=== PATIENT | male | born 1940 | race Caucasian/White ===

== ENCOUNTER 2020-03-17 20:52 | Emergency (ER) | payer OTHER, MEDICARE ==
--- OUTSIDE RECORDS SUMMARY | 2020-03-17 20:54 | XMS REPORT ---
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 [address]-85 Active not defined Allopurinol [facility] [id number] Active not defined protandim NDC 0 Active not defined Glucos-Chondroit [facility] 00134-50730 Active not -MSM Complex defined Tramadol HCl [facility] [id number] 50 MG Orally April 15, Active 1 tablet every 6 hrs 2018 as needed Acetaminophen-Co [facility] [address]-25 Active n ot deine #[address] [facility] [address]-74 Active not defined Super B Complex NDC 0 Active not defined Vitamin C [facility] [address]-37 Active not defined Folic Acid [facility] [address]-54 Active not defined Magnesium NDC 0 Active not defined Amlodipine NDC 0 Active not Besylate defined Bisoprolol [facility] [address]-78 Active not Fumarate defined Atorvastatin [facility] [address]-70 Active not Calcium defined [place] [address] [facility] [address]71 Active not defined Furosemide [facility] [address]-87 Active not defined Levothyroxine [facility] [address]-45 Active not Sodium defined Aspirin [address] [facility] [address]70 Active not defined Results No Known Results Summary Purpose eClinicalWorks Submission
--- OUTSIDE RECORDS SUMMARY | 2020-03-17 20:54 | XMS REPORT ---
:1940 Author Organization [facility] Address [address] [place] [address] Care Team Providers Name Role Phone Unavailable Unavailable Unavailable Problems Condition Condition Condition Status Onset Resolution Last Treatin g Comments Name Details Category Date Date Treatment Clinician Date Pain, Pain, Problem Active joint, joint, shoulder, shoulder, right right Impingement Impingement Problem Active syndrome of syndrome of right right shoulder shoulder Left sided Left sided Problem Active sciatica sciatica Pain of Pain of Problem Active left hip left hip joint joint Primary Primary Problem Active osteoarthri osteoarthri tis, right tis, right shoulder shoulder Traumatic Traumatic Problem Active tear of tear of supraspinat supraspinat us tendon us tendon of right of right shoulder, shoulder, subsequent subsequent encounter encounter Traumatic Traumatic Diagnosis Active complete complete tear of tear of right right rotator rotator cuff, cuff, initial initial encounter encounter Allergies, Adverse Reactions, Alerts Allergy Name Allergy Status Severity Reaction(s) Onset Inactive Treat ing Comments Type Date Date Clinician penicillin Adverse Active Info Not Reaction Available Medications Ordered Filled Start Stop Current Ordering Indication Dosage Frequency Signature Comments Components Medication Medication Date Date Medication? Clinician (SIG) Name Name Tramadol Tramadol Yes Costa 1 tablet HCl HCl 6-03 Matrínez as needed 00:00: 00 Bisoprolol Bisoprolol Yes Costa not Fumarate Fumarate Martínez defined Allopurinol Allopurinol Yes Costa not Martínez defined Super B Super B Yes Costa not Complex Complex Martínez defined Folic Acid Folic Acid Yes Costa not Martínez defined Furosemide Furosemide Yes Costa not Martínez defined Atorvastati Atorvastati Yes Costa not n Calcium n Calcium Martínez defined protandim protandim Yes Costa not Martínez defined Aspirin 81 Aspirin 81 Yes Costa not Martínez defined Glucos-Daron Glucos-Daron Yes Costa not droit-MSM droit-MSM Martínez defined Complex Complex Gabapentin Gabapentin Yes Costa not Martínez defined Amlodipine Amlodipine Yes Costa not Besylate Besylate Martínez defined Magnesium Magnesium Yes Costa not Martínez defined Valsartan Valsartan Yes Costa not Martínez defined [place] 3 [place] 3 Yes Costa not Martínez defined Levothyroxi Levothyroxi Yes Costa not ne Sodium ne Sodium Martínez defined Vitamin C Vitamin C Yes Costa not Martínez defined Acetaminoph Acetaminoph Yes Costa not en-Codeine en-Codeine Martínez defined #3 #3 Xarelto Xarelto Yes Costa not Martínez defined Encounters Start End Encounter Admission Attending Care Care Encounter Date/Time Date/Time Type Type Clinicians Facility Department ID 2020-02-21 2020-02-21 [id number] 09:00:00 09:00:00 [facility] 2019-12-12 2019-12-12 [id number] 13[facility]30:00 13:30:00 [facility] 2019-10-21 2019-10-21 [id number] 08:00:00 08:00:00 [facility] 2019-09-20 2019-09-20 [id number] 10:30:00 10:30:00 [facility] 2019-08-13 2019-08-13 [id number] 15:00:00 15:00:00 [facility] 2019-08-01 2019-08-01 [id number] 15:00:00 15:00:00 [facility] 2019-07-22 2019-07-22 [id number] 09:18:00 09:18:00 [facility] 2019-07-19 2019-07-19 [id number] 11:58:00 11:58:00 [facility] 2019-07-18 2019-07-18 [id number] 13:30:00 13:30:00 [facility] 2019-02-05 2019-02-05 [facility] [id number] 08:30:00 08:30:00 [facility]
--- OUTSIDE RECORDS SUMMARY | 2020-03-17 20:54 | XMS REPORT ---
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 Assessment Pain, joint, shoulder, right M25.511 Active Assessment Traumatic complete tear of right S46.011A [...] Start End Status Dosage System Date Date Amlodipine NDC 0 Active not Besylate defined Gabapentin [facility] [address]-31 Active not defined Allopurinol [facility] [id number] Active not defined [place] 3 [facility] [address]378 Active not defined Folic Acid [facility] [address]-68 Active not defined Furosemide [facility] [address]-83 Active not defined Super B Complex NDC 0 Active not defined Levothyroxine [facility] [address]-78 Active not Sodium defined protandim ND 0 Active not defined Vitamin C [facility] [address]-69 Active not defined Glucos-Chondroit [facility] [address]314 Active not -MSM Complex defined Magnesium NDC 0 Active not defined Tramadol HCl [facility] 97708686103 50 MG Orally April 15, Active 1 tablet every 6 hrs 2018 as needed Bisoprolol [facility] [address]-61 Active not Fumarate defined Atorvastatin [facility] [address]-33 Active not Calcium defined Acetaminophen-Co [facility] [address]-41 Active n ot deine #3 defined Tylenol Extra [facility] [address]-08 Active not Strength defined Valsartan [facility] [address]-98 Active not defined Aspirin 81 [facility] [address]51-55639 Active not defined Results No Known Results Summary Purpose eClinicalWorks Submission
--- OUTSIDE RECORDS SUMMARY | 2020-03-17 20:54 | XMS REPORT ---
:1940 [facility] Team Providers Name Role Phone [...] Start End Status Dosage System Date Date Furosemide [facility] [address]-24 Active not defined Levothyroxine [facility] [address]-76 Active not Sodium defined protandim NDC 0 Active not defined Folic Acid [facility] [address]-64 Active not defined Amlodipine NDC 0 Active not Besylate defined Vitamin C [facility] [address]-03 Active not defined Valsartan [facility] [address]-17 Active not defined Super B Complex NDC 0 Active not defined [place] [address] [facility] [address] Active not defined Glucos-Chondroit [facility] [address] Active not -MSM Complex defined Magnesium NDC 0 Active not defined Bisoprolol [facility] [address]-92 Active not Fumarate defined Tramadol HCl [facility] 15771393679 50 MG Orally April 15, Active 1 tablet every 6 hrs 2019 as needed Atorvastatin [facility] [address]-44 Active not Calcium defined Acetaminophen-Co [facility] [address]-65 Active n ot deine #3 defined Gabap[address] [facility] [address]-29 Active not defined Allopurinol [facility] 24911666536 Active not defined Aspirin [address] [facility] [address] Active not defined Results No Known Results Summary Purpose eClinicalWorks Submission
--- OUTSIDE RECORDS SUMMARY | 2020-03-17 20:55 | XMS REPORT ---
:1940 [facility] Team Providers Name Role Phone [...] Start End Status Dosage System Date Date Aspirin 81 [facility] [address] Active not defined Magnesium NDC 0 Active not defined Vitamin C [facility] [address]-04 Active not defined Allopurinol [facility] 60634724473 Active not defined Tramadol HCl [facility] 25001456200 50 MG Orally April 15, Active 1 tablet every 6 hrs 2018 as needed Glucos-Chondroit [facility] [address]149 Active not -MSM Complex defined Valsartan [facility] [address]-65 Active not defined protandim NDC 0 Active not defined Furosemide [facility] [address]-49 Active not defined Levothyroxine [facility] [address]-39 Active not Sodium defined Bisoprolol [facility] [address]-42 Active not Fumarate defined Xarelto [facility] [address]-66 Active not defined Atorvastatin [facility] [address]-90 Active not Calcium defined Folic Acid [facility] [address]-08 Active not defined Amlodipine NDC 0 Active not Besylate defined Gabapentin [facility] [address]-25 Active not defined [place] 3 [facility] [address] Active not defined Super B Complex NDC 0 Active not defined Acetaminophen-Co [facility] [address]-04 Active n ot deine #3 defined Results No Known Results Summary Purpose eClinicalWorks Submission
--- OUTSIDE RECORDS SUMMARY | 2020-03-17 20:55 | XMS REPORT ---
:1940 [facility] Team Providers Name Role Phone Costa [...] Start End Status Dosage System Date Date Valsartan [facility] [address]-71 Active not defined Allopurinol [facility] 76408508726 Active not defined Vitamin C [facility] [address]-13 Active not defined Aspirin 81 [facility] [address]26 Active not defined Amlodipine ND 0 Active not Besylate defined protandim ND 0 Active not defined Gabapentin [facility] [address]-95 Active not defined [place] 3 [facility] [address]-48728 Active not defined Acetaminophen-Co [facility] [address]-52 Active n ot deine #3 defined Glucos-Chondroit [facility] 34626-81405 Active not -MSM Complex defined Folic Acid [facility] [address]-03 Active not defined Bisoprolol [facility] [address]-86 Active not Fumarate defined Tramadol HCl [facility] 47991860181 50 MG Orally April 15, Active 1 tablet every 6 hrs 2018 as needed Atorvastatin [facility] [address]-75 Active not Calcium defined Super B Complex NDC 0 Active not defined Levothyroxine [facility] [address]-49 Active not Sodium defined Furosemide [facility] [address]-34 Active not defined Magnesium [facility] 0 Active not defined Results No Known Results Summary Purpose eClinicalWorks Submission
[2020-03-17 21:53] LABS: Absolute Lymphocytes (CBC) 1.2 K/uL (0.7-4.9); Basophils % 1.4 % (0-1.3); Hematocrit 28.5 % (39.6-49.0); Lymphocytes % 15.1 % (15.3-44.8); MPV 7.9 fL (7.6-11.3); RBC Red Blood Cell Count 2.81 M/uL (4.33-5.43)
[2020-03-17 21:56] LABS: Protime INR 2.27
[2020-03-17] MEDS ORDERED: NA CHLORIDE 0.9% 1,000 ML ONE (21:57)
[2020-03-17 22:20] LABS: Albumin 3.4 g/dL (3.4-5.0); Bilirubin Direct 0.2 mg/dL (0-0.2); Bilirubin Total 0.5 mg/dL (0.2-1.0); Magnesium 2.5 mg/dL (1.8-2.4); Potassium 4.1 mmol/L (3.5-5.1); Protein, Total 6.7 g/dL (6.4-8.2); Troponin (Emerg Dept Use Only) 0.04 ng/mL (0.0-0.045)
--- NOTE | 2020-03-17 23:20 | EDPHYS ---
Physician Documentation [facility] Name: Steph Dela Cruz Jr Age: 79 yrs Sex: Male : 1940 Arrival Date: 03/17/2020 Time: 20:56 Bed 14 Private MD: ED Physician Dannie Ingram HPI: 03/17 23:35 This 79 yrs old Male presents to ER via EMS with complaints of Fall Injury. tw4 23:35 Details of fall: The patient fell from an upright position, while standing. Onset: The tw4 symptoms/episode began/occurred today. Associated injuries: The patient sustained injury to the head, contusion, hematoma. The patient has not experienced similar symptoms in the past. 23:36 Severity of symptoms: At their worst the symptoms were moderate, in the emergency tw4 department the symptoms are unchanged. The patient has not recently seen a physician. 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 - Social history:: Smoking status: Patient denies any tobacco usage or history of. Patient uses alcohol, on a daily basis. - Immunization history: Last tetanus immunization: unknown. ROS: 23:35 Constitutional: Negative for fever, chills, and weight loss, Eyes: Negative for injury, tw4 pain, redness, and discharge, Cardiovascular: Negative for chest pain, palpitations, and edema, Respiratory: Negative for shortness of breath, cough, wheezing, and pleuritic chest pain, Abdomen/GI: Negative for abdominal pain, nausea, vomiting, diarrhea, and constipation, Back: Negative for injury and pain, MS/Extremity: Negative for injury and deformity, Skin: Negative for injury, rash, and discoloration. 23:35 Neuro: Positive for loss of consciousness, syncope. Exam: 23:37 Eyes: Pupils equal round and reactive to light, extra-ocular motions intact. Lids and tw4 lashes normal. Conjunctiva and sclera are non-icteric and not injected. Cornea within normal limits. Periorbital areas with no swelling, redness, or edema. Chest/axilla: Normal chest wall appearance and motion. Nontender with no deformity. No lesions are appreciated. Cardiovascular: Regular rate and rhythm with a normal S1 and S2. No gallops, murmurs, or rubs. Normal PMI, no JVD. No pulse deficits. Respiratory: Lungs have equal breath sounds bilaterally, clear to auscultation and percussion. No rales, rhonchi or wheezes noted. No increased work of breathing, no retractions or nasal flaring. Abdomen/GI: Soft, non-tender, with normal bowel sounds. No distension or tympany. No guarding or rebound. No evidence of tenderness throughout. Back: No spinal tenderness. No costovertebral tenderness. Full range of motion. MS/ Extremity: Pulses equal, no cyanosis. Neurovascular intact. Full, normal range of motion. Neuro: Awake and alert, GCS 15, oriented to person, place, time, and situation. Cranial nerves II-XII grossly intact. Motor strength 5/5 in all extremities. Sensory grossly intact. Cerebellar exam normal. Normal gait. 23:37 Head/face: Noted is contusion, that is deep, of the forehead, nose and left eye. Vital Signs: 20:50 BP 137 / 83; Pulse 62; Resp 16; Temp 98.3; Pulse Ox 97% on R/A; Weight 81.65 kg; Height 5 ft. 6 in. (167.64 cm); Pain 5/10; 21:50 BP 132 / 80; Pulse 66; Resp 18; Temp 98.3; Pulse Ox 97% on R/A; sg 22:50 BP 136 / 82; Pulse 62; Resp 16; Pulse Ox 97% on R/A; sg 23:38 BP 152 / 75; Pulse 80; Resp 18; Pulse Ox 98% ; mg2 20:50 Body Mass Index 29.05 (81.65 kg, 167.64 cm) Wheeler Coma Score: 23:38 Eye Response: spontaneous(4). Verbal Response: oriented(5). Motor Response: obeys mg2 commands(6). Total: 15. Trauma Score (Adult): 23:38 Eye Response: spontaneous(1); Verbal Response: oriented(1); Motor Response: obeys mg2 commands(2); Systolic BP: > 89 mm Hg(4); Respiratory Rate: 10 to 29 per min(4); Handy Score: 15; Trauma Score: 12 MDM: 21:15 Patient medically screened. tw4 23:37 Differential diagnosis: abrasion, closed head injury, contusion, fracture, laceration, tw4 multiple trauma. Data reviewed: vital signs, nurses notes. Data reviewed: lab test result(s), cardiac enzymes, CBC, hepatic panel, EKG, radiologic studies, CT scan, plain films. Data interpreted: Pulse oximetry: Interpretation: normal. Counseling: I had a detailed discussion with the patient and/or guardian regarding: the historical points, exam findings, and any diagnostic results supporting the discharge/admit diagnosis, lab results, radiology results. ED course: Pt's CT scan revealed subarachnoid hemorrhage in the right occipital lobe. Pt will need higher level of care.. ED course: D/W Dr Moody at [id number] who will accept the transfer. 03/17 21:38 Order name: Basic Metabolic Panel; Complete Time: 23:24 4 03/17 23:24 Interpretation: Normal except: NA 135; CL 97; BUN 29; GFR 77. tw4 03/17 21:38 Order name: CBC with Diff; Complete Time: 23:24 03/17 23:24 Interpretation: Normal except: RBC 2.81; HGB 9.4; HCT 28.5; MCV 101.6; RDW 16.2; LYM% tw4 15.1; BASO% 1.4. 03/17 21:38 Order name: LFT's; Complete Time: 23:24 03/17 23:25 Interpretation: Within normal limits. 03/17 21:38 Order name: Magnesium; Complete Time: 23:24 03/17 23:25 Interpretation: Within normal limits: MG 2.5. 03/17 21:38 Order name: NT PRO-BNP; Complete Time: 23:24 03/17 23:25 Interpretation: Abnormal: NT PRO-BNP 1355. 03/17 21:38 Order name: PT-INR; Complete Time: 23:24 03/17 23:25 Interpretation: Abnormal: PT 26.4. 03/17 21:27 Order name: CT Head C Spine ah 03/17 21:38 Order name: Troponin (emerg Dept Use Only); Complete Time: 23:24 [facility] 03/17 23:25 Interpretation: Within normal limits: TROPED 0.04. [facility] 03/17 21:38 Order name: XRAY Chest (1 view) [facility] 03/17 21:38 Order name: Alcohol Level; Complete Time: 23:24 [facility] 03/17 23:25 Interpretation: Abnormal: ETOH 148. 03/17 21:38 Order name: Urine Drug Screen; Complete Time: 23:57 [facility] 03/17 23:57 Interpretation: Normal except: OPI POSITIVE. [facility] 03/17 21:58 Order name: CT Facial Bones W/O Con [facility] 03/17 23:04 Order name: Urine Dipstick--Ancillary (enter results); Complete Time: 23:57 [facility] 03/17 23:57 Interpretation: Normal except: UPROT 2+. [facility] 03/17 21:38 Order name: EKG; Complete Time: 21:39 [facility] 03/17 21:38 Order name: Cardiac monitoring; Complete Time: 21:47 [facility] 03/17 21:38 Order name: EKG - Nurse/Tech; Complete Time: 22:18 [facility] 03/17 21:38 Order name: IV Saline Lock; Complete Time: 21:47 03/17 21:38 Order name: Labs collected and sent; Complete Time: 21:47 [facility] 03/17 21:38 Order name: O2 Per Protocol; Complete Time: 21:47 [facility] 03/17 21:38 Order name: O2 Sat Monitoring; Complete Time: 21:47 03/17 23:21 Order name: NPO; Complete Time: 23:22 sg EC/06 02:27 Rate is 73 beats/min. Rhythm is regular with Right bundle branch block. QRS [place] is tw4 Normal. OK interval is normal. QRS interval is normal. QT interval is normal. No Q waves. T waves are Inverted in leads V1, V2. No ST changes noted. Clinical impression: RBBB. Interpreted by me. Reviewed by me. Administered Medications: 03/17 11:42 Drug: Zofran (Ondansetron) 4 mg Route: IVP; Site: right antecubital; sg 21:54 Drug: NS 0.9% 1000 ml Route: IV; Rate: 1 bolus; Site: right antecubital; mg2 23:30 Drug: Tetanus-Diphtheria Toxoid Adult 0.5 ml {Returner: [employer]. Exp: 12/27/2021. Lot #: [id number]. } Route: IM; Site: left deltoid; 23:40 Drug: Keppra 1000 mg Route: IV; Rate: calculated rate; Site: right antecubital; mg2 23:47 Drug: morphine 2 mg Route: IVP; Site: right antecubital; sg Disposition: 03/17/20 23:19 Transfer ordered to [facility]. Diagnosis are Subarachnoid hemmorhage, Concussion with loss of consciousness of 30 minutes or less, Fracture of nasal bones, Alcohol abuse with intoxication, uncomplicated. - Reason for transfer: Higher level of care. - Accepting physician is Dr Moody. - Condition is Stable. - Problem is new. - Symptoms are unchanged. Signatures: Dispatcher [employer] EDMS Roland Abreu RN RN Dannie Ingram MD MD [facility] Yuri Mccord RN RN [facility] Tati Shafer RN RN Corrections: (The following items were deleted from the chart) 23:20 23:19 03/17/2020 23:19 Transfer ordered to [facility]. Diagnosis is tw4 Subarachnoid hemmorhage; Concussion with loss of consciousness of 30 minutes or less. Reason for transfer: Higher level of care. Accepting physician is Dr Moody. Condition is Stable. Problem is new. Symptoms are unchanged. [facility] 23:35 23:20 03/17/2020 23:19 Transfer ordered to [facility]. Diagnosis is tw4 Subarachnoid hemmorhage; Concussion with loss of consciousness of 30 minutes or less; Fracture of nasal bones. Reason for transfer: Higher level of care. Accepting physician is Dr Moody. Condition is Stable. Problem is new. Symptoms are unchanged. [facility] 03/18 00:13 03/17 23:35 03/17/2020 23:19 Transfer ordered to [facility]. Diagnosis is Subarachnoid hemmorhage; Concussion with loss of consciousness of 30 minutes or less; Fracture of nasal bones; Alcohol abuse with intoxication, uncomplicated. Reason for transfer: Higher level of care. Accepting physician is Dr Moody. Condition is Stable. Problem is new. Symptoms are unchanged. tw4
--- NOTE | 2020-03-17 23:20 | ER ---
Nurse's Notes [facility] Name: Steph Dela Cruz Jr Age: 79 yrs Sex: Male : 1940 Arrival Date: 03/17/2020 Time: 20:56 Bed 14 Private MD: Diagnosis: Subarachnoid hemmorhage;Concussion with loss of consciousness of 30 minutes or less;Fracture of nasal bones;Alcohol abuse with intoxication, uncomplicated Presentation: 03/17 20:50 Chief complaint: EMS states: pt had possible syncopal event and fell and hit his nose ah and forehead about 1 hour ago. Pt does not remember what he was doing when this happened. He states that he has had aprox 3 shots of gin. Vitals per EMS 140/78, 80, BS 98, 80. Coronavirus screen: Proceed with normal triage. Patient denies a cough. Patient denies shortness of breath or difficulty breathing. Patient denies measured and/or subjective temperature greater than 100.4F prior to today's visit. Patient denies travel on a cruise ship or to a country the [facility] currently lists as an affected area. Patient denies contact with known and/or suspected case of COVID-19. Ebola Screen: No symptoms or risks identified at this time. Initial Sepsis Screen: Does the patient meet any 2 criteria? No. Patient's initial sepsis screen is negative. Does the patient have a suspected source of infection? No. Patient's initial sepsis screen is negative. Risk Assessment: Do you want to hurt yourself or someone else? Patient reports no desire to harm self or others. Onset of symptoms was March 17, 2020. 20:50 Method Of Arrival: EMS 20:50 Acuity: MARILYN 3 20:50 Care prior to arrival: IV initiated. 20 GA, in the right antecubital area. Mechanism of sg Injury: Fall from standing position. Trauma event details: Injury occurred in the [facility], Injury occurred: at home. Injury occurred: March 18, 2020. Triage Assessment: 22:00 General: Appears in no apparent distress. uncomfortable, well groomed, well developed, sg well nourished. General: Behavior is calm, cooperative, appropriate for age. Neuro: Level of Consciousness is awake, alert, obeys commands, Oriented to person, place, time, Speech is normal, Facial symmetry appears normal. Cardiovascular: Heart tones S1 S2 present Patient's skin is warm and dry. Chest pain is denied. Respiratory: Airway is patent Respiratory effort is even, unlabored, Respiratory pattern is regular, symmetrical. GI: Abdomen is round non-distended, Patient currently denies nausea, vomiting. : No signs and/or symptoms were reported regarding the genitourinary system. Derm: Skin is pink, warm \T\ dry. Musculoskeletal: Circulation, motion, and sensation intact. Range of motion: intact in all extremities, Reports pain in right wrist, right leg and left leg. Trauma Activation: Alert Physician: ED Physician; Name: ; Notified At: ; Arrived At: Physician: General Surgeon; Name: ; Notified At: ; Arrived At: Physician: Radiology; Name: ; Notified At: ; Arrived At: Physician: Respiratory; Name: ; Notified At: ; Arrived At: Physician: Lab; Name: ; Notified At: ; Arrived At: 20:50 see paper charting sg Historical: - Allergies: 21:17 PENICILLINS; - Home Meds: 21:17 aspirin 81 mg oral TbEC [Active]; Xarelto oral oral [Active]; amlodipine oral [Active]; atorvastatin oral oral [Active]; bisoprolol fumarate oral oral [Active]; Furosemide Oral [Active]; gabapentin oral oral [Active]; - PMHx: 23:10 CHF; Hypertension; sg - PSHx: 21:17 quadruple bypass; Cholecystectomy; right shoulder; 23:06 CABG; - Immunization history:: Adult Immunizations unknown. - Social history:: Smoking status: Patient denies any tobacco usage or history of. Patient uses alcohol, on a daily basis. - Immunization history: Last tetanus immunization: unknown. Screenin:18 Abuse screen: Denies threats or abuse. Nutritional screening: No deficits noted. Tuberculosis screening: No symptoms or risk factors identified. Fall Risk None identified. Primary Survey: 21:55 NO uncontrolled hemorrhage observed. A: The patient is alert. Airway: patent, No sg supplemental oxygen in use on arrival. Oral cavity: clear. Breathing/Chest: Respiratory pattern: regular, Respiratory effort: spontaneous, unlabored, Breath sounds: clear, bilaterally. Chest inspection: symmetrical rise and fall of the chest. Circulation: Heart tones present. Pulses: palpable right radial artery and left radial artery. Skin color: pink, Skin temperature: warm, dry. Disability Alert. Exposure/Environment: All clothing and personal items were removed. Forensic evidence collection is not deemed to be indicated at this time. Items placed in patient belonging bag. There is no evidence of uncontrolled external bleeding. Obvious injury(ies) are noted at this time: deformity observed to nose A warming method has been applied: A warm blanket has been provided to the patient. 22:00 Reassessment Airway Airway Patent Oxygen No O2 Oral cavity Clear Breathing/Chest sg Respiratory pattern Regular Respiratory effort Spontaneous Unlabored Breath sounds Clear Chest inspection Symmetrical Circulation Heart tones Present Color Hoople Temperature Warm Disability Alert. Secondary Survey: 21:50 HEENT: Head Other deformity, swelling and bruising to the nose, swelling noted to the sg forehead, pt reports pain to the base of skull as well as swelling noted Eyes: No injury or deformity noted. Ears: clear bilaterally. Nose: bleeding noted to bilateral nares. dried blood noted. Gastrointestinal: Abdomen is soft, non-distended, Bowel sounds present in all quadrants. : No signs and/or symptoms were reported regarding the genitourinary system. Musculoskeletal: Circulation, motion, and sensation intact. Range of motion: intact in all extremities. Assessment: 21:45 General: Appears in no apparent distress. comfortable, Behavior is calm, cooperative. mg2 Pain: Complains of pain in face. Neuro: Level of Consciousness is awake, alert, obeys commands, Oriented to person, place, time, situation. Cardiovascular: Capillary refill < 3 seconds Patient's skin is warm and dry. Respiratory: Airway is patent Respiratory effort is even, unlabored, Respiratory pattern is regular, symmetrical. GI: No signs and/or symptoms were reported involving the gastrointestinal system. : No signs and/or symptoms were reported regarding the genitourinary system. EENT: Nares dry blood noted in both nares. Derm: Skin is pink, warm \T\ dry. Musculoskeletal: Circulation, motion, and sensation intact. Capillary refill < 3 seconds. 22:01 Reassessment: pt gone to CT at this time via stretcher. ah 22:07 Reassessment: Pt returned from CT. ah 23:39 Reassessment: report given to AWILDA Maldonado or Jessica Haddad. [facility] 23:55 Reassessment: pt daughter, Bea Bolanos at bedside at this time, awaiting pt transport sg to receiving facility. 03/18 00:00 Reassessment: Patient appears in no apparent distress at this time. a pt belongings sg paper has been filled out and placed on the chart, 455.00 angulo money has been counted infront of the patient with his daughter Bea and witnessed by Emmanuel, a deposit slip has also been given to the daughter from the patient. the patient requesting to keep his brown leather like satchel in his possession for transfer, in which the contents of this satchel are unknown to me. 00:13 Reassessment: Patient appears in no apparent distress at this time. report given to suly Perez with EMS. Vital Signs: 03/17 20:50 BP 137 / 83; Pulse 62; Resp 16; Temp 98.3; Pulse Ox 97% on R/A; Weight 81.65 kg; Height ah 5 ft. 6 in. (167.64 cm); Pain 5/10; 21:50 BP 132 / 80; Pulse 66; Resp 18; Temp 98.3; Pulse Ox 97% on R/A; sg 22:50 BP 136 / 82; Pulse 62; Resp 16; Pulse Ox 97% on R/A; sg 23:38 BP 152 / 75; Pulse 80; Resp 18; Pulse Ox 98% ; mg2 20:50 Body Mass Index 29.05 (81.65 kg, 167.64 cm) ah Comins Coma Score: 23:38 Eye Response: spontaneous(4). Verbal Response: oriented(5). Motor Response: obeys mg2 commands(6). Total: 15. Trauma Score (Adult): 23:38 Eye Response: spontaneous(1); Verbal Response: oriented(1); Motor Response: obeys mg2 commands(2); Systolic BP: > 89 mm Hg(4); Respiratory Rate: 10 to 29 per min(4); Handy Score: 15; Trauma Score: 12 ED Course: 20:56 Patient arrived in ED. ds1 21:05 Dannie Ingram MD is Attending Physician. tw4 21:11 Triage completed. 21:30 Patient has correct armband on for positive identification. Bed in low position. Call light in reach. Side rails up X2. 21:47 Roland Abreu, AWILDA is Primary Nurse. sg 21:53 XRAY Chest (1 view) In Process Unspecified. EDMS 22:00 Response to oxygen therapy: symptoms improved. Thermoregulation: warm blanket given to sg patient. 22:17 CT Head C Spine In Process Unspecified. EDMS 22:17 CT Facial Bones W/O Con In Process Unspecified. EDMS 22:44 Initial lab(s) drawn, by me, sent to lab. Maintain EMS IV. Dressing intact. Site clean sg \T\ dry. Gauge \T\ site: 20 G in RAC. IV is patent, is intact. 23:13 Arm band placed on. mg2 23:13 No provider procedures requiring assistance completed. Inserted saline lock: 20 gauge mg2 in right antecubital area, using aseptic technique. Blood collected. by JENIFFER Watkins. 05 00:16 Patient transferred, IV remains in place. intact, bleeding controlled, No sg redness/swelling at site. Pressure dressing applied. 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 Exp: 12/27/2021. Lot #: [id number]. } Route: IM; Site: left deltoid; 23:40 Drug: Keppra 1000 mg Route: IV; Rate: calculated rate; Site: right antecubital; mg2 23:47 Drug: morphine 2 mg Route: IVP; Site: right antecubital; sg Intake: 23:38 PO: 0ml; Total: 0ml. mg2 Outcome: 23:19 ER care complete, transfer ordered by . tw4 05 00:13 Patient left the ED. sg 00:15 Instructed on the need for transfer, safety practices, Demonstrated understanding of instructions. 00:16 Transferred by ground EMS to [facility], Transfer form completed. X-rays sent sg w/ patient. 00:16 Condition: stable 00:16 Patient's length of stay in the Emergency Department was greater than 2 hours. Signatures: Dispatcher [employer] EDMS Roland Abreu RN RN Ora Grijalva ds1 Dannie Ingram MD MD tw4 Yuri Mccord, RN RN mg2 Tati Shafer, AWILDA RN
[2020-03-17 23:38] LABS: Barbiturates NEGATIVE (NEGATIVE); Benzodiazepines NEGATIVE (NEGATIVE); Cocaine NEGATIVE (NEGATIVE); METHAMPHETAM NEGATIVE (NEGATIVE); Methadone NEGATIVE (NEGATIVE); Opiates POSITIVE (NEGATIVE); Phencyclidine NEGATIVE (NEGATIVE); THC Cannibis NEGATIVE (NEGATIVE)
[2020-03-17] MEDS ORDERED: LEVETIRACETAM 500 MG/5 ML VIAL IV ONE (23:38)
[2020-03-17] MEDS ORDERED: NA CHLORIDE 0.9% 100 ML IV ONE (23:39)
[2020-03-17] MEDS ORDERED: TETANUS & DIPHTHERIA TOX,ADULT 0.5 ML VIAL ONE (23:41)
[2020-03-17] MEDS ORDERED: MORPHINE 2 MG/ML SYR ONE (23:49)
[2020-03-17] MEDS ORDERED: ONDANSETRON 4 MG/2 ML VIAL ONE (23:49)
[2020-03-17 23:53] LABS: Urine Blood NEGATIVE (NEG); Urine Glucose NEGATIVE (NEG); Urine Protein 2+ (NEG); Urine Specific Gravity 1.015 (1.005-1.030); Urine pH 5.5 (5.0-7.0)
[2020-03-18 00:50] VITALS: TEMP 98.3
[2020-03-18 00:56] VITALS: BP 152/75; O2SAT 98
--- NOTE | 2020-03-18 07:10 | RAD REPORT ---
EXAM DESCRIPTION: RAD - Chest Single View - 03/17/2020 9:53 pm CLINICAL HISTORY: ..Fall, head, neck and chest injury, prior CABG COMPARISON: Two view chest September 2013, two view chest July 2010 TECHNIQUE: AP portable chest image was obtained 03/17/2020 9:53 pm . FINDINGS: Lung volumes are normal. Right lung field is clear of any acute process. Cardiomegaly is p resent. There is hazy opacification in the mid and lower left lung field partially obscuring the hear t border. This was seen on prior imaging and is probably related to post CABG scarring and pericardia l fat. This does limit left lung field assessment but no focal consolidations seen. Stable cardiomegaly is present without acute vascular engorgement. Baseline could mask the earliest stages of failure or volume overload. No measurable pleural effusion and no pneumothorax. No acute john ne finding. Rib detail is limited on portable imaging. 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 No acute aortic findings suspected. IMPRESSION: Cardiomegaly without significant failure or volume overload findings. Very early or mild forms could be masked by the baseline findings. No acute lung parenchymal process seen. Post CABG changes partially obscure the left lung field. No gross acute bone process seen. Rib cage detail is limited. 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 Follow-up can be obtained as warranted.
--- NOTE | 2020-03-18 10:26 | RAD REPORT ---
EXAM DESCRIPTION: CT - Facial Bones W/ Mpr - 03/17/2020 11:19 pm EXAM DESCRIPTION: Facial Bones W/ Mpr CLINICAL HISTORY: 79 years Male, FACIAL PAIN COMPARISON: None. TECHNIQUE: Multiple, helical axial tomographic images were obtained of the facial bones without intr avenous contrast. Coronal and sagittal reformatted images were obtained. This exam was performed acco rding to our departmental dose-optimization program, which includes automated exposure control, adjus tment of the mA and/or kV according to patient size and/or use of iterative reconstruction technique. FINDINGS: There is an age-indeterminate minimally displaced fracture through the bilateral nasal bon es. Hyperdensity within most of the left globe is demonstrated. No evidence of extraconal hemorrhage. There is minimal paranasal sinus mucosal thickening. Carotid atherosclerosis is present. There is soft tissue swelling near the nasal bones. Small amount of frontal scalp swelling is present. Degenerative changes of the cervical spine are noted. IMPRESSION: 1. Age-indeterminate fracture of the bilateral nasal bones. 2. Hyperdensity throughout the left globe which can be seen with prior surgery (such as injection of silicone oil) or acute intraocular or vitreous hemorrhage, clinical correlation recommended. Electronically signed by: Anjel Claros MD 03/17/2020 11:09 PM CDT Due to temporary technical issues with the PACS/Fluency reporting system, reports are being signed by the in house radiologist as a courtesy to ensure prompt reporting. The interpreting radiologist is f ully responsible for the content of the report.
--- NOTE | 2020-03-18 10:29 | RAD REPORT ---
EXAM DESCRIPTION: CT - CTHCSPWOC - 03/17/2020 11:19 pm ADDENDUM #1 THIS REPORT CONTAINS FINDINGS THAT MAY BE CRITICAL TO PATIENT CARE: The findings were verbally discu ssed via telephone conference with Dr. Dannie Ingram by Dr. Courtney Black on 03/17/2020 11:03 PM C DT .The results were acknowledged and understood. Electronically signed by: Afia Black MD 03/17/2020 11:04 PM CDT End of Addendum EXAM DESCRIPTION: CT Head and Cervical Spine Without Intravenous Contrast CLINICAL HISTORY: The patient is 79 years old and is Male; fall TECHNIQUE: Axial computed tomography images of the head/brain and cervical spine without intravenous contrast. Sagittal and coronal reformatted images were created and reviewed. This CT exam was pe rformed using one or more of the following dose reduction techniques: automated exposure control, a djustment of the mA and/or kV according to patient size, and/or use of iterative reconstruction techn ique. COMPARISON: No relevant prior studies available. FINDINGS: BRAIN: There is diffuse cerebral atrophy present, consistent with this patient's age. There is patchy hypoattenuation of the deep white matter which is non-specific, but most likely owing to chronic small vessel ischemic change in a patient of this age group. Focal area of subarachnoid hemorrhage along the right occipital lobe is present. No other areas of hemorrhage are seen. The gra y-white differentiation is maintained. VENTRICLES: There is diffuse prominence of the ventricles, which is likely related to central at rophy. SKULL: No acute fracture. SINUSES: Unremarkable as visualized. No acute sinusitis. MASTOID AIR CELLS: Unremarkable as visualized. No mastoid effusion. ORBITS: The left globe is hyperdense. VERTEBRAE: The vertebral body heights and alignment are maintained. No acute fracture. DISCS/SPINAL CANAL/NEURAL FORAMINA: There is multi-level intervertebral disc height loss. There are disc-osteophyte complexes at several levels, with associated mild spinal canal narrowing. There i s also facet hypertrophy and uncovertebral joint osteophytosis, with associated multilevel neural for aminal narrowing. SOFT TISSUES: The soft tissues are normal. LUNG APICES: The lung apices are clear. IMPRESSION: 1. Small amount of subarachnoid hemorrhage within the right occipital lobe. 2. Moderate spondylosis of the cervical spine without acute findings. Electronically signed by: Afia Black MD 03/17/2020 10:57 PM CDT Due to temporary technical issues with the PACS/Fluency reporting system, reports are being signed by the in house radiologist as a courtesy to ensure prompt reporting. The interpreting radiologist is f ully responsible for the content of the report.
--- NOTE | 2020-03-18 16:19 | EKG ---
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
== END 2020-03-18 00:13 | disposition short-term general hospital (02) ==
LOC: ER 20:52
DX: S06.6X1A Traumatic subarachnoid hemorrhage with loss of consciousness of 30 minutes or less, initial encounter (principal); S02.2XXA Fracture of nasal bones, initial encounter for closed fracture; F10.129 Alcohol abuse with intoxication, unspecified; W19.XXXA Unspecified fall, initial encounter; Y93.89 Activity, other specified; Y92.9 Unspecified place or not applicable; I10 Essential (primary) hypertension; I50.9 Heart failure, unspecified; Z23 Encounter for immunization; Z79.01 Long term (current) use of anticoagulants; Z79.82 Long term (current) use of aspirin; Z95.1 Presence of aortocoronary bypass graft; Z88.0 Allergy status to penicillin
CPT/HCPCS: 93005; 85025; 80048; 36415; 80320; 83735; 85610; 80076; 80307 ×8; 81003; 84484; 83880; 70450; 72125; 70486; 76377; 71045; 90471; 90714; 96375; 96374; 99285; J2270; J1953; J7030; J2405

== ENCOUNTER 2020-07-21 17:58 | Observation (INO) | payer OTHER, MEDICARE ==
--- OUTSIDE RECORDS SUMMARY | 2020-07-21 17:59 | XMS REPORT | Clinical Summary ---
:1940 Author Organization [facility] Address [address] [place] [id number] Care Team Providers Name Role Phone Asked, No Pcp Primary Care Provider Unavailable Allergies Not on File Medications Not on file Active Problems Not on file Social History Tobacco Use Types Packs/Day Years Used Date Never Assessed Sex Assigned at Date Recorded Not on file Job Start Date Occupation Industry Not on file Not on file Not on file Travel History Travel Start Travel End No recent travel history available. 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
--- OUTSIDE RECORDS SUMMARY | 2020-07-21 18:00 | XMS REPORT ---
:1940 [facility] Team Providers Name Role Phone [...] Start End Status Dosage System Date Date Allopurinol [facility] [id number] Active not defined Aspirin 81 [facility] [address] Active not defined Vitamin C [facility] [address]-28 Active not defined Super B Complex NDC 0 Active not defined Furosemide [facility] [address]-28 Active not defined protandim NDC 0 Active not defined Valsartan [facility] [address]-87 Active not defined Acetaminophen-Cod [facility] [address]-89 Active not eine #3 defined Xarelto [facility] [address]-55 Active not defined [place] 3 [facility] [address] Active not defined Magnesium NDC 0 Active not defined Gabapentin [facility] [address]-53 Active not defined Bisoprolol [facility] [address]-24 Active not Fumarate defined Glucos-Chondroit- [facility] [address] Active no t MSM Complex defined Amlodipine NDC 0 Active not Besylate defined Levothyroxine [facility] [address]-97 Active not Sodium defined Atorvastatin [facility] [address]-73 Active not Calcium defined Folic Acid [facility] [address]-01 Active not defined Results No Known Results Summary Purpose eClinicalWorks Submission
--- OUTSIDE RECORDS SUMMARY | 2020-07-21 18:00 | XMS REPORT | Clinical Summary ---
:1940 Author Organization [facility] Address [address] [place] [address] Care Team Providers Name Role Phone Sharpless Primary Care Provider Allergies Active Allergy Reactions Severity Noted Date Comments Penicillins Rash Low 08/04/2017 Medications Medication Sig Dispensed Refills Start Date End Date Status allopurinol (ZYLOPRIM) Take 300 mg by 0 Active 300 MG tablet mouth daily. amLODIPine (NORVASC) 5 Take 5 mg by 0 Active MG tablet mouth daily. bisoprolol 2.5 mg Take 5 mg by 0 Active halftab half tablet mouth daily. gabapentin (NEURONTIN) Take 600 mg by 0 Active 600 MG tablet mouth 3 (three) times daily. atorvastatin (LIPITOR) Take 80 mg by 0 Active 80 MG tablet mouth daily. furosemide (LASIX) 20 Take 20 mg by 0 Active MG tablet mouth 2 (two) times daily. losartan (COZAAR) 50 MG Take 50 mg by 0 Active tablet mouth daily. omega-3 fatty Take 2 g by mouth 0 Active acids-fish oil 2 (two) times 340-1,000 mg Cap per daily. capsule magnesium 30 mg tablet Take 30 mg by 0 Active mouth 2 (two) times daily. ascorbic acid, vitamin Take 1,000 mg by 0 Active C, (VITAMIN C) 1000 MG mouth daily. tablet B-complex with vitamin Take 1 tablet by 0 Active C tablet mouth daily. aspirin 81 MG EC tablet Take 81 mg by 0 Active mouth daily. glucosamine-chondroitin Take 1 tablet by 0 Active 500-400 mg tablet mouth 3 (three) times daily. Active Problems Not on file Social History Tobacco Use Types Packs/Day Years Used Date Never Smoker Alcohol Use Drinks/Week oz/Week Comments Yes 2 Glasses of wine 1.2 Sex Assigned at Date Recorded Not on file Job Start Date Occupation Industry Not on file Not on file Not on file Travel History Travel Start Travel End No recent travel history available. Last Filed Vital Signs Not on file Plan of Treatment Not on file Results Not on fileafter 07/21/2019 Insurance Payer Benefit Plan / Group Subscriber ID Type Phone A ddress MEDICARE MEDICARE A B xxxxxxxxxx Medicare MCR SUPPLEMENT/INDIVIDUAL AARP/[facility] xxxxxxxxxxx [facility]
--- OUTSIDE RECORDS SUMMARY | 2020-07-21 18:00 | XMS REPORT | Continuity of Care Document ---
:1940 Author Organization [facility] t Address [address] [place] [address] Care Team Providers Name Role Phone Asked, Pcp Primary Care Physician Unavailable Lexa PIERRE, Gene Attending Clinician Problems Condition Condition Condition Status Onset Resolution Last Treating Co mments Source Name Details Category Date Date Treatment Clinician Date Pain, Pain, Problem Active [facility] shoulder, Adeel emy right right l Outpat[facility] ent Clinics Impingemen Impingemen Problem Active [facility] t syndrome t syndrome Brenda kes - of right of right Memori a shoulder shoulder l Outpati ent Clinics Left sided Left sided Problem Active [facility] sciatica sciatica [facility] Pain of Pain of Problem Active [facility] left hip left hip [facility] Primary 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 - itis, itis, Memoria right right l shoulder shoulder Outpat i ent Clinics Traumatic Traumatic Problem Active [facility] tear of tear of [facility] - supraspina supraspina Me moria tus tendon tus tendon l of right of right Outpat i shoulder, shoulder, ent subsequent subsequent Cl inics encounter encounter Traumatic Traumatic Diagnosis Active [facility] complete complete [facility] - tear of tear of Memoria right right l rotator rotator Outpati cuff, cuff, ent initial initial Clinics encounter encounter Allergies, Adverse Reactions, Alerts Allergy Allergy Status Severity Reaction(s) Onset Inactive Treating Comm ents Source Name Type Date Date Clinician Penicill Propensi Active Rash [facility] ins [facility] to 08-04 [facility] - adverse 00:00: Medical reaction 00 Center s penicill Adverse Active Info Not [facility] in Reaction Available [facility] - [facility] Clinics Social History Social Habit Start Date Stop Date Quantity Comments Source Sex Assigned At [facility] Smoking Status Start Date Stop Date Source Never smoker [place] Medications Ordered Filled Start Stop Current Ordering Indication Dosage Frequency Signature Comments Components Source Medication Medication Date Date Medication? Clinician (SIG) Name Name glucosamine Yes 1{tbl} [id number] Take [address] [facility] -chondroiti 08-04 [id number] tablet by [facility] - n 500-400 13:02: 3D mouth 3 Medic al mg tablet 15 (three) Center times daily. aspirin 81 Yes 81mg QD Take [address] MG EC 08-04 by mouth [facility] - tablet 12:45: daily. Medical 59 Center gabapentin Yes 600mg [id number] Take [address] [facility] (NEURONTIN) 08-04 [id number] mg by L ukes - 600 MG 12:34: 3D mouth 3 Medical tablet 06 (three) Center times daily. atorvastati Yes 80mg QD Take [address] [facility] n (LIPITOR) 08-04 by mouth Luke s - 80 MG 12:34: daily. Medical tablet 06 Center furosemide Yes 20mg Q.5D Take [address] (LASIX) 20 08-04 by mouth 2 [place] - MG tablet 12:34: (two) Medical 06 times Center daily. losartan Yes 50mg QD Take [address] [facility] (COZAAR) 50 08-04 by mouth Luke s - MG tablet 12:34: daily. Medica l 06 Center omega-3 Yes 2g Q.5D Take [address] [facility] fatty 9-22 by mouth 2 [facility] - acids-fish 12:34: (two) Medica l oil 06 times Center 340-1,000 daily. mg Cap per capsule magnesium Yes 30mg Q.5D Take [address] 30 mg 9-22 by mouth 2 [facility] - tablet 12:34: (two) Medical 06 times Center daily. ascorbic 2017 Yes 1000mg QD Take 1,[address] acid, 9-22 mg by [facility] - vitamin C, 12:34: mouth Medica l (VITAMIN C) 06 daily. Center 1000 MG tablet B-complex Yes 1{tbl} QD Take [address] with 9-22 tablet by [facility] - vitamin C 12:34: mouth Medical tablet 06 daily. [place] allopurinol Yes 300mg QD Take [address] (ZYLOPRIM) 9-22 mg by [facility] - 300 MG 12:34: mouth Medical tablet 05 daily. [place] amLODIPine Yes 5mg QD Take [address] (NORVASC) 5 9-22 by mouth Luke s - MG tablet 12:34: daily. Medica l 05 Center bisoprolol Yes 5mg QD Take [address] 2.5 mg 9-22 by mouth [facility] - halftab 12:34: daily. Medical half tablet 05 Center Bisoprolol Bisoprolol Yes [place] not [facility] Fumarate Fumarate [place] defined [facility] Allopurinol Allopurinol Yes [place] [facility] [place] defined [facility] Super B Super B Yes [place] not [facility] Complex Complex [place] defined [facility] Furosemide Furosemide Yes [place] [facility] [place] defined [facility] Atorvastati Atorvastati Yes [place] not [facility] n Calcium n Calcium [place] defined Brenda kes - [facility] protandim protandim Yes [place] [facility] [place] defined [facility]ics Aspirin 81 Aspirin 81 Yes [place] not [facility] [place] defined [facility]ics Glucos-Daron Glucos-Daron Yes [place] not [facility] droit-MSM droit-MSM [place] defined Brenda kes - Complex Complex [facility] Gabapentin Gabapentin Yes [place] [facility] [place] defined [facility] Amlodipine Amlodipine Yes [place] [facility] Besylate Besylate [place] defined [facility] Magnesium Magnesium Yes [place] not [facility] [place] defined [facility] Valsartan Valsartan Yes [place] not [facility] [place] defined [facility] [place] 3 [place] 3 Yes [place] [facility] [place] defined [facility] Levothyroxi Levothyroxi Yes [place] [facility] ne Sodium ne Sodium [place] defined Brenda kes - [facility] Vitamin C Vitamin C Yes [place] not [facility] [place] defined [facility] Acetaminoph Acetaminoph Yes [place] not [facility] en-Codeine en-Codeine [place] defined [facility] - #3 #3 [facility] Xarelto Xarelto Yes [place] [facility] [place] defined [facility] Folic Acid Folic Acid Yes [place] not [facility] [place] defined [facility] Procedures This patient has no known procedures. Plan of Care Planned Activity Planned Date Details Comments Source Future Scheduled 2020-08-13 INFLUENZA VACCINE [place] [facility] 00:00:00 [code = INFLUENZA VACCINE] Future Scheduled 2006 65+ PNEUMOCOCCAL [place] [facility] 00:00:00 VACCINE (1 of 2 - PCV13) [code = 65+ PNEUMOCOCCAL VACCINE (1 of 2 - PCV13)] Future Scheduled 1991 SHINGLES VACCINES (#1) [facility] 00:00:00 [code = SHINGLES VACCINES (#1)] Encounters Start End Encounter Admission Attending Care Care Encounter Source Date/Time Date/Time Type Type Clinicians Facility Department ID 2020-07-14 2020-07-14 GUSTABO Mar [id number] 14:54:06 16:17:01 Visit Jake Conley [id number] Chuck [id number] Cassie [id number] critical access hospital2 [facility] 2020-06-30 2020-06-30 [facility] [id number] 14:30:00 14:30:00 [facility] 2020-02-21 2020-02-21 [facility] [id number] 09:00:00 09:00:00 t [facility] 2019-12-12 2019-12-12 [facility] [id number] [address] 13:30:00 13:30:00 t [facility] 2019-10-21 2019-10-21 [facility] [id number] 08:00:00 08:00:00 t [facility] 2019-09-20 2019-09-20 [facility] [id number] 10:30:00 10:30:00 t [facility] 2019-08-13 2019-08-13 [facility] [id number] 15:00:00 15:00:00 t [facility] 2019-08-01 2019-08-01 [facility] [id number] 15:00:00 15:00:00 t [facility] 2019-07-22 2019-07-22 [facility] [id number] 09:18:00 09:18:00 t [facility] 2019-07-19 2019-07-19 [facility] [id number] 11:58:00 11:58:00 t [facility] 2019-07-18 2019-07-18 Outpatient Rohini Alejandra [id number] 13:30:00 13:30:00 t [facility] 2019-02-05 2019-02-05 Outpatient Rohini Alejandra [id number] 08:30:00 08:30:00 t [facility] Results This patient has no known results.
[2020-07-21 18:43] LABS: Absolute Lymphocytes (CBC) 0.9 K/uL (0.7-4.9); Basophils % 1.1 % (0-1.3); Hematocrit 20.9 % (39.6-49.0); Lymphocytes % 16.1 % (15.3-44.8); MPV 8.5 fL (7.6-11.3); RBC Red Blood Cell Count 2.51 M/uL (4.33-5.43)
[2020-07-21 18:44] LABS: Protime INR 1.73
[2020-07-21 18:58] LABS: Potassium 4.1 mmol/L (3.5-5.1)
--- NOTE | 2020-07-21 19:00 | EDPHYS ---
Physician Documentation [facility] Name: Steph Dela Cruz Jr Age: 80 yrs Sex: Male : 1940 Arrival Date: 07/21/2020 Time: 18:01 Bed 8 Private MD: ED Physician Steve Hill HPI: 07/21 18:56 This 80 yrs old Male presents to ER via Ambulatory with complaints of Low kb Hemoglobin. 18:[address] Bonilla did routine blood work today and his count was low so he was sent kb here. Pt reports shortness of breath on exertion. Denies any other symptoms. The patient has not experienced similar symptoms in the past. The patient has been recently seen by a physician:. Dr Bonilla called ahead of pt. Wants 2 units transfused and pt admitted. Dr Douglas has been consulted by Dr Bonilla as well and will see pt in hospital for possible colonoscopy. Pt recently had EGD by Dr Douglas and he was unable to find a source of bleeding at that time so colonoscopy was going to be scheduled for this continuing issue. Historical: - Allergies: 18:09 PENICILLINS; ll1 - Home Meds: 20:08 atorvastatin 80 mg oral tab 1 tab once daily [Active]; bisoprolol fumarate 5 mg oral vc tab 1 tab once daily [Active]; furosemide 20 mg Oral tab 3 tabs once daily for Edema [Active]; gabapentin 600 mg oral tab 0.5 tab at bedtime [Active]; valsartan 320 mg oral tab 1 tab once daily [Active]; allopurinol 300 mg Oral tab 2 tab once daily [Active]; omeprazole 40 mg Oral cpDR 1 cap once daily [Active]; sodium chloride 1 gram oral tab twice a day [Active]; Euthyrox 88 mcg 1 tab daily [Active]; acetaminophen-codeine 300-30 mg Oral tab 1 tab twice a day [Active]; Breo Ellipta 200 mcg/25 mcg 1 tab daily [Active]; folic acid 800 mcg Oral tab 1 tab once daily [Active]; cranberry oral 420 mg oral daily [Active]; magnesium oxide 500 mg Oral cap 500 mg twice a day [Active]; Fish Oil [place] 3-6-9 300-1,000 mg oral cpDR daily [Active]; Super B Complex-Vitamin C 500 mg oral tab daily [Active]; glucosamine-chondroitin oral oral daily [Active]; - PMHx: 18:09 CHF; Hypertension; ll1 - PSHx: 18:09 quadruple bypass; Cholecystectomy; right shoulder; CABG; ll1 - Immunization history:: Flu vaccine status is unknown. - Social history:: Smoking status: Patient/guardian denies using tobacco, the patient reports quitting approximately 50 years ago, Patient/guardian denies using alcohol, street drugs. ROS: 18:50 Constitutional: Negative for fever, chills, and weight loss, Cardiovascular: Negative kb for chest pain, palpitations, and edema, Abdomen/GI: Negative for abdominal pain, nausea, vomiting, diarrhea, and constipation, Back: Negative for injury and pain, MS/Extremity: Negative for injury and deformity, Skin: Negative for injury, rash, and discoloration, Neuro: Negative for headache, weakness, numbness, tingling, and seizure. 18:50 Respiratory: Positive for dyspnea on exertion, Negative for cough, hemoptysis, orthopnea, pleurisy, shortness of breath, sputum production, wheezing. Exam: 18:50 Constitutional: This is a well developed, well nourished patient who is awake, alert, kb and in no acute distress. Head/Face: Normocephalic, atraumatic. Chest/axilla: Normal chest wall appearance and motion. Nontender with no deformity. No lesions are appreciated. Cardiovascular: Regular rate and rhythm with a normal S1 and S2. No gallops, murmurs, or rubs. Normal PMI, no JVD. No pulse deficits. Respiratory: Lungs have equal breath sounds bilaterally, clear to auscultation and percussion. No rales, rhonchi or wheezes noted. No increased work of breathing, no retractions or nasal flaring. Abdomen/GI: Soft, non-tender, with normal bowel sounds. No distension or tympany. No guarding or rebound. No evidence of tenderness throughout. Skin: Warm, dry with normal turgor. Normal color with no rashes, no lesions, and no evidence of cellulitis. MS/ Extremity: Pulses equal, no cyanosis. Neurovascular intact. Full, normal range of motion. Neuro: Awake and alert, GCS 15, oriented to person, place, time, and situation. Cranial nerves II-XII grossly intact. Motor strength 5/5 in all extremities. Sensory grossly intact. Cerebellar exam normal. Normal gait. Vital Signs: 18:05 BP 126 / 62; Pulse 78; Resp 18; Temp 98.2; Pulse Ox 96% ; Pain 0/10; ll1 19:22 BP 125 / 47; Pulse 75; Resp 18; Pulse Ox 100% on R/A; vc 20:34 BP 123 / 55; Pulse 87; Resp 20; Pulse Ox 100% ; rr5 MDM: 18:11 Patient medically screened. kb 18:50 Data reviewed: vital signs, nurses notes. Data interpreted: Pulse oximetry: on room air kb is 96 %. Interpretation: normal. Counseling: I had a detailed discussion with the patient and/or guardian regarding: the historical points, exam findings, and any diagnostic results supporting the discharge/admit diagnosis, lab results, the need for further work-up and treatment in the hospital. 18:59 Physician consultation: Antony AMAYA was called at 18:59, regarding admission, kb to the medical/surgical unit. patient's condition. 07/21 18:13 Order name: CBC with Diff; Complete Time: 20:14 kb 07/21 18:13 Order name: Basic Metabolic Panel; Complete Time: 18:59 kb 07/21 18:13 Order name: Protime (+inr); Complete Time: 18:59 kb 07/21 18:13 Order name: Ptt, Activated; Complete Time: 18:59 kb 07/21 18:13 Order name: Type And Screen kb 07/21 19:41 Order name: ABO/RH no charge; Complete Time: 19:48 EDMS 07/21 18:13 Order name: IV Start; Complete Time: 18:33 kb 07/21 19:19 Order name: CONS Physician Consult EDMS 07/21 19:27 Order name: EKG - Nurse/Tech; Complete Time: 19:44 vc 07/21 20:01 Order name: CBC Smear Scan; Complete Time: 20:14 EDMS Administered Medications: No medications were administered Disposition: 07/22 07:53 Co-signature as Attending Physician, Steve Hill MD. rn Disposition: 07/21/20 19:00 Hospitalization ordered by Debora Zamora for Observation. Preliminary diagnosis are Anemia, unspecified, Dyspnea. - Bed requested for Telemetry/MedSurg (observation). - Status is Observation. vc - Condition is Stable. - Problem is new. - Symptoms are unchanged. Signatures: Dispatcher [employer] EDMS Ambika Cabrera, SUPERVISOR COLOR MAKING-C SUPERVISOR COLOR MAKING-Ckb Steve Hill MD MD rn Garcia, Cindy, RN RN cg Calcote, Vanessa RN RN Jessica Shine, AWILDA RN ll1 Corrections: (The following items were deleted from the chart) 07/21 19: 19:00 Hospitalization Ordered by Debora Zamora MD for Observation. Preliminary kb diagnosis is Anemia, unspecified. Bed requested for Telemetry/MedSurg (observation). Status is Observation. Condition is Stable. Problem is new. Symptoms are unchanged. kb 19: 18:56 Dr Bonilla called ahead of pt. Wants 2 units transfused and pt admitted. Dr Stella deluna has been consulted by Dr Bonilla as well and will see pt in hospital for possible colonoscopy. kb 20:05 19:00 07/21/2020 19:00 Hospitalization Ordered by Debora Zamora MD for Observation. cg Preliminary diagnosis is Anemia, unspecified; Dyspnea. Bed requested for Telemetry/MedSurg (observation). Status is Observation. Condition is Stable. Problem is new. Symptoms are unchanged. kb 20:47 20:05 07/21/2020 19:00 Hospitalization Ordered by Debora Zamora MD for Observation. vc Preliminary diagnosis is Anemia, unspecified; Dyspnea. Bed requested for Telemetry/MedSurg (observation). Status is Observation. Condition is Stable. Problem is new. Symptoms are unchanged. cg
--- NOTE | 2020-07-21 19:00 | ER ---
Nurse's Notes [facility] Name: Steph Dela Cruz Jr Age: 80 yrs Sex: Male : 1940 Arrival Date: 07/21/2020 Time: 18:01 Bed 8 Private MD: Diagnosis: Anemia, unspecified;Dyspnea Presentation: 07/21 18:05 Chief complaint: Patient states: Hemoglobin is 7, his doctor sent him in Dr. Bonilla/Dr. valentino Sweat. + pale and weak. Coronavirus screen: Client denies travel out of the [place] in the last 14 days. At this time, the client does not indicate any symptoms associated with coronavirus-19. Ebola Screen: Patient denies travel to an Ebola-affected area in the 21 days before illness onset. Initial Sepsis Screen: Does the patient meet any 2 criteria? No. Patient's initial sepsis screen is negative. Risk Assessment: Do you want to hurt yourself or someone else? Patient reports no desire to harm self or others. Onset of symptoms was June 20, 2020. 18:05 Method Of Arrival: Ambulatory 1 18:05 Acuity: MARILYN 2 ll1 18:20 Initial Sepsis Screen: Does the patient have a suspected source of infection? No. sv Patient's initial sepsis screen is negative. Historical: - Allergies: 18:09 PENICILLINS; ll1 - Home Meds: 20:08 atorvastatin 80 mg oral tab 1 tab once daily [Active]; bisoprolol fumarate 5 mg oral vc tab 1 tab once daily [Active]; furosemide 20 mg Oral tab 3 tabs once daily for Edema [Active]; gabapentin 600 mg oral tab 0.5 tab at bedtime [Active]; valsartan 320 mg oral tab 1 tab once daily [Active]; allopurinol 300 mg Oral tab 2 tab once daily [Active]; omeprazole 40 mg Oral cpDR 1 cap once daily [Active]; sodium chloride 1 gram oral tab twice a day [Active]; Euthyrox 88 mcg 1 tab daily [Active]; acetaminophen-codeine 300-30 mg Oral tab 1 tab twice a day [Active]; Breo Ellipta 200 mcg/25 mcg 1 tab daily [Active]; folic acid 800 mcg Oral tab 1 tab once daily [Active]; cranberry oral 420 mg oral daily [Active]; magnesium oxide 500 mg Oral cap 500 mg twice a day [Active]; Fish Oil [place] 3-6-9 300-1,000 mg oral cpDR daily [Active]; Super B Complex-Vitamin C 500 mg oral tab daily [Active]; glucosamine-chondroitin oral oral daily [Active]; - PMHx: 18:09 CHF; Hypertension; ll1 - PSHx: 18:09 quadruple bypass; Cholecystectomy; right shoulder; CABG; ll1 - Immunization history:: Flu vaccine status is unknown. - Social history:: Smoking status: Patient/guardian denies using tobacco, the patient reports quitting approximately 50 years ago, Patient/guardian denies using alcohol, street drugs. Screenin:20 Abuse screen: Denies threats or abuse. Denies injuries from another. Nutritional sv screening: No deficits noted. Tuberculosis screening: No symptoms or risk factors identified. Fall Risk None identified. Assessment: 18:20 General: Appears in no apparent distress. comfortable, well developed, Behavior is sv calm, cooperative, appropriate for age. Pain: Denies pain. Neuro: Level of Consciousness is awake, alert, obeys commands, Oriented to person, place, time, situation, Moves all extremities. Full function Speech is normal. Respiratory: Respiratory effort is even, unlabored, Respiratory pattern is regular, symmetrical. GI: Reports black stools. States that his MD wouldn't do a colonoscopy yet because he was having trouble breathing and he got sent to a construction supervisor/carpenter to get cleared. The construction supervisor/carpenter sent him to a extractions technologist to get cleared. He had blood work drawn here this morning and they told him to come in to the ER. Derm: Skin is pale, Bruising that is on right arm and left arm. Musculoskeletal: Range of motion: intact in all extremities. 19:00 Reassessment: Assumed care of patient from AWILDA Squires. vc 19:15 Reassessment: Patient appears in no apparent distress at this time. Patient and/or vc family updated on plan of care and expected duration. Pain level reassessed. Patient is alert, oriented x 3, equal unlabored respirations, skin warm/dry/pink. Patient denies pain at this time. 20:15 Reassessment: Patient appears in no apparent distress at this time. Patient and/or vc family updated on plan of care and expected duration. Pain level reassessed. Patient is alert, oriented x 3, equal unlabored respirations, skin warm/dry/pink. Vital Signs: 18:05 BP 126 / 62; Pulse 78; Resp 18; Temp 98.2; Pulse Ox 96% ; Pain 0/10; ll1 19:22 BP 125 / 47; Pulse 75; Resp 18; Pulse Ox 100% on R/A; vc 20:34 BP 123 / 55; Pulse 87; Resp 20; Pulse Ox 100% ; rr5 ED Course: 18:01 Patient arrived in ED. ag5 18:06 Amb[facility] Cabrera [facility]NP-C [facility] kb 18:06 Steve Hill MD is Attending Physician. kb 18:09 Triage completed. ll1 18:10 Arm band placed on Patient placed in an exam room, on a stretcher. ll1 18:13 Tavia Qureshi, AWILDA is Primary Nurse. sv 18:20 Patient has correct armband on for positive identification. Bed in low position. Call sv light in reach. Door closed. Warm blanket given. Head of bed elevated. 18:22 Missed attempt(s): 22 gauge in right forearm. Bleeding controlled, band aid applied, sv catheter tip intact. 18:26 Inserted saline lock: 20 gauge in right antecubital area, using aseptic technique. sv Blood collected. Flushed right antecubital with 5 ml normal saline. 18:33 Nurse Practitioner and/or Physician Radio Television Announcer to see patient. sv 18:47 Notified Nurse Practitioner and/or Physician Radio Television Announcer of a critical lab result(s), sv hemoglobin-6.8, hematocrit-20.9. 18:48 Awaiting lab results. sv 18:56 Report given to Claudia [facility] and Jose David [facility]. sv 18:57 Primary Nurse role handed off by Tavia Qureshi, AWILDA sv 18:59 Debora Zamora MD is Hospitalizing Provider. kb 19:00 Claudia Morales RN is Primary Nurse. vc 19:15 Warm blanket given. vc 20:34 No provider procedures requiring assistance completed. Patient admitted, IV remains in rr5 place. intact, No redness/swelling at site. Administered Medications: No medications were administered Outcome: 19:00 Decision to Hospitalize by Provider. kb 20:33 Admitted to Med/surg accompanied by tech, via stretcher, room 222, with chart, Report rr5 called to juan m 20:33 Condition: stable 20:33 Instructed on the need for admit. 20:47 Patient left the ED. vc Signatures: Ambika Cabrera, SCRAP DROP OPERATOR-C SCRAP DROP OPERATOR-Tavia Dietz, RN RN Jose David Oglesby RN RN rr5 Christine Frazier5 Claudia Morales RN RN vc Lewis, Lynsay RN RN ll1
[2020-07-21 20:00] LABS: Anisocytosis 2+; Blood Morphology Comment NOTED (NOT SEEN); Hypochromasia 2+; Platelet Estimate ADEQ; White Blood Cell Scan OK (OK)
[2020-07-21] MEDS ORDERED: FUROSEMIDE 20 MG/ 2ML VIAL IV ONE (20:22)
[2020-07-21] MEDS ORDERED: NA CHLORIDE 0.9% 250 ML ONE (22:27)
[2020-07-21 23:25] VITALS: BMI 33.6
--- NOTE | 2020-07-21 23:45 | P.HP ---
Certification for Inpatient Patient admitted to: Observation With expected LOS: <2 Midnights Patient will require the following post-hospital care: None Practitioner: I am a practitioner with admitting privileges, knowledge of patient current condition, hospital course, and medical plan of care. Services: Services provided to patient in accordance with Admission requirements found in Title 42 Section 412.3 of the Code of Federal Regulations <Antony Hewitt - Last Filed: 07/22/20 00:24> Patient History Date of Service: 07/22/20 Reason for admission: GI bleed History of Present Illness: 80-year-old male with a past medical history of CHF, chronic atrial fibrillation, hypertension, CABG with quadruple bypass who presents to the emergency room sent by Dr. Bonilla with complaints of low hemoglobin/hematocrit. Patient states that he has had issues with low hemoglobin hematocrit levels over the past few months to years. He has had an EGD recently that did not reveal any acute findings. Patient states they had complications and it was not a complete EGD. Dr. Bonilla sent patient to the ER to receive blood and to be admitted for possible EGD and colonoscopy with Dr. Douglas. In the emergency room patient is alert and oriented and in no distress. He is found to have a low hemoglobin/hematocrit of 6.8 and 20.9. Patient will be transfused 2 units of PRBCs in the ED. Patient will be placed in observation and further evaluated. Dr. Douglas will be consulted. Home medications list reviewed: No - Past Medical/Surgical History Has patient received pneumonia vaccine in the past: Yes Diabetic: No -: CHF -: HTN -: Quadruple bypass(1997) -: CABG -: Cholecystectomy Psychosocial/ Personal History: Lives at home - Family History Family History: Reviewed- Non-Contributory - Social History Smoking Status: Former smoker Alcohol use: No CD- Drugs: No Caffeine use: Yes Place of Residence: Home <KashAntony - Last Filed: 07/22/20 00:24> Date of Service: 07/22/20 <emily coats - Last Filed: 07/22/20 17:45> Allergies Penicillins Allergy (Verified 07/21/20 20:16) Anaphylaxis Home Medications: Allopurinol 2 tab PO DAILY 07/21/20 Atorvastatin Calcium [Lipitor] 80 mg PO BEDTIME 07/21/20 B-Complex with Vitamin C [Super B Complex-Vitamin C] 1 each PO DAILY 07/21/20 Codeine/APAP [Tylenol #3*] 1 tab PO BID 07/21/20 Cranberry 420 mg PO DAILY 07/21/20 Fluticasone/Vilanterol [Breo Ellipta 200-25 Mcg INH] 1 each IH DAILY 07/21/20 Folic Acid 0.8 mg PO DAILY 07/21/20 Furosemide [Lasix] 20 mg PO DAILY 07/21/20 Gabapentin 0.5 tab PO BEDTIME 07/21/20 Glucos Sul 2Kcl/MSM/Chond/C/Mn [Glucosamine Chondroitin Cap] 1 each PO DAILY 07/21/20 Levothyroxine Sodium [Euthyrox] 88 mcg PO DAILY 07/21/20 Magnesium Oxide [Mag 0X Tab] 400 mg PO BID 07/21/20 [place]-3S/Dha/Epa/Fish Oil [Fish Oil [place]-3 Softgel] 300 - 1,000 mg PO DAILY 07/21/20 Omeprazole [Prilosec] 40 mg PO DAILY 07/21/20 Sodium Chloride 1 gm PO BID 07/21/20 Valsartan 320 mg PO DAILY 07/21/20 bisoproloL fumarate [Zebeta] 5 mg PO DAILY 07/21/20 Review of Systems 10-point ROS is otherwise unremarkable General: As per HPI <Antony Hewitt - Last Filed: 07/22/20 00:24> Physical Examination - Vital Signs Temperature: 98.2 F Blood Pressure: 123/55 Pulse: 87 Respirations: 20 - Physical Exam General: Alert, In no apparent distress, Oriented x3 HEENT: Atraumatic, Normocephalic, PERRLA, Mucous membr. moist/pink Neck: Supple, No Thyromegaly, Other (Trachea midline) Respiratory: Clear to auscultation bilaterally, Normal air movement Cardiovascular: No edema, Normal pulses, Regular rate/rhythm, Normal S1 S2 Capillary refill: <2 Seconds Gastrointestinal: Normal bowel sounds, Soft and benign, Non-distended Musculoskeletal: No clubbing, No swelling, No contractures Integumentary: No rashes, No breakdown, No significant lesion Neurological: Normal gait, Normal strength at 5/5 x4 extr, Normal tone - Studies Laboratory Data (last 24 hrs) 07/21/20 18:26: PT 20.2 H, INR 1.73, APTT 42.4 H 07/21/20 18:26: Sodium 140, Potassium 4.1, BUN 36 H, Creatinine 1.22, Glucose 134 H 07/21/20 18:26: WBC 5.9, Hgb 6.8 L*, Hct 20.9 L*, Plt Count 243 <Antony Hewitt - Last Filed: 07/22/20 00:24> - Studies Laboratory Data (last 24 hrs) 07/21/20 18:26: PT 20.2 H, INR 1.73, APTT 42.4 H 07/21/20 18:26: Sodium 140, Potassium 4.1, BUN 36 H, Creatinine 1.22, Glucose 134 H 07/21/20 18:26: WBC 5.9, Hgb 6.8 L*, Hct 20.9 L*, Plt Count 243 <emily coats - Last Filed: 07/22/20 17:45> Assessment and Plan - Plan Impression: Anemia secondary to Chronic GI bleed: Atrial fibrillation: History of congestive heart failure: Essential hypertension: Plan: Anemia secondary to Chronic GI bleed: Patient noted to have a low hemoglobin hematocrit at Dr. Bonilla office. Sent to ER for transfusion of 2 units PRBCs in admission. In the ER he was found have a hemoglobin hematocrit of 6.8/20.9. Patient transfused [address] Douglas consulted. Patient likely will undergo EGD and colonoscopy to evaluate for blood loss. Monitor vital signs. Atrial fibrillation: Patient saw his trap setter recently and was noted to be in atrial fibrillation. Will order echocardiogram for further evaluation. Continuous telemetry. Will hold anticoagulation due to GI bleed. History of congestive heart failure: Stable. Will order echocardiogram for further evaluation. Continuous telemetry. Essential hypertension: Will resume all medications once verified. Monitor blood pressure. Discharge Plan: Home Plan to discharge in: 48 Hours - Advance Directives Does patient have a Living Will: No Does patient have a Durable POA for Healthcare: Yes - Code Status/Comfort Care Code Status Assessed: Yes Time Spent Managing Pts Care (In Minutes): 55 <Antony Hewitt - Last Filed: 07/22/20 00:24> - Problems (Diagnosis) (1) Acute blood loss anemia Current Visit: Yes Status: Acute (2) GI bleed Current Visit: Yes Status: Acute (3) Coronary artery disease Current Visit: Yes Status: Acute Physician Review: Patient Assessed, Agree with Above Assessment and Plan Physician Review Additional Text: GI bleed. Acute blood loss anemia History of coronary artery disease. Status post PRBC transfusion. GI consult requested. Patient to be seen by Dr. Douglas. Monitor H&H. Protonix. <emily coats - Last Filed: 07/22/20 17:45>
[2020-07-22 02:01] LABS: Urine Appearance CLEAR; Urine Bilirubin NEGATIVE (NEG); Urine Blood NEGATIVE (NEG); Urine Color YELLOW; Urine Glucose NEGATIVE (NEG); Urine Protein 1+ (NEG)
[2020-07-22 02:02] LABS: Urine Microscopic Reflex ORDER UMIC
[2020-07-22 04:08] LABS: Urine Bacteria <20 /HPF (NONE SEEN); Urine Culture Reflex Order NOT NEEDED; Urine RBC NONE SEEN /HPF (NONE SEEN)
[2020-07-22 07:14] LABS: Absolute Lymphocytes (CBC) 0.8 K/uL (0.7-4.9); Basophils % 0.6 % (0-1.3); Hematocrit 24.4 % (39.6-49.0); Lymphocytes % 13.8 % (15.3-44.8); MPV 8.1 fL (7.6-11.3); RBC Red Blood Cell Count 2.92 M/uL (4.33-5.43)
[2020-07-22 07:17] LABS: Protime INR 1.62
[2020-07-22 07:28] LABS: Magnesium 2.4 mg/dL (1.8-2.4); Potassium 3.9 mmol/L (3.5-5.1)
[2020-07-22] MEDS ORDERED: SODIUM CHLORIDE 0.9% 10ML INJ IV PRN (15:44)
--- NOTE | 2020-07-22 15:44 | P.PN ---
Subjective Date of Service: 07/22/20 Chief Complaint: GI bleed Patient currently has no complain. He reports dark colored stools before admission. Patient given 2 units PRBC transfusion. Posttransfusion hemoglobin is up to 8.1. He states he feels much better. Physical Examination - Vital Signs Temperature: 97.3 F Blood Pressure: 133/65 Pulse: 78 Respirations: 16 Pulse Ox (%): 98 - Physical Exam General: Alert, In no apparent distress, Oriented x3 HEENT: Mucous membr. moist/pink Neck: Supple, JVD not distended Respiratory: Clear to auscultation bilaterally, Normal air movement Cardiovascular: No edema, Regular rate/rhythm, Normal S1 S2 Gastrointestinal: Normal bowel sounds, Soft and benign, No tenderness Musculoskeletal: No erythema Integumentary: No rashes Neurological: Normal strength at 5/5 x4 extr - Studies Laboratory Data (last 24 hrs) 07/21/20 18:26: PT 20.2 H, INR 1.73, APTT 42.4 H 07/21/20 18:26: Sodium 140, Potassium 4.1, BUN 36 H, Creatinine 1.22, Glucose 134 H 07/21/20 18:26: WBC 5.9, Hgb 6.8 L*, Hct 20.9 L*, Plt Count 243 Assessment And Plan - Current Problems (Diagnosis) (1) Acute blood loss anemia Current Visit: Yes Status: Acute (2) GI bleed Current Visit: Yes Status: Acute (3) Coronary artery disease Current Visit: Yes Status: Acute - Plan Patient seen and evaluated by GI-Dr. Douglas. He is scheduled for endoscopy today. Continue to monitor hemoglobin daily. PRBC transfusion p.r.n. to keep hemoglobin greater than 8. IV Protonix. Continue other home medications.
[2020-07-22] MEDS ORDERED: LIDOCAINE 1% MPF 5 ML VIAL ONE (15:48)
[2020-07-22] MEDS ORDERED: propofoL 200 MG/20 ML VIAL IV ONE (15:48)
[2020-07-22] MEDS ORDERED: Phenylephrine HCl 10 MG/ML 1 ML VIAL ONE (15:49)
[2020-07-22] MEDS ORDERED: Ringers Lactate 1,000 ML IV ONE (16:18)
[2020-07-22] MEDS ORDERED: GOLYTELY 4000 ML PO SCH (17:00)
[2020-07-22] MEDS ORDERED: MAGNESIUM CITRATE 300 ML BOT PO SCH (17:00)
[2020-07-22] MEDS: METOCLOPRAMIDE 10 MG/2mL INJ IV SCH ×2 (17:32→18:00)
[2020-07-22] MEDS ORDERED: GABAPENTIN PO SCH (21:00)
[2020-07-22] MEDS: MAGNESIUM OXIDE 400 MG TAB PO SCH (21:00)
[2020-07-22] MEDS: PANTOPRAZOLE 40 MG INJ IVP SCH (21:23)
[2020-07-22] MEDS: ATORVASTATIN 80 MG TAB PO SCH (21:23)
[2020-07-22] MEDS: GABAPENTIN 300 MG CAP PO SCH (21:23)
--- NOTE | 2020-07-22 22:30 | CON ---
Date of Consultation: 07/22/2020 Reason Consultation: GI bleed with anemia, hemoglobin down to 6.8 with melena. History Of Present Illness: The patient is a 80-year-old white male with history of congestive heart failure, atrial fibrillation, hypertension, CABG. The patient presented to the hospital after going to the primary care's office and found to have a low hemoglobin of approximately 7.4, came to the [facility], hemoglobin was noted to be lower at 6.8. The [facility] and his hemoglobin has come up to 8.1. The patient denies any melena, hematochezia, hematemesis, coffee-ground emesis, hematuria, dysuria, polydipsia, hemoptysis, or other signs of any bleeding. T he patient notes EGD sometime earlier this year without significant findings, maybe mild gastritis __ . Last colonoscopy was approximately 2017. Past Medical History: Significant for hypertension; coronary artery disease, status post 4-vessel CA BG in 1997; congestive heart failure; obstructive sleep apnea with CPAP machine; and cholecystectomy. Medications: At home include allopurinol, Lipitor, Super B-Complex, Tylenol No. 3, cranberry juice, Breo Ellipta, folic acid, Lasix, gabapentin, glucosamine chondroitin, levothyroxine, magnesium oxide, omega-3 supplements, Prilosec, valsartan, bisoprolol which is also called Zebeta. Allergies: PENICILLIN, GIVES HIM ANAPHYLAXIS. Social History: He is . One son, one daughter. No tobacco, quit in 1992. Alcohol occasiona l. Prior heavy use of gin and grapefruit juice drank every night. The patient said he has decreased that with melena he has noticed for the first time today. The patient states he had chase na earlier this year x1, which is why he had EGD done at that time which was . Family History: Possibly some family members had coronary artery disease. Physical Examination: Vital Signs: The patient is 5 feet, 2 inches, 180 pounds, BMI of 32.9 kg/sq m. Temperature 97.2 deg noemy Fahrenheit, pulse 75, respirations 16, blood pressure 134/61, O2 saturation 100%. General: He is an obese male, lying in bed, no acute distress. HEENT: Normocephalic, atraumatic. Anicteric. Pupils are equal, round, reactive to light. Extraocu lar movements are intact. Oropharynx is clear. Neck: Supple. No masses. Respirations: Decreased breath sounds slightly in the bases. Cardiac: Regular rate and rhythm. No gallops or rubs. Abdomen: Positive bowel sounds. Soft, nontender, nondistended. No hepatosplenomegaly. Extremities: No clubbing, cyanosis, or edema. 2+ pulses. Neuro: Alert and oriented x3. Grossly nonfocal. 5/5 motor strength. Sensation intact to light dale ch. Laboratory Data: The patient had a hemoglobin of 7.4 as an outpatient, came in as hemoglobin of 6.8, transfused 2 units and then hemoglobin came up to 8.1, white count of 6.0, MCV of 84, platelet count of 197, polys of 73%, lymphocytes 14%, monocytes 10%, eosinophils 4%, and basophils 1%. PT of 18.9, INR of 1.62, PTT of 36.9. The patient has a sodium 143, potassium of 3.9, chloride 106, bicarb 32, BUN 29, creatinine of 0.95, glucose 102, calcium 8.7, magnesium 2.4. UA was negative except for 1+ p rotein. His COVID-19 came back negative today. Impression: 1.Gastrointestinal bleed with melena noted today and earlier this year, for which he had esophagogas troduodenoscopy that was largely unremarkable. Reports anemia, noted in the primary care's office ye 7.4, hemoglobin 6.8 and after 2 units is up to 8.1. Last colonoscopy was in 2017 which was n oted to be negative he reports. 2.History of hypertension, coronary artery disease, status post 4-vessel coronary artery bypass [facility] t in 1997, congestive heart failure, obstructive sleep apnea, a sleep study positive with CPAP starte d, and cholecystectomy. Recommendations: 1.Serial H and H, and transfuse p.r.n. 2.PPI therapy. 3.EGD and colonoscopy. WS/MODL Voice ID: [id number] Report ID: [id number]
[2020-07-23] MEDS: METOCLOPRAMIDE 10 MG/2mL INJ IV SCH (00:28)
[2020-07-23 04:18] LABS: Absolute Lymphocytes (CBC) 1.2 K/uL (0.7-4.9); Basophils % 0.7 % (0-1.3); Hematocrit 23.4 % (39.6-49.0); Lymphocytes % 23.8 % (15.3-44.8); MPV 7.7 fL (7.6-11.3)
[2020-07-23 04:45] LABS: BUN Blood Urea Nitrogen 16 mg/dL (7-18); Bicarbonate 32 mmol/L (21-32); Glucose Level 94 mg/dL (74-106); Potassium 3.7 mmol/L (3.5-5.1); Sodium Level 142 mmol/L (136-145)
--- NOTE | 2020-07-23 05:58 | EKG ---
Test Date: 2020-07-21 Test Time: 19:32:55 Shipboard Intelligence Analyst: TYSON MEASUREMENT RESULTS: Intervals: Rate: 76 NV: QRSD: 148 QT: 458 QTc: 515 [place]: P: NV: QRS: -58 T: 17 INTERPRETIVE STATEMENTS: Atrial fibrillation with premature ventricular or aberrantly conducted complexes Left axis deviation Right bundle branch block Abnormal ECG Compared to ECG 03/17/2020 22:23:46 Ventricular premature complex(es) now present Sinus rhythm no longer present Sinus arrhythmia no longer present Myocardial infarct finding no longer present Electronically Signed On 07-23-20 05:55:36 CDT by Red Wilson
[2020-07-23] MEDS: LEVOTHYROXINE SOD 0.088 MG TAB PO SCH (06:29)
[2020-07-23] MEDS ORDERED: KCL 20 MEQ/100 mL IVPB 20 MEQ/100 ML BAG IV SCH (08:00)
--- NOTE | 2020-07-23 08:42 | ECHO ---
HEIGHT: 5 ft 2 in WEIGHT: 180 lb 0 oz DATE OF STUDY: 07/22/[address]: Antony Hewitt 2-DIMENSIONAL: YES M.MODE: YES DOPPLER: YES COLOR FLOW: YES TDS: NO PORTABLE: NO DEFINITY: NO BUBBLE STUDY: NO DIAGNOSIS: ATRIAL FIBRILLATION CARDIAC HISTORY: CATHERIZATION: YES SURGERY: YES PROSTHETIC VALVE: NO PACEMAKER: NO MEASUREMENTS (cm) DIASTOLIC (NORMALS) SYSTOLIC (NORMALS) IVSd 1.5 (0.6-1.2) LA Diam 4.4 (1.9-4.0) LVEF 59% LVIDd 4.6 (3.5-5.7) LVIDs 3.2 (2.0-3.5) %FS 31% LVPWd 1.3 (0.6-1.2) Ao Diam 3.1 (2.0-3.7) 2 DIMENSIONAL ASSESSMENT: RIGHT ATRIUM: NORMAL LEFT ATRIUM: DILATED RIGHT VENTRICLE: NORMAL LEFT VENTRICLE: LEFT VENTRICULAR HYPERTROPHY TRICUSPID VALVE: NORMAL MITRAL VALVE: MITRAL ANNULAR CALCIFICATION PULMONIC VALVE: NORMAL AORTIC VALVE: STENOSIS PERICARDIAL EFFUSION: NONE AORTIC ROOT: NORMAL LEFT VENTRICULAR WALL MOTION: NORMAL DOPPLER/COLOR FLOW: MILD AORTIC STENOSIS. AORTIC VALVE AREA 1.8 CENTIMETERS SQUARED. MILD PULMONARY HYPERTENSION 41 mmHg. MILD TRICUSPID REGURGIATION. COMMENTS: LEFT VENTRICULAR HYPERTROPHY WITH NORMAL LEFT VENTRICULAR EJECTION FRACTION. LEFT ATRIAL ENLARGEMENT. NO THROMBUS. ATRIAL FIBRILLATION NOTED. MITRAL ANNULAR CALCIFICATION. MILD AORTIC STENOSIS. AORTIC VALVE AREA 1.8 CENTIMETERS SQUARED. MILD PULMONARY HYPERTENSION 41 mmHg. MILD TRICUSPID REGURGIATION. TECHNOLOGIST: Dominic MOBLEY
[2020-07-23] MEDS: allopurinoL 300 MG TAB PO SCH (09:00)
[2020-07-23] MEDS: MAGNESIUM OXIDE 400 MG TAB PO SCH ×2 (09:00→22:09)
[2020-07-23] MEDS: VITAMIN B COMPLEX 1 CAP PO SCH (09:00)
[2020-07-23] MEDS: CRANBERRY FRUIT EXTRACT 200 MG CAP PO SCH (09:00)
[2020-07-23] MEDS: FUROSEMIDE 20 MG TABLET PO SCH (09:00)
[2020-07-23] MEDS: FOLIC ACID 1 MG TABLET PO SCH (09:00)
[2020-07-23] MEDS: HOME MED 1 EA UNK (Fluticasone/Vilanterol [Breo Ellipta 200-25 Mcg Inh] 1 EACH) IH SCH (09:00)
[2020-07-23] MEDS ORDERED: HOME MED 1 EA UNK (Valsartan [Valsartan] 320 MG) PO SCH (09:00)
[2020-07-23] MEDS ORDERED: CRANBERRY PO SCH (09:00)
[2020-07-23] MEDS ORDERED: HOME MED 1 EA UNK (Folic Acid [Folic Acid] 0.8 MG) PO SCH (09:00)
[2020-07-23] MEDS: BISOPROLOL 5 MG TABLET PO SCH (09:09)
[2020-07-23] MEDS: VALSARTAN 160 MG TAB PO SCH (09:10)
[2020-07-23] MEDS: PANTOPRAZOLE 40 MG INJ IVP SCH ×2 (09:11→22:09)
[2020-07-23] MEDS ORDERED: NA CHLORIDE 0.9% 250 ML ONE (09:18)
[2020-07-23] MEDS ORDERED: Ringers Lactate 1,000 ML IV ONE (12:06)
[2020-07-23] MEDS ORDERED: propofoL 200 MG/20 ML VIAL IV ONE (12:26)
[2020-07-23] MEDS ORDERED: LIDOCAINE 1% MPF 5 ML VIAL ONE (12:27)
[2020-07-23] MEDS ORDERED: EPINEPHRINE/PF 1 MG/ML AMP ONE (12:52)
--- NOTE | 2020-07-23 13:20 | ENDO RPT ---
[address], [address] COLONOSCOPY PROCEDURE REPORT EXAM DATE: 07/23/2020 PATIENT NAME: Steph Walsh Jr. MR #: [id number] BIRTHDATE: 1940 ATTENDING: Gordon Douglas Dr STATUS: inpatient [employer] MANAGER: Jaiden López CST and Shruthi Lerma RN INDICATIONS: The patient is a 80 yr old Male here for a colonoscopy due to melenic bleeding and anemia PROCEDURE PERFORMED: Colonoscopy MEDICATIONS: Per Anesthesia. ESTIMATED BLOOD LOSS: None CONSENT: The patient understands the risks and benefits of the procedure and understands that these risks include, but are not limited to: sedation, allergic reaction, infection, perforation and/or bleeding. Alternative means of evaluation and treatment include, among others: physical exam, x-rays, and/or surgical intervention. The patient elects to proceed with this endoscopic procedure. DESCRIPTION OF PROCEDURE: During intra-op preparation period all mechanical medical equipment was checked for proper function. Hand hygiene and appropriate measures for infection prevention was taken. Procedure, possible complications, alternatives including, but not limited to possibility of bleeding, perforation, tear, infection, sepsis, need for surgery, need for blood transfusion, were explained to the patient. After the risks, benefits and alternatives of the procedure were thoroughly explained, Informed consent was verified, confirmed and timeout was successfully executed by the treatment team. The patient was placed in the left lateral position. A digital rectal exam was performed and revealed no abnormalities of the rectum. After appropriate level of anesthesia, the scope was passed. The EC-[id number] ([id number]) endoscope was introduced through the anus and advanced to the cecum, which was identified by both the appendix and ileocecal valve. The quality of the prep was poor. The instrument was then slowly withdrawn as the colon was fully examined. Scope withdrawal time was 8 minutes. COLON FINDINGS: Mild diverticulosis was noted throughout the entire examined colon, predominantly in the sigmoid colon. No bleeding was noted from the diverticulosis. Small internal hemorrhoids were found. Retroflexed views revealed small hemorrhoids. The scope was then completely withdrawn from the patient and the procedure terminated. ADVERSE EVENTS: There were no complications. IMPRESSIONS: 1. Mild diverticulosis throughout the entire examined colon, predominantly in the sigmoid colon 2. Small internal hemorrhoids 3. Intubation to cecum RECOMMENDATIONS: 1. Small Bowel Follow Through 2. pillcam / capsule endoscopy RECALL: Gordon Douglas Dr eSigned: Gordon Douglas Dr 07/23/2020 1:19 PM cc: CPT CODES: ICD9 CODES: PATIENT NAME: Steph Walsh Jr. MR#: [id number]
--- NOTE | 2020-07-23 15:40 | P.PN ---
Subjective Date of Service: 07/23/20 Chief Complaint: GI bleed Patient currently has no complain. Endoscopic performed yesterday. Status post 2 units PRBC transfusion. Hemoglobin today is 7.9. Colonoscopy performed today. Physical Examination - Vital Signs Temperature: 97 F Blood Pressure: 144/63 Pulse: 63 Respirations: 16 Pulse Ox (%): 95 - Physical Exam General: Alert, In no apparent distress HEENT: Mucous membr. moist/pink Neck: Supple Respiratory: Clear to auscultation bilaterally, Normal air movement Cardiovascular: No edema, Regular rate/rhythm, Normal S1 S2 Gastrointestinal: Normal bowel sounds, Soft and benign, No tenderness Musculoskeletal: No swelling Neurological: Other (Nonfocal) - Studies Laboratory Data (last 24 hrs) 07/23/20 03:44: Sodium 142, Potassium 3.7, BUN 16, Creatinine 0.75, Glucose 94 07/23/20 03:44: WBC 5.0 D, Hgb 7.9 L*, Hct 23.4 L, Plt Count 196 Assessment And Plan - Current Problems (Diagnosis) (1) Acute blood loss anemia Current Visit: Yes Status: Acute (2) GI bleed Current Visit: Yes Status: Acute (3) Coronary artery disease Current Visit: Yes Status: Acute - Plan Posttransfusion hemoglobin is stable around 8. No active bleed since admission. Colonoscopy identified mild diverticulosis and internal hemorrhoid. Patient is planned for small-bowel follow-through and capsular endoscopy. He was previously anticoagulated for atrial fibrillation. Anticoagulation was discontinued a few weeks ago. Continue to monitor H&H and transfuse p.r.n. for hemoglobin less than 7. Continue protonix. GI is following. Physician Review: Patient Assessed, Agree with Above Assessment and Plan
[2020-07-23] MEDS: ATORVASTATIN 80 MG TAB PO SCH (22:08)
[2020-07-23] MEDS: GABAPENTIN 300 MG CAP PO SCH (22:08)
[2020-07-24 05:01] LABS: Absolute Lymphocytes (CBC) 2.1 K/uL (0.7-4.9); Basophils % 0.6 % (0-1.3); Hematocrit 26.1 % (39.6-49.0); Lymphocytes % 32.3 % (15.3-44.8); MPV 8.2 fL (7.6-11.3); RBC Red Blood Cell Count 3.07 M/uL (4.33-5.43)
[2020-07-24 05:04] LABS: BUN Blood Urea Nitrogen 11 mg/dL (7-18); Bicarbonate 31 mmol/L (21-32); Glucose Level 86 mg/dL (74-106); Sodium Level 141 mmol/L (136-145)
[2020-07-24] MEDS: LEVOTHYROXINE SOD 0.088 MG TAB PO SCH (05:53)
[2020-07-24] MEDS: HOME MED 1 EA UNK (Fluticasone/Vilanterol [Breo Ellipta 200-25 Mcg Inh] 1 EACH) IH SCH (09:00)
[2020-07-24] MEDS: PANTOPRAZOLE 40 MG INJ IVP SCH (09:09)
[2020-07-24] MEDS: FUROSEMIDE 20 MG TABLET PO SCH (09:10)
[2020-07-24] MEDS: allopurinoL 300 MG TAB PO SCH (09:10)
[2020-07-24] MEDS: MAGNESIUM OXIDE 400 MG TAB PO SCH (09:10)
[2020-07-24] MEDS: FOLIC ACID 1 MG TABLET PO SCH (09:10)
[2020-07-24] MEDS: VALSARTAN 160 MG TAB PO SCH (09:10)
[2020-07-24] MEDS: VITAMIN B COMPLEX 1 CAP PO SCH (09:10)
[2020-07-24] MEDS: CRANBERRY FRUIT EXTRACT 200 MG CAP PO SCH (09:11)
[2020-07-24] MEDS: BISOPROLOL 5 MG TABLET PO SCH (09:11)
[2020-07-24 10:28] VITALS: O2SAT 97
--- NOTE | 2020-07-24 11:11 | P.DS ---
Admission Date: 07/23/20 Discharge Date: 07/24/20 Disposition: ROUTINE DISCHARGE Discharge Condition: FAIR Reason for Admission: GI bleed - Problems (1) Acute blood loss anemia Current Visit: Yes Status: Acute (2) GI bleed Current Visit: Yes Status: Acute (3) Coronary artery disease Current Visit: Yes Status: Acute Brief History of Present Illness: 80-year-old gentleman with a history of coronary artery disease was referred to the ED by his PCP for anemia with hemoglobin of 6. Patient reported dark colored stool, fatigue and dyspnea with exertion. His hemoglobin in the ED was 6.8. Patient was admitted for further management of GI bleed and acute blood loss anemia. Hospital Course: Patient admitted to the medical floor and given 2 units PRBC transfusion. He was also treated with IV protonix. He was seen by GI-. EGD and colonoscopy were performed. Significant positive findings included internal hemorrhoids and mild diverticulosis throughout the colon. GI recommend small bowel follow-through and capsular endoscopy which will be done as an outpatient. Patient's hemoglobin stabilized around 8. He had no active bleeding during the hospital stay and deemed clinically stable for discharge. Vital Signs/Physical Exam: Temp Pulse Resp BP Pulse Ox 97.3 F 67 18 142/66 H 97 07/24/20 08:00 07/24/20 08:00 07/24/20 08:00 07/24/20 08:00 07/24/20 08:00 General: Alert, In no apparent distress Neck: Supple Respiratory: Clear to auscultation bilaterally, Normal air movement Cardiovascular: No edema, Regular rate/rhythm, Normal S1 S2 Gastrointestinal: Normal bowel sounds, Soft and benign, Non-distended, No tenderness Musculoskeletal: No swelling Neurological: Other (Nonfocal.) Laboratory Data at Discharge: WBC 6.6 K/uL (4.3-10.9) D 07/24/20 04:15 Hgb 8.4 g/dL (13.6-17.9) L 07/24/20 04:15 Hct 26.1 % (39.6-49.0) L 07/24/20 04:15 Plt Count 202 K/uL (152-406) 07/24/20 04:15 PT 18.9 SECONDS (9.5-12.5) H 07/22/20 06:54 INR 1.62 07/22/20 06:54 APTT 36.9 SECONDS (24.3-36.9) 07/22/20 06:54 Sodium 141 mmol/L (136-145) 07/24/20 04:15 Potassium 4.0 mmol/L (3.5-5.1) 07/24/20 04:15 BUN 11 mg/dL (7-18) 07/24/20 04:15 Creatinine 0.81 mg/dL (0.55-1.3) 07/24/20 04:15 Glucose 86 mg/dL (74-106) 07/24/20 04:15 Magnesium 2.4 mg/dL (1.8-2.4) 07/22/20 06:54 Home Medications: Allopurinol 2 tab PO DAILY 07/21/20 Atorvastatin Calcium [Lipitor] 80 mg PO BEDTIME 07/21/20 B-Complex with Vitamin C [Super B Complex-Vitamin C] 1 each PO DAILY 07/21/20 Codeine/APAP [Tylenol #3*] 1 tab PO BID 07/21/20 Cranberry 420 mg PO DAILY 07/21/20 Fluticasone/Vilanterol [Breo Ellipta 200-25 Mcg INH] 1 each IH DAILY 07/21/20 Folic Acid 0.8 mg PO DAILY 07/21/20 Furosemide [Lasix*] 20 mg PO DAILY 07/21/20 Gabapentin 0.5 tab PO BEDTIME 07/21/20 Glucos Sul 2Kcl/MSM/Chond/C/Mn [Glucosamine Chondroitin Cap] 1 each PO DAILY 07/21/20 Levothyroxine Sodium [Euthyrox] 88 mcg PO DAILY 07/21/20 Magnesium Oxide [Mag 0X*] 400 mg PO BID 07/21/20 Valsartan 320 mg PO DAILY 07/21/20 bisoproloL fumarate [Zebeta*] 5 mg PO DAILY 07/21/20 Iron Ag,Ps/C/Fa6/B12/Zn/SA/Sto [Niferex Tablet] 1 each PO DAILY #30 tablet 07/24/20 Omeprazole [Prilosec] 40 mg PO BID #60 07/24/20 New Medications: Iron Ag,Ps/C/Fa6/B12/Zn/SA/Sto [Niferex Tablet] 1 each PO DAILY #30 tablet Omeprazole [Prilosec] 40 mg PO BID #60 Diet: AHA Activity: Ad saud Followup: Gordon Douglas MD [ASSOCIATE-ACTIVE - CAN ADMIT] - 1-2 Weeks
[2020-07-24 12:49] VITALS: BP 149/67; TEMP 96.9
== END 2020-07-24 13:12 | disposition home or self-care (01) ==
LOC: ER 17:58 → ERHOLD 19:17 → INTOOBSV 19:17 → 2ND 20:39 → INTOOBSV 07-23 12:47 → OBSVTOIN 07-23 12:47
PROVIDERS: ADMIT Internal Medicine; ATTEND Internal Medicine
PROC: 0DB68ZX Excision of Stomach, Via Natural or Artificial Opening Endoscopic, Diagnostic (ICD-10-PCS; 2020-07-22)
PROC: 0DJD8ZZ Inspection of Lower Intestinal Tract, Via Natural or Artificial Opening Endoscopic (ICD-10-PCS; principal; 2020-07-23 12:30)
DX: K92.2 Gastrointestinal hemorrhage, unspecified (principal); D62 Acute posthemorrhagic anemia; K57.90 Diverticulosis of intestine, part unspecified, without perforation or abscess without bleeding; K29.50 Unspecified chronic gastritis without bleeding; K26.9 Duodenal ulcer, unspecified as acute or chronic, without hemorrhage or perforation; K29.80 Duodenitis without bleeding; K64.8 Other hemorrhoids; I11.0 Hypertensive heart disease with heart failure; I50.9 Heart failure, unspecified; I48.20 Chronic atrial fibrillation, unspecified; I25.10 Atherosclerotic heart disease of native coronary artery without angina pectoris; G47.33 Obstructive sleep apnea (adult) (pediatric); Z99.81 Dependence on supplemental oxygen; K21.9 Gastro-esophageal reflux disease without esophagitis; Z88.0 Allergy status to penicillin; Z95.1 Presence of aortocoronary bypass graft; Z90.49 Acquired absence of other specified parts of digestive tract; Z87.891 Personal history of nicotine dependence; Z23 Encounter for immunization; Z20.828 Contact with and (suspected) exposure to other viral communicable diseases
CPT/HCPCS: 45378; 43239; 36430; 93005; 93306; 85025 ×4; 80048 ×4; 36415 ×3; 86900; 83735; 86850; 88312; 85610 ×2; 86901; 88305; 85730 ×2; 94760 ×6; 99285; U0003; J2704 ×2; J1940; J2765 ×2; J2370; C9113 ×4; J3480; G0378 ×7; P9016 ×2; J7120 ×2; J7050 ×2; 81003; 81015; J0171

== ENCOUNTER 2023-10-01 05:22 | Observation (INO) | payer OTHER, MEDICARE ==
--- OUTSIDE RECORDS SUMMARY | 2023-10-01 05:28 | XMS REPORT | Continuity of Care Document ---
:1940 Author Organization [facility] t Address [address] [place] [address] [place] [id number] Care Team Providers Name Role Phone Asked, No Pcp Primary Care Physician Unavailable Ponce Fletcher Attending Clinician PONCE FLETCHER Attending Clinician Unavailable Ponce Fletcher Attending Clinician Unavailable Jake Lindquist MD Attending Clinician JAKE LINDQUIST Attending Clinician Unavailable JAKE LINDQUIST Attending Clinician Unavailable Doctor Unassigned, [place] Attending Clinician Unavailable Rob Loyola Attending Clinician RICKIE SPENCER Attending Clinician Unavailable Rickie Spencer Attending Clinician JIMMY OROPEZA Admitting Clinician Unavailable Jimmy Oropeza Admitting Clinician Payers Payer Name Policy Type Policy Number Effective Date Expiration Date S ource Problems Condition Condition Condition Status Onset Resolution Last Treating Co mments Source Name Details Category Date Date Treatment Clinician Date S06.5X0A - S06.5X0A Diagnosis Active 2020-03-27 Memoria TRAUM - TRAUM 03-24 10:48:00 l SUBDR HEM SUBDR HEM 00:01: Herm genoveva W/O LOSS W/O LOSS 00 OF C OF C Active 03/24/2020 OP[facility] [place] FALL FALL Diagnosis Active 2020-03-18 Mem oria Active 03-18 02:17:00 l 03/18/2020 00:00: Jagdeep kerns [address] TSAH TSAH Diagnosis Active 2020-08-10 Mem oria Active 03-18 10:06:00 l 03/18/2020 00:00: Jagdeep kerns [address] TRAUM TRAUM Diagnosis Active 2020-08-10 Mem oria SUBRAC HEM SUBRAC HEM 10:06:00 l W LOC OF W LOC OF Jagdeep kerns UNSP UNSP DURATION, DURATION, Active [facility] [id number] Pain of Problem Active Comm on left hip [facility] - [facility] [id number] Primary Problem Active Comm on osteoarthr Spirit itis, - [facility] right [facility] [id number] Primary Problem Active Comm on osteoarthr Spirit itis of - [facility] left knee [facility] [id number] Pain, Problem Active Commo n [id number] joint, [facility] shoulder, - [facility] [id number] Left sided Problem Active Com mon sciatica [facility] [id number] Traumatic Problem Active Com mon tear of Spirit supr[place] - [facility] tus tendon St of right [facility] encounter Shoulder Pain of Problem Active Common joint pain right [facility] shoulder - [facility] joint on [facility] [id number] 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 Spirit of right - [facility] shoulder [facility] Allergies, Adverse Reactions, Alerts Allergy Allergy Status Severity Reaction(s) Onset Inactive Treating Comm ents Source Name Type Date Date Clinician Penicill DA Active [place] 2019-11 [facility] 0 00:[facility]: [address] Penicill DA Active MO RASH-HIVES 2019-11 [facility] ins 00:00: [address] PENICILL Drug Active Med Rash Univers INS Class 07-14 ity of 00:00: [address] Penicill Propensi Active Rash Univer s ins ty to 07-14 ity of adverse 00:00: [place] reaction [address] [place] [address] Penicill Propensi Active Rash [facility] ins ty to 08-04 [facility] adverse 00:00: Medical reaction [address] [place] [address] s penicill penicill Active Memori a ins ins l Boo NO KNOWN Drug Active Univers ALLERGIE Class [facility] [place] [facility] Penicill Penicill Active Unknown Commo n in in [facility] Social History Social Habit Start Date Stop Date Quantity Comments Source Sexual orientation [facility] History of Tobacco Common [facility] - Use [facility] Social History 2020-03-18 2020-03-18 [facility] Ghassan jb 10:26:11 10:26:11 Alcohol Comment 2019-05-13 2019-05-13 gin and wine Univers ity of 00:00:00 00:00:00 daily [facility] Alcohol intake 2017-08-07 2017-08-07 Current drinker [facility] 00:00:00 00:00:00 of [facility] (finding) Sex Ass[birth year] At [birth year] [facility] 00:00:00 00:00:00 [facility] Center Smoking Status Start Date Stop Date Source Tobacco smoking [facility] consumption unknown Never Smoker [facility]ter Former smoker 2020-07-14 00:00:00 2020-07-14 [facility] 00:00:00 [facility] Medications Ordered Filled Start Stop Current Ordering Indication Dosage Frequency Signature Comments Components Source Medication Medication Date Date Medication? Clinician (SIG) Name Name Sodium Yes 2 gm = 2 Memoria Chloride 5-07 tab, PO, l 1000 MG 14:35: BID, Boo Oral Tablet 00 PLease follow up with PCP in 1 week for sodium check, X 30 day, # 120 tab, 0 Refill(s) heparin No Notes: Memoria 5-07 porcine l 13:00: heparin Boo Docusate Yes 50 mg = 1 Adeel emy Sodium 50 5-07 cap, PO, l MG Oral 11:38: BID, PRN Jagdeep n Capsule 00 Constipati on, # 180 cap, 0 Refill(s) Acetaminoph No 1 - 2 tab, Memoria en 300 MG / 5-07 PO, Q4H, l Codeine 11:38: PRN Pain, Karen nn Phosphate 00 X 2 day, # 30 MG Oral 20 tab, 0 Tablet Refill(s) [Tylenol with Codeine #3] Lyrica No Notes: Memoria 5-07 (Same as: l 09:56: Lyrica) Hydralazine No Notes: Adeel emy 5-06 (Same as: l 23:05: Apresoline ) Push over 5 minutes Levetiracet Yes 500 mg = 1 Memoria am 500 MG 5-06 tab, PO, l Oral Tablet 21:42: Q12H, # 12 Boo 00 tab, 0 Refill(s) Amlodipine No Notes: Memor ia 5-06 (Same as: l 18:00: Norvasc) Docusate No Notes: Memoria 5-06 (Same as: l 17:35: Colace) (Do Not Crush) Bisoprolol No Notes: Memor ia 5-06 (Same As: l 17:06: Zebeta) Levetiracet No Notes: Adeel emy am 5-06 (Same l 14:00: as:Keppra) Famotidine No Notes: Memor ia 5-06 (Same as: l 14:00: Pepcid) Docusate No Notes: Memoria Sodium 100 5-06 (Same as: l MG Oral 14:00: Colace) [place]one Capsule 00 (Do Not Crush) sennosides, 2020-0 No Notes: Adeel emy ALF 06 (Same as: l 14:00: Senokot) Saline 2019-0 No Notes: Memoria Flush 0.9% 03-18 (Same as: l 14:00: BD Boo 00 Posiflush) Furosemide 2019-0 No 20 mg = 1 Me moria 20 MG Oral 5-06 tab, PO, l Tablet 10:37: Daily, # Malone 00 30 tab, 0 Refill(s) Amlodipine 2019-0 Yes 1 tab, PO, M emoria 2.5 MG / 5-06 Bedtime, # l atorvastati 10:37: 30 tab, 0 H ermann n 10 MG 00 Refill(s) Oral Tablet bisoprolol 2019-0 Yes 2.5 mg = Mem oria 5 mg oral 5-06 0.5 tab, l tablet 10:37: PO, Daily, Karen nn 00 # 30 tab, 0 Refill(s) gabapentin 2019-0 Yes 600 mg = 1 M emoria 600 MG Oral 5-06 tab, PO, l Tablet 10:37: Bedtime, # Karen nn 00 90 tab, 1 Refill(s) rivaroxaban 2019-0 No 15 mg = 1 M emoria 15 MG Oral 5-06 tab, PO, l Tablet 10:37: Daily, # Boo [Xarelto] 00 90 tab, 3 Refill(s) atorvastati 2019-0 Yes 80 mg = 1 M emoria n 80 mg 5-06 tab, PO, l oral tablet 10:37: Bedtime, # Boo 00 90 tab, 0 Refill(s) Aspirin 2019-0 No 81 mg, PO, Adeel emy 5-06 Daily, 0 l 10:37: Refill(s) Folic Acid 2019-0 Yes 800 mcg, Mem oria 5-06 Daily, 0 l 10:37: Refill(s) acetaminoph 2019-0 Yes 1 tab =, Me moria en-codeine 5-06 PO, Q4H, l #3 10:37: PRN Pain, Boo 00 # 30 tab, 0 Refill(s) Iohexol 2019-0 No 100 mL, Memoria -06 Route: l 08:41: IVP, Drug Form: SOLN, Dosing Weight 97, kg, ONCALL, STAT, Start date: 03/18/20 3:41:00 CDT, Duration: 1 doses or times, Dose = 2.2ml/kg, Max dose = 100ml -- "To be infused by Radiology Staff ONLY" Labetalol No 10 mg, 2 Adeel emy 5-06 mL, Route: l 07:50: IVP, Drug form: INJ, Q15Min, Dosing Weight 97, kg, PRN Hypertensi on, Start date: 03/18/20 2:50:00 CDT, Duration: 3 doses or times, Stop date: 04/17/20 0:00:00 CDT, 0 Bisacodyl No Notes: Memori a - (Same As: l 07:50: Dulcolax, Bisco-Lax) Ondansetron No Notes: Adeel emy - (Same as: l 07:50: Zofran) MEDICATION WASTE Product Size: 4 mg Product Wasted: ___ mg Saline No Notes: Memoria Flush 0.9% 03-18 (Same as: l 07:50: BD Posiflush) Insulin No Notes: Memoria regular - (Same as: l 07:50: Humulin R) Roll in palms of hands gently; Do not shake vigorously . WASTE: F/P - Black; E - Municipal Trash Bin Stable for 31 days at room temperatur e Expires in days from ____Date Dextrose 2019-0 No 12.5 gm, Memor ia 50% Syringe - 25 mL, l (D50W) 07:50: Route: IVP, Drug Form: INJ, Dosing Weight 97, kg, PRN, PRN Blood Glucose Results, Start date: 03/18/20 2:50:00 CDT, Duration: 30 day, Stop date: 04/17/20 2:49:00 CDT, 0 Glucagon No 1 mg, Memoria 5-06 Route: IM, l 07:50: Drug form: Boo 00 PDR/INJ, PRN, Dosing Weight 97, kg, PRN Blood Glucose Results, Start date: 03/18/20 2:50:00 CDT, Duration: 30 day, Stop date: 04/17/20 2:49:00 CDT, 0 Acetaminoph 2019-0 No Notes: Adeel emy en 325 MG / 03-18 (Same as: l Hydrocodone 07:48: Clifford Karen nn Bitartrate 00 325/5) Do 5 MG Oral not exceed Tablet 4gm/day of [Clifford acetaminop 5/325] hen. Tylenol 2019-0 No Notes: Do Memor ia 03-18 not exceed l 07:47: 4 gm/day. Boo (Same as: Tylenol) docosahexan Yes 1{capsu Take 1 U nivers oic 7-01 le} capsule by ity of acid/epa 17:07: mouth [place] (FISH OIL 14 daily. Medical ORAL) Branch docosahexan Yes 1{capsu Take 1 U nivers oic 7-01 le} capsule by ity of acid/epa 17:07: mouth [place] (FISH OIL 14 daily. Medical ORAL) Branch docosahexan Yes 1{capsu Take 1 U nivers oic 7-01 le} capsule by ity of acid/epa 17:07: mouth [place] (FISH OIL 14 daily. Medical ORAL) Branch docosahexan Yes 1{capsu Take 1 U nivers oic 7-01 le} capsule by ity of acid/epa 17:07: mouth [place] (FISH OIL 14 daily. Medical ORAL) Branch docosahexan Yes 1{capsu Take 1 U nivers oic 7-01 le} capsule by ity of acid/epa 17:07: mouth [place] (FISH OIL 14 daily. Medical ORAL) Branch docosahexan Yes 1{capsu Take 1 U nivers oic 7-01 le} capsule by ity of acid/epa 17:07: mouth [place] (FISH OIL 14 daily. Medical ORAL) Branch docosahexan Yes 1{capsu Take 1 U nivers oic 7-01 le} capsule by ity of acid/epa 17:07: mouth [place] (FISH OIL 14 daily. Medical ORAL) Branch docosahexan 2019-0 Yes 1{capsu Take 1 U nivers oic 7-01 le} capsule by ity of acid/epa 17:07: mouth [place] (FISH OIL 14 daily. Medical ORAL) Branch MAGNESIUM 2019-0 Yes 800mg Take 800 Uni vers ORAL 7-01 mg by ity of 15:47: mouth [place] 41 daily. Medical Branch ferrous 2019-0 Yes 1{capsu Take 1 Unive rs fumarate/vi 7-01 le} capsule by [facility] 15:47: mouth [place] (SUPER B 41 daily. Medical COMPLEX Branch ORAL) MAGNESIUM 2019-0 Yes 800mg Take 800 Uni vers ORAL 7-01 mg by ity of 15:47: mouth [place] 41 daily. Medical Branch ferrous 2018-0 Yes 1{capsu Take 1 Unive rs fumarate/vi 7-01 le} capsule by it y of [facility] 15:47: mouth [place] (SUPER B 41 daily. Medical COMPLEX Branch ORAL) MAGNESIUM 2018-0 Yes 800mg Take 800 Uni vers ORAL 7-01 mg by ity of 15:47: mouth [place] 41 daily. Medical Branch ferrous Yes 1{capsu Take 1 Unive rs fumarate/vi 7-01 le} capsule by it y of [facility] 15:47: mouth [place] (SUPER B 41 daily. Medical COMPLEX Branch ORAL) MAGNESIUM 2019-0 Yes 800mg Take 800 Uni vers ORAL 7-01 mg by ity of 15:47: mouth [place] 41 daily. Medical Branch ferrous 2018-0 Yes 1{capsu Take 1 Unive rs fumarate/vi 7-01 le} capsule by it y [facility] 15:47: mouth [place] (SUPER B 41 daily. Medical COMPLEX Branch ORAL) MAGNESIUM 2019-0 Yes 800mg Take 800 Uni vers ORAL 7-01 mg by ity of 15:47: mouth [place] 41 daily. Medical Branch ferrous 2019-0 Yes 1{capsu Take 1 Unive rs fumarate/vi 7-01 le} capsule by it y of [facility] 15:47: mouth [place] (SUPER B 41 daily. Medical COMPLEX Branch ORAL) MAGNESIUM 2019-0 Yes 800mg Take 800 Uni vers ORAL 7-01 mg by ity of 15:47: mouth [place] 41 daily. Medical Branch ferrous 2019-0 Yes 1{capsu Take 1 Unive rs fumarate/vi 7-01 le} capsule by it y of ramírez KateC 15:47: mouth [place] (SUPER B 41 daily. Medical COMPLEX Branch ORAL) MAGNESIUM Yes 800mg Take 800 Uni vers ORAL 7-01 mg by ity of 15:47: mouth [place] 41 daily. Medical Branch ferrous Yes 1{capsu Take 1 Unive rs fumarate/vi 7-01 le} capsule by it y of ramírez KateC 15:47: mouth [place] (SUPER B 41 daily. Medical COMPLEX Branch ORAL) MAGNESIUM Yes 800mg Take 800 Uni vers ORAL 7-01 mg by ity of 15:47: mouth [place] 41 daily. Medical Branch ferrous Yes 1{capsu Take 1 Unive rs fumarate/vi 7-01 le} capsule by it y of ramírez KateC 15:47: mouth [place] (SUPER B 41 daily. Medical COMPLEX Branch ORAL) furosemide Yes Take 1 Unive rs 20 mg 7-01 TAB-CAP/M2 ity of tablet 14:53: by mouth [place] 45 daily. Medical Branch furosemide Yes Take 1 Unive rs 20 mg 7-01 TAB-CAP/M2 ity of tablet 14:53: by mouth [place] 45 daily. Medical Branch furosemide Yes Take 1 Unive rs 20 mg 7-01 TAB-CAP/M2 ity of tablet 14:53: by mouth [place] 45 daily. Medical Branch furosemide Yes Take 1 Unive rs 20 mg 7-01 TAB-CAP/M2 ity of tablet 14:53: by mouth [place] 45 daily. Medical Branch furosemide Yes Take 1 Unive rs 20 mg 7-01 TAB-CAP/M2 ity of tablet 14:53: by mouth [place] 45 daily. Medical Branch furosemide Yes Take 1 Unive rs 20 mg 7-01 TAB-CAP/M2 ity of tablet 14:53: by mouth [place] 45 daily. Medical Branch furosemide Yes Take 1 Unive rs 20 mg 7-01 TAB-CAP/M2 ity of tablet 14:53: by mouth [place] 45 daily. Medical Branch furosemide Yes Take 1 Unive rs 20 mg 7-01 TAB-CAP/M2 ity of tablet 14:53: by mouth [place] 45 daily. Medical Branch atorvastati Yes 40mg Take 40 mg Univers n 80 mg 7-01 by mouth ity of tablet 14:42: daily. [place] [address] Medical Branch atorvastati Yes 40mg Take 40 mg Univers n 80 mg 7-01 by mouth ity of tablet 14:42: daily. [address] Branch atorvastati Yes 40mg Take 40 mg Univers n 80 mg 7-01 by mouth ity of tablet 14:42: daily. [address] Branch atorvastati Yes 40mg Take 40 mg Univers n 80 mg 7-01 by mouth ity of tablet 14:42: daily. [address] Branch atorvastati Yes 40mg Take 40 mg Univers n 80 mg 7-01 by mouth ity of tablet 14:42: daily. [address] atorvastati Yes 40mg Take 40 mg Univers n 80 mg 7-01 by mouth ity of tablet 14:42: daily. [address] atorvastati Yes 40mg Take 40 mg Univers n 80 mg 7-01 by mouth ity of tablet 14:42: daily. [address] atorvastati Yes 40mg Take 40 mg Univers n 80 mg 7-01 by mouth ity of tablet 14:42: daily. [address] Branch aspirin Yes 81mg Take 81 mg Univ ers (ASPIRIN 7-01 by mouth ity of LOW DOSE) 14:42: daily. [place] 81 mg EC 38 Medical tablet Branch folic acid Yes 400ug Take 400 Un jaclyn 400 mcg 7-01 mcg by ity of tablet 14:42: mouth [place] 38 daily. Medical Branch glucosa mayen Yes Take 1 Unive rs 2KCl/chondr 7-01 TAB-CAP/M2 it y of oitin mayen 14:42: by mouth [place] (GLUCOSAMIN 38 daily. Medica l E-CHONDROIT Branch IN 3X STR ORAL) vitamin C Yes 1000mg Take 1,000 Univers with mary 7-01 mg by ity of hips 14:42: mouth [place] (VITAMIN C) 38 daily. Medica l 1,000 mg Branch tablet aspirin Yes 81mg Take 81 mg Univ ers (ASPIRIN 7-01 by mouth ity of LOW DOSE) 14:42: daily. [place] 81 mg EC 38 Medical tablet Branch gabapentin 2019-0 Yes Take by Univ ers 600 mg 7-01 mouth at ity of tablet 14:42: bedtime. [place] [address] Medical Branch aspirin 2019-0 Yes 81mg Take 81 mg Univ ers (ASPIRIN 7-01 by mouth ity of LOW DOSE) 14:42: daily. [place] 81 mg EC 38 Medical tablet Branch folic acid 2019-0 Yes 400ug Take 400 Un jaclyn 400 mcg 7-01 mcg by ity of tablet 14:42: mouth [place] 38 daily. Medical Branch glucosa mayen Yes Take 1 Unive rs 2KCl/chondr 7-01 TAB-CAP/M2 it y of oitin mayen 14:42: by mouth [place] (GLUCOSAMIN 38 daily. Medica l E-CHONDROIT Branch IN 3X STR ORAL) vitamin C Yes 1000mg Take 1,000 Univers with mary 7-01 mg by ity of hips 14:42: mouth [place] (VITAMIN C) 38 daily. Medica l 1,000 mg Branch tablet gabapentin Yes Take by Univ ers 600 mg 7-01 mouth at ity of tablet 14:42: bedtime. [place] [address] Medical Branch folic acid 2018- Yes 400ug Take 400 Un jaclyn 400 mcg 7-01 mcg by ity of tablet 14:42: mouth [place] 38 daily. Medical Branch aspirin 2018- Yes 81mg Take 81 mg Univ ers (ASPIRIN 7-01 by mouth ity of LOW DOSE) 14:42: daily. [place] 81 mg EC 38 Medical tablet Branch folic acid 0 Yes 400ug Take 400 Un jaclyn 400 mcg 7-01 mcg by ity of tablet 14:42: mouth [place] 38 daily. Medical Branch glucosa mayen Yes Take 1 Unive rs 2KCl/chondr 7-01 TAB-CAP/M2 it y of oitin mayen 14:42: by mouth [place] (GLUCOSAMIN 38 daily. Medica l E-CHONDROIT Branch IN 3X STR ORAL) vitamin C Yes 1000mg Take 1,000 Univers with mary 7-01 mg by ity of hips 14:42: mouth [place] (VITAMIN C) 38 daily. Medica l 1,000 mg Branch tablet glucosa mayen Yes Take 1 Unive rs 2KCl/chondr 7-01 TAB-CAP/M2 it y of oitin mayen 14:42: by mouth [place] (GLUCOSAMIN 38 daily. Medica l E-CHONDROIT Branch IN 3X STR ORAL) vitamin C 2019-0 Yes 1000mg Take 1,000 Univers with mary 7-01 mg by ity of hips 14:42: mouth [place] (VITAMIN C) 38 daily. Medica l 1,000 mg Branch tablet gabapentin 2018-0 Yes Take by Univ ers 600 mg 7-01 mouth at ity of tablet 14:42: bedtime. [place] [address] Medical Branch aspirin 2019-0 Yes 81mg Take 81 mg Univ ers (ASPIRIN 7-01 by mouth ity of LOW DOSE) 14:42: daily. [place] 81 mg EC 38 Medical tablet Branch folic acid 2019-0 Yes 400ug Take 400 Un jaclyn 400 mcg 7-01 mcg by ity of tablet 14:42: mouth [place] 38 daily. Medical Branch glucosa mayen Yes Take 1 Unive rs 2KCl/chondr 7-01 TAB-CAP/M2 it y of oitin mayen 14:42: by mouth [place] (GLUCOSAMIN 38 daily. Medica l E-CHONDROIT Branch IN 3X STR ORAL) vitamin C 2018-0 Yes 1000mg Take 1,000 Univers with mary 7-01 mg by ity of hips 14:42: mouth [place] (VITAMIN C) 38 daily. Medica l 1,000 mg Branch tablet gabapentin Yes Take by Univ ers 600 mg 7-01 mouth at ity of tablet 14:42: bedtime. [place] [address] Medical Branch aspirin 2018-0 Yes 81mg Take 81 mg Univ ers (ASPIRIN 7-01 by mouth ity of LOW DOSE) 14:42: daily. [place] 81 mg EC 38 Medical tablet Branch folic acid 2018-0 Yes 400ug Take 400 Un jaclyn 400 mcg 7-01 mcg by ity of tablet 14:42: mouth [place] 38 daily. Medical Branch glucosa mayen 2019-0 Yes Take 1 Unive rs 2KCl/chondr 7-01 TAB-CAP/M2 it y of oitin mayen 14:42: by mouth [place] (GLUCOSAMIN 38 daily. Medica l E-CHONDROIT Branch IN 3X STR ORAL) vitamin C 2019-0 Yes 1000mg Take 1,000 Univers with mary 7-01 mg by ity of hips 14:42: mouth [place] (VITAMIN C) 38 daily. Medica l 1,000 mg Branch tablet gabapentin 2019-0 Yes Take by Univ ers 600 mg 7-01 mouth at ity of tablet 14:42: bedtime. [place] [address] Medical Branch aspirin 2019-0 Yes 81mg Take 81 mg Univ ers (ASPIRIN 7-01 by mouth ity of LOW DOSE) 14:42: daily. [place] 81 mg EC 38 Medical tablet Branch folic acid Yes 400ug Take 400 Un jaclyn 400 mcg 7-01 mcg by ity of tablet 14:42: mouth [place] 38 daily. Medical Branch glucosa mayen Yes Take 1 Unive rs 2KCl/chondr 7-01 TAB-CAP/M2 it y of oitin mayen 14:42: by mouth [place] (GLUCOSAMIN 38 daily. Medica l E-CHONDROIT Branch IN 3X STR ORAL) vitamin C Yes 1000mg Take 1,000 Univers with mary 7-01 mg by ity of hips 14:42: mouth [place] (VITAMIN C) 38 daily. Medica l 1,000 mg Branch tablet gabapentin Yes Take by Univ ers 600 mg 7-01 mouth at ity of tablet 14:42: bedtime. [place] [address] Medical Branch gabapentin Yes Take by Univ ers 600 mg 7-01 mouth at ity of tablet 14:42: bedtime. [place] [address] Medical Branch aspirin Yes 81mg Take 81 mg Univ ers (ASPIRIN 7-01 by mouth ity of LOW DOSE) 14:42: daily. [place] 81 mg EC 38 Medical tablet Branch folic acid Yes 400ug Take 400 Un jaclyn 400 mcg 7-01 mcg by ity of tablet 14:42: mouth [place] 38 daily. Medical Branch glucosa mayen Yes Take 1 Unive rs 2KCl/chondr 7-01 TAB-CAP/M2 it y of oitin mayen 14:42: by mouth [place] (GLUCOSAMIN 38 daily. Medica l E-CHONDROIT Branch IN 3X STR ORAL) vitamin C Yes 1000mg Take 1,000 Univers with mary 7-01 mg by ity of hips 14:42: mouth [place] (VITAMIN C) 38 daily. Medica l 1,000 mg Branch tablet gabapentin Yes Take by Univ ers 600 mg 7-01 mouth at ity of tablet 14:42: bedtime. [place] [address] Medical Branch allopurinol Yes TAKE 2 Univ ers 300 mg 6-25 TABLETS BY ity of tablet 00:00: MOUTH ONCE [place] 00 DAILY Medical Branch allopurinol Yes TAKE 2 Univ ers 300 mg 6-25 TABLETS BY ity of tablet 00:00: MOUTH ONCE DAILY Medical Branch allopurinol Yes TAKE 2 Univ ers 300 mg 6-25 TABLETS BY ity of tablet 00:00: MOUTH ONCE DAILY Medical Branch allopurinol Yes TAKE 2 Univ ers 300 mg 6-25 TABLETS BY ity of tablet 00:00: MOUTH ONCE DAILY Medical Branch allopurinol Yes TAKE 2 Univ ers 300 mg 6-25 TABLETS BY ity of tablet 00:00: MOUTH ONCE DAILY Medical Branch allopurinol Yes TAKE 2 Univ ers 300 mg 6-25 TABLETS BY ity of tablet 00:00: MOUTH ONCE DAILY Medical Branch allopurinol Yes TAKE 2 Univ ers 300 mg 6-25 TABLETS BY ity of tablet 00:00: MOUTH ONCE DAILY Medical Branch allopurinol Yes TAKE 2 Univ ers 300 mg 6-25 TABLETS BY ity of tablet 00:00: MOUTH ONCE DAILY Medical Branch valsartan Yes TAKE 1 Univer s 320 mg 6-24 TABLET BY ity of tablet 00:00: MOUTH ONCE DAILY Medical (STOP Branch LOSARTAN DUE TO RECALL) valsartan Yes TAKE 1 Univer s 320 mg 6-24 TABLET BY ity of tablet 00:00: MOUTH ONCE DAILY Medical (STOP Branch LOSARTAN DUE TO RECALL) valsartan Yes TAKE 1 Univer s 320 mg 6-24 TABLET BY ity of tablet 00:00: MOUTH ONCE DAILY Medical (STOP Branch LOSARTAN DUE TO RECALL) valsartan Yes TAKE 1 Univer s 320 mg 6-24 TABLET BY ity of tablet 00:00: MOUTH ONCE DAILY Medical (STOP Branch LOSARTAN DUE TO RECALL) valsartan Yes TAKE 1 Univer s 320 mg 6-24 TABLET BY ity of tablet 00:00: MOUTH ONCE DAILY Medical (STOP Branch LOSARTAN DUE TO RECALL) valsartan Yes TAKE 1 Univer s 320 mg 6-24 TABLET BY ity of tablet 00:00: MOUTH ONCE DAILY Medical (STOP Branch LOSARTAN DUE TO RECALL) valsartan Yes TAKE 1 Univer s 320 mg 6-24 TABLET BY ity of tablet 00:00: MOUTH ONCE DAILY Medical (STOP Branch LOSARTAN DUE TO RECALL) valsartan 2018- Yes TAKE 1 Univer s 320 mg 6-24 TABLET BY ity of tablet 00:00: MOUTH ONCE DAILY Medical (STOP Branch LOSARTAN DUE TO RECALL) levothyroxi Yes TAKE 1 Univ ers ne 88 mcg 6-10 TABLET BY ity o f tablet 00:00: MOUTH ONCE DAILY Medical Branch levothyroxi Yes TAKE 1 Univ ers ne 88 mcg 6-10 TABLET BY ity o f tablet 00:00: MOUTH ONCE DAILY Medical Branch levothyroxi Yes TAKE 1 Univ ers ne 88 mcg 6-10 TABLET BY ity o f tablet 00:00: MOUTH ONCE DAILY Medical Branch levothyroxi Yes TAKE 1 Univ ers ne 88 mcg 6-10 TABLET BY ity o f tablet 00:00: MOUTH ONCE DAILY Medical Branch levothyroxi Yes TAKE 1 Univ ers ne 88 mcg 6-10 TABLET BY ity o f tablet 00:00: MOUTH ONCE DAILY Medical Branch levothyroxi 0 Yes TAKE 1 Univ ers ne 88 mcg 6-10 TABLET BY ity o f tablet 00:00: MOUTH ONCE DAILY Medical Branch levothyroxi Yes TAKE 1 Univ ers ne 88 mcg 6-10 TABLET BY ity o f tablet 00:00: MOUTH ONCE DAILY Medical Branch levothyroxi 0 Yes TAKE 1 Univ ers ne 88 mcg 6-10 TABLET BY ity o f tablet 00:00: MOUTH ONCE DAILY Medical Branch amLODIPine 2019-0 Yes Univers 5 mg tablet 4-12 ity of 00:00: Medical Branch amLODIPine 2019-0 Yes Univers 5 mg tablet 4-12 ity of 00:00: Medical Branch amLODIPine 2018-0 Yes Univers 5 mg tablet 4-12 ity of 00:00: Medical Branch amLODIPine 2019-0 Yes Univers 5 mg tablet 4-12 ity of 00:00: Medical Branch amLODIPine 2019-0 Yes Univers 5 mg tablet 4-12 ity of 00:00: Medical Branch amLODIPine 2018-0 Yes Univers 5 mg tablet 4-12 ity of 00:00: Medical Branch amLODIPine 2018-0 Yes Univers 5 mg tablet 4-12 ity of 00:00: [place] 00 Medical Branch amLODIPine Yes Univers 5 mg tablet 4-12 ity of 00:00: [place] [facility] bisoprolol 2016-11 Yes Univers 5 mg tablet 2-29 ity of 00:: [place] [facility] bisoprolol 2016-11 Yes Univers 5 mg tablet 2-29 ity of 00:00: [place] [facility] bisoprolol 2016-11 Yes Univers 5 mg tablet 2-29 ity of 00:: [place] [facility] bisoprolol 2016-11 Yes Univers 5 mg tablet 2-29 ity of 00:: [place] [facility] bisoprolol 2016-11 Yes Univers 5 mg tablet 2-29 ity of 00:: [place] [facility] bisoprolol 2016-11 Yes Univers 5 mg tablet 2-29 ity of 00:: [place] [facility] bisoprolol 2016-11 Yes Univers 5 mg tablet 2-29 ity of 00:: [address] bisoprolol 2016-11 Yes Univers 5 mg tablet 2-29 ity of 00:00: [address] bisoprolol Yes 5mg QD Take [address] 2.5 mg -22 by mouth [facility] 16:28: daily. Medical half tablet [address] gabapentin Yes 600mg [id number] Take [address] (NEURONTIN) 9-22 [id number] mg by L ukes 600 MG 16:28: 3D mouth 3 Medical tablet 46 (three) Center times daily. atorvastati Yes 80mg QD Take [address] [facility] (LIPITOR) - by mouth Luke s 80 MG 16:28: daily. Medical tablet 46 Moore furosemide Yes 20mg Q.5D Take [address] (LASIX) 20 9-22 by mouth 2 Froy es MG tablet 16:28: (two) Medical 46 times Center daily. losartan Yes 50mg QD Take [address] [facility] (COZAAR) 50 9-22 by mouth Luke s MG tablet 16:28: daily. Medica l 46 Center omega-3 Yes 2g Q.5D Take [address] [facility] fatty -22 by mouth 2 [facility] acids-fish 16:28: (two) Medica l oil 46 times Center 340-1,000 daily. mg Cap per capsule magnesium Yes 30mg Q.5D Take [address] 30 mg -22 by mouth 2 [facility] tablet 16:28: (two) Medical 46 times Center daily. ascorbic Yes 1000mg QD Take 1,[address] acid, 9-22 mg by [facility] vitamin C, 16:28: mouth Medica l (VITAMIN C) 46 daily. Center 1000 MG tablet B-complex Yes 1{tbl} QD Take [address] [address] with -22 tablet by [facility]ukes vitamin C 16:28: mouth Medical tablet 46 daily. Moore aspirin 81 Yes 81mg QD Take [address] MG EC - by mouth [facility] tablet 16:28: daily. Medical 46 Center glucosamine Yes 1{tbl} [id number] Take [address] [address] -chondroiti - [id number] tablet by [facility]ukes n 500-400 16:28: 3D mouth 3 Medic al mg tablet 46 (three) Center times daily. allopurinol Yes 300mg QD Take [address] (ZYLOPRIM) 9-22 mg by [facility]ukes 300 MG 16:28: mouth Medical tablet 46 daily. Moore amLODIPine Yes 5mg QD Take [address] (NORVASC) 5 - by mouth Luke s MG tablet 16:28: daily. Medica l 46 Center Bisoprolol Bisoprolol Yes [place] not Common Fumarate Fumarate Martínez defined Spir it [facility] Allopurinol Allopurinol Yes Costa not Common Martínez defined [facility] Super B Super B Yes [place] not Common Complex Complex Martínez defined [facility] Furosemide Furosemide Yes [place] not Common Martínez defined [facility] Atorvastati Atorvastati Yes [place] not Common n Calcium n Calcium Martínez defined Sp zachary - [facility] protandim protandim Yes [place] not Co mmon Martínez defined [facility] Aspirin 81 Aspirin 81 Yes [place] not Common Martínez defined [facility] Glucos-Daron Glucos-Daron Yes [place] not Common droit-MSM droit-MSM Martínez defined Sp zachary Complex Complex - [facility] Gabapentin Gabapentin Yes [place] not Common Martínez defined [facility] Amlodipine Amlodipine Yes [place] not Common Besylate Besylate Martínez defined Spir it [facility] Magnesium Magnesium Yes [place] not Co mmon Martínez defined [facility] Valsartan Valsartan Yes [place] not Co mmon Martínez defined [facility] [place] 3 [place] 3 Yes [place] not Common Martínez defined [facility] Levothyroxi Levothyroxi Yes [place] not Common ne Sodium ne Sodium Martínez defined Sp zachary [facility] Vitamin C Vitamin C Yes [place] not Co mmon Martínez defined [facility] Acetaminoph Acetaminoph Yes [place] not Common en-Codeine en-Codeine Martínez defined [facility] #3 #3 [facility] Xarelto Xarelto Yes [place] not Common Martínez defined [facility] Folic Acid Folic Acid Yes [place] not Common Martínez defined [facility] Levothyroxi Levothyroxi No Levothyrox ne Sodium ne Sodium ine Sodium Budesonide Budesonide No Budesonide Valsartan Valsartan No Valsartan Omeprazole Omeprazole No Omeprazole Atorvastati Atorvastati No Atorvastat n Calcium n Calcium in Calcium Euthyrox Euthyrox No Euthyrox Aspirin 81 Aspirin 81 No Aspirin 81 amLODIPine amLODIPine No amLODIPine Besylate Besylate Besylate Glucos-Daron Glucos-Daron No Glucos-Cho droit-MSM droit-MSM ndroit-MSM Complex Complex Complex FeroSul FeroSul No FeroSul Bisoprolol Bisoprolol No Bisoprolol Fumarate Fumarate Fumarate [place] 3 [place] 3 No [place] 3 Furosemide Furosemide No Furosemide Spironolact Spironolact No Spironolac one one tone Super B Super B No Super B Complex Complex Complex Gabapentin Gabapentin No Gabapentin Folic Acid Folic Acid No Folic Acid metOLazone metOLazone No metOLazone Vitamin C Vitamin C No Vitamin C Allopurinol Allopurinol No Allopurino l protandim protandim No protandim Magnesium Magnesium No Magnesium Xarelto Xarelto No Xarelto levoFLOXaci levoFLOXaci No levoFLOXac n n in Iron Iron No Iron Acetaminoph Acetaminoph No Acetaminop en-Codeine en-Codeine hen-Codein #3 #3 e #3 Vital Signs Vital Name Observation Time Observation Value Comments Source height 2021-12-08 11:00:00 64 [in_i] [facility] weight 2021-12-08 11:00:00 174 [lb_av] [facility] temperature 2021-12-08 11:00:00 97.6 [degF] [facility] bmi 2021-12-08 11:00:00 29.86 kg/m2 [facility] blood pressure 2021-12-08 11:00:00 142 mm[Hg] [facility] blood pressure 2021-12-08 11:00:00 86 mm[Hg] [facility] - diastolic [facility] Systolic blood 2020-07-14 20:07:00 139 mm[Hg] [facility] Diastolic blood 2020-07-14 20:07:00 76 mm[Hg] [facility] Heart rate 2020-07-14 20:07:00 61 /min [facility] 2020-07-14 20:07:00 37 [facility] weight 2020-07-14 20:07:00 85.548 kg [facility] BMI 2020-07-14 20:07:00 31.38 kg/m2 [facility] Systolic blood 2020-07-14 20:07:00 139 mm[Hg] [facility] Diastolic blood 2020-07-14 20:07:00 76 mm[Hg] [facility] Heart rate 2020-07-14 20:07:00 61 /min [facility] Body temperature 2020-07-14 20:07:00 37 [facility] Body weight 2020-07-14 20:07:00 85.548 kg [facility] BMI 2020-07-14 20:07:00 31.38 kg/m2 [facility] Respitory Rate 2020-03-19 16:00:00 Memori al Malone Systolic (mm Hg) 2020-03-19 16:00:00 Adeel rial Malone Diastolic (mm Hg) 2020-03-19 16:00:00 Mem orial Malone Respitory Rate 2020-03-19 15:00:00 Memori al Boo Systolic (mm Hg) 2020-03-19 15:00:00 Adeel rial Boo Diastolic (mm Hg) 2020-03-19 15:00:00 Mem orial Boo Respitory Rate 2020-03-19 14:00:00 Memori al Boo Systolic (mm Hg) 2020-03-19 14:00:00 Adeel rial Boo Diastolic (mm Hg) 2020-03-19 14:00:00 Mem orial [facility]oo Temperature Oral (F) 2020-03-19 13:27:00 97.0 F [facility] Temperature Oral (F) 2020-03-18 17:00:00 96.7 F [facility] Heart Rate 2020-03-18 06:19:00 [facility] Temperature Oral (F) 2020-03-18 06:19:00 98.0 F [facility] Procedures Procedure Date / Time Performed Performing Clinician Sourc e XR CHEST 2 VW 2020-09-11 17:37:59 Ponce Fletcher [facility] [id number] 2020-08-19 00:00:00 EDWMA.[email or web address] [facility] [id number] 2020-08-18 00:00:00 PEPGR [facility] [id number] 2020-08-18 00:00:00 EDWMA.01 [facility] [id number] 2020-08-18 00:00:00 PEPGR [facility] [id number] 2020-08-18 00:00:00 PEPGR [facility] [id number] 2020-08-18 00:00:00 PEPGR [facility] [id number] 2020-08-18 00:00:00 PEPGR [facility] [id number] 2020-08-18 00:00:00 EDWMA.01 [facility] [id number] 2020-08-18 00:00:00 PEPGR [facility] [id number] 2020-08-18 00:00:00 PEPGR [facility] ASSIGNMENT OF BENEFITS 2020-07-14 19:53:46 Doctor Unassigned, No [facility] [place] Name [facility] REFERRAL- 2020-05-26 05:01:00 Doctor Unassigned, No [facility] [place] REQUEST/RESPONSE Name Medical Branch REFERRAL- 2019-06-04 05:01:00 Doctor Unassigned, No [facility] [place] REQUEST/RESPONSE Name [facility] Plan of Care Planned Activity Planned Date Details Comments Source Future Scheduled 2023-09-07 COVID-19 VACCINE (#1) [facility] Test 07:12:27 [code = COVID-19 VACCINE (#1)] Future Scheduled 2023-09-07 SHINGLES VACCINES (1 Met [facility] Test 07:12:27 of 2) [code = SHINGLES VACCINES (1 of 2)] Future Scheduled 2023-09-07 65+ PNEUMOCOCCAL Methodi [facility] Test 07:12:27 VACCINE (1 - PCV) [code = 65+ PNEUMOCOCCAL VACCINE (1 - PCV)] Future Scheduled 2023-09-07 INFLUENZA VACCINE (#1) [facility] [place] [place] Test 07:12:27 [code = INFLUENZA VACCINE (#1)] Encounters Start End Encounter Admission Attending Care Care Encounter Source Date/Time Date/Time Type Type Clinicians Facility Department ID 2022-06-01 Outpatient [facility] [id number] Common 11:07:00 [id number] [facility] 2021-12-08 2021-12-08 OFFICE [facility] [id number] Co mmon 00:00:00 00:00:00 VISIT Spirit [facility] PT - CHI LEVEL 4 [facility] 2020-10-06 2020-10-06 Outpatient [facility] ST[facility] [id number] Common 00:00:00 00:00:00 [facility] 2020-09-11 2020-09-11 [facility] [id number] Univers 12:14:58 23:59:00 Encounter Ponce Conley [id number] [facility] [place] [id number] [facility] [phone] [facility] [address] [place] 2020-09-11 2020-09-11 Outpatient R JUSTINE, [facility] [id number] Univers 00:00:00 00:00:00 PONCE charanjitdilan [facility] 2020-08-18 2020-08-18 Outpatient Justine, [facility] [id number] [facility] 12:00:00 12:00:00 Ponce Kumar [facility] 2020-07-14 2020-07-[address] [facility] [id number] Univers 14:54:06 16:17:01 Visit Jake Conley [id number] [id number] [phone] Il dical [address] 2020-07-14 2020-07-14 Office Vishnu [facility] [id number] 14:54:06 16:17:01 Visit Jake Conley [id number] [place] [id number] Professio [phone] [address] 2020-07-14 2020-07-14 Outpatient Jyothi VISHNUJAKE Giles [facility] [id number] Univers 14:20:00 14:20:00 JAKE LINDQUITS [facility] 2020-07-14 2020-07-14 Orders Doctor LISSET [id number] Univers 00:00:00 00:00:00 Only Unassigned, JUAN ANTONIO [id number] [address]y [place] [facility] [id number] Tino as [phone] [facility] 009 Branch 2020-06-30 2020-06-30 [facility] [id number] Common 14:30:00 14:30:00 [facility] 2020-05-26 2020-05-26 Orders Doctor LISSET [id number] Univers 00:00:00 00:00:00 Only Unassigned, JUAN ANTONIO [id number] [address] [place] [facility] [id number] Tino as [phone] [address] 2020-03-27 2020-03-28 Outpt Diag nullFlavo [facility] [id number] Memoria 15:39:00 04:59:00 Services r [address] 2020-03-27 2020-03-27 Outpatient Nir [facility] [id number] 10:39:00 23:59:00 Rob Lang 2020-03-24 2020-03-24 Telephone [facility] [id number] Univers 00:00:00 00:00:00 Jake Marqueston [id number] [id number] [phone] Il dical nal 092 [facility] 2020-03-24 2020-03-24 Telephone [facility] [id number] Univers 00:00:00 00:00:00 Jake Marqueston [id number] [id number] [phone] Il dical nal 092 [facility] 2020-03-18 2020-03-19 Inpatient nullFlavo [facility] [id number] Memoria 06:18:45 16:30:00 [place] [address] l [facility] 2020-03-18 2020-03-19 Inpatient E CHAITANYA [facility] 7500 [facility] 03:37:00 11:30:00 [facility] 2020-03-18 2020-03-19 Outpatient Chaitanya [facility] [id number] 01:18:45 11:30:00 [place] 2020-02-21 2020-02-21 [facility] [id number] Common 09:00:00 09:00:00 t [facility] 2019-12-12 2019-12-12 [facility] [id number] Common 13:30:00 13:30:00 t [facility] 2019-10-21 2019-10-21 [facility] [id number] Common 08:00:00 08:00:00 t [facility] 2019-09-20 2019-09-20 Out[facility] [id number] Common 10:30:00 10:30:00 t [facility] 2019-08-13 2019-08-13 Out[facility] [id number] Common 15:00:00 15:00:00 t [facility] 2019-08-01 2019-08-01 Outpatient [facility] [id number] Common 15:00:00 15:00:00 t [facility] 2019-07-22 2019-07-22 Outpatient [facility] [id number] Common 09:18:00 09:18:00 t [facility] Sp[facility] 2019-07-19 2019-07-19 Out[facility] [id number] Common 11:58:00 11:58:00 t [facility] 2019-07-18 2019-07-18 Outpatient [facility] [id number] Common 13:30:00 13:30:00 t [facility] 2019-06-04 2019-06-04 Orders Doctor DARLING [id number] [id number] Univers 00:00:00 00:00:00 Only Unassigned, JUAN ANTONIO [id number] [place] [facility] [id number] Tino as [phone] [place] [address] Branch 2019-02-05 2019-02-05 Outpatient Rohini Novat [id number] Common 08:30:00 08:30:00 t [facility] Sp[facility] Results Test Description Test Time Test Comments Results Result Sourc e Comments XR CHEST 2 VW 2020-08-15 Small to moderate Univ ersity of 0 left pleural [place] [facility] 17:46:16 effusion with Branch associated atelectasis.2 VIEWS OF THE CHEST HISTORY: Hypervolemia, unspecified hypervolemia type COMPARISON: none TECHNIQUE: PA and lateral views of the chest. FINDINGS: Small to moderate left pleural effusion with associated atelectasis. Lungsotherwise clear. No pneumothorax. Heart size is normal. Sternotomy changes.No acute osseous abnormality. [facility], Radiant Results Inft User - 09/11/2020 12:47 PM CDT2 VIEWS OF THE CHESTHISTORY: Hypervolemia, unspecified hypervolemia type COMPARISON: noneTECHNIQUE: PA and lateral views of the chest.FINDINGS:Smal l to moderate left pleural effusion with associated atelectasis. Lungsotherwise clear. No pneumothorax. Heart size is normal. Sternotomy changes.No acute osseous abnormality.IMPRESS IONSmall to moderate left pleural effusion with associated atelectasis. Novel Coronavirus 20182020-08-21 12:00:00 Test Item Value Reference Range Interpretation Comme nts Novel Coronavirus 2018 Not Detected Not Detected Testi ng was performed using the nCoV (test code = Aptima DILLON S-CoV-2 assay.This COVID19) nucleic acid am plification test was developed a nd itsperformance characteristics determined by [facility]. Nucleic acid amplification t ests include PCRand TMA. Thi s test has not been FDA cleare d or approved.This test has been a uthorized by FDA under an Emerge ncy UseAuthorizatio n (EUA). This test is only authori zed forthe duration of rob e the declaration that circumstan cesexist justifying the authorization of the emergency u se ofin vitro diagnostic test s for detection of SARS-CoV-2 viru sand/or diagnosis of COVID-19 inf ection under rrqpout266(b)(1 ) of the Act, 21 U.S.C. 360bbb-3 (b) (1), unless theauthorizatio n is terminated or revoked sooner. When diagnostic testing is nega tive, the possibility of afalse negative result should b e considered in the contextof a patient's recent exposures and t he presence ofclinical sign s and symptoms consistent with COVID-19. Anindividual wi thout symptoms of COVID-19 and wh o is notshedding SARS-CoV-2 viru s would expect to have a negative (not detected) result in this assay.Performed At: [facility] [id number] [place], [place] [id number] Garrick Osorio MD Ph:[phone] CBC W/AUTO [id number] 09:59:00 Test Item Value Reference Range Interpretation Comments WHITE BLOOD CELL (test code = 10.8 K/MM3 3.8-9.8 H WBC) RED BLOOD CELL (test code = 3.07 M/MM3 3.95-5.67 L RBC) HEMOGLOBIN (test code = HGB) 8.4 G/DL 12.4-16.7 L HEMATOCRIT (test code = HCT) 28.5 % 35.9-49.5 L MEAN CELL VOLUME (test code = 93 fL 81.7-96.1 N MCV) MEAN CELL HGB (test code = MCH) 27.4 pg 27.6-33.2 L MEAN CELL HGB CONCETRATION 29.5 % 32.9-35.5 L (test code = MCHC) RED CELL DISTRIBUTION WIDTH 25.2 % 12.1-15.2 H (test code = RDW) PLATELET COUNT (test code = 232 K/MM3 129-368 N PLT) MEAN PLATELET VOLUME (test code 10.1 fl 7.4-10.4 N = MPV) NEUTROPHIL % (test code = NT%) 79.1 % 43-75 H IMMATURE GRANULOCYTE % (test 0.5 % 0.0-2.0 N code = IG%) LYMPHOCYTE % (test code = LY%) 5.8 % 14-44 L MONOCYTE % (test code = MO%) 12.2 % 4-13 N EOSINOPHIL % (test code = EO%) 1.9 % 0-6 N BASOPHIL % (test code = BA%) 0.5 % 0-2 N NUCLEATED RBC % (test code = 0.0 % 0-1.0 N NRBC%) NEUTROPHIL # (test code = NT#) 8.55 K/mm3 2.0-7.6 H IMMATURE GRANULOCYTE # (test 0.05 x10 3/uL 0-0.03 H code = IG#) LYMPHOCYTE # (test code = LY#) 0.63 K/mm3 1.0-3.8 L MONOCYTE # (test code = MO#) 1.32 K/mm3 0.1-0.8 H EOSINOPHIL # (test code = EO#) 0.21 K/mm3 0.0-0.2 H BASOPHIL # (test code = BA#) 0.05 K/mm3 0.0-0.2 N NUCLEATED RBC # (test code = 0.00 K/mm3 0.0-0.1 N NRBC#) DIFFERENTIAL [id number] 09:59:00 Test Item Value Reference Range Interpretation Comments RBC MORPHOLOGY REQUIRED (test code = ABNORMAL RBCM) POIKILOCYTOSIS (test code = POIK) FEW NONE ANISOCYTOSIS (test code = ANISO) MODERATE NONE TARGET CELLS (test code = TGT) FEW NONE ACANTHOCYTES (test code = ACAN) FEW NONE OVALOCYTES (test code = OVAL) FEW NONE PLATELET ESTIMATE (test code = ADEQUATE ADEQUATE PLTEST) PLATELET MORPHOLOGY (test code = NORMAL NORMAL PLTMORPH) BASIC METABOLIC [id number] 09:42:00 Test Item Value Reference Range Interpretation Comments SODIUM (test code = 142 MMOL/L 137-145 N NA) POTASSIUM (test code = 3.9 MMOL/L 3.5-5.1 N K) CHLORIDE (test code = 102 MMOL/L 98-107 N CL) CARBON DIOXIDE (test 34 MMOL/L 22-30 H code = CO2) ANION GAP (test code = 10 MMOL/L 14-24 L GAP) GLUCOSE (test code = 100 MG/DL 74-106 GLU) BLOOD UREA NITROGEN 15 MG/DL 9-20 N (test code = BUN) GLOMERULAR FILTRATION > 60 Report ing units: RATE (test code = GFR) ml/mi n/1.73 m2 (Modified MDRD Formula)Referen ce Range: > or = 6 0 ml/min/1.73 m2 CREATININE (test code 0.70 MG/DL 0.66-1.25 = CREAT) CALCIUM (test code = 9.0 MG/DL 8.4-10.2 N CA) BASIC METABOLIC [id number] 09:27:00 Test Item Value Reference Range Interpretation Comments SODIUM (test code = NA) 142 MMOL/L 137-145 N POTASSIUM (test code = K) 3.9 MMOL/L 3.5-5.1 N CHLORIDE (test code = CL) 102 MMOL/L 98-107 N CARBON DIOXIDE (test code = CO2) MMOL/L 22-30 GLUCOSE (test code = GLU) MG/DL 74-106 BLOOD UREA NITROGEN (test code = MG/DL 9-20 BUN) GLOMERULAR FILTRATION RATE (test code = GFR) CREATININE (test code = CREAT) MG/DL 0.66-1.25 CALCIUM (test code = CA) MG/DL 8.7-9.7 CBC W/AUTO [id number] 09:11:00 Test Item Value Reference Range Interpretation Comments WHITE BLOOD CELL (test code = 10.8 K/MM3 3.8-9.8 H WBC) RED BLOOD CELL (test code = 3.07 M/MM3 3.95-5.67 L RBC) HEMOGLOBIN (test code = HGB) 8.4 G/DL 12.4-16.7 L HEMATOCRIT (test code = HCT) 28.5 % 35.9-49.5 L MEAN CELL VOLUME (test code = 93 fL 81.7-96.1 N MCV) MEAN CELL HGB (test code = MCH) 27.4 pg 27.6-33.2 L MEAN CELL HGB CONCETRATION 29.5 % 32.9-35.5 L (test code = MCHC) RED CELL DISTRIBUTION WIDTH 25.2 % 12.1-15.2 H (test code = RDW) PLATELET COUNT (test code = 232 K/MM3 129-368 N PLT) MEAN PLATELET VOLUME (test code 10.1 fl 7.4-10.4 N = MPV) NEUTROPHIL % (test code = NT%) 79.1 % 43-75 H IMMATURE GRANULOCYTE % (test 0.5 % 0.0-2.0 N code = IG%) LYMPHOCYTE % (test code = LY%) 5.8 % 14-44 L MONOCYTE % (test code = MO%) 12.2 % 4-13 N EOSINOPHIL % (test code = EO%) 1.9 % 0-6 N BASOPHIL % (test code = BA%) 0.5 % 0-2 N NUCLEATED RBC % (test code = 0.0 % 0-1.0 N NRBC%) NEUTROPHIL # (test code = NT#) 8.55 K/mm3 2.0-7.6 H IMMATURE GRANULOCYTE # (test 0.05 x10 3/uL 0-0.03 H code = IG#) LYMPHOCYTE # (test code = LY#) 0.63 K/mm3 1.0-3.8 L MONOCYTE # (test code = MO#) 1.32 K/mm3 0.1-0.8 H EOSINOPHIL # (test code = EO#) 0.21 K/mm3 0.0-0.2 H BASOPHIL # (test code = BA#) 0.05 K/mm3 0.0-0.2 N NUCLEATED RBC # (test code = 0.00 K/mm3 0.0-0.1 N NRBC#) DIFFERENTIAL [id number] 09:11:00 Test Item Value Reference Range Interpretation Comments RBC MORPHOLOGY REQUIRED (test code = RBCM) PLATELET ESTIMATE (test code = PLTEST) ADEQUATE PLATELET MORPHOLOGY (test code = NORMAL PLTMORPH) CBC W/AUTO [id number] 09:11:00 Test Item Value Reference Range Interpretation Comments WHITE BLOOD CELL (test code = 10.8 K/MM3 3.8-9.8 H WBC) RED BLOOD CELL (test code = 3.07 M/MM3 3.95-5.67 L RBC) HEMOGLOBIN (test code = HGB) 8.4 G/DL 12.4-16.7 L HEMATOCRIT (test code = HCT) 28.5 % 35.9-49.5 L MEAN CELL VOLUME (test code = 93 fL 81.7-96.1 N MCV) MEAN CELL HGB (test code = MCH) 27.4 pg 27.6-33.2 L MEAN CELL HGB CONCETRATION 29.5 % 32.9-35.5 L (test code = MCHC) RED CELL DISTRIBUTION WIDTH 25.2 % 12.1-15.2 H (test code = RDW) PLATELET COUNT (test code = 232 K/MM3 129-368 N PLT) MEAN PLATELET VOLUME (test code 10.1 fl 7.4-10.4 N = MPV) NEUTROPHIL % (test code = NT%) 79.1 % 43-75 H IMMATURE GRANULOCYTE % (test 0.5 % 0.0-2.0 N code = IG%) LYMPHOCYTE % (test code = LY%) 5.8 % 14-44 L MONOCYTE % (test code = MO%) 12.2 % 4-13 N EOSINOPHIL % (test code = EO%) 1.9 % 0-6 N BASOPHIL % (test code = BA%) 0.5 % 0-2 N NUCLEATED RBC % (test code = 0.0 % 0-1.0 N NRBC%) NEUTROPHIL # (test code = NT#) 8.55 K/mm3 2.0-7.6 H IMMATURE GRANULOCYTE # (test 0.05 x10 3/uL 0-0.03 H code = IG#) LYMPHOCYTE # (test code = LY#) 0.63 K/mm3 1.0-3.8 L MONOCYTE # (test code = MO#) 1.32 K/mm3 0.1-0.8 H EOSINOPHIL # (test code = EO#) 0.21 K/mm3 0.0-0.2 H BASOPHIL # (test code = BA#) 0.05 K/mm3 0.0-0.2 N NUCLEATED RBC # (test code = 0.00 K/mm3 0.0-0.1 N NRBC#) DIFFERENTIAL [id number] 09:11:00 Test Item Value Reference Range Interpretation Comments RBC MORPHOLOGY REQUIRED (test code = RBCM) PLATELET ESTIMATE (test code = PLTEST) ADEQUATE PLATELET MORPHOLOGY (test code = NORMAL PLTMORPH) - XR CHEST [id number] 08:12:00 Patient Name: STEPH WALSH JR Unit No: [id number] EXAMS: CPT CODE: [id number] XR CHEST 1V [id number] REASON FOR EXAM: Cough. COMPARISON: August,. Chest, single view, frontal projection. The lungs are well-inflated with continued density at the left lung base. The right lung base is better inflated. Median sternotomy changes. Heart size is mildly prominent. Borderline vascular fullness may be present. No pneumothorax can be seen. Osseous structures appear to be intact. Degenerative changes at the right shoulder. IMPRESSION: Continued left basilar density primarily possibly effusion. Better aeration of the right lung base. Borderline vascular congestion. Location: 9 Electronically Signedby ANAM JAMES M.D. on 08/21/2020 at 0812 Reported and signed by: ANAM JAMES M.D.CC: Ponce Fletcher; Forrest Bonilla MD Technologist: Cecelia Hood RT(R) Transcrpt Date/Tm/Trnsp: 08/21/2020 (811) [id number] Orig Print D/T: S: 08/21/2020 (08) [facility] NAME: STEPH WALSH JR [address] PHYS: [place] [address] : 1940 AGE: 80 SEX: M LOC: Z.417 A PHONE #: [phone] EXAM DATE: 08/21/2020 STATUS: ADM IN FAX #: [phone] RADIOLOGY NO: PAGE 1 Signed ReportCBC W/AUTO [id number] 13:19:00 Test Item Value Reference Range Interpretation Comments WHITE BLOOD CELL (test code = 17.5 K/MM3 3.8-9.8 H WBC) RED BLOOD CELL (test code = 3.41 M/MM3 3.95-5.67 L RBC) HEMOGLOBIN (test code = HGB) 9.2 G/DL 12.4-16.7 L HEMATOCRIT (test code = HCT) 31.7 % 35.9-49.5 L MEAN CELL VOLUME (test code = 93 fL 81.7-96.1 N MCV) MEAN CELL HGB (test code = MCH) 27.0 pg 27.6-33.2 L MEAN CELL HGB CONCETRATION 29.0 % 32.9-35.5 L (test code = MCHC) RED CELL DISTRIBUTION WIDTH 25.2 % 12.1-15.2 H (test code = RDW) PLATELET COUNT (test code = 262 K/MM3 129-368 PLT) MEAN PLATELET VOLUME (test code 10.5 fl 7.4-10.4 H = MPV) NEUTROPHIL % (test code = NT%) 86.6 % 43-75 H IMMATURE GRANULOCYTE % (test 0.5 % 0.0-2.0 N code = IG%) LYMPHOCYTE % (test code = LY%) 3.7 % 14-44 L MONOCYTE % (test code = MO%) 8.8 % 4-13 N EOSINOPHIL % (test code = EO%) 0.2 % 0-6 N BASOPHIL % (test code = BA%) 0.2 % 0-2 N NUCLEATED RBC % (test code = 0.0 % 0-1.0 N NRBC%) NEUTROPHIL # (test code = NT#) 15.15 K/mm3 2.0-7.6 H IMMATURE GRANULOCYTE # (test 0.08 x10 3/uL 0-0.03 H code = IG#) LYMPHOCYTE # (test code = LY#) 0.64 K/mm3 1.0-3.8 L MONOCYTE # (test code = MO#) 1.53 K/mm3 0.1-0.8 H EOSINOPHIL # (test code = EO#) 0.03 K/mm3 0.0-0.2 N BASOPHIL # (test code = BA#) 0.03 K/mm3 0.0-0.2 N NUCLEATED RBC # (test code = 0.00 K/mm3 0.0-0.1 N NRBC#) DIFFERENTIAL [id number] 13:19:00 Test Item Value Reference Range Interpretation Comments RBC MORPHOLOGY REQUIRED (test code = ABNORMAL RBCM) ANISOCYTOSIS (test code = ANISO) MODERATE NONE MACROCYTOSIS (test code = MACR) MODERATE NONE CRENATED CELLS (test code = CREN) FEW NONE PLATELET ESTIMATE (test code = ADEQUATE ADEQUATE PLTEST) PLATELET MORPHOLOGY (test code = NORMAL NORMAL PLTMORPH) BASIC METABOLIC [id number] 11:10:00 Test Item Value Reference Range Interpretation Comments SODIUM (test code = 143 MMOL/L 137-145 N NA) POTASSIUM (test code = 4.0 MMOL/L 3.5-5.1 N K) CHLORIDE (test code = 100 MMOL/L 98-107 N CL) CARBON DIOXIDE (test 32 MMOL/L 22-30 H code = CO2) GLUCOSE (test code = 163 MG/DL 74-106 H GLU) BLOOD UREA NITROGEN 17 MG/DL 9-20 N (test code = BUN) GLOMERULAR FILTRATION > 60 Report ing units: RATE (test code = GFR) ml/mi n/1.73 m2 (Modified MDRD Formula)Referen ce Range: > or = 6 0 ml/min/1.73 m2 CREATININE (test code 1.00 MG/DL 0.66-1.25 N = CREAT) CALCIUM (test code = 9.3 MG/DL 8.4-10.2 N CA) BASIC METABOLIC [id number] 11:09:00 Test Item Value Reference Range Interpretation Comments SODIUM (test code = 143 MMOL/L 137-145 N NA) POTASSIUM (test code = 4.0 MMOL/L 3.5-5.1 N K) CHLORIDE (test code = 100 MMOL/L 98-107 N CL) CARBON DIOXIDE (test 32 MMOL/L 22-30 H code = CO2) GLUCOSE (test code = MG/DL 74-106 GLU) BLOOD UREA NITROGEN 17 MG/DL 9-20 N (test code = BUN) GLOMERULAR FILTRATION > 60 Report ing units: RATE (test code = GFR) ml/mi n/1.73 m2 (Modified MDRD Formula)Referen ce Range: > or = 6 0 ml/min/1.73 m2 CREATININE (test code 1.00 MG/DL 0.66-1.25 N = CREAT) CALCIUM (test code = MG/DL 8.7-9.7 CA) BASIC METABOLIC [id number] 11:06:00 Test Item Value Reference Range Interpretation Comments SODIUM (test code = NA) 143 MMOL/L 137-145 N POTASSIUM (test code = K) 4.0 MMOL/L 3.5-5.1 N CHLORIDE (test code = CL) 100 MMOL/L 98-107 N CARBON DIOXIDE (test code = CO2) MMOL/L 22-30 GLUCOSE (test code = GLU) MG/DL 74-106 BLOOD UREA NITROGEN (test code = MG/DL 9-20 BUN) GLOMERULAR FILTRATION RATE (test code = GFR) CREATININE (test code = CREAT) MG/DL 0.66-1.25 CALCIUM (test code = CA) MG/DL 8.7-9.7 CBC W/AUTO [id number] 11:01:00 Test Item Value Reference Range Interpretation Comments WHITE BLOOD CELL (test code = 17.5 K/MM3 3.8-9.8 H WBC) RED BLOOD CELL (test code = 3.41 M/MM3 3.95-5.67 L RBC) HEMOGLOBIN (test code = HGB) 9.2 G/DL 12.4-16.7 L HEMATOCRIT (test code = HCT) 31.7 % 35.9-49.5 L MEAN CELL VOLUME (test code = 93 fL 81.7-96.1 N MCV) MEAN CELL HGB (test code = MCH) 27.0 pg 27.6-33.2 L MEAN CELL HGB CONCETRATION 29.0 % 32.9-35.5 L (test code = MCHC) RED CELL DISTRIBUTION WIDTH 25.2 % 12.1-15.2 H (test code = RDW) PLATELET COUNT (test code = 262 K/MM3 129-368 PLT) MEAN PLATELET VOLUME (test code 10.5 fl 7.4-10.4 H = MPV) NEUTROPHIL % (test code = NT%) 86.6 % 43-75 H IMMATURE GRANULOCYTE % (test 0.5 % 0.0-2.0 N code = IG%) LYMPHOCYTE % (test code = LY%) 3.7 % 14-44 L MONOCYTE % (test code = MO%) 8.8 % 4-13 N EOSINOPHIL % (test code = EO%) 0.2 % 0-6 N BASOPHIL % (test code = BA%) 0.2 % 0-2 N NUCLEATED RBC % (test code = 0.0 % 0-1.0 N NRBC%) NEUTROPHIL # (test code = NT#) 15.15 K/mm3 2.0-7.6 H IMMATURE GRANULOCYTE # (test 0.08 x10 3/uL 0-0.03 H code = IG#) LYMPHOCYTE # (test code = LY#) 0.64 K/mm3 1.0-3.8 L MONOCYTE # (test code = MO#) 1.53 K/mm3 0.1-0.8 H EOSINOPHIL # (test code = EO#) 0.03 K/mm3 0.0-0.2 N BASOPHIL # (test code = BA#) 0.03 K/mm3 0.0-0.2 N NUCLEATED RBC # (test code = 0.00 K/mm3 0.0-0.1 N NRBC#) DIFFERENTIAL [id number] 11:01:00 Test Item Value Reference Range Interpretation Comments RBC MORPHOLOGY REQUIRED (test code = RBCM) PLATELET ESTIMATE (test code = PLTEST) ADEQUATE PLATELET MORPHOLOGY (test code = NORMAL PLTMORPH) CBC W/AUTO [id number] 11:01:00 Test Item Value Reference Range Interpretation Comments WHITE BLOOD CELL (test code = 17.5 K/MM3 3.8-9.8 H WBC) RED BLOOD CELL (test code = 3.41 M/MM3 3.95-5.67 L RBC) HEMOGLOBIN (test code = HGB) 9.2 G/DL 12.4-16.7 L HEMATOCRIT (test code = HCT) 31.7 % 35.9-49.5 L MEAN CELL VOLUME (test code = 93 fL 81.7-96.1 N MCV) MEAN CELL HGB (test code = MCH) 27.0 pg 27.6-33.2 L MEAN CELL HGB CONCETRATION 29.0 % 32.9-35.5 L (test code = MCHC) RED CELL DISTRIBUTION WIDTH 25.2 % 12.1-15.2 H (test code = RDW) PLATELET COUNT (test code = 262 K/MM3 129-368 PLT) MEAN PLATELET VOLUME (test code 10.5 fl 7.4-10.4 H = MPV) NEUTROPHIL % (test code = NT%) 86.6 % 43-75 H IMMATURE GRANULOCYTE % (test 0.5 % 0.0-2.0 N code = IG%) LYMPHOCYTE % (test code = LY%) 3.7 % 14-44 L MONOCYTE % (test code = MO%) 8.8 % 4-13 N EOSINOPHIL % (test code = EO%) 0.2 % 0-6 N BASOPHIL % (test code = BA%) 0.2 % 0-2 N NUCLEATED RBC % (test code = 0.0 % 0-1.0 N NRBC%) NEUTROPHIL # (test code = NT#) 15.15 K/mm3 2.0-7.6 H IMMATURE GRANULOCYTE # (test 0.08 x10 3/uL 0-0.03 H code = IG#) LYMPHOCYTE # (test code = LY#) 0.64 K/mm3 1.0-3.8 L MONOCYTE # (test code = MO#) 1.53 K/mm3 0.1-0.8 H EOSINOPHIL # (test code = EO#) 0.03 K/mm3 0.0-0.2 N BASOPHIL # (test code = BA#) 0.03 K/mm3 0.0-0.2 N NUCLEATED RBC # (test code = 0.00 K/mm3 0.0-0.1 N NRBC#) DIFFERENTIAL [id number] 11:01:00 Test Item Value Reference Range Interpretation Comments RBC MORPHOLOGY REQUIRED (test code = RBCM) PLATELET ESTIMATE (test code = PLTEST) ADEQUATE PLATELET MORPHOLOGY (test code = NORMAL PLTMORPH) - XR CHEST [id number] 08:17:00 Patient Name: STEPH WALSH JR Unit No: [id number] EXAMS: CPT CODE: [id number] XR CHEST 1V 48640 EXAM: XR Chest 1 View INDICATION: On Ventilator LOCATION CODE: B2 COMPARISON: Chest radiograph dated 08/19/2020 TECHNIQUE: Frontal view of the chest was obtained. FINDINGS: Endotracheal tube has been removed in the interim. There is slight decrease in posterior layering bilateral pleural effusions. Nopneumothorax is seen. The cardiomediastinal silhouette is unchanged. No acute osseous abnormality is identified. IMPRESSION: 1. Slight decrease in posteriorly layering bilateral pleural effusions. 2. Interval removal of endotracheal tube. at 0817 Reported and signed by: Halle Mtz MD CC: TERESITA [facility] KAT; Ponce Fletcher; Forrest Bonilla MD Technologist: RT Briana(R) Transcrpt Date/Tm/Trnsp: 08/20/2020 (816) [email or web address] Orig Print D/T: S: 08/20/2020 (819) [facility] NAME: STEPH WALSH JR [id number] PHYS: [place] [address] : 1940 AGE: 80 SEX: M LOC: Z.I14 A PHONE #: [phone] EXAM DATE: 08/20/2020 STATUS: ADM IN FAX #: [phone] RADIOLOGY NO: PAGE 1 Signed ReportHGB [id number] 05:35:00 Test Item Value Reference Range Interpretation Comments HEMOGLOBIN (test code = HGB) 8.9 G/DL 12.4-16.7 L HEMATOCRIT (test code = HCT) 29.7 % 35.9-49.5 L HGB [id number] 00:55:00 Test Item Value Reference Range Interpretation Comments HEMOGLOBIN (test code = HGB) 8.5 G/DL 12.4-16.7 L HEMATOCRIT (test code = HCT) 28.2 % 35.9-49.5 L HGB [id number] 18:52:00 Test Item Value Reference Range Interpretation Comments HEMOGLOBIN (test code = HGB) 8.6 G/DL 12.4-16.7 L HEMATOCRIT (test code = HCT) 30.5 % 35.9-49.5 L CBC W/O [id number] 12:44:00 Test Item Value Reference Range Interpretation Comments WHITE BLOOD CELL (test code = 9.1 K/MM3 3.8-9.8 N WBC) RED BLOOD CELL (test code = 3.10 M/MM3 3.95-5.67 L RBC) HEMOGLOBIN (test code = HGB) 8.3 G/DL 12.4-16.7 L HEMATOCRIT (test code = HCT) 27.7 % 35.9-49.5 L MEAN CELL VOLUME (test code = 89 fL 81.7-96.1 N MCV) MEAN CELL HGB (test code = MCH) 26.8 pg 27.6-33.2 L MEAN CELL HGB CONCETRATION 30.0 % 32.9-35.5 L (test code = MCHC) RED CELL DISTRIBUTION WIDTH 24.5 % 12.1-15.2 H (test code = RDW) PLATELET COUNT (test code = 216 K/MM3 129-368 N PLT) NEUTROPHIL # (test code = NT#) 8.66 K/mm3 2.0-7.6 H IMMATURE GRANULOCYTE # (test 0.03 x10 3/uL 0-0.03 N code = IG#) LYMPHOCYTE # (test code = LY#) 0.22 K/mm3 1.0-3.8 L MONOCYTE # (test code = MO#) 0.14 K/mm3 0.1-0.8 N EOSINOPHIL # (test code = EO#) 0.00 K/mm3 0.0-0.2 N BASOPHIL # (test code = BA#) 0.01 K/mm3 0.0-0.2 N NUCLEATED RBC # (test code = 0.00 K/mm3 0.0-0.1 N NRBC#) DIFFERENTIAL [id number] 12:44:00 Test Item Value Reference Range Interpretation Comments RBC MORPHOLOGY REQUIRED (test code = ABNORMAL RBCM) POIKILOCYTOSIS (test code = POIK) FEW NONE ANISOCYTOSIS (test code = ANISO) MODERATE NONE PLATELET ESTIMATE (test code = ADEQUATE ADEQUATE PLTEST) PLATELET MORPHOLOGY (test code = NORMAL NORMAL PLTMORPH) WBC [id number] 12:44:00 Test Item Value Reference Range Interpretation Comments TOTAL CELLS COUNTED (test code = 130 #CELLS TCC) SEGMENTED NEUTROPHILS (test code = 94.9 % 36.2-73.8 H SEG) BAND NEUTROPHIL (test code = BAND) 1.7 % 0-10 N LYMPHOCYTE (test code = LYMPH) 3.4 % 12.9-45.1 L ATYPICAL LYMPH (test code = 0.0 % 0-0 N ALYMPH) MONOCYTE (test code = MON) 0.0 % 0-11 N HGB [id number] 12:23:00 Test Item Value Reference Range Interpretation Comments HEMOGLOBIN (test code = HGB) 8.6 G/DL 12.4-16.7 L HEMATOCRIT (test code = HCT) 28.9 % 35.9-49.5 L - XR CHEST [id number] 11:46:00 Patient Name: CHANDANSTEPH Unit No: [id number] EXAMS: CPT CODE: [id number] XR CHEST 1V 15285 - XR CHEST 1V INDICATION:Intubated, post bronchoscopy LOCATION: T18 Comparison 0624 hours today Endotracheal tube stable in position. The heart is enlarged, status post midline sternotomy. No change in small pleural effusions with associated infiltrate or atelectasis, left greater than right. No pneumothorax. Age-related changes bony thorax. IMPRESSION: No significant change. at 1146 Reported and signed by: Lisset Gloria MD CC:Jimmy Peng; Ponce Fletcher; Forrest Bonilla MD Technologist: Kory Luna, RT(R) TranscrptDate/Tm/Trnsp: 08/19/2020 (1146) [facility] Orig Print D/T: S: 08/19/2020 (1149) [facility] NAME: CHANDANSTEPH [address] PHYS: [email or web address] - [place] [address] : 1940 AGE: 80 SEX: M LOC: Z.I14 A PHONE #: [phone] EXAM DATE: 08/19/2020 STATUS:ADM IN FAX #: [phone] RADIOLOGY NO: PAGE 1 Signed Report- XR CHEST [id number] 08:17:00 Patient Name: STEPH WALSH JR Unit No: [id number] EXAMS: CPT CODE: [id number] XR CHEST 1V 60710 EXAM: XR Chest 1 View INDICATION: On Ventilator LOCATION CODE: B2 COMPARISON: Chest radiograph dated 08/18/2020 TECHNIQUE: Frontal view of the chest was obtained. FINDINGS: Endotracheal tube is in unchanged position. Central pulmonary vascular congestion is unchanged from prior. There is no visible pleural effusion or pneumothorax. The cardiomediastinal silhouette is unchanged. No acute osseous abnormality is identified. IMPRESSION: No significant change from prior. at 0817 Reported and signed by: Halle Mtz MD CC: TERESITA [facility] KAT; Ponce Fletcher; Forrest Bonilla MD Technologist: Shruti Wen RT(R) Transcrpt Date/Tm/Trnsp: 08/19/2020 (816) [email or web address] Orig Print D/T: S: 08/19/2020 (819) [facility] NAME: STEPH WALSH JR [id number] PHYS: [place] [address] : 1940 AGE: 80 SEX: M LOC: Z.I14 A PHONE #: [phone] EXAM DATE: 08/19/2020 STATUS: ADM IN FAX #: [phone] RADIOLOGY NO: PAGE 1 Signed ReportBASIC METABOLIC [id number] 07:23:00 Test Item Value Reference Range Interpretation Comments SODIUM (test code = 137 MMOL/L 137-145 N NA) POTASSIUM (test code = 4.2 MMOL/L 3.5-5.1 N K) CHLORIDE (test code = 103 MMOL/L 98-107 N CL) CARBON DIOXIDE (test 24 MMOL/L 22-30 N code = CO2) ANION GAP (test code = 14 MMOL/L 14-24 N GAP) GLUCOSE (test code = 175 MG/DL 74-106 H GLU) BLOOD UREA NITROGEN 15 MG/DL 9-20 N (test code = BUN) GLOMERULAR FILTRATION > 60 Report ing units: RATE (test code = GFR) ml/mi n/1.73 m2 (Modified MDRD Formula)Referen ce Range: > or = 6 0 ml/min/1.73 m2 CREATININE (test code 0.80 MG/DL 0.66-1.25 N = CREAT) CALCIUM (test code = 8.6 MG/DL 8.4-10.2 N CA) [id number] 07:23:00 Test Item Value Reference Range Interpretation Comments PHOSPHOROUS (test code = PHOS) 3.7 MG/DL 2.5-4.5 N [id number] 07:23:00 Test Item Value Reference Range Interpretation Comments MAGNESIUM (test code = MAG) 1.9 MG/DL 1.6-2.3 N BASIC METABOLIC [id number] 06:36:00 Test Item Value Reference Range Interpretation Comments SODIUM (test code = NA) 137 MMOL/L 137-145 N POTASSIUM (test code = K) 4.2 MMOL/L 3.5-5.1 N CHLORIDE (test code = CL) 103 MMOL/L 98-107 N CARBON DIOXIDE (test code = CO2) MMOL/L 22-30 GLUCOSE (test code = GLU) MG/DL 74-106 BLOOD UREA NITROGEN (test code = MG/DL 9-20 BUN) GLOMERULAR FILTRATION RATE (test code = GFR) CREATININE (test code = CREAT) MG/DL 0.66-1.25 CALCIUM (test code = CA) MG/DL 8.7-9.7 [id number] 06:36:00 Test Item Value Reference Range Interpretation Comments PHOSPHOROUS (test code = PHOS) MG/DL 2.5-4.5 [id number] 06:36:00 Test Item Value Reference Range Interpretation Comments MAGNESIUM (test code = MAG) MG/DL 1.6-2.3 PROTHROMBIN [id number] 06:28:00 Test Item Value Reference Range Interpretation Comments PROTHROMBIN TIME 14.8 SECONDS 9.4-12.5 H PATIENT (test code = PTP) INTERNATIONAL NORMAL 1.3 The INR is to be RATIO (test code = used only for INR) monitoring oral anticoagulantth erap y. INDICATION I NR VALUE ---- ---- ---- -------1. Prophylaxis, de ep venous thrombos is, including high risk surgery. 2.0 - 3.0 2. Prophylaxis, deep venous thrombosis, hip surgery, treatm ent for deep venous thrombosis or pulmonary prevention of systemic emboli sm in patients wit h valvular heart disease, atrial fibrillation, tissue heart va lve, or acute myocar dial infarction. 2.0 - 3.0 3. Cubing Machine Tender al prosthesis hear t valves, recurre nt systemic emboli sm. 3.0 - 4.5 PTT [id number] 06:28:00 Test Item Value Reference Range Interpretation Comments PTT ACTIVATED (test code = APTT) 30.5 SECONDS 25.1-36.5 N CBC W/O [id number] 06:16:00 Test Item Value Reference Range Interpretation Comments WHITE BLOOD CELL (test code = 9.1 K/MM3 3.8-9.8 N WBC) RED BLOOD CELL (test code = 3.10 M/MM3 3.95-5.67 L RBC) HEMOGLOBIN (test code = HGB) 8.3 G/DL 12.4-16.7 L HEMATOCRIT (test code = HCT) 27.7 % 35.9-49.5 L MEAN CELL VOLUME (test code = 89 fL 81.7-96.1 N MCV) MEAN CELL HGB (test code = MCH) 26.8 pg 27.6-33.2 L MEAN CELL HGB CONCETRATION 30.0 % 32.9-35.5 L (test code = MCHC) RED CELL DISTRIBUTION WIDTH 24.5 % 12.1-15.2 H (test code = RDW) PLATELET COUNT (test code = 216 K/MM3 129-368 N PLT) NEUTROPHIL # (test code = NT#) 8.66 K/mm3 2.0-7.6 H IMMATURE GRANULOCYTE # (test 0.03 x10 3/uL 0-0.03 N code = IG#) LYMPHOCYTE # (test code = LY#) 0.22 K/mm3 1.0-3.8 L MONOCYTE # (test code = MO#) 0.14 K/mm3 0.1-0.8 N EOSINOPHIL # (test code = EO#) 0.00 K/mm3 0.0-0.2 N BASOPHIL # (test code = BA#) 0.01 K/mm3 0.0-0.2 N NUCLEATED RBC # (test code = 0.00 K/mm3 0.0-0.1 N NRBC#) DIFFERENTIAL [id number] 06:16:00 Test Item Value Reference Range Interpretation Comments RBC MORPHOLOGY REQUIRED (test code = RBCM) PLATELET ESTIMATE (test code = PLTEST) ADEQUATE PLATELET MORPHOLOGY (test code = NORMAL PLTMORPH) WBC [id number] 06:16:00 Test Item Value Reference Range Interpretation Comments TOTAL CELLS COUNTED (test code = TCC) #CELLS SEGMENTED NEUTROPHILS (test code = % 36.2-73.8 SEG) LYMPHOCYTE (test code = LYMPH) % 12.9-45.1 MONOCYTE (test code = MON) % 0-11 CBC W/AUTO [id number] 06:16:00 Test Item Value Reference Range Interpretation Comments WHITE BLOOD CELL (test code = 9.1 K/MM3 3.8-9.8 N WBC) RED BLOOD CELL (test code = 3.10 M/MM3 3.95-5.67 L RBC) HEMOGLOBIN (test code = HGB) 8.3 G/DL 12.4-16.7 L HEMATOCRIT (test code = HCT) 27.7 % 35.9-49.5 L MEAN CELL VOLUME (test code = 89 fL 81.7-96.1 N MCV) MEAN CELL HGB (test code = MCH) 26.8 pg 27.6-33.2 L MEAN CELL HGB CONCETRATION 30.0 % 32.9-35.5 L (test code = MCHC) RED CELL DISTRIBUTION WIDTH 24.5 % 12.1-15.2 H (test code = RDW) PLATELET COUNT (test code = 216 K/MM3 129-368 N PLT) MEAN PLATELET VOLUME (test code 10.3 fl 7.4-10.4 N = MPV) NEUTROPHIL % (test code = NT%) 95.7 % 43-75 H IMMATURE GRANULOCYTE % (test 0.3 % 0.0-2.0 N code = IG%) LYMPHOCYTE % (test code = LY%) 2.4 % 14-44 L MONOCYTE % (test code = MO%) 1.5 % 4-13 L EOSINOPHIL % (test code = EO%) 0.0 % 0-6 N BASOPHIL % (test code = BA%) 0.1 % 0-2 N NUCLEATED RBC % (test code = 0.0 % 0-1.0 N NRBC%) NEUTROPHIL # (test code = NT#) 8.66 K/mm3 2.0-7.6 H IMMATURE GRANULOCYTE # (test 0.03 x10 3/uL 0-0.03 N code = IG#) LYMPHOCYTE # (test code = LY#) 0.22 K/mm3 1.0-3.8 L MONOCYTE # (test code = MO#) 0.14 K/mm3 0.1-0.8 N EOSINOPHIL # (test code = EO#) 0.00 K/mm3 0.0-0.2 N BASOPHIL # (test code = BA#) 0.01 K/mm3 0.0-0.2 N NUCLEATED RBC # (test code = 0.00 K/mm3 0.0-0.1 N NRBC#) WBC [id number] 06:16:00 Test Item Value Reference Range Interpretation Comments RBC MORPHOLOGY REQUIRED (test code = RBCM) TOTAL CELLS COUNTED (test code = TCC) #CELLS SEGMENTED NEUTROPHILS (test code = % 36.2-73.8 SEG) LYMPHOCYTE (test code = LYMPH) % 12.9-45.1 MONOCYTE (test code = MON) % 0-11 PLATELET ESTIMATE (test code = ADEQUATE PLTEST) PLATELET MORPHOLOGY (test code = NORMAL PLTMORPH) ARTERIAL BLOOD [id number] 04:19:00 Test Item Value Reference Range Interpretation Comments ARTERIAL BLOOD GAS PH (test code 7.48 mmHg 7.35-7.45 H = PHA) ARTERIAL BLOOD GAS PCO2 (test 35.3 mmHg 35.0-45.0 N code = PCO2A) ARTERIAL BLOOD GAS PO2 (test code 88.5 mmol/L 80.0-100.0 N = PO2A) BICARBONATE TOTAL HCO3 (test code 25.4 mmol/L 20.0-26.0 N = HCO3) BASE EXCESS (test code = JOSE CRUZ) 2.2 mmol/L -3.0-3.0 N ABG O2 SATURATION (test code = 97.3 % 95.0-100.0 N SATA) ABG DELIVERY (test code = CORY) VENT ABG VENT MODE (test code = MODEA) A/C ABG VENT RESP RATE (test code = 20.0 /MIN RRA) ABG TIDAL VOLUME (test code = 400 ml TVA) ABG PEEP (test code = PEEPA) 8.0 cmH2O ABG TEMPERATURE (test code = 37.0 C >37 TEMPA) ABG SITE (test code = SITEA) RR ALLENS TEST (test code = ALLENS) Y CHECK FIO2 (test code = COHBGFFIO2) 45 % PaO2/[id number] 04:19:00 Test Item Value Reference Range Interpretation Comments PaO2/FiO2 (test code = [id number]) mm/Hg ARTERIAL BLOOD [id number] 04:19:00 Test Item Value Reference Range Interpretation Comments ARTERIAL BLOOD GAS PH (test code 7.48 mmHg 7.35-7.45 H = PHA) ARTERIAL BLOOD GAS PCO2 (test 35.3 mmHg 35.0-45.0 N code = PCO2A) ARTERIAL BLOOD GAS PO2 (test code 88.5 mmol/L 80.0-100.0 N = PO2A) BICARBONATE TOTAL HCO3 (test code 25.4 mmol/L 20.0-26.0 N = HCO3) BASE EXCESS (test code = JOSE CRUZ) 2.2 mmol/L -3.0-3.0 N ABG O2 SATURATION (test code = 97.3 % 95.0-100.0 N SATA) ABG DELIVERY (test code = CORY) VENT ABG VENT MODE (test code = MODEA) A/C ABG VENT RESP RATE (test code = 20.0 /MIN RRA) ABG TIDAL VOLUME (test code = 400 ml TVA) ABG PEEP (test code = PEEPA) 8.0 cmH2O ABG TEMPERATURE (test code = 37.0 C >37 TEMPA) ABG SITE (test code = SITEA) RR ALLENS TEST (test code = ALLENS) Y CHECK FIO2 (test code = COHBGFFIO2) 45 % PaO2/[id number] 04:19:00 Test Item Value Reference Range Interpretation Comments PaO2/FiO2 (test code = [id number]) 196.66 mm/Hg PTT [id number] 21:18:00 Test Item Value Reference Range Interpretation Comments PTT ACTIVATED (test 68.1 SECONDS 25.1-36.5 HH CALLED T O SHEFALI P& code = APTT) READBACK ON 05/02 AT 2118 BY Sienna Cohen CBC W/AUTO [id number] 20:25:00 Test Item Value Reference Range Interpretation Comments WHITE BLOOD CELL (test code = 10.5 K/MM3 3.8-9.8 H WBC) RED BLOOD CELL (test code = 3.47 M/MM3 3.95-5.67 L RBC) HEMOGLOBIN (test code = HGB) 9.4 G/DL 12.4-16.7 L HEMATOCRIT (test code = HCT) 32.1 % 35.9-49.5 L MEAN CELL VOLUME (test code = 93 fL 81.7-96.1 N MCV) MEAN CELL HGB (test code = MCH) 27.1 pg 27.6-33.2 L MEAN CELL HGB CONCETRATION 29.3 % 32.9-35.5 L (test code = MCHC) RED CELL DISTRIBUTION WIDTH 24.6 % 12.1-15.2 H (test code = RDW) PLATELET COUNT (test code = 234 K/MM3 129-368 N PLT) MEAN PLATELET VOLUME (test code 9.8 fl 7.4-10.4 N = MPV) NEUTROPHIL % (test code = NT%) 77.0 % 43-75 H IMMATURE GRANULOCYTE % (test 0.4 % 0.0-2.0 N code = IG%) LYMPHOCYTE % (test code = LY%) 10.8 % 14-44 L MONOCYTE % (test code = MO%) 9.7 % 4-13 N EOSINOPHIL % (test code = EO%) 1.7 % 0-6 N BASOPHIL % (test code = BA%) 0.4 % 0-2 N NUCLEATED RBC % (test code = 0.0 % 0-1.0 N NRBC%) NEUTROPHIL # (test code = NT#) 8.08 K/mm3 2.0-7.6 H IMMATURE GRANULOCYTE # (test 0.04 x10 3/uL 0-0.03 H code = IG#) LYMPHOCYTE # (test code = LY#) 1.13 K/mm3 1.0-3.8 N MONOCYTE # (test code = MO#) 1.02 K/mm3 0.1-0.8 H EOSINOPHIL # (test code = EO#) 0.18 K/mm3 0.0-0.2 N BASOPHIL # (test code = BA#) 0.04 K/mm3 0.0-0.2 N NUCLEATED RBC # (test code = 0.00 K/mm3 0.0-0.1 N NRBC#) Comments to Lighting Adviser: STATDIFFERENTIAL [id number] 20:25:00 Test Item Value Reference Range Interpretation Comments RBC MORPHOLOGY REQUIRED (test code = ABNORMAL RBCM) POLYCHROMASIA (test code = POLC) FEW NONE HYPOCHROMIA (test code = HYPO) SLIGHT NONE POIKILOCYTOSIS (test code = POIK) MODERATE NONE ANISOCYTOSIS (test code = ANISO) MODERATE NONE MACROCYTOSIS (test code = MACR) MODERATE NONE ELLIPTOCYTES (test code = ELL) FEW NONE SCHISTOCYTES (test code = NEELAM) FEW NONE PLATELET ESTIMATE (test code = ADEQUATE ADEQUATE PLTEST) PLATELET MORPHOLOGY (test code = NORMAL NORMAL PLTMORPH) Comments to Lighting Adviser: STATBASIC METABOLIC [id number] 20:06:00 Test Item Value Reference Range Interpretation Comments SODIUM (test code = 140 MMOL/L 137-145 N NA) POTASSIUM (test code = 4.1 MMOL/L 3.5-5.1 N K) CHLORIDE (test code = 103 MMOL/L 98-107 N CL) CARBON DIOXIDE (test 29 MMOL/L 22-30 N code = CO2) GLUCOSE (test code = 106 MG/DL 74-106 N GLU) BLOOD UREA NITROGEN 12 MG/DL 9-20 N (test code = BUN) GLOMERULAR FILTRATION > 60 Report ing units: RATE (test code = GFR) ml/mi n/1.73 m2 (Modified MDRD Formula)Referen ce Range: > or = 6 0 ml/min/1.73 m2 CREATININE (test code 0.70 MG/DL 0.66-1.25 N = CREAT) CALCIUM (test code = 9.0 MG/DL 8.4-10.2 N CA) BASIC METABOLIC [id number] 20:05:00 Test Item Value Reference Range Interpretation Comments SODIUM (test code = 140 MMOL/L 137-145 N NA) POTASSIUM (test code = 4.1 MMOL/L 3.5-5.1 N K) CHLORIDE (test code = 103 MMOL/L 98-107 N CL) CARBON DIOXIDE (test MMOL/L 22-30 code = CO2) GLUCOSE (test code = MG/DL 74-106 GLU) BLOOD UREA NITROGEN MG/DL 9-20 (test code = BUN) GLOMERULAR FILTRATION > 60 Report ing units: RATE (test code = GFR) ml/mi n/1.73 m2 (Modified MDRD Formula)Referen ce Range: > or = 6 0 ml/min/1.73 m2 CREATININE (test code 0.70 MG/DL 0.66-1.25 N = CREAT) CALCIUM (test code = MG/DL 8.7-9.7 CA) BASIC METABOLIC [id number] 20:03:00 Test Item Value Reference Range Interpretation Comments SODIUM (test code = NA) 140 MMOL/L 137-145 N POTASSIUM (test code = K) 4.1 MMOL/L 3.5-5.1 N CHLORIDE (test code = CL) 103 MMOL/L 98-107 N CARBON DIOXIDE (test code = CO2) MMOL/L 22-30 GLUCOSE (test code = GLU) MG/DL 74-106 BLOOD UREA NITROGEN (test code = MG/DL 9-20 BUN) GLOMERULAR FILTRATION RATE (test code = GFR) CREATININE (test code = CREAT) MG/DL 0.66-1.25 CALCIUM (test code = CA) MG/DL 8.7-9.7 BASIC METABOLIC [id number] 20:02:00 Test Item Value Reference Range Interpretation Comments SODIUM (test code = NA) MMOL/L 137-145 POTASSIUM (test code = K) MMOL/L 3.5-5.1 CHLORIDE (test code = CL) 103 MMOL/L 98-107 N CARBON DIOXIDE (test code = CO2) MMOL/L 22-30 GLUCOSE (test code = GLU) MG/DL 74-106 BLOOD UREA NITROGEN (test code = MG/DL 9-20 BUN) GLOMERULAR FILTRATION RATE (test code = GFR) CREATININE (test code = CREAT) MG/DL 0.66-1.25 CALCIUM (test code = CA) MG/DL 8.7-9.7 PROTHROMBIN [id number] 20:01:00 Test Item Value Reference Range Interpretation Comments PROTHROMBIN TIME 14.9 SECONDS 9.4-12.5 H PATIENT (test code = PTP) INTERNATIONAL NORMAL 1.4 The INR is to be RATIO (test code = used only for INR) monitoring oral anticoagulantth erap y. INDICATION I NR VALUE ---- ---- ---- -------1. Prophylaxis, de ep venous thrombos is, including high risk surgery. 2.0 - 3.0 2. Prophylaxis, deep venous thrombosis, hip surgery, treatm ent for deep venous thrombosis or pulmonary prevention of systemic emboli sm in patients wit h valvular heart disease, atrial fibrillation, tissue heart va lve, or acute myocar dial infarction. 2. 0 - 3.0 3. Cubing Machine Tender al prosthesis hear t valves, recurre nt systemic emboli sm. 3.0 - 4.5 CBC W/AUTO [id number] 19:51:00 Test Item Value Reference Range Interpretation Comments WHITE BLOOD CELL (test code = 10.5 K/MM3 3.8-9.8 H WBC) RED BLOOD CELL (test code = 3.47 M/MM3 3.95-5.67 L RBC) HEMOGLOBIN (test code = HGB) 9.4 G/DL 12.4-16.7 L HEMATOCRIT (test code = HCT) 32.1 % 35.9-49.5 L MEAN CELL VOLUME (test code = 93 fL 81.7-96.1 N MCV) MEAN CELL HGB (test code = MCH) 27.1 pg 27.6-33.2 L MEAN CELL HGB CONCETRATION 29.3 % 32.9-35.5 L (test code = MCHC) RED CELL DISTRIBUTION WIDTH 24.6 % 12.1-15.2 H (test code = RDW) PLATELET COUNT (test code = 234 K/MM3 129-368 N PLT) MEAN PLATELET VOLUME (test code 9.8 fl 7.4-10.4 N = MPV) NEUTROPHIL % (test code = NT%) 77.0 % 43-75 H IMMATURE GRANULOCYTE % (test 0.4 % 0.0-2.0 N code = IG%) LYMPHOCYTE % (test code = LY%) 10.8 % 14-44 L MONOCYTE % (test code = MO%) 9.7 % 4-13 N EOSINOPHIL % (test code = EO%) 1.7 % 0-6 N BASOPHIL % (test code = BA%) 0.4 % 0-2 N NUCLEATED RBC % (test code = 0.0 % 0-1.0 N NRBC%) NEUTROPHIL # (test code = NT#) 8.08 K/mm3 2.0-7.6 H IMMATURE GRANULOCYTE # (test 0.04 x10 3/uL 0-0.03 H code = IG#) LYMPHOCYTE # (test code = LY#) 1.13 K/mm3 1.0-3.8 N MONOCYTE # (test code = MO#) 1.02 K/mm3 0.1-0.8 H EOSINOPHIL # (test code = EO#) 0.18 K/mm3 0.0-0.2 N BASOPHIL # (test code = BA#) 0.04 K/mm3 0.0-0.2 N NUCLEATED RBC # (test code = 0.00 K/mm3 0.0-0.1 N NRBC#) Comments to Lighting Adviser: STATDIFFERENTIAL [id number] 19:51:00 Test Item Value Reference Range Interpretation Comments RBC MORPHOLOGY REQUIRED (test code = RBCM) PLATELET ESTIMATE (test code = PLTEST) ADEQUATE PLATELET MORPHOLOGY (test code = NORMAL PLTMORPH) Comments to Lighting Adviser: STATCBC W/AUTO [id number] 19:51:00 Test Item Value Reference Range Interpretation Comments WHITE BLOOD CELL (test code = 10.5 K/MM3 3.8-9.8 H WBC) RED BLOOD CELL (test code = 3.47 M/MM3 3.95-5.67 L RBC) HEMOGLOBIN (test code = HGB) 9.4 G/DL 12.4-16.7 L HEMATOCRIT (test code = HCT) 32.1 % 35.9-49.5 L MEAN CELL VOLUME (test code = 93 fL 81.7-96.1 N MCV) MEAN CELL HGB (test code = MCH) 27.1 pg 27.6-33.2 L MEAN CELL HGB CONCETRATION 29.3 % 32.9-35.5 L (test code = MCHC) RED CELL DISTRIBUTION WIDTH 24.6 % 12.1-15.2 H (test code = RDW) PLATELET COUNT (test code = 234 K/MM3 129-368 N PLT) MEAN PLATELET VOLUME (test code 9.8 fl 7.4-10.4 N = MPV) NEUTROPHIL % (test code = NT%) 77.0 % 43-75 H IMMATURE GRANULOCYTE % (test 0.4 % 0.0-2.0 N code = IG%) LYMPHOCYTE % (test code = LY%) 10.8 % 14-44 L MONOCYTE % (test code = MO%) 9.7 % 4-13 N EOSINOPHIL % (test code = EO%) 1.7 % 0-6 N BASOPHIL % (test code = BA%) 0.4 % 0-2 N NUCLEATED RBC % (test code = 0.0 % 0-1.0 N NRBC%) NEUTROPHIL # (test code = NT#) 8.08 K/mm3 2.0-7.6 H IMMATURE GRANULOCYTE # (test 0.04 x10 3/uL 0-0.03 H code = IG#) LYMPHOCYTE # (test code = LY#) 1.13 K/mm3 1.0-3.8 N MONOCYTE # (test code = MO#) 1.02 K/mm3 0.1-0.8 H EOSINOPHIL # (test code = EO#) 0.18 K/mm3 0.0-0.2 N BASOPHIL # (test code = BA#) 0.04 K/mm3 0.0-0.2 N NUCLEATED RBC # (test code = 0.00 K/mm3 0.0-0.1 N NRBC#) Comments to Lighting Adviser: STATDIFFERENTIAL [id number] 19:51:00 Test Item Value Reference Range Interpretation Comments RBC MORPHOLOGY REQUIRED (test code = RBCM) PLATELET ESTIMATE (test code = PLTEST) ADEQUATE PLATELET MORPHOLOGY (test code = NORMAL PLTMORPH) Comments to Lighting Adviser: STATARTERIAL BLOOD [id number] 19:10:00 Test Item Value Reference Range Interpretation Comments ARTERIAL BLOOD GAS PH 7.32 mmHg 7.35-7.45 L (test code = PHA) ARTERIAL BLOOD GAS 55.6 mmHg 35.0-45.0 HH PCO2 (test code = PCO2A) ARTERIAL BLOOD GAS PO2 96.7 mmol/L 80.0-100.0 N (test code = PO2A) BICARBONATE TOTAL HCO3 27.9 mmol/L 20.0-26.0 H (test code = HCO3) BASE EXCESS (test code 0.6 mmol/L -3.0-3.0 N = JOSE CRUZ) ABG O2 SATURATION 96.7 % 95.0-100.0 N All critic al values (test code = SATA) report to and readback by DR. MALLORY by [email or web address] at 08/18/2020 7:09: 21 PM ABG DELIVERY (test VENT code = CORY) ABG VENT MODE (test A/C code = MODEA) ABG VENT RESP RATE 16.0 /MIN (test code = RRA) ABG TIDAL VOLUME (test 400 ml code = TVA) ABG PEEP (test code = 8.0 cmH2O PEEPA) ABG TEMPERATURE (test 37.0 C >37 code = TEMPA) ABG SITE (test code = RR SITEA) ALLENS TEST (test code Y CHECK = ALLENS) FIO2 (test code = 50 % COHBGFFIO2) PaO2/[id number] 19:10:00 Test Item Value Reference Range Interpretation Comments PaO2/FiO2 (test code = [id number]) 193.40 mm/Hg ARTERIAL BLOOD [id number] 19:09:00 Test Item Value Reference Range Interpretation Comments ARTERIAL BLOOD GAS PH 7.32 mmHg 7.35-7.45 L (test code = PHA) ARTERIAL BLOOD GAS 55.6 mmHg 35.0-45.0 HH PCO2 (test code = PCO2A) ARTERIAL BLOOD GAS PO2 96.7 mmol/L 80.0-100.0 N (test code = PO2A) BICARBONATE TOTAL HCO3 27.9 mmol/L 20.0-26.0 H (test code = HCO3) BASE EXCESS (test code 0.6 mmol/L -3.0-3.0 N = JOSE CRUZ) ABG O2 SATURATION 96.7 % 95.0-100.0 N All critic al values (test code = SATA) report to and readback by DR. MALLORY by [email or web address] at 08/18/2020 7:09: 21 PM ABG DELIVERY (test VENT code = CORY) ABG VENT MODE (test A/C code = MODEA) ABG VENT RESP RATE 16.0 /MIN (test code = RRA) ABG TIDAL VOLUME (test 400 ml code = TVA) ABG PEEP (test code = 8.0 cmH2O PEEPA) ABG TEMPERATURE (test 37.0 C >37 code = TEMPA) ABG SITE (test code = RR SITEA) ALLENS TEST (test code Y CHECK = ALLENS) FIO2 (test code = 50 % COHBGFFIO2) PaO2/[id number] 19:09:00 Test Item Value Reference Range Interpretation Comments PaO2/FiO2 (test code = [id number]) mm/Hg - CT CHEST [id number] 18:23:00 Patient Name: STEPH WALSH JR Unit No: [id number] EXAMS: CPT CODE: [id number] CT CHEST W/CONTRAST 418[address] Location code H 31 CT CHEST WITH CONTRAST HISTORY: Hemoptysis COMPARISON: Chest or the graft from same day TECHNIQUE: Axial CT through the chest were obtained following administration of IV contrast. Coronal [ and sagittal ] reconstructions were performed and evaluated. Images provided in soft tissue and lung windows. One or more of the following dose reduction techniques were used: Automated exposure control, adjustment of the mA or KV according to patient size, use of Iterative reconstruction technique. DLP 667.44 mGy-cm FINDINGS: Lungs: There is a small to moderate left as well as smallright pleural effusion with compressive atelectasis at lung bases. The effusions are primarily subpul rolando. Mnimal hazy patchy opacities are seen in the left upper lobe. Otherwise, no acute pulmonary infiltrates. Cardiac: Mild linear calcification along the LAD. Heart size is within normal limits. No pericardial effusion. Mediastinum: There is a small amount of frothy fluid layering within the trachea, as well as the right mainstem bronchus. The ET tube terminates in the midesophagus, 6.5 cm above richelle. No evidence of hilar or mediastinal lymphadenopathy. Vascular: Aorta enhances normally. No evidence of aneurysm or dissection. Main pulmonary artery, right and left branches enhance normally withno filling defects. Osseous: Sternal wires are noted. No acute or aggressive osseous lesions. 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 Degenerative spurring at the lower C-spine levels. Upper Abdomen: Scattered, densely calcified colonic diverticula noted. IMPRESSION: 1. Small to moderate left, small right pleural effusions, primarily subpulmonic. Compressive atelectasis at lung bases. 2. Minimal patchy hazy infiltrates in the right upper lobe. This is compatible with the recent hemoptysis. No focal airspace infiltrates otherwise. 3. ET tube terminates 6.5 cm above richelle. Small amountof frothy fluid within the trachea and right mainstem bronchus could relate to [facility] NAME: CHANDANSTEPH JR [id number] [address] PHYS: [place] [address] : 1940 AGE: 80 SEX: M LOC: Z.I14 A PHONE #: [phone] EXAM DATE: 08/18/2020 STATUS: ADM IN FAX #: [phone] RAD #: D/C DT PAGE 1 Signed Report (CONTINUED) Patient Name: STEPH WALSH Annette MAYNARD Unit No: [id number] EXAMS: CPT CODE: [id number] CT CHEST W/CONTRAST [address] (Continued) the known hemoptysis and/or recent aspiration. Electronically Signed by Tania Brar MD on08/18/2020 at 1823 Reported and signed by: Tania Brar MD CC: Ponce Fletcher; Forrest Bonilla MD; Val Pierre MD Technologist: Vasile Nickerson, RT(R); Val CTDI: DLP: Trnscrpt: 04/2020 (1822) [email or web address] [facility] NAME: STEPH WALSH JR [id number] [address] PHYS: [place] [address] : 1940 AGE: 80 SEX: M LOC: Z.I14 A PHONE #: [phone] EXAM DATE: 08/18/2020 STATUS: ADM IN FAX #: [phone] RAD #: D/C DT PAGE 2 Signed Report Patient Name: STEPH WALSH JR Unit No: [id number] EXAMS: CPT CODE: [id number] CT CHEST W/CONTRAST 50716 (Continued) Orig Print D/T: S: 08/18/2020 (1827) CLAUDIO Sauer NAME: STEPH WALSH JR [id number] [address] PHYS: [email or web address] - [place] [address] : 1940 AGE: 80 SEX: M LOC: Z.I14 A PHONE #: [phone] EXAM DATE: 08/18/2020 STATUS: ADM IN FAX #: [phone] RAD #: D/C DT PAGE 3 Signed ReportPROTHROMBIN [id number] 17:43:00 Test Item Value Reference Range Interpretation Comments PROTHROMBIN TIME 36.9 SECONDS 9.4-12.5 H PATIENT (test code = PTP) INTERNATIONAL NORMAL 3.3 The INR is to be RATIO (test code = used only for INR) monitoring oral anticoagulantth erap y. INDICATION I NR VALUE ---- ---- ---- -------1. Prophylaxis, de ep venous thrombos is, including high risk surgery. 2.0 - 3.0 2. Prophylaxis, deep venous thrombosis, hip surgery, treatm ent for deep venous thrombosis or pulmonary prevention of systemic emboli sm in patients wit h valvular heart disease, atrial fibrillation, tissue heart va lve, or acute myocar dial infarction. 2.0 - 3.0 3. Cubing Machine Tender al prosthesis hear t valves, recurre nt systemic emboli sm. 3.0 - 4.5 PTT [id number] 17:43:00 Test Item Value Reference Range Interpretation Comments PTT ACTIVATED (test > 400.0 SECONDS 25.1-36.5 HH SONI D RESULTS TO code = APTT) [facility] AT 1743 BY JORGE. B-TYPE NATRIURETIC [id number] 17:12:00 Test Item Value Reference Range Interpretation Comments B-TYPE NATRIURETIC PEPTIDE (test 993.0 PG/ML 0-100 H code = BNP) [id number] 17:07:00 Test Item Value Reference Range Interpretation Comments ACT-ISTAT (test code = ACTI) 268 SEC 74-137 H [id number] 17:07:00 Test Item Value Reference Range Interpretation Comments ACT-ISTAT (test code = ACTI) 401 SEC 74-137 H [id number] 17:07:00 Test Item Value Reference Range Interpretation Comments ACT-ISTAT (test code = ACTI) 268 SEC 74-137 H - XR CHEST [id number] 16:26:00 Patient Name: STEPH WALSH JR Unit No: [id number] EXAMS: CPT CODE: [id number] XR CHEST 1V [id number] CODE: H 31 CHEST AP HISTORY: Post ablation COMPARISON: None available FINDINGS: ET tube term inates in mid trachea. A lead (pacer) superimposes the left subclavicular region. There is mild central vascular congestion. No evidence of pleural effusion or pneumothorax. Cardiomediastinal silhouette is within normal limits. Sternal wires are noted. IMPRESSION: 1. ET tube terminates in mid trachea.2. Lead (pacer) superimposes the left subclavicular region. 3. Mild central vascular congestion. at 1626 Reported and signedby: Tania Brar MD CC: Ponce Fletcher; Forrest Bonilla MD Technologist: BALDEMAR Isaac, RT(R) Transcrpt Date/Tm/Trnsp: 08/18/2020 (1626) [email or web address] Orig Print D/T: S: 08/18/2020 (1629) [facility] NAME: STEPH WALSH JR [id number] [address] PHYS: [place] [address] : 1940 AGE: 80 SEX: M LOC: [facility] PHONE #: [phone] EXAM DATE: 08/18/2020 STATUS: REG PRC FAX #: [phone] RADIOLOGY NO: PAGE 1 Signed ReportCBC W/AUTO DIFF 2020-08-18 12:52:00 Test Item Value Reference Range Interpretation Comments WHITE BLOOD CELL (test code = 8.1 K/MM3 3.8-9.8 N WBC) RED BLOOD CELL (test code = 3.64 M/MM3 3.95-5.67 L RBC) HEMOGLOBIN (test code = HGB) 9.8 G/DL 12.4-16.7 L HEMATOCRIT (test code = HCT) 32.9 % 35.9-49.5 L MEAN CELL VOLUME (test code = 90 fL 81.7-96.1 N MCV) MEAN CELL HGB (test code = MCH) 26.9 pg 27.6-33.2 L MEAN CELL HGB CONCETRATION 29.8 % 32.9-35.5 L (test code = MCHC) RED CELL DISTRIBUTION WIDTH 24.6 % 12.1-15.2 H (test code = RDW) PLATELET COUNT (test code = 263 K/MM3 129-368 N PLT) MEAN PLATELET VOLUME (test code 9.7 fl 7.4-10.4 N = MPV) NEUTROPHIL % (test code = NT%) 74.9 % 43-75 N IMMATURE GRANULOCYTE % (test 0.2 % 0.0-2.0 N code = IG%) LYMPHOCYTE % (test code = LY%) 11.6 % 14-44 L MONOCYTE % (test code = MO%) 10.6 % 4-13 N EOSINOPHIL % (test code = EO%) 2.1 % 0-6 N BASOPHIL % (test code = BA%) 0.6 % 0-2 N NUCLEATED RBC % (test code = 0.0 % 0-1.0 N NRBC%) NEUTROPHIL # (test code = NT#) 6.07 K/mm3 2.0-7.6 N IMMATURE GRANULOCYTE # (test 0.02 x10 3/uL 0-0.03 N code = IG#) LYMPHOCYTE # (test code = LY#) 0.94 K/mm3 1.0-3.8 L MONOCYTE # (test code = MO#) 0.86 K/mm3 0.1-0.8 H EOSINOPHIL # (test code = EO#) 0.17 K/mm3 0.0-0.2 N BASOPHIL # (test code = BA#) 0.05 K/mm3 0.0-0.2 N NUCLEATED RBC # (test code = 0.00 K/mm3 0.0-0.1 N NRBC#) DIFFERENTIAL [id number] 12:52:00 Test Item Value Reference Range Interpretation Comments RBC MORPHOLOGY REQUIRED (test code = ABNORMAL RBCM) POIKILOCYTOSIS (test code = POIK) FEW NONE ANISOCYTOSIS (test code = ANISO) MODERATE NONE PLATELET ESTIMATE (test code = ADEQUATE ADEQUATE PLTEST) PLATELET MORPHOLOGY (test code = NORMAL NORMAL PLTMORPH) COMPREHENSIVE METABOLIC [id number] 12:05:00 Test Item Value Reference Range Interpretation Comments SODIUM (test code = 140 MMOL/L 137-145 N NA) POTASSIUM (test code 4.3 MMOL/L 3.5-5.1 N = K) CHLORIDE (test code 98 MMOL/L 98-107 N = CL) CARBON DIOXIDE (test 32 MMOL/L 22-30 H code = CO2) GLUCOSE (test code = 99 MG/DL 74-106 N GLU) BLOOD UREA NITROGEN 12 MG/DL 9-20 N (test code = BUN) GLOMERULAR > 60 Reporting units : FILTRATION RATE ml/min/1.73 m2 (test code = GFR) (Modified MDRD Formula)Referen ce Range: > or = 6 0 ml/min/1.73 m2 CREATININE (test 0.80 MG/DL 0.66-1.25 N code = CREAT) TOTAL PROTEIN (test 7.7 G/DL 6.2-7.6 H code = PROT) ALBUMIN (test code = 4.4 G/DL 3.5-5.0 N ALB) CALCIUM (test code = 9.8 MG/DL 8.4-10.2 N CA) BILIRUBIN TOTAL 1.4 MG/DL 0.2-1.3 H Eltrombopag (test code = BILT) Interfere nce for Vitros Product TBil, BuBc: ======= ======= ======A ssay Eltrombopa g Analyte/ Max Ob served Avg. Bias Concentration Concentration Concentration== ======= ======= ======= =======TBil 7mg /dl TBil/ 1.2mg/dl +0.23mg.dl +0.20mg/dlBuBc 3.5mg/dl Bu/0.8 mg/dl +0.25mg/dl +0.24mg/dlBuBc 7 mg/dl Bu/14.2mg/dl +0.38mg/dl +0.25mg/dlBuBc 5mg/dl Bc/0mg/dl +0.25 mg/dl +0.15mg/dlBuBc 3.5mg/dl Bc/2.8 mg/dl +0.25mg/dl +0.2 3mg/dl SGOT/AST (test code 38 UNITS/L 17-59 N = AST) SGPT/ALT (test code 26 UNITS/L <50 = ALT) ALKALINE PHOSPHATASE 135 UNITS/L 38-126 H (test code = ALKP) [id number] 12:05:00 Test Item Value Reference Range Interpretation Comments MAGNESIUM (test code = MAG) MG/DL 1.6-2.3 COMPREHENSIVE METABOLIC [id number] 12:05:00 Test Item Value Reference Range Interpretation Comments SODIUM (test code = 140 MMOL/L 137-145 N NA) POTASSIUM (test code 4.3 MMOL/L 3.5-5.1 N = K) CHLORIDE (test code 98 MMOL/L 98-107 N = CL) CARBON DIOXIDE (test 32 MMOL/L 22-30 H code = CO2) GLUCOSE (test code = 99 MG/DL 74-106 N GLU) BLOOD UREA NITROGEN 12 MG/DL 9-20 N (test code = BUN) GLOMERULAR > 60 Reporting units : FILTRATION RATE ml/min/1.73 m2 (test code = GFR) (Modified MDRD Formula)Referen ce Range: > or = 6 0 ml/min/1.73 m2 CREATININE (test 0.80 MG/DL 0.66-1.25 N code = CREAT) TOTAL PROTEIN (test 7.7 G/DL 6.2-7.6 H code = PROT) ALBUMIN (test code = 4.4 G/DL 3.5-5.0 N ALB) CALCIUM (test code = 9.8 MG/DL 8.4-10.2 N CA) BILIRUBIN TOTAL 1.4 MG/DL 0.2-1.3 H Eltrombopag (test code = BILT) Interfere nce for Vitros Product TBil, BuBc: ======= ======= ======A ssay Eltrombopa g Analyte/ Max Ob served Avg. Bias Concentration Concentration Concentration== ======= ======= ======= =======TBil 7mg /dl TBil/ 1.2mg/dl +0.23mg.dl +0.20mg/dlBuBc 3.5mg/dl Bu/0.8 mg/dl +0.25mg/dl +0.24mg/dlBuBc 7 mg/dl Bu/14.2mg/dl +0.38mg/dl +0.25mg/dlBuBc 5mg/dl Bc/0mg/dl +0.25 mg/dl +0.15mg/dlBuBc 3.5mg/dl Bc/2.8 mg/dl +0.25mg/dl +0.2 3mg/dl SGOT/AST (test code 38 UNITS/L 17-59 N = AST) SGPT/ALT (test code 26 UNITS/L <50 = ALT) ALKALINE PHOSPHATASE 135 UNITS/L 38-126 H (test code = ALKP) [id number] 12:05:00 Test Item Value Reference Range Interpretation Comments MAGNESIUM (test code = MAG) 2.1 MG/DL 1.6-2.3 N COMPREHENSIVE METABOLIC [id number] 12:04:00 Test Item Value Reference Range Interpretation Comments SODIUM (test code = 140 MMOL/L 137-145 N NA) POTASSIUM (test code 4.3 MMOL/L 3.5-5.1 N = K) CHLORIDE (test code = 98 MMOL/L 98-107 N CL) CARBON DIOXIDE (test 32 MMOL/L 22-30 H code = CO2) GLUCOSE (test code = MG/DL 74-106 GLU) BLOOD UREA NITROGEN MG/DL 9-20 (test code = BUN) GLOMERULAR FILTRATION > 60 Report ing units: RATE (test code = ml/min/1.7 3 m2 GFR) (Modified MDRD Formula)Referen ce Range: > or = 6 0 ml/min/1.73 m2 CREATININE (test code 0.80 MG/DL 0.66-1.25 N = CREAT) TOTAL PROTEIN (test G/DL 6.2-7.6 code = PROT) ALBUMIN (test code = 4.4 G/DL 3.5-5.0 N ALB) CALCIUM (test code = MG/DL 8.7-9.7 CA) BILIRUBIN TOTAL (test 1.4 MG/DL 0.2-1.3 H Eltrom bopag code = BILT) Interference fo r Vitros Product TBil, BuBc: ======= ======= ======A ssay Eltrombopa g Analyte/ Max Ob served Avg. Bias Concentration Concentration Concentration== ======= ======= ======= =======TBil 7mg /dl TBil/ 1.2mg/dl +0.23mg.dl +0.20mg/dlBuBc 3.5mg/dl Bu/0.8 mg/dl +0.25mg/dl +0.24mg/dlBuBc 7 mg/dl Bu/14.2mg/dl +0.38mg/dl +0.25mg/dlBuBc 5mg/dl Bc/0mg/dl +0.25 mg/dl +0.15mg/dlBuBc 3.5mg/dl Bc/2.8 mg/dl +0.25mg/dl +0.2 3mg/dl SGOT/AST (test code = UNITS/L 15-37 AST) SGPT/ALT (test code = UNITS/L <50 ALT) ALKALINE PHOSPHATASE UNITS/L 38-126 (test code = ALKP) [id number] 12:04:00 Test Item Value Reference Range Interpretation Comments MAGNESIUM (test code = MAG) MG/DL 1.6-2.3 COMPREHENSIVE METABOLIC [id number] 12:02:00 Test Item Value Reference Range Interpretation Comments SODIUM (test code = NA) 140 MMOL/L 137-145 N POTASSIUM (test code = K) 4.3 MMOL/L 3.5-5.1 N CHLORIDE (test code = CL) 98 MMOL/L 98-107 N CARBON DIOXIDE (test code = CO2) MMOL/L 22-30 GLUCOSE (test code = GLU) MG/DL 74-106 BLOOD UREA NITROGEN (test code = MG/DL 9-20 BUN) GLOMERULAR FILTRATION RATE (test code = GFR) CREATININE (test code = CREAT) MG/DL 0.66-1.25 TOTAL PROTEIN (test code = PROT) G/DL 6.2-7.6 ALBUMIN (test code = ALB) 4.4 G/DL 3.5-5.0 N CALCIUM (test code = CA) MG/DL 8.7-9.7 BILIRUBIN TOTAL (test code = BILT) MG/DL 0.2-1.3 SGOT/AST (test code = AST) UNITS/L 15-37 SGPT/ALT (test code = ALT) UNITS/L <50 ALKALINE PHOSPHATASE (test code = UNITS/L 38-126 ALKP) [id number] 12:02:00 Test Item Value Reference Range Interpretation Comments MAGNESIUM (test code = MAG) MG/DL 1.6-2.3 COMPREHENSIVE METABOLIC [id number] 12:01:00 Test Item Value Reference Range Interpretation Comments SODIUM (test code = NA) MMOL/L 137-145 POTASSIUM (test code = K) MMOL/L 3.5-5.1 CHLORIDE (test code = CL) 98 MMOL/L 98-107 N CARBON DIOXIDE (test code = CO2) MMOL/L 22-30 GLUCOSE (test code = GLU) MG/DL 74-106 BLOOD UREA NITROGEN (test code = MG/DL 9-20 BUN) GLOMERULAR FILTRATION RATE (test code = GFR) CREATININE (test code = CREAT) MG/DL 0.66-1.25 TOTAL PROTEIN (test code = PROT) G/DL 6.2-7.6 ALBUMIN (test code = ALB) 4.4 G/DL 3.5-5.0 N CALCIUM (test code = CA) MG/DL 8.7-9.7 BILIRUBIN TOTAL (test code = BILT) MG/DL 0.2-1.3 SGOT/AST (test code = AST) UNITS/L 15-37 SGPT/ALT (test code = ALT) UNITS/L <50 ALKALINE PHOSPHATASE (test code = UNITS/L 38-126 ALKP) [id number] 12:01:00 Test Item Value Reference Range Interpretation Comments MAGNESIUM (test code = MAG) MG/DL 1.6-2.3 PROTHROMBIN [id number] 11:35:00 Test Item Value Reference Range Interpretation Comments PROTHROMBIN TIME 12.9 SECONDS 9.4-12.5 H PATIENT (test code = PTP) INTERNATIONAL NORMAL 1.2 The INR is to be RATIO (test code = used only for INR) monitoring oral anticoagulantth erap y. INDICATION INR VALUE ---- ---- ---- -------1. Prophylaxis, de ep venous thrombos is, including high risk surgery. 2.0 - 3.0 2. Prophylaxis, deep venous thrombosis, hip surgery, treatm ent for deep venous thrombosis or pulmonary prevention of systemic emboli sm in patients wit h valvular heart disease, atrial fibrillation, tissue heart va lve, or acute myocar dial infarction. 2.0 - 3.0 3. Cubing Machine Tender al prosthesis hear t valves, recurre nt systemic emboli sm. 3.0 - 4.5 PTT [id number] 11:35:00 Test Item Value Reference Range Interpretation Comments PTT ACTIVATED (test code = APTT) 34.9 SECONDS 25.1-36.5 N CBC W/AUTO [id number] 11:25:00 Test Item Value Reference Range Interpretation Comments WHITE BLOOD CELL (test code = 8.1 K/MM3 3.8-9.8 N WBC) RED BLOOD CELL (test code = 3.64 M/MM3 3.95-5.67 L RBC) HEMOGLOBIN (test code = HGB) 9.8 G/DL 12.4-16.7 L HEMATOCRIT (test code = HCT) 32.9 % 35.9-49.5 L MEAN CELL VOLUME (test code = 90 fL 81.7-96.1 N MCV) MEAN CELL HGB (test code = MCH) 26.9 pg 27.6-33.2 L MEAN CELL HGB CONCETRATION 29.8 % 32.9-35.5 L (test code = MCHC) RED CELL DISTRIBUTION WIDTH 24.6 % 12.1-15.2 H (test code = RDW) PLATELET COUNT (test code = 263 K/MM3 129-368 N PLT) MEAN PLATELET VOLUME (test code 9.7 fl 7.4-10.4 N = MPV) NEUTROPHIL % (test code = NT%) 74.9 % 43-75 N IMMATURE GRANULOCYTE % (test 0.2 % 0.0-2.0 N code = IG%) LYMPHOCYTE % (test code = LY%) 11.6 % 14-44 L MONOCYTE % (test code = MO%) 10.6 % 4-13 N EOSINOPHIL % (test code = EO%) 2.1 % 0-6 N BASOPHIL % (test code = BA%) 0.6 % 0-2 N NUCLEATED RBC % (test code = 0.0 % 0-1.0 N NRBC%) NEUTROPHIL # (test code = NT#) 6.07 K/mm3 2.0-7.6 N IMMATURE GRANULOCYTE # (test 0.02 x10 3/uL 0-0.03 N code = IG#) LYMPHOCYTE # (test code = LY#) 0.94 K/mm3 1.0-3.8 L MONOCYTE # (test code = MO#) 0.86 K/mm3 0.1-0.8 H EOSINOPHIL # (test code = EO#) 0.17 K/mm3 0.0-0.2 N BASOPHIL # (test code = BA#) 0.05 K/mm3 0.0-0.2 N NUCLEATED RBC # (test code = 0.00 K/mm3 0.0-0.1 N NRBC#) DIFFERENTIAL [id number] 11:25:00 Test Item Value Reference Range Interpretation Comments RBC MORPHOLOGY REQUIRED (test code = RBCM) PLATELET ESTIMATE (test code = PLTEST) ADEQUATE PLATELET MORPHOLOGY (test code = NORMAL PLTMORPH) CBC W/AUTO [id number] 11:25:00 Test Item Value Reference Range Interpretation Comments WHITE BLOOD CELL (test code = 8.1 K/MM3 3.8-9.8 N WBC) RED BLOOD CELL (test code = 3.64 M/MM3 3.95-5.67 L RBC) HEMOGLOBIN (test code = HGB) 9.8 G/DL 12.4-16.7 L HEMATOCRIT (test code = HCT) 32.9 % 35.9-49.5 L MEAN CELL VOLUME (test code = 90 fL 81.7-96.1 N MCV) MEAN CELL HGB (test code = MCH) 26.9 pg 27.6-33.2 L MEAN CELL HGB CONCETRATION 29.8 % 32.9-35.5 L (test code = MCHC) RED CELL DISTRIBUTION WIDTH 24.6 % 12.1-15.2 H (test code = RDW) PLATELET COUNT (test code = 263 K/MM3 129-368 N PLT) MEAN PLATELET VOLUME (test code 9.7 fl 7.4-10.4 N = MPV) NEUTROPHIL % (test code = NT%) 74.9 % 43-75 N IMMATURE GRANULOCYTE % (test 0.2 % 0.0-2.0 N code = IG%) LYMPHOCYTE % (test code = LY%) 11.6 % 14-44 L MONOCYTE % (test code = MO%) 10.6 % 4-13 N EOSINOPHIL % (test code = EO%) 2.1 % 0-6 N BASOPHIL % (test code = BA%) 0.6 % 0-2 N NUCLEATED RBC % (test code = 0.0 % 0-1.0 N NRBC%) NEUTROPHIL # (test code = NT#) 6.07 K/mm3 2.0-7.6 N IMMATURE GRANULOCYTE # (test 0.02 x10 3/uL 0-0.03 N code = IG#) LYMPHOCYTE # (test code = LY#) 0.94 K/mm3 1.0-3.8 L MONOCYTE # (test code = MO#) 0.86 K/mm3 0.1-0.8 H EOSINOPHIL # (test code = EO#) 0.17 K/mm3 0.0-0.2 N BASOPHIL # (test code = BA#) 0.05 K/mm3 0.0-0.2 N NUCLEATED RBC # (test code = 0.00 K/mm3 0.0-0.1 N NRBC#) DIFFERENTIAL [id number] 11:25:00 Test Item Value Reference Range Interpretation Comments RBC MORPHOLOGY REQUIRED (test code = RBCM) PLATELET ESTIMATE (test code = PLTEST) ADEQUATE PLATELET MORPHOLOGY (test code = NORMAL PLTMORPH) COVID 19 Asymptomatic IH [id number] 10:32:00 Test Item Value Reference Range Interpretation Comments COVID 19 NEGATIVE Negative "Negative resul ts from Asymptomatic IH AG patients with symptom (test code = onset beyondfiv e days, COVNONPUIAG) should be treat ed as presumptive, andconfirmation with a molecular assay , if necessary forpa tient management may be performed. Nega tive results do notr ule out COVID-19 and sh ould not be used as the sole basisfor treatm ent or patient managem ent decisions, includinginfect ion control decisio ns. Negative result s should beconsidered in the context of a pa tients recent exposure s,history, and the presenc e of clinical signs and symptomsconsist ent with COVID-19.This t est detects both vi able andnon-viable S ARS-CoV and SARS CoV-2. Test performance dep endson the amount of virus (antigen) in the sample." CHEM [id number] 13:10:00 Test Item Value Reference Range Interpretation Comments Glucose Lvl (test code = Glucose Lvl) 107 70-99 [facility] [id number] 13:10:00 Test Item Value Reference Range Interpretation Comments BUN (test code = BUN) 24 7-22 [facility] [id number] 13:10:00 Test Item Value Reference Range Interpretation Comments Creatinine Lvl (test code = Creatinine 0.84 0.50-1.40 Lvl) [facility] [id number] 13:10:00 Test Item Value Reference Range Interpretation Comments Sodium Lvl (test code = Sodium Lvl) 134 135-145 [place] 535280-05-07 13:10:00 Test Item Value Reference Range Interpretation Comments Potassium Lvl (test code = Potassium 4.5 3.5-5.1 Lvl) [facility]2020-05-07 13:10:00 Test Item Value Reference Range Interpretation Comments Chloride Lvl (test code = Chloride Lvl) 97 95-109 [facility]2020-05-07 13:10:00 Test Item Value Reference Range Interpretation Comments CO2 (test code = CO2) 32 24-32 [facility]2020-05-07 13:10:00 Test Item Value Reference Range Interpretation Comments Calcium Lvl (test code = Calcium Lvl) 9.3 8.5-10.5 [facility]2020-05-07 13:10:00 Test Item Value Reference Range Interpretation Comments AGAP (test code = AGAP) 9.5 10.0-20.0 [place] 535280-05-07 13:10:00 Test Item Value Reference Range Interpretation Comments eGFR (test code = eGFR) 84 [facility]2020-05-07 09:43:00 Test Item Value Reference Range Interpretation Comments Glucose Lvl (test code = Glucose Lvl) 117 70-99 [facility]2020-05-07 09:43:00 Test Item Value Reference Range Interpretation Comments BUN (test code = BUN) 24 7-22 [facility]2020-05-07 09:43:00 Test Item Value Reference Range Interpretation Comments Creatinine Lvl (test code = Creatinine 1.00 0.50-1.40 Lvl) [facility]2020-05-07 09:43:00 Test Item Value Reference Range Interpretation Comments Sodium Lvl (test code = Sodium Lvl) 134 135-145 [facility]2020-05-07 09:43:00 Test Item Value Reference Range Interpretation Comments Potassium Lvl (test code = Potassium 4.6 3.5-5.1 Lvl) [facility]2020-05-07 09:43:00 Test Item Value Reference Range Interpretation Comments Chloride Lvl (test code = Chloride Lvl) 96 95-109 [place] 535280-05-07 09:43:00 Test Item Value Reference Range Interpretation Comments CO2 (test code = CO2) 34 24-32 [facility]2020-05-07 09:43:00 Test Item Value Reference Range Interpretation Comments Calcium Lvl (test code = Calcium Lvl) 9.3 8.5-10.5 [place] 535280-05-07 09:43:00 Test Item Value Reference Range Interpretation Comments AGAP (test code = AGAP) 8.6 10.0-20.0 [place] 535280-05-07 09:43:00 Test Item Value Reference Range Interpretation Comments eGFR (test code = eGFR) 72 [id number] 09:43:00 Test Item Value Reference Range Interpretation Comments Segs (test code = Segs) 73.6 45.0-75.0 [place] 702600-05-07 09:43:00 Test Item Value Reference Range Interpretation Comments Lymphocytes (test code = Lymphocytes) 9.2 20.0-40.0 [place] 702600-05-07 09:43:00 Test Item Value Reference Range Interpretation Comments Monocytes (test code = Monocytes) 13.8 2.0-12.0 [facility] CenterTqfwtgqESCVMQCZOE5430-52-83 09:43:00 Test Item Value Reference Range Interpretation Comments Eosinophils (test code = Eosinophils) 2.9 <=4.0 [facility] CenterUfyrntvVOYKKESOGS6843-66-57 09:43:00 Test Item Value Reference Range Interpretation Comments Basophils (test code = Basophils) 0.5 <=1.0 [place] [address]-05-07 09:43:00 Test Item Value Reference Range Interpretation Comments Neutrophils # (test code = Neutrophils 6.0 1.5-8.1 #) [facility] CenterHeajwfcIOPTQMJOOU3730-94-33 09:43:00 Test Item Value Reference Range Interpretation Comments Lymphocytes # (test code = Lymphocytes 0.8 1.0-5.5 #) [facility] CenterWsncolzPHGCLXOKOT3336-93-61 09:43:00 Test Item Value Reference Range Interpretation Comments Monocytes # (test code = Monocytes #) 1.1 <=0.8 [place] [address]-05-07 09:43:00 Test Item Value Reference Range Interpretation Comments Eosinophils # (test code = Eosinophils 0.2 <=0.5 #) [facility]UK[facility]WN1767[facility]-09 09:43:00 Test Item Value Reference Range Interpretation Comments Macrocyte (test code = 1+ *ABN*(03/19/20 4:43 Macrocyte) AM) [facility]JtrtwkhITCZSLVDRR8044-21-34 09:43:00 Test Item Value Reference Range Interpretation Comments WBC (test code = WBC) 8.2 3.7-10.4 [facility] [id number] 09:43:00 Test Item Value Reference Range Interpretation Comments RBC (test code = RBC) 2.79 4.70-6.10 [facility] [id number] 09:43:00 Test Item Value Reference Range Interpretation Comments Hgb (test code = Hgb) 9.5 14.0-18.0 [facility] UqtnepyEPQQAWGTIS5034-01-21 09:43:00 Test Item Value Reference Range Interpretation Comments Hct (test code = Hct) 28.3 42.0-54.0 [facility] DnubnrpBOBRXKDEZA4966-78-69 09:43:00 Test Item Value Reference Range Interpretation Comments MCV (test code = MCV) 101.5 80.0-94.0 [facility] NxbtyotWVXVLYNLDU9539-08-20 09:43:00 Test Item Value Reference Range Interpretation Comments MCH (test code = MCH) 34.1 pg 27.0-31.0 [facility] EbznfceQAHBQZLPSD9916-30-04 09:43:00 Test Item Value Reference Range Interpretation Comments MCHC (test code = MCHC) 33.6 32.0-36.0 [facility] [id number] 09:43:00 Test Item Value Reference Range Interpretation Comments RDW (test code = RDW) 16.4 11.5-14.5 [facility] GpuwftaFLRTDQTBVZ4376-45-78 09:43:00 Test Item Value Reference Range Interpretation Comments Platelet (test code = Platelet) 193 133-450 [facility] NsnegopYDQDFQIPAM4055-78-62 09:43:00 Test Item Value Reference Range Interpretation Comments MPV (test code = MPV) 8.2 7.4-10.4 [facility]annCARDIAC [id number] 12:24:00 Test Item Value Reference Range Interpretation Comments Troponin-I (test code = Troponin-I) 0.04 <=0.40 [facility] [id number] 08:35:00 Test Item Value Reference Range Interpretation Comments UA Bacteria (test code = UA Occasional /HPF Bacteria) [facility] AND [id number] 08:35:00 Test Item Value Reference Range Interpretation Comments UA Sq Epi (test code = UA Sq Epi) None Seen [facility] AND [id number] 08:35:00 Test Item Value Reference Range Interpretation Comments UA Color (test code = Yellow *NA*(03/18/20 3:35 UA Color) AM) [facility] AND [id number] 08:35:00 Test Item Value Reference Range Interpretation Comments UA Turbidity (test code Slight *ABN*(03/18/20 = UA Turbidity) 3:35 AM) [facility] AND [id number] 08:35:00 Test Item Value Reference Range Interpretation Comments UA Spec Grav (test code = UA Spec 1.010 1 Grav) [facility] AND [id number] 08:35:00 Test Item Value Reference Range Interpretation Comments UA pH (test code = UA pH) 5.0 1 5.0-8.0 [facility] AND [id number] 08:35:00 Test Item Value Reference Range Interpretation Comments UA Protein (test code = UA Protein) 30 mg/dL [facility] AND [id number] 08:35:00 Test Item Value Reference Range Interpretation Comments UA Glucose (test code = UA Negative mg/dL Glucose) [facility] AND [id number] 08:35:00 Test Item Value Reference Range Interpretation Comments UA Ketones (test code = UA Negative mg/dL Ketones) [facility] AND [id number] 08:35:00 Test Item Value Reference Range Interpretation Comments UA Bili (test code = Negative *NA*(03/18/20 UA Bili) 3:35 AM) [facility] AND [id number] 08:35:00 Test Item Value Reference Range Interpretation Comments UA Blood (test code = Negative (03/18/20 3:35 UA Blood) AM) [facility] AND [id number] 08:35:00 Test Item Value Reference Range Interpretation Comments UA Urobilinogen (test code = UA no gt 0.1-1.0 Urobilinogen) [employer] AND [id number] 08:35:00 Test Item Value Reference Range Interpretation Comments UA Nitrite (test code Negative (03/18/20 3:35 = UA Nitrite) AM) [employer] AND [id number] 08:35:00 Test Item Value Reference Range Interpretation Comments UA Leuk Est (test Negative (03/18/20 3:35 code = UA Leuk Est) AM) [employer] AND [id number] 08:35:00 Test Item Value Reference Range Interpretation Comments UA WBC (test code = UA WBC) 1 <=5 [employer] AND [id number] 08:35:00 Test Item Value Reference Range Interpretation Comments UA RBC (test code = UA RBC) no gt <=2 [employer] [id number] 08:16:00 Test Item Value Reference Range Interpretation Comments Troponin-I (test code = Troponin-I) 0.05 <=0.40 [employer] [id number] 06:41:00 Test Item Value Reference Range Interpretation Comments ABO/Rh (test code = ABO/Rh) A POS [facility] RCWLJSJ7210-29-31 06:41:00 Test Item Value Reference Range Interpretation Comments Antibody Scrn (test Negative (03/18/20 1:41 code = Antibody Scrn) AM) [employer] [id number] 06:41:00 Test Item Value Reference Range Interpretation Comments Troponin-I (test code = Troponin-I) 0.04 <=0.40 [email or web address] [id number] 06:41:00 Test Item Value Reference Range Interpretation Comments Glucose Lvl (test code = Glucose Lvl) 80 70-99 [email or web address] [id number] 06:41:00 Test Item Value Reference Range Interpretation Comments BUN (test code = BUN) 26 7-22 [email or web address] [id number] 06:41:00 Test Item Value Reference Range Interpretation Comments Creatinine Lvl (test code = Creatinine 0.85 0.50-1.40 Lvl) [email or web address] [id number] 06:41:00 Test Item Value Reference Range Interpretation Comments Sodium Lvl (test code = Sodium Lvl) 137 135-145 [place] 535280-05-06 06:41:00 Test Item Value Reference Range Interpretation Comments Potassium Lvl (test code = Potassium 4.0 3.5-5.1 Lvl) [place] 535280-05-06 06:41:00 Test Item Value Reference Range Interpretation Comments Chloride Lvl (test code = Chloride Lvl) 100 95-109 [place] [address]-05-06 06:41:00 Test Item Value Reference Range Interpretation Comments CO2 (test code = CO2) 30 24-32 [place] 535280-05-06 06:41:00 Test Item Value Reference Range Interpretation Comments Calcium Lvl (test code = Calcium Lvl) 9.0 8.5-10.5 [place] [address]-05-06 06:41:00 Test Item Value Reference Range Interpretation Comments AGAP (test code = AGAP) 11.0 10.0-20.0 [place] 535280-05-06 06:41:00 Test Item Value Reference Range Interpretation Comments eGFR (test code = eGFR) 84 [place] 535280-05-06 06:41:00 Test Item Value Reference Range Interpretation Comments Lactic Acid Lvl (test code = Lactic 2.0 0.5-2.2 Acid Lvl) [place] [address]-05-06 06:41:00 Test Item Value Reference Range Interpretation Comments Phosphorus (test code = Phosphorus) 2.9 2.5-4.5 [place] 535280-05-06 06:41:00 Test Item Value Reference Range Interpretation Comments Magnesium Lvl (test code = Magnesium 2.2 1.8-2.4 Lvl) [place] [address]-05-06 06:41:00 Test Item Value Reference Range Interpretation Comments WBC X 10x3 (test code = WBC X 10x3) 8.5 3.7-10.4 [place] [address]-05-06 06:41:00 Test Item Value Reference Range Interpretation Comments RBC X 10x6 (test code = RBC X 10x6) 2.80 4.70-6.10 [place] [address]-05-06 06:41:00 Test Item Value Reference Range Interpretation Comments Hgb (test code = Hgb) 9.3 14.0-18.0 [place] [address]-05-06 06:41:00 Test Item Value Reference Range Interpretation Comments Hct (test code = Hct) 28.3 42.0-54.0 [facility] CenterH[id number] 06:41:00 Test Item Value Reference Range Interpretation Comments MCV (test code = MCV) 101.2 80.0-94.0 [facility] CenterIylmoyfTZFUBEEJYH2427-77-91 06:41:00 Test Item Value Reference Range Interpretation Comments MCH (test code = MCH) 33.3 pg 27.0-31.0 [facility] CenterVnjcqufPTJLPBUBAQ2373-97-54 06:41:00 Test Item Value Reference Range Interpretation Comments MCHC (test code = MCHC) 32.9 32.0-36.0 [facility] CenterAhishibIINLHOTSIB2925-14-31 06:41:00 Test Item Value Reference Range Interpretation Comments RDW (test code = RDW) 16.5 11.5-14.5 [place] 702600-05-06 06:41:00 Test Item Value Reference Range Interpretation Comments Platelet (test code = Platelet) 203 133-450 [facility] CenterUrubxktNXJEZWXMCQ5717-86-48 06:41:00 Test Item Value Reference Range Interpretation Comments MPV (test code = MPV) 7.6 7.4-10.4 [facility] CenterHshfzftBKGPUPRMJQ3515-06-76 06:41:00 Test Item Value Reference Range Interpretation Comments ACT (TEG) Rapid (test code = ACT (TEG) 113 s 86-118 Rapid) [facility] CenterCodxcjhYNBDARQNHG0326-47-92 06:41:00 Test Item Value Reference Range Interpretation Comments Split Point Rapid (test code = Split 0.6 min Point Rapid) [facility] CenterBacevcdXMXVPSUZQJ1768-84-97 06:41:00 Test Item Value Reference Range Interpretation Comments R-time Rapid (test code = R-time 0.7 min 0.4-0.7 Rapid) [facility] CenterCcpzhcgCTZFPMTKOK8999-93-85 06:41:00 Test Item Value Reference Range Interpretation Comments K-time Rapid (test code = K-time 0.8 min 0.6-2.3 Rapid) [facility] CenterEvnvysqHWKINANNDN2897-05-90 06:41:00 Test Item Value Reference Range Interpretation Comments Angle Rapid (test code = Angle 80 degrees 64-80 Rapid) [place] 702600-05-06 06:41:00 Test Item Value Reference Range Interpretation Comments Max Amplitude Rapid (test code = Max 72 mm 52-71 Amplitude Rapid) [facility] CenterYzycqczTJYUAKEQQE6642-70-79 06:41:00 Test Item Value Reference Range Interpretation Comments G-value Rapid (test code = G-value 12.5 5.0-11.6 Rapid) [facility] CenterXwmtzbwAAUNQMLMAA9161-17-85 06:41:00 Test Item Value Reference Range Interpretation Comments Estimated % Lysis Rapid (test code = 0.9 <=7.5 Estimated % Lysis Rapid) [facility] CenterHfznbdjCLEUFRHUTU1063-19-66 06:41:00 Test Item Value Reference Range Interpretation Comments Segs (test code = Segs) 73.9 45.0-75.0 [place] [address]-05-06 06:41:00 Test Item Value Reference Range Interpretation Comments Lymphocytes (test code = Lymphocytes) 13.2 20.0-40.0 [place] 702600-05-06 06:41:00 Test Item Value Reference Range Interpretation Comments Monocytes (test code = Monocytes) 9.2 2.0-12.0 [place] [address]-05-06 06:41:00 Test Item Value Reference Range Interpretation Comments Eosinophils (test code = Eosinophils) 2.7 <=4.0 [facility] CenterRnsgwriDDKDTMXQKT9521-35-54 06:41:00 Test Item Value Reference Range Interpretation Comments Basophils (test code = Basophils) 1.0 <=1.0 [place] 702600-05-06 06:41:00 Test Item Value Reference Range Interpretation Comments Neutrophils # (test code = Neutrophils 6.3 1.5-8.1 #) [facility] CenterEstrddoNSGWVQNVIA6406-96-95 06:41:00 Test Item Value Reference Range Interpretation Comments Lymphocytes # (test code = Lymphocytes 1.1 1.0-5.5 #) [place] 702600-05-06 06:41:00 Test Item Value Reference Range Interpretation Comments Monocytes # (test code = Monocytes #) 0.8 <=0.8 [place] [address]-05-06 06:41:00 Test Item Value Reference Range Interpretation Comments Eosinophils # (test code = Eosinophils 0.2 <=0.5 #) [place] [address]-05-06 06:41:00 Test Item Value Reference Range Interpretation Comments Basophils # (test code = Basophils #) 0.1 <=0.2 [facility] CenterXjaixuxMWFDJWKSAM9296-00-60 06:41:00 Test Item Value Reference Range Interpretation Comments Macrocyte (test code = 1+ *ABN*(03/18/20 1:41 Macrocyte) AM) [facility]
[2023-10-01 05:41] LABS: Absolute Lymphocytes (CBC) 0.7 K/uL (0.7-4.9); Hematocrit 36.4 % (39.6-49.0); Lymphocytes % 8.5 % (15.3-44.8); MCV 93.8 fL (80-100); MPV 8.2 fL (7.6-11.3); Platelets 198 thou/uL (152-406); RBC Red Blood Cell Count 3.88 M/uL (4.33-5.43)
[2023-10-01] MEDS ORDERED: FENTANYL CITR 100 MCG/2 ML ONE (05:59)
[2023-10-01 06:00] LABS: Potassium 3.8 mEq/L (3.5-5.1); Troponin High Sensitivity 40.4 pg/mL (<58.9)
--- NOTE | 2023-10-01 07:10 | ER ---
Nurse's Notes [facility] Name: Steph Dela rCuz Jr Age: 83 yrs Sex: Male : 1940 Arrival Date: 10/01/2023 Time: 05:22 Bed 4 Private MD: Diagnosis: Volume Overload;Dyspnea Presentation: 10/01 05:33 Chief complaint: Patient states: fall EMS states: fall x3. pt takes eliquis for Afib. la4 Care prior to arrival: None. Care prior to arrival: IV initiated. 20 GA, in the left forearm. Mechanism of Injury: Fall from standing Trauma event details: Injury occurred: at home. Injury occurred: October 01, 2023. Activity prior to arrival: None. 05:33 Acuity: MARILYN 2 la4 05:33 Method Of Arrival: EMS: [facility] la4 06:12 Coronavirus screen: Vaccine status: Patient reports receiving the 2nd dose of the covid la4 vaccine. Ebola Screen: Patient denies travel to an Ebola-affected area in the 21 days before illness onset. No symptoms or risks identified at this time. Initial Sepsis Screen: Does the patient meet any 2 criteria? RR > 20 per min. No. Patient's initial sepsis screen is negative. Does the patient have a suspected source of infection? No. Patient's initial sepsis screen is negative. Risk Assessment: Do you want to hurt yourself or someone else? Patient reports no desire to harm self or others. Onset of symptoms was September 30, 2023. Triage Assessment: 06:14 General: Appears uncomfortable, Behavior is calm, cooperative, Denies feeling ill. la4 Pain: Complains of pain in scalp Pain does not radiate. Pain currently is 7 out of 10 on a pain scale. Quality of pain is described as aching. Neuro: Hardy Agitation-Sedation Scale (RASS): 0 - Alert and Calm Level of Consciousness is awake, alert, obeys commands, Oriented to person, place, time, situation, Appropriate for age. Cardiovascular: Heart tones Rhythm is atrial fibrillation. Respiratory: No deficits noted. Airway Trachea midline Respiratory effort is even, unlabored, Breath sounds are diminished. Historical: - Allergies: 06:14 PENICILLINS; la4 - PMHx: 06:14 CHF; Hypertension; Atrial fibrillation; la4 - Code Status:: Full code. - Family history: is not pertinent. - Immunization history: Last tetanus immunization: unknown. - Social history:: Smoking status: Patient denies any tobacco usage or history of. Screenin:57 Abuse screen: Denies threats or abuse. Denies injuries from another. Tuberculosis la4 screening: No symptoms or risk factors identified. 05:57 Fall risk At risk due to age, immobility, prior history of falls, Intervention for la4 positive screen: ED Physician notified, instructed to call for assist when getting up, side rails up. 06:46 [facility] ED Fall Risk Assessment (Adult) History of falling in the last 3 months, la4 including since admission Yes- physiologic fall (2 pts) Confusion or Disorientation No (0 pts) Intoxicated or Sedated No (0 pts) Impaired Gait Yes (1 pt) Mobility Assist Device Used Yes (1 pt) Altered Elimination Yes (1 pt) Score/Fall Risk Level 3 or more points = High Risk. Nutritional screening: No deficits noted. Primary Survey: 05:57 NO uncontrolled hemorrhage observed. A: The client is awake and alert. The airway is la4 patent. The client is alert. Breathing/Chest: Spontaneous respiratory effort, equal unlabored respirations, breath sounds clear bilaterally, regular pattern, symmetrical chest rise and fall. Respiratory effort: spontaneous, unlabored, Breath sounds: diminished, Respiratory pattern: regular, no respiratory pattern noted, tachypnea, Chest inspection: symmetrical rise and fall of the chest, non-productive junky cough noted. Circulation: No external hemorrhage present. Regular and strong central pulse, skin warm/dry/normal color. Cardiac rhythm: atrial fibrillation. Disability Pupils are equal, round, reactive to light and accommodation. Exposure/Environment: All clothing and personal items were removed. changed into patient gown A warming method has been applied: warm blanket given. Reassessment Alertness and Airway: Awake and alert. The airway is patent. Breathing: Spontaneous respiratory effort, equal unlabored respirations, breath sounds clear bilaterally, regular pattern with symmetrical chest rise and fall. Respiratory effort Spontaneous Unlabored Circulation: No external hemorrhage noted. Regular and strong central pulse, skin warm/dry/normal color. Heart rhythm Atrial fibrillation Heart tones Present Pulses Palpable Other bilateral weak pedal pulses noted Color Pale Temperature Warm Dry Arterial Line Disability: Pupils Pupils are equal, round, reactive to light and accomodation. Alert. Secondary Survey: 06:53 HEENT: No deficits noted. Head No injury/deformity Face No injury/deformity Eyes: No la4 injury or deformity noted. Ears: clear Nose: clear Throat: No injury or deformity noted. with gag reflex present. Gastrointestinal: No deficits noted. Abdomen is soft, non-distended, Bowel sounds present in all quadrants. Palpation No deficit noted Patient is continent of stool. Rectal tone is present. Nasogastric tube in place prior to arrival. Assessment: 05:33 General: Appears uncomfortable, Behavior is cooperative, appropriate for age. Pain: la4 Complains of pain in scalp Pain does not radiate. Pain currently is 8 out of 10 on a pain scale. Quality of pain is described as aching, throbbing. Neuro: Hardy Agitation-Sedation Scale (RASS): 0 - Alert and Calm Level of Consciousness is awake, alert, obeys commands, Oriented to person, place, time, situation, Appropriate for age Athletic Events Scorer are equal bilaterally. Cardiovascular: Heart tones S1 S2 Capillary refill < 3 seconds is brisk Rhythm is atrial fibrillation Chest pain is denied. Respiratory: Reports cough that is non-productive, since reports he is having a hard time bringing up phlegm Airway is patent Trachea midline Respiratory effort is even, unlabored, Respiratory pattern is tachypnea. GI: No deficits noted. Abdomen is flat, non-distended, Bowel sounds present X 4 quads. 07:05 General: Appears in no apparent distress. comfortable, Behavior is calm, cooperative. rs5 Pain: Complains of pain in back of head Pain does not radiate. Pain currently is 4 out of 10 on a pain scale. Quality of pain is described as aching, Is continuous. Neuro: Level of Consciousness is awake, alert, obeys commands, Oriented to person, place, time, situation. Cardiovascular: Heart tones S1 S2 present Rhythm is regular. Respiratory: Airway is patent Respiratory effort is even, unlabored, Respiratory pattern is regular, symmetrical, Breath sounds with crackles bilaterally. GI: Abdomen is flat, non-distended, Bowel sounds present X 4 quads. Abd is soft and non tender X 4 quads. : No signs and/or symptoms were reported regarding the genitourinary system. EENT: No signs and/or symptoms were reported regarding the EENT system. Derm: Skin is intact, Skin is pink, warm \T\ dry. Musculoskeletal: Range of motion: intact in all extremities. 08:30 Reassessment: Urinal provided per pt request. rs5 08:42 Reassessment: Pt voided 250 ml clear [place] urine in urinal. rs5 Vital Signs: 05:57 BP 186 / 85; Pulse 77; Resp 22; Temp 98.8(O); Pulse Ox 96% on R/A; la4 07:11 BP 169 / 97; Pulse 70; Resp 17; Pulse Ox 99% on R/A; la4 Handy Coma Score: 05:57 Eye Response: spontaneous(4). Motor Response: obeys commands(6). Verbal Response: la4 oriented(5). Total: 15. Trauma Score (Adult): 05:57 Eye Response: spontaneous(1); Verbal Response: oriented(1); Motor Response: obeys la4 commands(2); Systolic BP: > 89 mm Hg(4); Respiratory Rate: 10 to 29 per min(4); Marceline Score: 15; Trauma Score: 12 ED Course: 05:27 Patient arrived in ED. jj6 05:28 Venkatesh Suggs MD is Attending Physician. ec2 05:31 Kim Gavin, RN is Primary Nurse. la4 05:32 NT PRO-BNP Sent. la4 05:32 CBC with Diff Sent. la4 05:32 Basic Metabolic Panel Sent. la4 05:32 Troponin HS Sent. la4 05:38 Triage completed. la4 05:57 No provider procedures requiring assistance completed. Maintain EMS IV. Gauge \T\ site: la4 20g piv. Inserted saline lock: 18 gauge in left wrist, using aseptic technique. Oxygen administration via nasal cannula \T\ 2L/min. Thermoregulation: warm blanket given to patient. 05:57 Patient has correct armband on for positive identification. Allergy band placed. Placed la4 in gown. Bed in low position. Call light in reach. Side rails up X2. Oxygen administration via nasal cannula \T\ 2L/min Response to oxygen therapy: symptoms remain unchanged. Initial lab(s) drawn, by me, sent to lab. daughter to bedside. Client placed on continuous cardiac and pulse oximetry monitoring. NIBP monitoring applied. 06:19 CT Head C Spine In Process Unspecified. EDMS 06:46 No apparent distress. Awaiting lab results, Awaiting radiology results. Awaiting CT la4 Scan. 06:46 Provided Education on: plan of care. la4 06:53 XRAY Chest (1 view) In Process Unspecified. EDMS 06:53 Pelvis XRAY In Process Unspecified. EDMS 07:09 Debora Zamora MD is Hospitalizing Provider. ec2 Administered Medications: 07:25 Drug: Furosemide IVP 80 mg IVP once; give over 2 minutes Route: IVP; Site: left forearm;rs5 Medication: 06:46 VIS not applicable for this client. la4 Output: 12:00 Urine: 650ml (Voided); Total: 650ml. rs5 Outcome: 05:57 Patient's length of stay was not longer than 2 hours. la4 07:09 Decision to Hospitalize by Provider. ec2 12:36 Patient left the ED. rs5 Signatures: Dispatcher [employer] Kallie Marc jj6 Jose Wright RN RN rs5 Venkatesh Suggs MD MD ec2 Kim Gavin RN RN la4
--- NOTE | 2023-10-01 07:10 | EDPHYS ---
Physician Documentation [facility] Name: Steph Dela Cruz Jr Age: 83 yrs Sex: Male : 1940 Arrival Date: 10/01/2023 Time: 05:22 Bed 4 Private MD: ED Physician Venkatesh Suggs HPI: 10/01 05:29 This 83 yrs old Male presents to ER via Unassigned with complaints of Fall ec2 Injury, Neck Injury. 05:29 Patient arrives today for evaluation after recurrent falls. Patient has had multiple ec2 falls over the past 24 hours. States that he struck his head and hurt his neck today. Patient reports that he is on blood thinners. Patient also with complaints of a chronic cough as well as lower extremity edema. History of heart failure, no fevers, no nausea or vomiting.. Historical: - Allergies: 06:14 PENICILLINS; la4 - PMHx: 06:14 CHF; Hypertension; Atrial fibrillation; la4 - Code Status:: Full code. - Family history: is not pertinent. - Immunization history: Last tetanus immunization: unknown. - Social history:: Smoking status: Patient denies any tobacco usage or history of. ROS: 05:29 Constitutional: as per hpi ec2 Exam: 05:29 Constitutional: GEN: No acute distress HEENT: -Head: atraumatic -Eyes: EOMI CV: ec2 regular rate LUNGS: no respiratory distress ABD: non-tender, soft, nontender, no guarding, not rigid SKIN: no wounds appreciated MSK: C-spine TTP, no T or L-spine TTP RUE w/o trauma LUE w/o trauma RLE w/o trauma LLE w/o trauma NEURO: moves all extremities equally, GCS 15 (E4, V5, M6) Vital Signs: 05:57 BP 186 / 85; Pulse 77; Resp 22; Temp 98.8(O); Pulse Ox 96% on R/A; la4 07:11 BP 169 / 97; Pulse 70; Resp 17; Pulse Ox 99% on R/A; la4 Handy Coma Score: 05:57 Eye Response: spontaneous(4). Motor Response: obeys commands(6). Verbal Response: la4 oriented(5). Total: 15. Trauma Score (Adult): 05:57 Eye Response: spontaneous(1); Verbal Response: oriented(1); Motor Response: obeys la4 commands(2); Systolic BP: > 89 mm Hg(4); Respiratory Rate: 10 to 29 per min(4); [place] Score: 15; Trauma Score: 12 MDM: 05:28 Patient medically screened. 2 05:32 ED course: Patient arrives today for evaluation after multiple falls over the past 24 ec2 hours. Examination is remarkable for nontoxic individual who has lower extremity edema with a frequent cough with C-spine TTP. Will obtain CT scan of the head and C-spine given the patient's blood thinner use as well as his point tenderness, will also obtain a cardiac work-up as well as chest x-ray and pelvis x-ray. Currently considering process such as intracranial brain bleed, C-spine fracture, congestive heart failure.. 06:13 ED course: Patient's lab work remarkable for metabolic profile with some diminished ec2 renal function with a GFR of 77, CBC shows slight anemia and. BNP elevated at 6000. Troponin is within normal ranges at 40. . 06:57 Data reviewed: vital signs. Transition of care: After a detail discussion of the ec2 patient's case, care is transferred to Ezio Castrejon MD. ED course: Patient with pending CT scan of the head and C-spine.. 07:02 ED course: CT scan of the head and C-spine without acute traumatic process identified. ec2 Will admit for volume overload.. 07:08 ED course: Discussed case with the hospitalist, pending admission.. 2 10/01 05:29 Order name: Basic Metabolic Panel; Complete Time: 06:12 ec2 10/01 05:29 Order name: CBC with Diff; Complete Time: 06:12 ec2 10/01 05:29 Order name: NT PRO-BNP; Complete Time: 06:12 ec2 10/01 05:29 Order name: Troponin HS; Complete Time: 06:12 ec2 10/01 08:21 Order name: T4 Free [facility] 10/01 08:21 Order name: Thyroid Stimulating Hormone [facility] 10/01 08:21 Order name: Basic Metabolic Panel [facility] 10/01 08:21 Order name: Basic Metabolic Panel [facility] 10/01 08:21 Order name: Basic Metabolic Panel [facility] 10/01 08:21 Order name: Basic Metabolic Panel [facility] 10/01 08:21 Order name: Basic Metabolic Panel [facility] 10/01 08:21 Order name: Basic Metabolic Panel [facility] 10/01 08:21 Order name: CBC with Automated Diff [facility] 10/01 08:21 Order name: CBC with Automated Diff [facility] 10/01 08:21 Order name: CBC with Automated Diff ED[facility] 10/01 08:21 Order name: CBC with Automated Diff [facility] 10/01 08:21 Order name: Urinalysis w/ reflexes [facility] 10/01 08:22 Order name: CBC with Automated Diff EDMS 10/01 08:22 Order name: CBC with Automated Diff EDMS 10/01 08:22 Order name: Lipid Profile [facility] 10/01 08:22 Order name: Lipid Profile EDMS 10/01 08:22 Order name: Magnesium ED[facility] 10/01 08:22 Order name: Magnesium EDMS 10/01 08:22 Order name: Magnesium EDMS 10/01 08:22 Order name: Magnesium EDMS 10/01 08:22 Order name: Magnesium EDMS 10/01 08:22 Order name: Magnesium EDMS 10/01 08:22 Order name: Phosphorus EDMS 10/01 08:22 Order name: Phosphorus EDMS 10/01 08:22 Order name: Phosphorus EDMS 10/01 08:22 Order name: Phosphorus EDMS 10/01 08:22 Order name: Phosphorus EDMS 10/01 08:22 Order name: Phosphorus EDMS 10/01 08:22 Order name: Troponin High Sensitivity EDMS 10/01 08:22 Order name: Troponin High Sensitivity EDMS 10/01 08:22 Order name: Troponin High Sensitivity EDMS 10/01 05:29 Order name: CT Head C Spine ec2 10/01 05:29 Order name: XRAY Chest (1 view) ec2 10/01 05:29 Order name: Pelvis XRAY ec2 10/01 05:29 Order name: EKG; Complete Time: 05:29 ec2 10/01 08:21 Order name: CONS Physician Consult EDMS 10/01 08:21 Order name: Physical Therapy Consult EDMS 10/01 05:29 Order name: Cardiac monitoring; Complete Time: 05:32 ec2 10/01 05:29 Order name: EKG - Nurse/Tech; Complete Time: 08:08 ec2 10/01 05:29 Order name: IV Saline Lock; Complete Time: 05:32 ec2 10/01 05:29 Order name: Labs collected and sent; Complete Time: 05:32 ec2 10/01 05:29 Order name: O2 Per Protocol; Complete Time: 05:32 ec2 10/01 05:29 Order name: O2 Sat Monitoring; Complete Time: 05:32 ec2 Administered Medications: 07:25 Drug: Furosemide IVP 80 mg IVP once; give over 2 minutes Route: IVP; Site: left forearm;rs5 Disposition Summary: 10/01/23 07:09 Hospitalization Ordered Notes: Hospitalization Status: Inpatient Admission ec2 Provider: Debora Zamora ec2 Location: Telemetry/[facility] (Inpatient) ec2 Condition: Stable ec2 Problem: an acute exacerbation ec2 Symptoms: have improved ec2 Bed/Room Type: Standard ec2 Room Assignment: 202(10/01/23 10:34) eb Diagnosis - Volume Overload ec2 - Dyspnea ec2 Forms: - Medication Reconciliation Form ec2 - SBAR form ec2 - Leadership Thank You Letter ec2 Signatures: Dispatcher [employer] Halle Anglin Ricky, RN RN rs5 Venkatesh Suggs MD MD ec2 Kim Gavin RN RN la4 Corrections: (The following items were deleted from the chart) 05:32 05:29 Constitutional: No acute distress ec2 ec2 10:34 07:09 ec2 eb
[2023-10-01] MEDS ORDERED: FUROSEMIDE 100 MG/10 ML VIAL IV ONE (07:28)
--- NOTE | 2023-10-01 08:01 | RAD REPORT ---
EXAM DESCRIPTION: RAD - Chest Single View - 10/01/2023 6:51 am CLINICAL HISTORY: TRAUMA Chest pain. COMPARISON: Chest Single View dated 03/17/2020; CHEST PA AND LAT 2 VIEW dated 10/08/2013; CHEST PA AND LAT 2 VIEW dated 08/09/2010; CHEST PA AND LAT 2 VIEW dated 06/15/2009 FINDINGS: Portable technique limits examination quality. Moderate bilateral pulmonary opacities are present which may represent pulmonary edema. Moderate left pleural effusion. The heart is mildly enlarged in size. Sternotomy wires present.
--- NOTE | 2023-10-01 08:02 | RAD REPORT ---
EXAM DESCRIPTION: RAD - Pelvis - 10/01/2023 6:52 am CLINICAL HISTORY: TRAUMA COMPARISON: <Comparisons> FINDINGS: Moderate osteoarthritis of both hips. No acute fracture or dislocation seen.
[2023-10-01] MEDS ORDERED: MORPHINE 2 MG/ML SYR IV PRN (08:10)
[2023-10-01] MEDS ORDERED: ENOXAPARIN 40 MG/0.4 ML SQ SCH (09:00)
--- NOTE | 2023-10-01 09:14 | P.HP ---
Certification for Inpatient Patient admitted to: Observation With expected LOS: >2 Midnights Practitioner: I am a practitioner with admitting privileges, knowledge of patient current condition, hospital course, and medical plan of care. Services: Services provided to patient in accordance with Admission requirements found in Title 42 Section 412.3 of the Code of Federal Regulations Patient History Date of Service: 10/01/23 Reason for admission: Frequent falls, fluid volume overload History of Present Illness: Steph Dela Cruz is an 83-year-old male with past medical history of hypertension, congestive heart failure, A-fib (non-compliant), CAD (CABG several years ago), frequent falls who presents to the ED with complaints of pain to his head and neck from fall last night, cough, shortness of breath, and urinary frequency without pain. Steph's daughter is at the bedside and reports he has been falling more frequently at home. Daughter states his has passed recent ly and he is decreased in strength and mobility. He has also stopped taking his medications 3 days ago. On examination he is on 2 L nasal cannula sating 96%, complaining of right-sided head pain, shortness of breath with cough, diminished lung sounds bilaterally, 3+ edema to bilateral lower extremities. While in the ED Fentanyl and Lasix were given. Of note his daughter reports waiting for an outpatient cardioversion appointment. A-fib was noted on echo in 2019, which also showed MAC, aortic stenosis ANSLEY measuring 1.8, pulmonary hypertension, normal EF of 56%. Initial vitals 7 BP 186 / 85; Pulse 77; Resp 22; Temp 98.8(O); Pulse Ox 96% on R/A. Significant labs, troponin 40.4, BNP 6109, H/H 12.2/36.4. While in the ED Lasix 80 mg given. Pelvic xray reports "Moderate osteoarthritis of both hips. No acute fracture or dislocation seen". Chest x-ray reports "Moderate bilateral pulmonary opacities are present which may represent pulmonary edema. Moderate left pleural effusion. The heart is mildly enlarged in size. Sternotomy wires present." CT head and C-spine reports " Steph will be admitted to hospitalist service for further evaluation and treatment, Dr. Davey consulted for CHF and Afib recommendations, ECHO ordered for Monday AM. Allergies Penicillins Allergy (Verified 07/21/20 20:16) Anaphylaxis Home Medications: Allopurinol 2 tab PO DAILY 07/21/20 Atorvastatin Calcium [Lipitor] 80 mg PO BEDTIME 07/21/20 B-Complex with Vitamin C [Super B Complex-Vitamin C] 1 each PO DAILY 07/21/20 Codeine/APAP [Tylenol #3*] 1 tab PO BID 07/21/20 Cranberry 420 mg PO DAILY 07/21/20 Fluticasone/Vilanterol [Breo Ellipta 200-25 Mcg Inhalr] 1 each IH DAILY 07/21/20 Folic Acid 0.8 mg PO DAILY 07/21/20 Furosemide [Lasix*] 20 mg PO DAILY 07/21/20 Gabapentin 0.5 tab PO BEDTIME 07/21/20 Glucos Sul 2Kcl/MSM/Chond/C/Mn [Glucosamine Chondroitin Cap] 1 each PO DAILY 07/21/20 Levothyroxine Sodium [Euthyrox] 88 mcg PO DAILY 07/21/20 Magnesium Oxide [Mag 0X*] 400 mg PO BID 07/21/20 Valsartan 320 mg PO DAILY 07/21/20 bisoproloL fumarate [Zebeta*] 5 mg PO DAILY 07/21/20 Iron Ag,Ps/C/Fa6/B12/Zn/SA/Sto [Niferex Tablet] 1 each PO DAILY #30 tablet 07/24/20 Omeprazole [Prilosec] 40 mg PO BID 30 Days #60 capsule. 07/24/20 - Past Medical/Surgical History Diabetic: No -: CHF -: HTN -: Quadruple bypass(1997) -: CABG -: Cholecystectomy Psychosocial/ Personal History: Lives at home - Family History Mother -: Cancer Notes: Larinex cancer Father Notes: none - Social History Alcohol use: No CD- Drugs: No Caffeine use: Yes Review of Systems General: Weakness, Malaise, Other (right sided headache) Respiratory: Cough, Shortness of Breath Cardiovascular: Unremarkable Gastrointestinal: Unremarkable Genitourinary: Frequency Integumentary: Unremarkable Neurological: Weakness, Other (frequent falls) Lymphatics: Unremarkable Physical Examination - Physical Exam General: Alert, In no apparent distress, Oriented x3, Cachectic HEENT: Normocephalic, PERRLA Neck: Supple, 2+ carotid pulse no bruit, JVD not distended Respiratory: Diminished, Other (symmetrical chest movement) Cardiovascular: No edema, Normal pulses, Regular rate/rhythm, Normal S1 S2 Capillary refill: <2 Seconds Gastrointestinal: Normal bowel sounds, Soft and benign Musculoskeletal: No clubbing, No swelling, No contractures Integumentary: No rashes, No breakdown, No significant lesion Neurological: Normal speech, Normal strength at 5/5 x4 extr, Normal tone - Studies Laboratory Data (last 24 hrs) 10/01/23 10/01/23 05:32 05:32 WBC 8.00 Hgb 12.2 L Hct 36.4 L Plt Count 198 Sodium 134 L Potassium 3.8 BUN 26 H Creatinine 0.98 Glucose 157 H Assessment and Plan - Plan Assessment and plan Acute CHF exacerbation Fluid volume overload Pulmonary edema with left pleural effusion Cough ECHO on record in 2019, aortic stenosis, MAC BNP 6109, Trop 40.4 Diuresing, Lasix given in ED ECHO for Monday Tessalon Perle hold IVF CAD status post CABG Atrial fibrillation Prolonged QTc EKG reports sinus rhythm with marked sinus arrhythmia with short SD, heart rate 85, QT/QTc 446/530 Restart xarelto Trauma falls Frequent falls arthritis of Bilateral hips CT head and C spine neg Pelvic xray showing moderate arthritis of both hips review ECHO pain control fall risk DVT ppx on xarelto Full code LOS 2-3 days Discharge Plan: Home - Advance Directives Does patient have a Living Will: No Does patient have a Durable POA for Healthcare: No Time Spent Managing Pts Care (In Minutes): 55
[2023-10-01] MEDS ORDERED: PNEUMOCOCCAL VACCINE 0.5 ML IMVAC ONE (11:41)
[2023-10-01] MEDS ORDERED: INFLUENZA VACCINE (for 6+ mo) 0.5 ML DOSE IMVAC ONE (11:42)
[2023-10-01] MEDS: ACETAMINOPHEN 500 MG TAB PO PRN (12:53)
[2023-10-01] MEDS: FUROSEMIDE 40 MG/4 ML VIAL IV SCH (18:52)
[2023-10-01] MEDS: RIVAROXABAN 10 MG TABLET PO SCH (18:52)
[2023-10-01] MEDS ORDERED: BENZONATATE 100 MG CAP PO PRN (18:52)
[2023-10-01 21:09] LABS: Thyroid Stimulating Hormone 2.74 uIU/mL (0.358-3.740); Troponin High Sensitivity 49.8 pg/mL (<58.9)
[2023-10-02 01:48] LABS: Absolute Lymphocytes (CBC) 0.9 K/uL (0.7-4.9); Hematocrit 34.9 % (39.6-49.0); Lymphocytes % 12.5 % (15.3-44.8); MCV 92.8 fL (80-100); MPV 8.2 fL (7.6-11.3); Platelets 204 thou/uL (152-406); RBC Red Blood Cell Count 3.76 M/uL (4.33-5.43)
[2023-10-02 02:13] LABS: Magnesium 1.8 mg/dL (1.6-2.4); Potassium 3.6 mEq/L (3.5-5.1)
[2023-10-02] MEDS: FUROSEMIDE 40 MG/4 ML VIAL IV SCH ×2 (08:21→17:43)
[2023-10-02 08:39] LABS: Specific Gravity 1.015 (1.005-1.030); Urine Bacteria None Seen /HPF (<20); Urine Bilirubin NEGATIVE (Negative); Urine Blood Trace (Negative); Urine Clarity Clear (Clear); Urine Color Yellow (Yellow); Urine Glucose NEGATIVE (Negative); Urine Protein 2+ (Negative); Urine Urobilinogen Normal (Normal)
[2023-10-02] MEDS ORDERED: RIVAROXABAN 10 MG TABLET PO SCH ×2 (09:00→21:00)
--- NOTE | 2023-10-02 10:33 | RAD REPORT ---
EXAM DESCRIPTION: CT Head and Cervical Spine Without Intravenous Contrast CLINICAL HISTORY: The patient is 83 years old and is Male; TRAUMA TECHNIQUE: Axial computed tomography images of the head/brain and cervical spine without intravenous contrast. Sagittal and coronal reformatted images were created and reviewed. This CT exam was pe rformed using one or more of the following dose reduction techniques: automated exposure control, a djustment of the mA and/or kV according to patient size, and/or use of iterative reconstruction techn ique. COMPARISON: No relevant prior studies available. FINDINGS: Brain: Cortical atrophy. No hemorrhage. No significant white matter disease. Ventricles: Unremarkable. No ventriculomegaly. Skull: No acute fracture. Sinuses: Mucous retention cyst left sphenoid sinus. Mastoid air cells: Unremarkable as visualized. No mastoid effusion. Orbits: Hyperdense left globe likely from previous retinal hemorrhage. Previous right cataract surgery. Vertebrae: No acute cervical spine fracture visualized. Lateral alignment is maintained. Atlantoodontoid arthropathic changes. Multilevel degenerative facet arthropathy. Discs/spinal canal/neural foramina: Degenerative disc disease C5-6 and C6-7 with disc osteophyte complexes. No spinal canal stenosis. Soft tissues: Unremarkable. Pleural space: No apical pneumothorax. IMPRESSION: 1. No intracranial hemorrhage. No acute skull fracture. 2. Hyperdense left globe likely from previous retinal hemorrhage. 3. No acute cervical spine fracture visualized. 4. Multilevel degenerative changes as above. Electronically signed by: Tavia Mukherjee MD 10/01/2023 06:57 AM PLASTIC TUBING INSULATION SUPERVISOR Due to temporary technical issues with the PACS/Fluency reporting system, reports are being signed by the in house radiologist without review as a courtesy to ensure prompt reporting. The interpreting r adiologist is fully responsible for the content of the report.
[2023-10-02] MEDS ORDERED: DOCUSATE NA 100 MG CAP PO PRN (13:59)
[2023-10-02] MEDS: ACETAMINOPHEN 500 MG TAB PO PRN (14:44)
--- NOTE | 2023-10-02 16:19 | P.PN ---
Subjective Date of Service: 10/02/23 Chief Complaint: Frequent falls, fluid volume overload Subjective: Doing well HPI 10/01: Steph Dela Cruz is an 83-year-old male with past medical history of hypertension, congestive heart failure, A-fib (non-compliant), CAD (CABG several years ago), frequent falls who presents to the ED with complaints of pain to his head and neck from fall last night, cough, shortness of breath, and urinary frequency without pain. Steph's daughter is at the bedside and reports he has been falling more frequently at home. Daughter states his has passed recently and he is decreased in strength and mobility. He has also stopped taking his medications 3 days ago. On examination he is on 2 L nasal cannula sating 96%, complaining of right-sided head pain, shortness of breath with cough, diminished lung sounds bilaterally, 3+ edema to bilateral lower extremities. While in the ED Fentanyl and Lasix were given. Of note his daughter reports waiting for an outpatient cardioversion appointment. A-fib was noted on echo in 2019, which also showed MAC, aortic stenosis ANSLEY measuring 1.8, pulmonary hypertension, normal EF of 56%. Initial vitals 7 BP 186 / 85; Pulse 77; Resp 22; Temp 98.8(O); Pulse Ox 96% on R/A. Significant labs, troponin 40.4, BNP 6109, H/H 12.2/36.4. While in the ED Lasix 80 mg given. Pelvic xray reports "Moderate osteoarthritis of both hips. No acute fracture or dislocation seen". Chest x-ray reports "Moderate bilateral pulmonary opacities are present which may represent pulmonary edema. Moderate left pleural effusion. The heart is mildly enlarged in size. Sternotomy wires present." CT head and C-spine reports " Steph will be admitted to hospitalist service for further evaluation and treatment, Dr. Davey consulted for CHF and Afib recommendations, ECHO ordered for Monday AM. 10/02: Steph is awake sitting in his chair, neck stiff and tender from the fall yesterday. 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 Currently in NSR HR 70. Pending ECHO. He denies fever, chills, SOB, on RA, and ambulating independently, and working with PT. Review of Systems 10-point ROS is otherwise unremarkable Physical Examination - Vital Signs Temperature: 97.5 F Blood Pressure: 144/77 Pulse: 78 Respirations: 18 Pulse Ox (%): 97 Assessment And Plan - Plan Physical Exam General: Alert, In no apparent distress, Oriented x3, Cachectic HEENT: Normocephalic, Left eye blind and dropping, Right eye PERRLA Neck: Supple, 2+ carotid pulse no bruit, JVD not distended Respiratory: Diminished, Other (symmetrical chest movement) Cardiovascular: No edema, Normal pulses, Regular rate/rhythm, Normal S1 S2 Capillary refill: <2 Seconds Gastrointestinal: Normal bowel sounds, Soft and benign Musculoskeletal: No clubbing, No swelling, No contractures Integumentary: No rashes, No breakdown, No significant lesion Neurological: Normal speech, Normal strength at 5/5 x4 extr, Normal tone Problems: Acute CHF exacerbation Fluid volume overload Pulmonary edema with left pleural effusion Cough CAD status post CABG Atrial fibrillation Prolonged QTc Trauma falls Frequent falls arthritis of Bilateral hips Plan Acute CHF exacerbation Fluid volume overload Pulmonary edema with left pleural effusion Cough ECHO on record in 2019, aortic stenosis, MAC initial BNP 6109 Trop 40.4/49.8/50 Diuresing, Lasix given in ED ECHO pending Tessalon Perle hold IVF CAD status post CABG Atrial fibrillation Prolonged QTc EKG reports sinus rhythm with marked sinus arrhythmia with short DE, heart rate 85, QT/QTc 446/530 Restart xarelto Trauma falls Frequent falls arthritis of Bilateral hips CT head and C spine neg Pelvic xray showing moderate arthritis of both hips review ECHO pain control fall risk DVT ppx on xarelto Full code LOS 2-3 days Discharge Plan: Home Plan to discharge in: 48 Hours Time Spent Managing PTS Care (In Minutes): 55
[2023-10-02] MEDS: RIVAROXABAN 10 MG TABLET PO SCH (17:43)
[2023-10-03] MEDS: ACETAMINOPHEN 500 MG TAB PO PRN (00:22)
[2023-10-03 03:41] LABS: Hematocrit 34.8 % (39.6-49.0); Lymphocytes % 12.4 % (15.3-44.8); MCV 93.7 fL (80-100); MPV 8.5 fL (7.6-11.3); Platelets 245 thou/uL (152-406); RBC Red Blood Cell Count 3.72 M/uL (4.33-5.43)
[2023-10-03 03:56] LABS: Magnesium 1.7 mg/dL (1.6-2.4); Phosphorus 3.4 mg/dL (2.5-4.9); Potassium 3.7 mEq/L (3.5-5.1)
[2023-10-03] MEDS ORDERED: MAGNESIUM SULFATE 1 gm IVPB 1 GM/100 ML BAG IV ONE (05:30)
[2023-10-03 05:43] VITALS: BMI 24.9
[2023-10-03] MEDS ORDERED: LEVOTHYROXINE SOD 0.088 MG TAB PO SCH (06:30)
[2023-10-03] MEDS: FUROSEMIDE 40 MG/4 ML VIAL IV SCH (08:42)
[2023-10-03] MEDS ORDERED: POTASSIUM CL SA 10 MEQ TAB PO ONE (09:00)
[2023-10-03 09:01] VITALS: O2SAT 95
--- NOTE | 2023-10-03 11:17 | ECHO ---
HEIGHT: 5 ft 5 in WEIGHT: 149 lb 12.8 oz DATE OF STUDY: 10/02/[address]: Yodit Darling NP 2-DIMENSIONAL: YES M.MODE: YES DOPPLER: YES COLOR FLOW: YES TDS: PORTABLE: YES DEFINITY: BUBBLE STUDY: DIAGNOSIS: ATRIAL FIBRILLATION, CONGESTIVE HEART FAILURE, ABNORMAL ECHOCARDIOGRAM 2019, FREQUENT FALLS CARDIAC HISTORY: CATHERIZATION: YES SURGERY: YES PROSTHETIC VALVE: NO PACEMAKER: NO MEASUREMENTS (cm) DIASTOLIC (NORMALS) SYSTOLIC (NORMALS) IVSd 1.4 (0.6-1.2) LA Diam 4.2 (1.9-4.0) LVEF 53% LVIDd 3.8 (3.5-5.7) LVIDs 2.7 (2.0-3.5) %FS 27% LVPWd 1.4 (0.6-1.2) Ao Diam 2.6 (2.0-3.7) 2 DIMENSIONAL ASSESSMENT: RIGHT ATRIUM: NORMAL LEFT ATRIUM: ENLARGED RIGHT VENTRICLE: NORMAL LEFT VENTRICLE: LEFT VENTRICULAR HYPERTROPHY TRICUSPID VALVE: NORMAL MITRAL VALVE: MITRAL REGURGITATION PULMONIC VALVE: MILD PULMONIC INSUFFICIENCY AORTIC VALVE: CALCIFIED, NO AORTIC STENOSIS PERICARDIAL EFFUSION: NONE AORTIC ROOT: NORMAL LEFT VENTRICULAR WALL MOTION: NORMAL DOPPLER/COLOR FLOW: SEE BELOW COMMENTS: 1. NORMAL LEFT VENTRICULAR EJECTION FRACTION 55-60% 2. MILD CONCENTRIC LEFT VENTRICULAR HYPERTROPHY 3. LEFT ATRIAL ENLARGEMENT 4. MILD TRICUSPID REGURGITATION, PULMONIC INSUFFICIENCY 5. MODERATE MITRAL REGURGITATION 6. MODERATE DIASTOLIC DYSFUNCTION 7. SEVERE PULMONARY HYPERTENSION WITH RIGHT VENTRICULAR SYSTOLIC PRESSURE GREATER THAN 60 mmHg 8. LARGE PLEURAL EFFUSION TECHNOLOGIST: RICKIE LAO
--- NOTE | 2023-10-03 12:18 | P.DS ---
Admission Date: 10/01/23 Discharge Date: 10/03/23 Disposition: ROUTINE DISCHARGE Discharge Condition: GOOD Reason for Admission: Frequent falls, fluid volume overload Consultations: Cardiology Brief History of Present Illness: Steph Dela Cruz is an 83-year-old male with past medical history of hypertension, congestive heart failure, A-fib (non-compliant), CAD (CABG several years ago), frequent falls who presents to the ED with complaints of pain to his head and neck from fall last night, cough, shortness of breath, and urinary frequency without pain. Steph's daughter is at the bedside and reports he has been falling more frequently at home. Daughter states his has passed recently and he is decreased in strength and mobility. He has also stopped taking his medications 3 days ago. On examination he is on 2 L nasal cannula sating 96%, complaining of right-sided head pain, shortness of breath with cough, diminished lung sounds bilaterally, 3+ edema to bilateral lower extremities. While in the ED Fentanyl and Lasix were given. Of note his daughter reports waiting for an outpatient cardioversion appointment. A-fib was noted on echo in 2019, which also showed MAC, aortic stenosis ANSLEY measuring 1.8, pulmonary hypertension, normal EF of 56%. Initial vitals 7 BP 186 / 85; Pulse 77; Resp 22; Temp 98.8(O); Pulse Ox 96% on R/A. Significant labs, troponin 40.4, BNP 6109, H/H 12.2/36.4. While in the ED Lasix 80 mg given. Pelvic xray reports "Moderate osteoarthritis of both hips. No acute fracture or dislocation seen". Chest x-ray reports "Moderate bilateral pulmonary opacities are present which may represent pulmonary edema. Moderate left pleural effusion. The heart is mildly enlarged in size. Sternotomy wires present." CT head and C-spine reports " Steph will be admitted to hospitalist service for further evaluation and treatment, Dr. Davey consulted for CHF and Afib recommendations, ECHO ordered for Monday. Hospital Course: Problem List Acute CHF exacerbation Fluid volume overload Pulmonary edema with left pleural effusion Cough CAD status post CABG Atrial fibrillation Prolonged QTc Trauma falls Frequent falls arthritis of Bilateral hips Patient was admitted to the hospital for CHF exacerbation, pulmonary edema, and lower extremity edema. He was diuresed with IV lasix during his stay and had marked improvement with his breathing and edema. He was reportedly off of his lasix and eliquis recently and is in the process of scheduling an outpatient cardioversion for afib. He was restarted on lasix 20mg daily and eliquis 2.5mg BID. He is breathing well on room air, ambulating with walker, reports swelling almost completely gone compared to when he came in. He was also evaluated by PT and was able to ambulate with a walker >200ft, discussed options including inp. rehab vs HH with PT, patient wants to go home today with PT which has now been set up. Please follow up with PCP and cardiology-Dr. Montes in 1 week. Vital Signs/Physical Exam: Temp Pulse Resp BP Pulse Ox 97.6 F 72 16 145/77 H 94 10/03/23 08:00 10/03/23 08:00 10/03/23 08:00 10/03/23 08:00 10/03/23 08:00 General: Alert, In no apparent distress, Oriented x3 HEENT: Atraumatic, PERRLA Neck: Supple Respiratory: Clear to auscultation bilaterally, Normal air movement Cardiovascular: Regular rate/rhythm, Normal S1 S2, Edema (1+ edema lower extr emities), Irregular heart rate/rhythm (afib rate controlled) Capillary refill: <2 Seconds Gastrointestinal: Normal bowel sounds Musculoskeletal: No tenderness Integumentary: No rashes Neurological: Normal speech, Normal tone Laboratory Data at Discharge: WBC 7.70 thou/uL (4.3-10.9) 10/03/23 02:41 Hgb 11.5 g/dL (13.6-17.9) L 10/03/23 02:41 Hct 34.8 % (39.6-49.0) L 10/03/23 02:41 Plt Count 245 thou/uL (152-406) 10/03/23 02:41 Sodium 134 mEq/L (136-145) L 10/03/23 02:41 Potassium 3.7 mEq/L (3.5-5.1) 10/03/23 02:41 BUN 27 mg/dL (7-18) H 10/03/23 02:41 Creatinine 1.09 mg/dL (0.70-1.30) 10/03/23 02:41 Glucose 108 mg/dL (74-106) H 10/03/23 02:41 Phosphorus 3.4 mg/dL (2.5-4.9) 10/03/23 02:41 Magnesium 1.7 mg/dL (1.6-2.4) 10/03/23 02:41 Triglycerides 67 mg/dL (<150) 10/02/23 01:26 Cholesterol 152 mg/dL (<200) 10/02/23 01:26 HDL Cholesterol 97 mg/dL (40-60) H 10/02/23 01:26 Cholesterol/HDL Ratio 1.57 10/02/23 01:26 Home Medications: B-Complex with Vitamin C [Super B Complex-Vitamin C] 1 each PO DAILY 07/21/20 Furosemide [Lasix*] 20 mg PO DAILY 07/21/20 Magnesium Oxide [Mag 0X*] 400 mg PO BID 07/21/20 Iron Ag,Ps/C/Fa6/B12/Zn/SA/Sto [Niferex Tablet] 1 each PO DAILY #30 tablet 07/24/20 Omeprazole [Prilosec] 40 mg PO BID 30 Days #60 capsule. 07/24/20 Apixaban [Eliquis] 2.5 mg PO BID #60 tablet 10/03/23 Furosemide [Lasix] 20 mg PO DAILY #30 tab 10/03/23 New Medications: Apixaban [Eliquis] 2.5 mg PO BID #60 tablet Furosemide [Lasix] 20 mg PO DAILY #30 tab Physician Discharge Instructions: Patient was admitted to the hospital for CHF exacerbation, pulmonary edema, and lower extremity edema. He was diuresed with IV lasix during his stay and had marked improvement with his breathing and edema. He was reportedly off of his lasix and eliquis recently and is in the process of scheduling an outpatient cardioversion for afib. He was restarted on lasix 20mg daily and eliquis 2.5mg BID. He was also evaluated by PT and was able to ambulate with a walker >200ft, discussed options including inp. rehab vs HH with PT, patient wants to go home today with PT which has now been set up. Please follow up with PCP and cardiology-Dr. Montes in 1 week. Diet: AHA Activity: Fall precautions Followup: Rafael Davey MD [ACTIVE - CAN ADMIT] - 1 Week Forrest Bonilla MD [Primary Care Provider] - 1 Week Time spent managing pt's care (in minutes): 35
[2023-10-03 14:48] VITALS: BP 156/73; TEMP 97.3
--- NOTE | 2023-10-04 17:03 | EKG ---
Test Date: 2023-10-01 Test Time: 07:49:46 Cable Armorer: RAINER MEASUREMENT RESULTS: Intervals: Rate: 85 SD: 80 QRSD: 150 QT: 446 QTc: 530 Kirkman: P: 47 SD: 80 QRS: -74 T: 47 INTERPRETIVE STATEMENTS: Sinus rhythm with marked sinus arrhythmia with short SD Left axis deviation Right bundle branch block Abnormal ECG Compared to ECG 07/21/2020 19:32:55 Short SD interval now present Atrial fibrillation no longer present Ventricular premature complex(es) no longer present Electronically Signed On 10-04-23 16:54:26 TAFFY PULLER by Rafael Davey
== END 2023-10-03 13:30 | disposition home health service (06) ==
LOC: ER 05:22 → ERHOLD 08:31 → 2ND 12:26
PROVIDERS: ADMIT Internal Medicine; ATTEND Hospitalist
DX: I50.33 Acute on chronic diastolic (congestive) heart failure (principal); I27.20 Pulmonary hypertension, unspecified; I25.10 Atherosclerotic heart disease of native coronary artery without angina pectoris; I48.11 Longstanding persistent atrial fibrillation; I51.7 Cardiomegaly; E87.70 Fluid overload, unspecified; I10 Essential (primary) hypertension; J81.1 Chronic pulmonary edema; J90 Pleural effusion, not elsewhere classified; R05.9 Cough, unspecified; R94.31 Abnormal electrocardiogram [ECG] [EKG]; M16.0 Bilateral primary osteoarthritis of hip; Z79.01 Long term (current) use of anticoagulants; Z95.1 Presence of aortocoronary bypass graft; Z91.81 History of falling; Z91.148 Patient's other noncompliance with medication regimen for other reason; Z88.0 Allergy status to penicillin
CPT/HCPCS: 93005; 93306; 85025 ×3; 81001; 80048 ×3; 36415 ×3; 83735 ×2; 84100 ×2; 80061; 84443; 84484 ×3; 84439; 83880; 70450; 72125; 71045; 72170; 90732; 97116; 97161; 96374; 99285; Q2035; J3475; J1940 ×4; J3010; G0378 ×5

== ENCOUNTER → 2024-01-07 | Emergency (ER) | payer OTHER, MEDICARE ==
--- NOTE | 2024-01-07 15:39 | RAD REPORT ---
EXAM DESCRIPTION: CT - Head C Spine Mpr Wo Con - 01/07/2024 3:25 pm CLINICAL HISTORY: Head and neck injury status post fall. Head and neck pain COMPARISON: 2022 TECHNIQUE: Computed axial tomography of the head and cervical spine was obtained. Sagittal and coronal reconstruction was performed. All CT scans are performed using dose optimization technique as appropriate and may include automated exposure control or mA/KV adjustment according to patient size. FINDINGS: An intracranial bleed is not seen. The ventricles are normal in caliber. No significant hypodensity within the brain. An extra-axial fluid collection is not noted. Fluid within the visualized sinuses and mastoids is not seen A cervical fracture is not visualized. No dislocation is noted. Prominent spondylosis mid and distal cervical spine IMPRESSION: No acute intracranial abnormality is seen. A cervical fracture is not visualized. If the patient continues to have symptoms to suggest intracranial /spinal cord pathology then MRI wou ld be recommended
--- NOTE | 2024-01-07 16:40 | RAD REPORT ---
EXAM DESCRIPTION: RAD - Shoulder Right 2 View - 01/07/2024 4:29 pm CLINICAL HISTORY: Right shoulder pain FINDINGS: No fracture or dislocation is seen. 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
--- NOTE | 2024-01-07 16:41 | RAD REPORT ---
EXAM DESCRIPTION: RAD - Elbow Right 3 View - 01/07/2024 4:29 pm CLINICAL HISTORY: Right elbow pain FINDINGS: No fracture or dislocation is seen.
--- NOTE | 2024-01-07 16:41 | RAD REPORT ---
EXAM DESCRIPTION: RAD - Humerus Right - 01/07/2024 4:29 pm CLINICAL HISTORY: Right arm pain FINDINGS: No fracture is seen
--- NOTE | 2024-01-07 16:42 | RAD REPORT ---
EXAM DESCRIPTION: RAD - Pelvis - 01/07/2024 4:29 pm CLINICAL HISTORY: Pelvic pain status post injury FINDINGS: No fracture or dislocation is seen. Osteoporosis If the patient continues to have symptoms to suggest an occult fracture then MRI would be recommended
--- NOTE | 2024-01-07 17:30 | EDPHYS ---
Physician Documentation [facility] Name: Steph Dela Cruz Jr Age: 83 yrs Sex: Male : 1940 Arrival Date: 01/07/2024 Time: 14:08 Bed 14 Private MD: Forrest Bonilla B ED Physician Ezio Castrejon HPI: 01/07 14:33 This 83 yrs old Male presents to ER via Ambulatory with complaints of Fall Injury, jh7 Laceration To Arm. 14:33 Details of fall: The patient fell from an upright position, while standing. Onset: The jh7 symptoms/episode began/occurred 3 day(s) ago. Patient tripped over a dog dish on and presents with skin avulsions on his left wrist and right forearm. Also complains of right shoulder pain, but states that it may be chronic. Denies head injury or LOC. Is on blood thinners. History of A-fib, CHF, hypertension, and prostate cancer. He reports that he is unable to remove the dressings he placed due to pain.. Historical: - Allergies: 14:40 PENICILLINS; nj1 - PMHx: 14:40 Atrial fibrillation; CHF; Hypertension; Prostate cancer, hx; nj1 - PSHx: 14:40 Cardiac ablation (Unknown); Appendectomy; Coronary artery bypass graft; nj1 - Immunization history:: Client reports receiving the 2nd dose of the Covid vaccine. - Social history:: Smoking status: Patient/guardian denies using tobacco, but has a distant history of tobacco abuse. - Immunization history: Last tetanus immunization: - up to date. ROS: 14:33 Constitutional: Negative for fever, chills, and weight loss, Eyes: Negative for injury, jh7 pain, redness, and discharge, Neck: Negative for injury, pain, and swelling, Cardiovascular: Negative for chest pain, palpitations, and edema, Respiratory: Negative for shortness of breath, cough, wheezing, and pleuritic chest pain, Abdomen/GI: Negative for abdominal pain, nausea, vomiting, diarrhea, and constipation, Back: Negative for injury and pain, Neuro: Negative for headache, weakness, numbness, tingling, and seizure, 14:33 MS/extremity: Positive for pain, 14:33 Skin: Positive for abrasion(s), avulsion, of the right arm, 14:33 All other systems are negative, Exam: 14:33 Constitutional: This is a well developed, well nourished patient who is awake, alert, jh7 and in no acute distress. Head/Face: Normocephalic, atraumatic. Eyes: Pupils equal round and reactive to light, extra-ocular motions intact. Lids and lashes normal. Conjunctiva and sclera are non-icteric and not injected. Cornea within normal limits. Periorbital areas with no swelling, redness, or edema. Neck: Trachea midline, no thyromegaly or masses palpated, and no cervical lymphadenopathy. Supple, full range of motion without nuchal rigidity, or vertebral point tenderness. No Meningismus. Cardiovascular: Regular rate and rhythm with a normal S1 and S2. No gallops, murmurs, or rubs. Normal PMI, no JVD. No pulse deficits. Respiratory: Lungs have equal breath sounds bilaterally, clear to auscultation and percussion. No rales, rhonchi or wheezes noted. No increased work of breathing, no retractions or nasal flaring. Abdomen/GI: Soft, non-tender, with normal bowel sounds. No distension or tympany. No guarding or rebound. No evidence of tenderness throughout. Back: No spinal tenderness. No costovertebral tenderness. Full range of motion. Neuro: Awake and alert, GCS 15, oriented to person, place, time, and situation. Sensory grossly intact. 14:33 Skin: injury, abrasion(s), small abrasion noted, of the left wrist, avulsion(s), a large of the right proximal forearm, Vital Signs: 14:33 BP 150 / 49; Pulse 54; Resp 18; Temp 98.3(O); Pulse Ox 100% ; Weight 65.77 kg; Height 5 nj1 ft. 3 in. ; Pain 10/10; 16:30 BP 164 / 70; Pulse 78; Resp 18; Pulse Ox 100% ; cp4 17:55 BP 174 / 68; Pulse 74; Resp 18; Pulse Ox 100% ; cp4 14:33 Body Mass Index 25.69 (65.77 kg, 160.02 cm) nj 14:33 Pain Scale: Adult nj1 Handy Coma Score: 18:01 Eye Response: spontaneous(4). Motor Response: obeys commands(6). Verbal Response: cp4 oriented(5). Total: 15. Trauma Score (Adult): 18:01 Eye Response: spontaneous(1); Verbal Response: oriented(1); Motor Response: obeys cp4 commands(2); Systolic BP: > 89 mm Hg(4); Respiratory Rate: 10 to 29 per min(4); Handy Score: 15; Trauma Score: 12 MDM: 14:[address] [facility] 16:45 Differential diagnosis: fracture, laceration, Skin avulsions. Data reviewed: vital [facility] signs, nurses notes, radiologic studies, CT scan, plain films. I considered the following discharge prescriptions or medication management in the emergency department Medications were administered in the Emergency Department. See MAR. Independent interpretation of the following test(s) in the Emergency Department X-Ray: My interpretation is No acute fractures. Historians other than the Patient: Spouse/Significant Other: Daughter. Counseling: I had a detailed discussion with the patient and/or guardian regarding the historical points, exam findings, and any diagnostic results supporting the discharge/admit diagnosis, the need for outpatient follow up, Wound care, to return to the emergency department if symptoms worsen or persist or if there are any questions or concerns that arise at home. Response to treatment: the patient's symptoms have markedly improved after treatment. ED course: Was able to successfully change the dressing. The patient began to bleed from his avulsion on the right forearm once the dressing was exposed so a nonadherent pressure dressing was applied. Advise follow-up with wound care to ensure appropriate healing. Prophylactic antibiotics prescribed due to open wounds. Advised to monitor for signs and symptoms of infection, and return to the ER with any new symptoms. Also discussed avascular necrosis found on right shoulder, and the patient states that he is already aware of that diagnosis. Will follow-up with Ortho for further care.. 01/07 14:39 Order name: CT Head C Spine; Complete Time: 16:43 [facility] 01/07 14:39 Order name: XRAY Shoulder RIGHT 2 view; Complete Time: 16:43 [facility] 01/07 14:39 Order name: XRAY Humerus RIGHT; Complete Time: 16:43 [facility] 01/07 14:39 Order name: XRAY Elbow RIGHT 3 view; Complete Time: 16: [facility] 01/07 14:46 Order name: XRAY Pelvis; Complete Time: 16:43 [facility] Administered Medications: No medications were administered Disposition Summary: 01/07/24 17:29 Discharge Ordered Notes: Location: Home [facility] Problem: [facility] Symptoms: have worsened [facility] Condition: Stable [facility] Diagnosis - Skin avulsion of the right forearm 7 - Abrasion of the left wrist [facility] - Avascular necrosis of the right shoulder [facility] - Fall on same level, unspecified [facility] Followup: [facility] - With: Forrest Bonilla MD - When: 2 - 3 days - Reason: Recheck today's complaints Discharge Instructions: - Discharge Summary Sheet [facility] - Deep Skin Avulsion [facility] Forms: - Medication Reconciliation Form [facility] - Thank You Letter [facility] - Antibiotic Education [facility] - Patient Portal Instructions [facility] - Leadership Thank You Letter [facility] Prescriptions: - Cephalexin 250 mg Oral capsule - take 1 capsule ORAL route every 12 hours for 7 days; 14 capsule; Refills: 0, jh7 Product Selection Permitted Signatures: Dispatcher [employer] Kallie Funk FNP [facility] Amy Martini RN RN nj1 Alyce Schuler cp4
--- NOTE | 2024-01-07 17:30 | ER ---
Nurse's Notes [facility] Name: Steph Dela Cruz Jr Age: 83 yrs Sex: Male : 1940 Arrival Date: 01/07/2024 Time: 14:08 Bed 14 Private MD: Forrest Bonilla B Diagnosis: Skin avulsion of the right forearm;Abrasion of the left wrist;Avascular necrosis of the right shoulder;Fall on same level, unspecified Presentation: 01/07 14:33 Chief complaint: Patient's son or daughter states: Fall , unable to change nj1 dressing on right arm today "too painful". Able to change left forearm dressing. On blood thinners. Coronavirus screen: Vaccine status:. Coronavirus screen: Vaccine status: Patient reports receiving the 2nd dose of the covid vaccine. Ebola Screen: Patient denies travel to an Ebola-affected area in the 21 days before illness onset. Initial Sepsis Screen: Does the patient meet any 2 criteria? No. Patient's initial sepsis screen is negative. Does the patient have a suspected source of infection? No. Patient's initial sepsis screen is negative. Risk Assessment: Do you want to hurt yourself or someone else? Patient reports no desire to harm self or others. Onset of symptoms was January 04, 2024. 14:33 Method Of Arrival: Ambulatory [facility] 14:33 Acuity: MARILYN 3 nj1 18:01 Care prior to arrival: None. Mechanism of Injury: Fall from standing position. Trauma cp4 event details: Injury occurred: at home. Trauma Activation: Not Applicable Physician: ED Physician; Name: ; Notified At: ; Arrived At: Physician: General Surgeon; Name: ; Notified At: ; Arrived At: Physician: Radiology; Name: ; Notified At: ; Arrived At: Physician: Respiratory; Name: ; Notified At: ; Arrived At: Physician: Lab; Name: ; Notified At: ; Arrived At: Historical: - Allergies: 14:40 PENICILLINS; nj1 - PMHx: 14:40 Atrial fibrillation; CHF; Hypertension; Prostate cancer, hx; nj1 - PSHx: 14:40 Cardiac ablation (Unknown); Appendectomy; Coronary artery bypass graft; nj1 - Immunization history:: Client reports receiving the 2nd dose of the Covid vaccine. - Social history:: Smoking status: Patient/guardian denies using tobacco, but has a distant history of tobacco abuse. - Immunization history: Last tetanus immunization: - up to date. Screenin:38 [facility] ED Fall Risk Assessment (Adult) History of falling in the last 3 months, cp4 including since admission Yes- fall prone (multiple falls) (3 pts) Confusion or Disorientation No (0 pts) Intoxicated or Sedated No (0 pts) Impaired Gait Yes (1 pt) Mobility Assist Device Used No (0 pt) Altered Elimination No (0 pt) Score/Fall Risk Level 3 or more points = High Risk Oriented to surroundings, Maintained a safe environment, Educated pt \\T\\ family on fall prevention, incl call for assistance when getting out of bed, Assessed \\T\\ reinforced patient's understanding of fall precautions, Provided non-skid footwear, Hourly rounding (assess needs \\T\\ fall precautionary measures) done. Abuse screen: Denies threats or abuse. Nutritional screening: No deficits noted. Tuberculosis screening: No symptoms or risk factors identified. Primary Survey: 18:00 NO uncontrolled hemorrhage observed. A: The client is awake and alert. The airway is cp4 patent. The client is alert. Airway: patent. Breathing/Chest: Spontaneous respiratory effort, equal unlabored respirations, breath sounds clear bilaterally, regular pattern, symmetrical chest rise and fall. Circulation: No external hemorrhage present. Regular and strong central pulse, skin warm/dry/normal color. Disability Pupils are equal, round, reactive to light and accommodation. Client is alert. Exposure/Environment: A warming method has been applied: A warm blanket has been provided to the patient. Reassessment Alertness and Airway: Awake and alert. The airway is patent. Breathing: Spontaneous respiratory effort, equal unlabored respirations, breath sounds clear bilaterally, regular pattern with symmetrical chest rise and fall. Circulation: No external hemorrhage noted. Regular and strong central pulse, skin warm/dry/normal color. Disability: Pupils Pupils are equal, round, reactive to light and accomodation. Alert. Assessment: 16:38 General: Appears in no apparent distress. Behavior is calm, cooperative, appropriate cp4 for age. Pain: Complains of pain in right arm. Derm: Reports lacerations to the right forearm. Vital Signs: 14:33 BP 150 / 49; Pulse 54; Resp 18; Temp 98.3(O); Pulse Ox 100% ; Weight 65.77 kg; Height 5 nj1 ft. 3 in. ; Pain 10/10; 16:30 BP 164 / 70; Pulse 78; Resp 18; Pulse Ox 100% ; cp4 17:55 BP 174 / 68; Pulse 74; Resp 18; Pulse Ox 100% ; cp4 14:33 Body Mass Index 25.69 (65.77 kg, 160.02 cm) nj1 14:33 Pain Scale: Adult nj1 Handy Coma Score: 18:01 Eye Response: spontaneous(4). Motor Response: obeys commands(6). Verbal Response: cp4 oriented(5). Total: 15. Trauma Score (Adult): 18:01 Eye Response: spontaneous(1); Verbal Response: oriented(1); Motor Response: obeys cp4 commands(2); Systolic BP: > 89 mm Hg(4); Respiratory Rate: 10 to 29 per min(4); Handy Score: 15; Trauma Score: 12 ED Course: 14:10 Patient arrived in ED. rg4 14:10 Forrest Bonilla MD is Private Physician. rg4 14:22 Kallie Kelsey FNP is [facility]. jh7 14:22 Ezio Castrejon MD is Attending Physician. [facility] 14:40 Triage completed. nj1 14:42 Arm band placed on Alert button lanyard. nj1 15:26 CT Head C Spine In Process Unspecified. EDMS 16:06 Alyce Schuler is Primary Nurse. cp4 16:30 XRAY Shoulder RIGHT 2 view In Process Unspecified. EDMS 16:30 XRAY Humerus RIGHT In Process Unspecified. EDMS 16:31 XRAY Elbow RIGHT 3 view In Process Unspecified. EDMS 16:31 XRAY Pelvis In Process Unspecified. EDMS 16:38 Bed in low position. Call light in reach. Side rails up X2. Provided Education on: cp4 falls. 17:28 Forrest Bonilla MD is Referral Physician. jh7 17:55 Wound care: to abrasion, located on right arm was cleaned with soap and water, dressed cp4 with Neosporin, Kerlix, ABD pads, Patient tolerated well. 17:59 No provider procedures requiring assistance completed. Patient did not have IV access cp4 during this emergency room visit. 18:02 Patient maintains SpO2 saturation greater than 95% on room air. cp4 18:02 Thermoregulation: warm blanket given to patient. cp4 Administered Medications: No medications were administered Medication: 16:38 VIS not applicable for this client. cp4 Intake: 18:01 PO: 0ml; Total: 0ml. cp4 Output: 18:01 Urine: 0ml; Total: 0ml. cp4 Outcome: 17:29 Discharge ordered by MD. jh7 17:59 Discharged to home via wheelchair, cp4 17:59 Condition: stable 17:59 Discharge instructions given to patient, Instructed on discharge instructions, follow up and referral plans. medication usage, Demonstrated understanding of instructions, follow-up care, medications, Prescriptions given X 1, 18:02 Patient's length of stay was not longer than 2 hours. cp4 18:03 Patient left the ED. cp4 Signatures: Dispatcher [employer] Debbie Rand rg4 Kallie Kelsey, IRRIGATION LABORER IRRIGATION LABORER 7 Amy Martini RN RN nj1 Alyce Schuler cp4
[2024-01-07 18:56] VITALS: BP 174/68; TEMP 98.3; O2SAT 100
== END ==
LOC: ER 14:08
DX: S51.801A Unspecified open wound of right forearm, initial encounter (principal); S60.812A Abrasion of left wrist, initial encounter; M87.011 Idiopathic aseptic necrosis of right shoulder; W18.30XA Fall on same level, unspecified, initial encounter; I10 Essential (primary) hypertension; Z95.1 Presence of aortocoronary bypass graft; Z88.0 Allergy status to penicillin
CPT/HCPCS: 70450; 72125; 72170; 99285

== ENCOUNTER 2024-10-15 10:04 | Emergency (ER) | payer OTHER, MEDICARE ==
--- NOTE | 2024-10-15 12:50 | RAD REPORT ---
EXAMINATION: XR LEFT FOREARM CLINICAL INDICATION: forearm injury TECHNIQUE: Multiple projections of the left forearm were obtained. COMPARISON: No prior exam. FINDINGS: Mild arthritic changes are present. No acute fracture or dislocation seen.
--- NOTE | 2024-10-15 12:59 | EDPHYS ---
Physician Documentation [facility] Name: Steph Dela Cruz Jr Age: 84 yrs Sex: Male : 1940 Arrival Date: 10/15/2024 Time: 10:04 Bed 9 Private MD: ED Physician Venkatesh Suggs HPI: 10/15 12:13 This 84 yrs old Male presents to ER via Wheelchair with complaints of Fall Injury. ec2 12:13 Patient arrives today for evaluation of a skin tear to the left forearm. Reports that ec2 he fell and injured his left forearm. No LOC, is on blood thinners. Denies head or neck pain, main complaint is bleeding from the left forearm from a skin tear. Reports he is up-to-date on his tetanus shot.. Historical: - Allergies: 11:32 PENICILLINS; jl7 - PMHx: 11:32 Atrial fibrillation; CHF; Hypertension; Prostate cancer; jl7 - PSHx: 11:32 Appendectomy; Cardiac Ablation; Coronary artery bypass graft; jl7 - Immunization history:: Adult Immunizations up to date. - Infectious Disease History:: Denies. - Social history:: Smoking status: Patient/guardian denies using tobacco, but has a distant history of tobacco abuse. ROS: 12:14 Constitutional: as per hpi ec2 Exam: 12:14 Constitutional: GEN: NAD Head: atraumatic Eyes: EOMI Ears: External ears are ec2 normal. CV: regular rate LUNGS: no respiratory distress ABD: non-distended SKIN: Approximately 5 cm skin laceration to the left forearm, no active bleeding noted. MSK: no evidence of trauma Vital Signs: 11:29 BP 137 / 63; Pulse 76; Resp 15; Temp 98.4; Pulse Ox 100% ; Weight 68.04 kg; Height 5 jl7 ft. 2 in. ; Pain 11/22; 11:29 Body Mass Index 27.44 (68.04 kg, 157.48 cm) jl7 11:29 Pain Scale: Adult jl7 MDM: 11:47 Medical Screening Exam initiated ec2 12:14 Data reviewed: vital signs, nurses notes. ED course: Patient arrives today for skin ec2 tear to the left forearm. Examination yields skin findings as above. Will obtain radiograph. I applied a nonadhesive dressing to the wound without issue. Differential diagnosis includes skin tear, fracture. Patient is up-to-date on his tetanus status.. 12:58 ED course: Forearm x-ray was negative. Will discharge home. Return precautions given.. ec2 10/15 12:12 Order name: Forearm Left XRAY; Complete Time: 12:58 ec2 Administered Medications: No medications were administered Disposition Summary: 10/15/24 12:58 Discharge Ordered Notes: Location: Home ec2 Condition: Stable ec2 Diagnosis - Skin Tear ec2 Followup: ec2 - With: Private Physician - When: - Reason: Re-evaluation by your physician Discharge Instructions: - Discharge Summary Sheet ec2 - Skin Tear, [id number] ec2 Forms: - Medication Reconciliation Form ec2 - Antibiotic Education ec2 - Prescription Opioid Use ec2 - Patient Portal Instructions ec2 - Leadership Thank You Letter ec2 Signatures: Dispatcher [employer] Marco Martinez RN RN jl7 Venkatesh Suggs MD MD ec2 Corrections: (The following items were deleted from the chart) 11:33 11:32 PMHx: Prostate cancer; jl7 jl7 11:33 11:32 PMHx: Prostate cancer; jl7 jl7
--- NOTE | 2024-10-15 12:59 | ER ---
Nurse's Notes [facility] Name: Steph Dela Cruz Jr Age: 84 yrs Sex: Male : 1940 Arrival Date: 10/15/2024 Time: 10:04 Bed 9 Private MD: Diagnosis: Skin Tear Presentation: 10/15 11:29 Chief complaint: Patient states: Mechanical fall from standing at 0200 this morning, jl7 skin tear to left forearm, bandaged in triage, reports moderate amount of bleeding, denies other injuries. Coronavirus screen: At this time, the client does not indicate any symptoms associated with coronavirus-19. Ebola Screen: No symptoms or risks identified at this time. Initial Sepsis Screen: Does the patient meet any 2 criteria? No. Patient's initial sepsis screen is negative. Does the patient have a suspected source of infection? No. Patient's initial sepsis screen is negative. Risk Assessment: Do you want to hurt yourself or someone else? Patient reports no desire to harm self or others. Onset of symptoms was October 15, 2024 at 02:00. 11:29 Method Of Arrival: Wheelchair jl7 11:29 Acuity: MARILYN 3 jl7 Triage Assessment: 11:32 General: Appears in no apparent distress. uncomfortable, Behavior is calm, cooperative, jl7 appropriate for age. Pain: Complains of pain in left arm. Injury Description: reported skin tear to left forearm, bandage while in triage. Historical: - Allergies: 11:32 PENICILLINS; jl7 - PMHx: 11:32 Atrial fibrillation; CHF; Hypertension; Prostate cancer; jl7 - PSHx: 11:32 Appendectomy; Cardiac Ablation; Coronary artery bypass graft; jl7 - Immunization history:: Adult Immunizations up to date. - Infectious Disease History:: Denies. - Social history:: Smoking status: Patient/guardian denies using tobacco, but has a distant history of tobacco abuse. Screenin:30 [facility] ED Fall Risk Assessment (Adult) History of falling in the last 3 months, kb3 including since admission No falls in past 3 months (0 pts) Confusion or Disorientation No (0 pts) Intoxicated or Sedated No (0 pts) Impaired Gait No (0 pts) Mobility Assist Device Used No (0 pt) Altered Elimination No (0 pt) Score/Fall Risk Level 0 - 2 = Low Risk Oriented to surroundings. Abuse screen: Denies threats or abuse. Denies injuries from another. Nutritional screening: No deficits noted. Tuberculosis screening: No symptoms or risk factors identified. Assessment: 12:30 General: Appears in no apparent distress. Behavior is calm, cooperative. Pain: kb3 Complains of pain in left arm. Injury Description: skin tear to left forearm. Vital Signs: 11:29 BP 137 / 63; Pulse 76; Resp 15; Temp 98.4; Pulse Ox 100% ; Weight 68.04 kg; Height 5 jl7 ft. 2 in. ; Pain 11/22; 11:29 Body Mass Index 27.44 (68.04 kg, 157.48 cm) jl7 11:29 Pain Scale: Adult 7 ED Course: 10:11 Patient arrived in ED. mg5 11:31 Triage completed. jl7 11:32 Arm band placed on right wrist. Patient placed in waiting room, Patient notified of jl7 wait time. 11:47 Venkatesh Suggs MD is Attending Physician. ec2 12:30 Patient has correct armband on for positive identification. Call light in reach. Adult kb3 w/ patient. Provided Education on: Wound care. 12:30 No provider procedures requiring assistance completed. Patient did not have IV access kb3 during this emergency room visit. 12:43 Forearm Left XRAY In Process Unspecified. EDMS 13:16 Wound care: to Skin Tear located on dorsal aspect of left forearm was cleaned with kb3 dressed with Patient tolerated well. Administered Medications: No medications were administered Medication: 12:30 VIS not applicable for this client. kb3 Outcome: 12:58 Discharge ordered by MD. ec2 13:16 Discharged to home via wheelchair, with family, kb3 13:16 Condition: stable 13:16 Discharge instructions given to patient, family, Instructed on discharge instructions, follow up and referral plans. wound care, Demonstrated understanding of instructions, follow-up care, wound care, 13:17 Patient left the ED. kb3 Signatures: Dispatcher [employer] Marco Martinez RN RN [email or web address] Elsy Sandoval RN RN [email or web address] Adelaide Sawyer mg5 Venkatesh Suggs MD MD ec2 Corrections: (The following items were deleted from the chart) 11:33 11:32 PMHx: Prostate cancer; jl7 jl7 11:33 11:32 PMHx: Prostate cancer; jl7 jl7
[2024-10-15 13:46] VITALS: BP 137/63; TEMP 98.4; O2SAT 100
== END 2024-10-15 13:17 | disposition home or self-care (01) ==
LOC: ER 10:04
DX: S51.812A Laceration without foreign body of left forearm, initial encounter (principal)
CPT/HCPCS: 99283

== ENCOUNTER 2025-01-26 15:37 | Emergency (ER) | payer OTHER, MEDICARE ==
[2025-01-26 16:19] LABS: Absolute Basophils 0.1 K/uL (0-0.5); Absolute Eosinophils 0.3 K/uL (0-0.5); Absolute Lymphocytes (CBC) 0.8 K/uL (0.7-4.9); Absolute Neutrophil 7.8 K/uL (1.8-8.0); Basophils % 0.9 % (0-1.3); Eosinophils % 3.3 % (0-4.4); Hematocrit 31.7 % (39.6-49.0); Hemoglobin 10.7 g/dL (13.6-17.9); Lymphocytes % 7.8 % (15.3-44.8); MCH 31.9 pg (27.0-35.0); MCHC 33.7 g/dL (32.0-36.0); MCV 94.7 fL (80-100); MPV 7.3 fL (7.6-11.3); Monocytes % 10.3 % (3.3-12.3); Neutrophils % 77.7 % (41.7-73.7); Platelets 354 thou/uL (152-406); RBC Red Blood Cell Count 3.34 M/uL (4.33-5.43); Red Cell Distribution Width 15.2 % (12.1-15.2)
[2025-01-26 16:35] LABS: Albumin 3.5 g/dL (3.4-5.0); Albumin/Globulin Ratio 0.9 (1.1-1.8); Anion Gap 10.5 mEq/L (5.0-15.0); Bilirubin Total 0.4 mg/dL (0.2-1.0); Globulin 4.1 g/dL (2.3-3.5); Potassium 4.5 mEq/L (3.5-5.1); Protein, Total 7.6 g/dL (6.4-8.2)
[2025-01-26 16:56] LABS: Specific Gravity 1.008 (1.005-1.030); Sqamous Epithelial None Seen /HPF (None Seen); Urine Bacteria None Seen /HPF (<20); Urine Bilirubin NEGATIVE (Negative); Urine Blood Negative (Negative); Urine Clarity Clear (Clear); Urine Color Colorless (Yellow); Urine Culture Reflex Order NOT NEEDED; Urine Glucose NEGATIVE (Negative); Urine Ketones NEGATIVE (Negative); Urine Microscopic Reflex YN ORDER UMIC; Urine Nitrite NEGATIVE (Negative); Urine Protein 1+ (Negative); Urine RBC <5 /HPF (None Seen); Urine Urobilinogen Normal (Normal); Urine WBC None Seen /HPF (<5); Urine pH 6.5 (5.0-7.0)
--- NOTE | 2025-01-26 17:37 | ER ---
Nurse's Notes [facility] Name: Steph Dela Cruz Jr Age: 84 yrs Sex: Male : 1940 Arrival Date: 01/26/2025 Time: 15:37 Bed 17 Private MD: Forrest Bonilla B Diagnosis: Weakness;Other specified hypothyroidism;Hypo-osmolality and hyponatremia;GI Bleed/ Gastrointestinal hemorrhage, unspecified Presentation: 01/26 15:52 Chief complaint: Patient's son or daughter states: generalized weakness and increased kc6 fatigue x2 weeks. daughter also reports bloody stools and one syncopal episode today. Coronavirus screen: At this time, the client does not indicate any symptoms associated with coronavirus-19. Ebola Screen: No symptoms or risks identified at this time. Initial Sepsis Screen: Does the patient meet any 2 criteria? No. Patient's initial sepsis screen is negative. Does the patient have a suspected source of infection? No. Patient's initial sepsis screen is negative. Risk Assessment: Do you want to hurt yourself or someone else? Patient reports no desire to harm self or others. Onset of symptoms was January 26, 2025. 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 - Infectious Disease History:: Denies. - Social history:: Smoking status: Patient/guardian denies using tobacco, but has a distant history of tobacco abuse. Screenin:55 [facility] ED Fall Risk Assessment (Adult) History of falling in the last 3 months, kc6 including since admission Yes- physiologic fall (2 pts) Confusion or Disorientation No (0 pts) Intoxicated or Sedated No (0 pts) Impaired Gait Yes (1 pt) Mobility Assist Device Used Yes (1 pt) Altered Elimination No (0 pt) Score/Fall Risk Level 3 or more points = High Risk Oriented to surroundings, Maintained a safe environment, Educated pt \T\ family on fall prevention, incl call for assistance when getting out of bed. Abuse screen: Denies threats or abuse. Denies injuries from another. Nutritional screening: No deficits noted. Tuberculosis screening: No symptoms or risk factors identified. Assessment: 15:55 General: Appears in no apparent distress. comfortable, well groomed, well developed, kc6 Behavior is calm, cooperative, appropriate for age, Reports feeling ill for > 3 days, fatigue for >3 days. Pain: Denies pain. Neuro: Level of Consciousness is awake, alert, obeys commands, Oriented to person, place, time, situation, Appropriate for age Reports a syncopal episode weakness. Cardiovascular: Capillary refill < 3 seconds. Respiratory: Airway is patent Trachea midline Respiratory effort is even, unlabored, Respiratory pattern is regular, symmetrical. GI: Abdomen is flat, non-distended, Bowel sounds present X 4 quads. Abd is soft and non tender X 4 quads. Reports bloody stool, Patient currently denies abdominal pain, diarrhea, nausea, vomiting. : No signs and/or symptoms were reported regarding the genitourinary system. EENT: No signs and/or symptoms were reported regarding the EENT system. Derm: No signs and/or symptoms reported regarding the dermatologic system. Skin is intact, is fragile, is thin, with poor turgor Skin is pale. Musculoskeletal: No signs and/or symptoms reported regarding the musculoskeletal system. Circulation, motion, and sensation intact. Range of motion: intact in all extremities. 16:47 Reassessment: Patient appears in no apparent distress at this time. No changes from kc6 previously documented assessment. Patient and/or family updated on plan of care and expected duration. Pain level reassessed. Patient is alert, oriented x 3, equal unlabored respirations, skin warm/dry/pink. 17:48 Reassessment: Patient appears in no apparent distress at this time. No changes from kc6 previously documented assessment. Patient and/or family updated on plan of care and expected duration. Pain level reassessed. Patient is alert, oriented x 3, equal unlabored respirations, skin warm/dry/pink. Vital Signs: 15:52 BP 190 / 81; Pulse 75; Resp 18 S; Pulse Ox 100% on R/A; Weight 74.84 kg (R); Height 5 kc6 ft. 2 in. (R); Pain 0/10; 16:47 BP 196 / 76; Pulse 73; Resp 18 S; Pulse Ox 100% on R/A; kc6 15:52 Body Mass Index 30.18 (74.84 kg, 157.48 cm) kc6 15:52 Pain Scale: Adult kc6 ED Course: 15:37 Patient arrived in ED. am2 15:37 Forrest Bonilla MD is Private Physician. am2 15:43 Manoj Castro MD is Attending Physician. bo1 15:43 Ayaka Eugene RN is Primary Nurse. kc6 15:54 Triage completed. kc6 15:54 Arm band placed on. kc6 15:55 Patient has correct armband on for positive identification. Bed in low position. Call kc light in reach. Side rails up X2. Adult w/ patient. Pulse ox on. NIBP on. Door closed. Noise minimized. Lights dimmed. Warm blanket given. Pillow given. Verbal reassurance given. 15:55 Patient maintains SpO2 saturation greater than 95% on room air. kc6 16:12 Initial lab(s) drawn, by mt, sent to lab. Inserted saline lock: 20 gauge in left kc6 forearm, using aseptic technique. Blood collected. Flushed with 10 mL NS. 16:49 Urinalysis w/ reflexes Sent. rk3 17:48 No provider procedures requiring assistance completed. IV discontinued, intact, kc6 bleeding controlled, No redness/swelling at site. Pressure dressing applied. Administered Medications: No medications were administered Medication: 17:48 VIS not applicable for this client. kc6 Outcome: 17:36 Discharge ordered by . bo1 17:48 Discharged to home via wheelchair, with family, kc 17:48 Condition: good 17:48 Discharge instructions given to patient, family, Instructed on discharge instructions, follow up and referral plans. Demonstrated understanding of instructions, follow-up care, 17:48 Patient left the ED. kc6 Signatures: Berta Alvarez am2 Ayaka Eugene RN RN kc Manoj Castro MD MD bo1 Clemente Ortiz rk3
--- NOTE | 2025-01-26 17:37 | EDPHYS ---
Physician Documentation [facility] Name: Steph Dela Cruz Jr Age: 84 yrs Sex: Male : 1940 Arrival Date: 01/26/2025 Time: 15:37 Bed 17 Private MD: Forrest Boinlla B ED Physician Manoj Castro HPI: 01/26 17:26 This 84 yrs old Male presents to ER via Wheelchair with complaints of Bloody Stools, bo1 General Weakness. 17:26 Hx of bloody stools and progressive weakness. Onset: The symptoms/episode bo1 began/occurred gradually, last week. Severity of symptoms: At their worst the symptoms were mild Lab tests results back today, PCP has called the family. No CBC results. CXR reviewed. Low sodium. Elevated TSH. . Historical: - Allergies: 15:54 PENICILLINS; kc6 - PMHx: 15:54 Prostate cancer; Hypertension; CHF; Atrial fibrillation; Hypothyroidism; Myocardial kc6 infarction; Hypercholesterolemia; Gout; - PSHx: 15:54 Appendectomy; Cardiac Ablation; Coronary artery bypass graft; kc6 - Immunization history:: Adult Immunizations up to date. - Infectious Disease History:: Denies. - Social history:: Smoking status: Patient/guardian denies using tobacco, but has a distant history of tobacco abuse. ROS: 17:28 Constitutional: Negative for fever, chills, and weight loss bo1 17:28 Constitutional: Positive for Weakness, sleepiness and being tired, 17:28 Neck: Negative for pain with movement, pain at rest, 17:28 Cardiovascular: Negative for chest pain, palpitations, 17:28 Respiratory: Negative for cough, shortness of breath, 17:28 Abdomen/GI: Negative for abdominal pain, nausea, vomiting, diarrhea, 17:28 Abdomen/GI: Positive for rectal bleeding, 17:28 : Negative for urinary symptoms, 17:28 MS/extremity: Negative for pain, rash, swelling, 17:28 Skin: Negative for lesions, rash, 17:28 All other systems are negative, Exam: 17:30 Constitutional: This is a well developed, well nourished patient who is awake, alert, bo1 and in no acute distress. 17:30 Constitutional: The patient appears alert, awake, comfortable, non-toxic, Appears stated age 17:30 Eyes: Sclera: icterus, is not appreciated, 17:30 Neck: External neck: is normal, no acute changes, 17:30 Cardiovascular: Rate: normal, Pulses: no pulse deficits are appreciated, 17:30 Respiratory: the patient does not display signs of respiratory distress, Respirations: normal, Breath sounds: are clear throughout, 17:30 Abdomen/GI: Inspection: abdomen appears normal, Palpation: abdomen is soft and non-tender, 17:30 Musculoskeletal/extremity: Extremities: all appear grossly normal, with no appreciated pain with palpation, 17:30 Skin: no rash present. 17:30 Neuro: Orientation: is normal, appropriate for stated age, Mentation: is normal, appropriate for stated age, Memory: is normal, appropriate for stated age, Vital Signs: 15:52 BP 190 / 81; Pulse 75; Resp 18 S; Pulse Ox 100% on R/A; Weight 74.84 kg (R); Height 5 kc6 ft. 2 in. (R); Pain 0/10; 16:47 BP 196 / 76; Pulse 73; Resp 18 S; Pulse Ox 100% on R/A; kc6 15:52 Body Mass Index 30.18 (74.84 kg, 157.48 cm) kc6 15:52 Pain Scale: Adult kc6 MDM: 15:43 Medical Screening Exam initiated bo1 17:32 Differential Diagnosis Hypothyroidism by hx but pt is not regular on his meds. bo1 Hyponatremia. Blood loss from the GI leak. No GI med on today. No low H/H qualifying for transfusion. . Data reviewed: vital signs, lab test result(s). Consideration of Admission/Observation No criteria met at this time. ED course: Pt will f/u as OP to see Dr Hernández and perhaps, Dr Caballero. He was deemed "too old" for endoscopy previously. Adjustment of meds need to be done. Also, question of ASA and Eliquis to be answered tomorrow. CBC result from PCP's office to be compared with today's.. 01/26 15:44 Order name: CBC with Diff; Complete Time: 17:05 [facility] 01/26 15:44 Order name: CMP; Complete Time: 17:05 [facility] 01/26 15:44 Order name: Urinalysis w/ reflexes; Complete Time: 17:01/26 15:44 Order name: Type And Screen; Complete Time: 17:05 bo1 01/26 15:44 Order name: IV Saline Lock; Complete Time: 16:12 bo1 01/26 15:44 Order name: Labs collected and sent; Complete Time: 16:12 bo1 Administered Medications: No medications were administered Disposition Summary: 01/26/25 17:36 Discharge Ordered Notes: Location: Home bo1 Problem: an acute exacerbation bo1 Symptoms: are unchanged bo1 Condition: Stable bo1 Diagnosis - Weakness bo1 - Other specified hypothyroidism bo1 - Hypo-osmolality and hyponatremia bo1 - GI Bleed/ Gastrointestinal hemorrhage, unspecified bo1 Followup: bo1 - With: Private Physician - When: Tomorrow - Reason: Recheck today's complaints, Continuance of care Discharge Instructions: - Discharge Summary Sheet bo1 - Gastrointestinal Bleeding bo1 - Weakness bo1 Forms: - Medication Reconciliation Form bo1 - Antibiotic Education bo1 - Prescription Opioid Use bo1 - Patient Portal Instructions bo1 - Leadership Thank You Letter bo1 Signatures: Dispatcher [employer] Ayaka Olson RN RN kc6 OeiManoj MD MD bo1 Corrections: (The following items were deleted from the chart) 15:44 15:44 CBC+H.LAB.BRZ ordered. EDMS EDMS 15:44 15:44 COMPREHENSIVE METABOLIC PANEL+C.LAB.BRZ ordered. EDMS EDMS 15:44 15:44 Urinalysis+U.LAB.BRZ ordered. EDMS EDMS 15:44 15:44 TYPE AND SCREEN+BB.LAB.BRZ ordered. EDMS EDMS
[2025-01-26 17:58] VITALS: O2SAT 100
[2025-01-26 18:04] VITALS: BP 196/76
== END 2025-01-26 17:48 | disposition home or self-care (01) ==
LOC: ER 15:37
DX: E03.8 Other specified hypothyroidism (principal); E87.1 Hypo-osmolality and hyponatremia; K92.2 Gastrointestinal hemorrhage, unspecified; Z85.46 Personal history of malignant neoplasm of prostate; I10 Essential (primary) hypertension; Z95.1 Presence of aortocoronary bypass graft
CPT/HCPCS: 36415; 80053; 81001; 85025; 86850; 86900; 86901; 99284

== ENCOUNTER 2025-01-29 14:19 | Inpatient (IN) | payer OTHER, MEDICARE ==
--- NOTE | 2025-01-29 14:54 | RAD REPORT ---
EXAM: Chest Single View HISTORY: 84 years Male weak COMPARISON: 01/22/2025 FINDINGS: LUNGS/PLEURA: Small to moderate left pleural effusion and possibly underlying atelectasis. This is si milar to 01/22/2025 CARDIAC/MEDIASTINUM: Stable size and configuration. UPPER ABDOMEN: No significant abnormality. BONES: Sternotomy. No acute abnormality. LINES/TUBES/OTHER: N/A IMPRESSION: Small to moderate left pleural effusion and likely underlying atelectasis which is unchanged.
[2025-01-29 14:58] LABS: Absolute Basophils 0.1 K/uL (0-0.5); Absolute Eosinophils 0.3 K/uL (0-0.5); Absolute Lymphocytes (CBC) 0.8 K/uL (0.7-4.9); Absolute Monocytes 1.1 K/uL (0.1-1.3); Absolute Neutrophil 6.4 K/uL (1.8-8.0); Basophils % 1.2 % (0-1.3); Eosinophils % 3.9 % (0-4.4); Hematocrit 34.6 % (39.6-49.0); Hemoglobin 11.8 g/dL (13.6-17.9); Lymphocytes % 8.9 % (15.3-44.8); MCH 32.5 pg (27.0-35.0); MCHC 34.2 g/dL (32.0-36.0); MPV 7.4 fL (7.6-11.3); Monocytes % 12.1 % (3.3-12.3); Neutrophils % 73.9 % (41.7-73.7); Platelets 366 thou/uL (152-406); RBC Red Blood Cell Count 3.64 M/uL (4.33-5.43); Red Cell Distribution Width 15.4 % (12.1-15.2)
[2025-01-29 15:05] LABS: Protime INR 1.33
[2025-01-29 15:18] LABS: Albumin 3.3 g/dL (3.4-5.0); Albumin/Globulin Ratio 0.8 (1.1-1.8); Anion Gap 10.2 mEq/L (5.0-15.0); Bilirubin Direct 0.2 mg/dL (0-0.2); Bilirubin Indirect, Calculated 0.3 mg/dL (0.2-0.8); Bilirubin Total 0.5 mg/dL (0.2-1.0); Globulin 4.4 g/dL (2.3-3.5); Magnesium 2.2 mg/dL (1.6-2.4); Potassium 4.2 mEq/L (3.5-5.1); Protein, Total 7.7 g/dL (6.4-8.2); Troponin High Sensitivity 44.6 pg/mL (<58.9)
[2025-01-29 15:22] LABS: Specific Gravity 1.016 (1.005-1.030); Sqamous Epithelial None Seen /HPF (None Seen); Urine Bacteria None Seen /HPF (<20); Urine Bilirubin NEGATIVE (Negative); Urine Blood Negative (Negative); Urine Clarity Clear (Clear); Urine Color Light-Yellow (Yellow); Urine Culture Reflex Order NOT NEEDED; Urine Glucose NEGATIVE (Negative); Urine Ketones NEGATIVE (Negative); Urine Micro Reflex YN NO BILL MICROSCOPIC; Urine Nitrite NEGATIVE (Negative); Urine Protein 1+ (Negative); Urine RBC <5 /HPF (None Seen); Urine Urobilinogen Normal (Normal); Urine WBC None Seen /HPF (<5); Urine pH 6.5 (5.0-7.0)
--- NOTE | 2025-01-29 15:44 | ER ---
Nurse's Notes [facility] Name: Steph Dela Cruz Jr Age: 84 yrs Sex: Male : 1940 Arrival Date: 01/29/2025 Time: 14:19 Bed 3 Private MD: Diagnosis: Generalized weakness, hyponatremia, mild CHF Presentation: 01/29 14:20 Chief complaint: EMS states: WEAKNESS LOW H\T\h FROM HOME RECENTLY ADMITTED. RIGHT LEG db SWELLING. Coronavirus screen: Client denies travel out of the [place] in the last 14 days. At this time, the client does not indicate any symptoms associated with coronavirus-19. Ebola Screen: Patient negative for fever greater than or equal to 101.5 degrees Fahrenheit, and additional compatible Ebola Virus Disease symptoms Patient denies exposure to infectious person. Patient denies travel to an Ebola-affected area in the 21 days before illness onset. No symptoms or risks identified at this time. Initial Sepsis Screen: Does the patient meet any 2 criteria? No. Patient's initial sepsis screen is negative. Does the patient have a suspected source of infection? No. Patient's initial sepsis screen is negative. Risk Assessment: Do you want to hurt yourself or someone else? Patient reports no desire to harm self or others. Onset of symptoms was January 29, 2025. Care prior to arrival: Glucose check: 107. 14:20 Method Of Arrival: EMS: [facility] db 14:20 Acuity: MARILYN 2 db Triage Assessment: 14:20 General: Appears in no apparent distress. comfortable, Behavior is calm, cooperative. db Neuro: Level of Consciousness is awake, alert, obeys commands, Oriented to person, place, time, situation. Cardiovascular: Reports RIGHT LEG SWELLING. Respiratory: Airway is patent Respiratory effort is even, unlabored, Respiratory pattern is regular, symmetrical. 14:46 Pain: Complains of pain in right leg. db Historical: - Allergies: 14:46 PENICILLINS; db - PMHx: 14:46 CHF; Atrial fibrillation; Hypercholesterolemia; Hypothyroidism; Myocardial infarction; db Prostate cancer; Hypertension; Gout; - PSHx: 14:46 Appendectomy; Cardiac Ablation; Coronary artery bypass graft; db - Immunization history:: Adult Immunizations unknown. - Infectious Disease History:: Denies. - Social history:: Smoking status: Patient denies any tobacco usage or history of. Screenin:03 [facility] ED Fall Risk Assessment (Adult) History of falling in the last 3 months, kc6 including since admission No falls in past 3 months (0 pts) Confusion or Disorientation No (0 pts) Intoxicated or Sedated No (0 pts) Impaired Gait No (0 pts) Mobility Assist Device Used Yes (1 pt) Altered Elimination No (0 pt) Score/Fall Risk Level 0 - 2 = Low Risk Oriented to surroundings, Maintained a safe environment, Educated pt \T\ family on fall prevention, incl call for assistance when getting out of bed. Abuse screen: Denies threats or abuse. Denies injuries from another. Nutritional screening: No deficits noted. Tuberculosis screening: No symptoms or risk factors identified. Assessment: 14:53 General: Appears in no apparent distress. comfortable, well groomed, well developed, kc6 Behavior is calm, cooperative, appropriate for age. Pain: Denies pain. Neuro: Level of Consciousness is awake, alert, obeys commands, Oriented to person, place, time, situation, Appropriate for age Reports blurred vision in left eye. Cardiovascular: Denies chest pain, shortness of breath, Capillary refill < 3 seconds. Respiratory: Reports shortness of breath on exertion Airway is patent Trachea midline Respiratory effort is even, unlabored, Respiratory pattern is regular, symmetrical. GI: No signs and/or symptoms were reported involving the gastrointestinal system. : No signs and/or symptoms were reported regarding the genitourinary system. EENT: No signs and/or symptoms were reported regarding the EENT system. Derm: No signs and/or symptoms reported regarding the dermatologic system. Skin is intact, is fragile, is thin, with poor turgor Skin is pink, warm \T\ dry. Musculoskeletal: Circulation, motion, and sensation intact. Range of motion: intact in all extremities, Swelling present in right foot. 15:53 Reassessment: Patient appears in no apparent distress at this time. No changes from kc6 previously documented assessment. Patient and/or family updated on plan of care and expected duration. Pain level reassessed. Patient is alert, oriented x 3, equal unlabored respirations, skin warm/dry/pink. 16:53 Reassessment: Patient appears in no apparent distress at this time. No changes from kc6 previously documented assessment. Patient and/or family updated on plan of care and expected duration. Pain level reassessed. Patient is alert, oriented x 3, equal unlabored respirations, skin warm/dry/pink. 17:55 Reassessment: Patient appears in no apparent distress at this time. Patient and/or db family updated on plan of care and expected duration. Pain level reassessed. Patient is alert, oriented x 3, equal unlabored respirations, skin warm/dry/pink. Vital Signs: 14:20 BP 159 / 73; Pulse 75; Resp 16; Temp 98.6; Pulse Ox 99% ; Weight 70.31 kg; Height 5 ft. db 2 in. ; 16:10 BP 174 / 64; Pulse 75; Resp 19 S; Pulse Ox 96% on R/A; kc6 17:20 BP 160 / 72; Pulse 73; Resp 14 S; Pulse Ox 98% on R/A; kc6 17:45 BP 169 / 71; Pulse 72; Resp 18; Pulse Ox 99% on R/A; db 14:20 Body Mass Index 28.35 (70.31 kg, 157.48 cm) db ED Course: 14:20 Arm band placed on Patient placed in an exam room. db 14:22 Patient arrived in ED. ty 14:23 Gilmar Saenz MD is Attending Physician. sp3 14:41 Ayaka Eugene, AWILDA is Primary Nurse. kc6 14:46 Triage completed. db 14:48 XRAY Chest (1 view) In Process Unspecified. EDMS 14:53 Inserted saline lock: 20 gauge in left wrist, using aseptic technique. Blood collected. kc6 Flushed with 10 mL NS. 15:03 Patient has correct armband on for positive identification. Bed in low position. Call kc6 light in reach. Side rails up X2. Adult w/ patient. secured entrance monitor on. Pulse ox on. NIBP on. Door closed. Noise minimized. Lights dimmed. Warm blanket given. Pillow given. Verbal reassurance given. 15:03 Patient maintains SpO2 saturation greater than 95% on room air. kc6 15:43 Debora Zamora MD is Hospitalizing Provider. sp3 16:57 CT Facial Bones W/ Con \T\ Mpr In Process Unspecified. EDMS 16:57 CT Head Brain wo Cont In Process Unspecified. EDMS 17:55 Provided Education on: ADMISSION. db 17:55 No provider procedures requiring assistance completed. Patient admitted, IV remains in db place. Administered Medications: No medications were administered Medication: 17:55 VIS not applicable for this client. db Outcome: 15:44 Decision to Hospitalize by Provider. sp3 17:55 Admitted to Med/surg db 17:55 Condition: stable 17:55 Instructed on the need for admit, 18:40 Patient left the ED. kc6 Signatures: Dispatcher [employer] EDMS Gilmar Saenz MD MD sp3 Ayaka Eugene RN RN kc6 Mariah Cunningham RN RN db Nash Perez Corrections: (The following items were deleted from the chart) 14:48 14:46 General: Appears in no apparent distress. comfortable, Behavior is calm, db cooperative, db 14:48 14:46 Neuro: Level of Consciousness is awake, alert, obeys commands, Oriented to db person, place, time, situation, db 14:48 14:46 Respiratory: Airway is patent Respiratory effort is even, unlabored, Respiratory db pattern is regular, symmetrical, db 14:48 14:46 Cardiovascular: Reports RIGHT LEG SWELLING db db
--- NOTE | 2025-01-29 15:44 | EDPHYS ---
Physician Documentation [facility] Name: Steph Dela Cruz Jr Age: 84 yrs Sex: Male : 1940 Arrival Date: 01/29/2025 Time: 14:19 Bed 3 Private MD: ED Physician Gilmar Saenz HPI: 01/29 14:33 This 84 yrs old Male presents to ER via Unassigned with complaints of generalized sp3 weakness. 14:33 84-year-old male with history of prostate cancer, TN/ACS, CABG, CHF, atrial sp3 fibrillation that presents to the ED with chief complaint generalized weakness. Patient was seen here 3 days ago with full workup, mildly low H\T\H and discharged home with GI follow-up. Patient now returns for worsening generalized weakness and fatigue without melena or megan GI bleed. Review of systems negative for headache, chest pain, shortness of breath, neck pain, vomiting, diarrhea, rash, other bleeding, or any other signs or symptoms on ROS at this time.. Historical: - Allergies: 14:46 PENICILLINS; db - PMHx: 14:46 CHF; Atrial fibrillation; Hypercholesterolemia; Hypothyroidism; Myocardial infarction; db Prostate cancer; Hypertension; Gout; - PSHx: 14:46 Appendectomy; Cardiac Ablation; Coronary artery bypass graft; db - Immunization history:: Adult Immunizations unknown. - Infectious Disease History:: Denies. - Social history:: Smoking status: Patient denies any tobacco usage or history of. ROS: 14:35 Constitutional: Negative for fever, chills, and weight loss, Eyes: Negative for injury, sp3 pain, redness, and discharge, ENT: Negative for injury, pain, and discharge, Neck: Negative for injury, pain, and swelling, Cardiovascular: Negative for chest pain, palpitations, and edema, Respiratory: Negative for shortness of breath, cough, wheezing, and pleuritic chest pain, Back: Negative for injury and pain, MS/Extremity: Negative for injury and deformity, Skin: Negative for injury, rash, and discoloration, Allergy/Immunology: Negative for hives, rash, and allergies, Endocrine: Negative for neck swelling, polydipsia, polyuria, polyphagia, and marked weight changes, 14:35 All other systems are negative, Exam: 14:35 Constitutional: This is a well developed, well nourished patient who is awake, alert, sp3 and in no acute distress. Head/Face: Normocephalic, atraumatic. Eyes: Pupils equal round and reactive to light, extra-ocular motions intact. Lids and lashes normal. Conjunctiva and sclera are non-icteric and not injected. Cornea within normal limits. Periorbital areas with no swelling, redness, or edema. ENT: Nares patent. No nasal discharge, no septal abnormalities noted. External auditory canals are clear. Oropharynx with no redness, swelling, or masses, exudates, or evidence of obstruction, uvula midline. Mucous membranes moist. Neck: Trachea midline, no thyromegaly or masses palpated, and no cervical lymphadenopathy. Supple, full range of motion without nuchal rigidity, or vertebral point tenderness. No Meningismus. Chest/axilla: Normal chest wall appearance and motion. Nontender with no deformity. No lesions are appreciated. Cardiovascular: Regular rate and rhythm with a normal S1 and S2. No gallops, murmurs, or rubs. Normal PMI, no JVD. No pulse deficits. Respiratory: Lungs have equal breath sounds bilaterally, clear to auscultation and percussion. No rales, rhonchi or wheezes noted. No increased work of breathing, no retractions or nasal flaring. Back: No spinal tenderness. No costovertebral tenderness. Full range of motion. MS/ Extremity: Pulses equal, no cyanosis. Neurovascular intact. Full, normal range of motion. Neuro: Awake and alert, GCS 15, oriented to person, place, time, and situation. Cranial nerves II-XII grossly intact. Motor strength 5/5 in all extremities. Sensory grossly intact. Cerebellar exam normal. Normal gait. Psych: Awake, alert, with orientation to person, place and time. Behavior, mood, and affect are within normal limits. 14:35 Abdomen/GI: Soft nontender nondistended with no peritoneal signs, rebound or guarding., 14:35 Skin: Skin pallor noted. 14:48 ECG was reviewed by the Attending Physician. EKG demonstrates normal sinus rhythm at 75 sp3 bpm with right bundle branch block, leftward axis and nonspecific diffuse ST/T changes without evidence of acute ischemia. Vital Signs: 14:20 BP 159 / 73; Pulse 75; Resp 16; Temp 98.6; Pulse Ox 99% ; Weight 70.31 kg; Height 5 ft. db 2 in. ; 16:10 BP 174 / 64; Pulse 75; Resp 19 S; Pulse Ox 96% on R/A; kc6 17:20 BP 160 / 72; Pulse 73; Resp 14 S; Pulse Ox 98% on R/A; kc6 17:45 BP 169 / 71; Pulse 72; Resp 18; Pulse Ox 99% on R/A; db 14:20 Body Mass Index 28.35 (70.31 kg, 157.48 cm) db MDM: 14:23 Medical Screening Exam initiated sp3 14:36 Data reviewed: vital signs, nurses notes, old medical records, lab test result(s), EKG, sp3 radiologic studies. ED course: 84-year-old male with PMH above now presents with generalized weakness after being seen 3 days ago for similar symptoms and low hemoglobin with possible GI bleed. Differential diagnosis includes worsening electrolyte abnormality, potential GI bleed, ACS, other infection, among others. Workup will include EKG, chest x-ray, general labs and general supportive care. Disposition pending workup and patient course with possible admission if indicated. Unknown medication list or if patient is on any anticoagulants.. 15:43 ED course: Patient continues to be generally weak. Sodium at 130 and BNP elevated at sp3 3200. Will defer to inpatient team for correction in the setting of mild CHF.. 01/29 14:23 Order name: Basic Metabolic Panel; Complete Time: 15:30 sp3 01/29 14:23 Order name: CBC with Diff; Complete Time: 15:30 sp3 01/29 14:23 Order name: LFT's; Complete Time: 15:30 sp3 01/29 14:23 Order name: Magnesium; Complete Time: 15:30 sp3 01/29 14:23 Order name: NT PRO-BNP; Complete Time: 15:30 sp3 01/29 14:23 Order name: PT-INR; Complete Time: 15:30 sp3 01/29 14:23 Order name: Troponin HS; Complete Time: 15:30 sp3 01/29 14:23 Order name: Lactate w/ 2H reflex if indic.; Complete Time: 15:30 sp3 01/29 14:23 Order name: UAM; Complete Time: 15:30 sp3 01/29 17:48 Order name: CBC with Automated Diff EDMS 01/29 17:48 Order name: CBC with Automated Diff EDMS 01/29 17:48 Order name: Comprehensive Metabolic Panel EDMS 01/29 17:48 Order name: Comprehensive Metabolic Panel EDMS 01/29 17:48 Order name: Lipid Profile EDMS 01/29 17:48 Order name: Lipid Profile EDMS 01/29 17:48 Order name: Troponin High Sensitivity EDMS 01/29 17:48 Order name: Troponin High Sensitivity EDMS 01/29 17:48 Order name: Troponin High Sensitivity EDMS 01/29 14:23 Order name: XRAY Chest (1 view); Complete Time: 14:55 sp3 01/29 16:19 Order name: CT Facial Bones W/ Con \T\ Mpr; Complete Time: 17:21 sp3 01/29 16:19 Order name: CT Head Brain wo Cont; Complete Time: 17:21 sp3 01/29 14:23 Order name: EKG; Complete Time: 14:24 sp3 01/29 14:23 Order name: Cardiac monitoring; Complete Time: 14:41 sp3 01/29 14:23 Order name: EKG - Nurse/Tech; Complete Time: 14:41 sp3 01/29 14:23 Order name: IV Saline Lock; Complete Time: 14:53 sp3 01/29 14:23 Order name: Labs collected and sent; Complete Time: 14:53 sp3 01/29 14:23 Order name: O2 Per Protocol; Complete Time: 14:41 sp3 01/29 14:23 Order name: O2 Sat Monitoring; Complete Time: 14:41 sp3 Administered Medications: No medications were administered Disposition Summary: 01/29/25 15:44 Hospitalization Ordered Notes: Hospitalization Status: Observation sp3 Provider: Debora Zamora3 Location: Telemetry/MedSurg (observation) sp3 Condition: Stable sp3 Problem: an acute exacerbation sp3 Symptoms: have worsened sp3 Bed/Room Type: Standard sp3 Room Assignment: 409(01/29/25 17:51) ty Diagnosis - Generalized weakness, hyponatremia, mild CHF sp3 Forms: - Medication Reconciliation Form sp3 - SBAR form sp3 - Leadership Thank You Letter sp3 Signatures: Dispatcher [employer] EDGilmar Lowe MD MD sp3 Mariah Cunningham, RN RN db Nash Perez ty Corrections: (The following items were deleted from the chart) 14:24 14:24 BASIC METABOLIC PANEL+C.LAB.BRZ ordered. EDMS EDMS 14:24 14:24 CBC+H.LAB.BRZ ordered. EDMS EDMS 14:24 14:24 HEPATIC FUNCTION+C.LAB.BRZ ordered. EDMS EDMS 14:24 14:24 MAGNESIUM+C.LAB.BRZ ordered. EDMS EDMS 14:24 14:24 PROBNP+C.LAB.BRZ ordered. EDMS EDMS 14:24 14:24 PROTIME (+INR)+COAG.LAB.BRZ ordered. EDMS EDMS 14:24 14:24 Troponin High Sensitivity+C.LAB.BRZ ordered. EDMS EDMS 14:24 14:24 LACTATE+C.LAB.BRZ ordered. EDMS EDMS 14:24 14:24 Urinalysis W/Microscopic+U.LAB.BRZ ordered. EDMS EDMS 14:35 14:33 84-year-old male with history of prostate cancer, TN/ACS, CABG, CHF, atrial sp3 fibrillation that presents to the ED with chief complaint generalized weakness. Patient was seen here. sp3 17:51 15:44 sp3 ty
--- NOTE | 2025-01-29 17:06 | RAD REPORT ---
EXAMINATION: Head Brain Wo Cont CLINICAL INDICATION: Male, 84 years old.CONFUSED TECHNIQUE: Axial CT images from the skull base to the vertex without intravenous contrast. Coronal an d sagittal reformatted images were created from the data set. One or more of the following dose reduction techniques were used: Automated exposure control, adjustment of the mA and/or kV according to patient size, and/or iterative reconstruction. Unless otherwise specified, incidental findings do not require dedicated imaging follow-up. [id number]. COMPARISON: 05/04/2020 FINDINGS: INTRACRANIAL: No acute intracranial hemorrhage. No hydrocephalus. No mass effect or midline shift. Mi ld chronic small vessel ischemic changes.Mild cerebral atrophy. VASCULATURE: No visualized abnormalities in the arteries or dural venous sinuses. SCALP/SKULL: No calvarial fracture identified. No acute soft tissue abnormality. Postprocedural kong ges at the left globe. SINUSES: The visualized paranasal sinuses are mostly clear. No significant mastoid fluid. IMPRESSION: No acute intracranial abnormality.
--- NOTE | 2025-01-29 17:13 | RAD REPORT ---
EXAMINATION: CT MAXILLOFACIAL WITH CONTRAST CLINICAL INDICATION: Male, 84 years old. eye swelling;Facial pain TECHNIQUE: Axial images were obtained through the facial bones and orbits with intravenous contrast. Sagittal and coronal reconstructions were created from the data. One or more of the following dose reduction techniques were used: Automated exposure control, adjustment of the mA and/or kV according to patient size, and/or iterative reconstruction. Unless otherwise specified, incidental findings do not require dedicated imaging follow-up. [id number]. COMPARISON: No prior exam. FINDINGS: SOFT TISSUE: No significant abnormalities. BONES: No evidence of fracture, dislocation, or aggressive osseous lesions. No lesion of the visuali zed skull base or calvarium. ORBITS: Procedural changes at the left globe which is similar. The orbits are otherwise unremarkable. SINUSES: Mild right maxillary sinus mucosal thickening. BRAIN: No acute abnormalities in the visualized intracranial structures. IMPRESSION: No acute or significant abnormalities.
--- NOTE | 2025-01-29 17:42 | P.HP ---
Certification for Inpatient Patient admitted to: Inpatient With expected LOS: >2 Midnights Patient will require the following post-hospital care: None Practitioner: I am a practitioner with admitting privileges, knowledge of patient current condition, hospital course, and medical plan of care. Services: Services provided to patient in accordance with Admission requirements found in Title 42 Section 412.3 of the Code of Federal Regulations Patient History Date of Service: 01/29/25 Reason for admission: Generalized weakness History of Present Illness: Patient 84-year-old gentleman came to the hospital with generalized weakness. Patient's been in the ER a few days ago with complaints of some blood in his stool. Patient been on Eliquis and has a history of hemorrhoids. Patient otherwise has noticed some swelling in his eye, and it has been bothering him. 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 He has noticed that he has been feeling weak and without any energy. He decided to come into the emergency room for further evaluation. In the ER, he had lab workup which was fairly unremarkable except for some hyponatremia. However, they never addressed his main complaint which was his eye bothering him. He has some erythema in the eye and some crustiness. He may have conjunctivitis. Imaging studies that we performed did not reveal any significant abnormalities. At this time, he will be admitted to the hospital for observation. Allergies Penicillins Allergy (Verified 01/17/24 08:56) Anaphylaxis Home Medications: B-Complex with Vitamin C [Super B Complex-Vitamin C] 1 each PO DAILY 07/21/20 Magnesium Oxide [Mag 0X*] 400 mg PO BID 07/21/20 Iron Ag,Ps/C/Fa6/B12/Zn/SA/Sto [Niferex Tablet] 1 each PO DAILY #30 tablet 07/24/20 Apixaban [Eliquis] 2.5 mg PO BID #60 tablet 10/03/23 Furosemide [Lasix] 20 mg PO DAILY #30 tab 10/03/23 Allopurinol 100 mg PO DAILY 01/29/25 Aspirin 81 mg PO DAILY 01/29/25 Atorvastatin Calcium [Lipitor] 20 mg PO BEDTIME 01/29/25 Docusate Sodium [Stool Softener] 100 mg PO DAILY 01/29/25 Duloxetine HCl [Cymbalta] 20 mg PO BID 01/29/25 Fluticasone/Umeclidin/Vilanter [Trelegy Ellipta 100-62.5-25] 1 puff IH DAILY 01/29/25 Hydralazine HCl 50 mg PO BID 01/29/25 L.acidoph,Paracasei, B.lactis [Probiotic] 1 tab PO DAILY 01/29/25 Levothyroxine [Synthroid] 88 mcg PO [id number] 01/29/25 Linaclotide [Linzess] 145 mcg PO DAILY 01/29/25 Nebivolol HCl 2.5 mg PO DAILY 01/29/25 Pantoprazole Sodium [Protonix] 40 mg PO DAILY 01/29/25 Polyethylene Glycol 3350 [Miralax] 17 gm PO DAILYPRN PRN 01/29/25 Prednisolone Acetate/Pf [Prednisolone Acet 1% Eye Drop] 1 drop OP QID 01/29/25 Telmisartan 20 mg PO DAILY 01/29/25 - Past Medical/Surgical History Diabetic: No -: CHF -: HTN -: Quadruple bypass(1997) -: CABG -: reflux -: HLD -: gout -: Cholecystectomy -: cardiac ablatioin -: cabg -: appendectomy Psychosocial/ Personal History: Lives at home - Family History Mother Medical History: Cancer Notes: Larinex cancer Father Notes: none - Social History Alcohol use: No Review of Systems 10-point ROS is otherwise unremarkable Physical Examination - Vital Signs Temperature: 98 F Blood Pressure: 150/80 Pulse: 80 Respirations: 18 Pulse Ox (%): 95 - Physical Exam General: Alert, In no apparent distress, Oriented x2, Demented HEENT: Atraumatic, PERRLA, Mucous membr. moist/pink, EOMI, Sclerae nonicteric Neck: Supple, 2+ carotid pulse no bruit, No LAD, Without JVD or thyroid abnormality Respiratory: Clear to auscultation bilaterally, Normal air movement Cardiovascular: Regular rate/rhythm, Normal S1 S2, No murmurs Gastrointestinal: Normal bowel sounds, Soft and benign, Non-distended, No tenderness Musculoskeletal: No clubbing, No swelling, No tenderness Integumentary: No rashes Neurological: Sensation intact, Cranial nerves 3-12 intact Lymphatics: No axilla or inguinal lymphadenopathy - Studies Laboratory Data (last 24 hrs) 01/29/25 01/29/25 01/29/25 14:50 14:50 14:50 WBC 8.70 Hgb 11.8 L Hct 34.6 L Plt Count 366 PT 15.0 H INR 1.33 Sodium 130 L Potassium 4.2 BUN 31 H Creatinine 1.25 Glucose 108 H Magnesium 2.2 Total Bilirubin 0.5 AST 26 ALT 23 Alkaline Phosphatase 91 Assessment & Plan - Problems (Diagnosis) (1) Generalized weakness Current Visit: Yes Status: Acute (2) Confusion Current Visit: Yes Status: Acute (3) Afib Current Visit: No Status: Acute (4) Coronary artery disease Current Visit: No Status: Acute (5) Gout Current Visit: No Status: Acute (6) HTN (hypertension) Current Visit: No Status: Acute (7) Hyponatremia Current Visit: Yes Status: Acute (8) Anemia of chronic disease Current Visit: Yes Status: Acute - Plan Plan: 1. Patient with generalized weakness and confusion; continue with IV hydration and physical therapy. Continue with encouraging nutritional support. Reassess patient after working with therapy and dietary intake is monitored. MRI of the brain is pending as well. 2. History of atrial fibrillation; continue with medication for control 3. Anemia of chronic disease; continue with monitoring B12 levels and iron studies; patient with iron deficiency 4. Coronary artery disease; continue with anti-platelet therapy and statin therapy 5. Patient with decreased vision in the left eye; outpatient ophthalmology input 6. Hyponatremia; monitor sodium levels 7. GI/DVT prophylaxis Discharge Plan: Home Plan to discharge in: Greater than 2 days - Advance Directives Does patient have a Living Will: No Does patient have a Durable POA for Healthcare: No - Code Status/Comfort Care Code Status Assessed: Yes Code Status: Full Code Critical Care: No Time Spent Managing PTS Care (In Minutes): 35
[2025-01-29] MEDS ORDERED: ONDANSETRON 4 MG/2 ML VIAL IV PRN (17:43)
[2025-01-29] MEDS ORDERED: ACETAMINOPHEN 500 MG TAB PO PRN (17:43)
[2025-01-29] MEDS ORDERED: NA CHLORIDE 0.9% 1,000 ML IV SCH (18:00)
[2025-01-29] MEDS: METOPROLOL TAR 25 MG TAB PO SCH (19:22)
[2025-01-29] MEDS: APIXABAN 2.5 MG TABLET PO SCH (19:57)
[2025-01-29] MEDS: METOPROLOL TAR 25 MG TAB PO ONE (19:57)
[2025-01-29] MEDS: SODIUM CHLORIDE 1 GM TAB PO ONE (19:57)
[2025-01-29] MEDS: VANCOMYCIN 1.25 GM in NA CHLORIDE 0.9% 250 ML IVPB SCH (19:57)
[2025-01-29] MEDS ORDERED: HOME MED 1 EA UNK (Omeprazole [Prilosec] 40 MG Capsule.Dr) PO SCH (21:00)
[2025-01-29] MEDS: MAGNESIUM OXIDE 400 MG TAB PO SCH (21:00)
--- NOTE | 2025-01-29 23:08 | RAD REPORT ---
EXAMINATION: Head Brain Wo Cont CLINICAL INDICATION: Male, 84 years old.Fall TECHNIQUE: Axial CT images from the skull base to the vertex without intravenous contrast. Coronal an d sagittal reformatted images were created from the data set. One or more of the following dose reduction techniques were used: Automated exposure control, adjustment of the mA and/or kV according to patient size, and/or iterative reconstruction. Unless otherwise specified, incidental findings do not require dedicated imaging follow-up. [id number]. COMPARISON: Earlier today FINDINGS: INTRACRANIAL: No acute intracranial hemorrhage. No hydrocephalus. No mass effect or midline shift. Mi ld chronic small vessel ischemic changes.Mild cerebral atrophy. VASCULATURE: Intracranial atherosclerotic changes. SCALP/SKULL: No calvarial fracture identified. No acute soft tissue abnormality. Procedural changes at the left globe is identified. SINUSES: Scattered areas of paranasal sinus thickening. No significant mastoid fluid. IMPRESSION: No acute intracranial abnormality. No significant change from prior.
[2025-01-30 06:31] LABS: Hematocrit 34.1 % (39.6-49.0); Hemoglobin 11.5 g/dL (13.6-17.9); MCH 32.2 pg (27.0-35.0); MCHC 33.7 g/dL (32.0-36.0); MCV 95.4 fL (80-100); Platelets 360 thou/uL (152-406); RBC Red Blood Cell Count 3.58 M/uL (4.33-5.43)
[2025-01-30 06:32] LABS: Absolute Basophils 0.1 K/uL (0-0.5); Absolute Eosinophils 0.4 K/uL (0-0.5); Absolute Lymphocytes (CBC) 0.6 K/uL (0.7-4.9); Absolute Monocytes 1.1 K/uL (0.1-1.3); Absolute Neutrophil 6.3 K/uL (1.8-8.0); Basophils % 1.5 % (0-1.3); Eosinophils % 4.7 % (0-4.4); Lymphocytes % 7.5 % (15.3-44.8); MPV 7.6 fL (7.6-11.3); Monocytes % 13.2 % (3.3-12.3); Neutrophils % 73.1 % (41.7-73.7); Nucleated Red Blood Cells % 0.1 % (0-0); Red Cell Distribution Width 14.9 % (12.1-15.2)
[2025-01-30 06:44] LABS: Albumin 3.3 g/dL (3.4-5.0); Albumin/Globulin Ratio 0.9 (1.1-1.8); Anion Gap 11.3 mEq/L (5.0-15.0); Bilirubin Total 0.4 mg/dL (0.2-1.0); Globulin 3.8 g/dL (2.3-3.5); Potassium 4.3 mEq/L (3.5-5.1); Protein, Total 7.1 g/dL (6.4-8.2); Troponin High Sensitivity 47.2 pg/mL (<58.9)
[2025-01-30 07:02] LABS: C-Reactive Protein 4.11 mg/L (<3.00); Magnesium 2.4 mg/dL (1.6-2.4); Phosphorus 3.5 mg/dL (2.5-4.9)
[2025-01-30 07:03] LABS: Thyroid Stimulating Hormone 3.97 uIU/mL (0.358-3.740)
[2025-01-30] MEDS: MORPHINE 2 MG/ML SYR IV PRN (07:39)
[2025-01-30] MEDS: VITAMIN B COMPLEX 1 CAP PO SCH (07:47)
[2025-01-30] MEDS: SODIUM CHLORIDE 1 GM TAB PO SCH (07:47)
[2025-01-30] MEDS: FUROSEMIDE 20 MG/ 2ML VIAL IV SCH (07:48)
[2025-01-30] MEDS: PANTOPRAZOLE 40MG TABLET PO SCH (07:48)
--- NOTE | 2025-01-30 22:16 | RAD REPORT ---
EXAMINATION: US CAROTID DUPLEX CLINICAL INDICATION: Syncope TECHNIQUE: Real-time grayscale, color flow and spectral Doppler sonographic images were obtained of t extracranial carotid system using a linear transducer. COMPARISON: No prior exam. FINDINGS: The velocity of the right internal carotid artery 111 cm/s The right ICA/CCA ratio normal The velocity left internal carotid artery 94 cm/s The left ICA/CCA ratio normal Moderate calcified plaque right carotid bulb. Mild plaque remainder common carotid carotid arteries Vertebral arteries demonstrate anterograde flow . No significant abnormality external carotid arteries Vertebral arteries demonstrate anterograde flow Methods for NASCET criteria: mild stenosis, 0% to 49%; moderate, 50% to 69%; severe stenosis, 70% to 99% IMPRESSION: Moderate calcified plaque right carotid bulb. The velocity does not appear to indicate a hemodynamica lly significant stenosis. MRA neck with contrast recommended for further evaluation
[2025-01-31] MEDS ORDERED: LORazepam 2 MG/ML VIAL IV ONE (01:06)
--- NOTE | 2025-01-31 10:10 | RAD REPORT ---
EXAMINATION: Brain Wo Cont CLINICAL INDICATION: Male, 84 years old. fall/weakness/AMS TECHNIQUE: Multiplanar multisequence MR images of the brain were obtained without intravenous contras t. Unless otherwise specified, incidental findings do not require dedicated imaging follow-up. [id number]. COMPARISON: Head CT 01/29/2025 FINDINGS: INTRACRANIAL: No acute infarct identified. No significant mass effect or midline shift.No hydrocepha fabiano. Mild chronic small vessel ischemic changes.Severe cerebral atrophy. VASCULATURE: Normal signal voids in the larger intracranial arteries and dural venous sinuses. SINUSES: The paranasal sinuses are predominantly clear.Trace mastoid fluid. BONE: The marrow signal pattern is within normal limits. IMPRESSION: No acute intracranial abnormality. Chronic findings as noted above.
[2025-01-31] MEDS: FUROSEMIDE 20 MG TABLET PO SCH (10:25)
--- NOTE | 2025-01-31 19:32 | CON ---
Date of Consultation: 01/31/2025 Reason For Consultation: Atrial flutter. History Of Present Illness: An 84-year-old male presented to the hospital with blood in stool. The patient has been on Eliquis and he has been having shortness of breath with activities and some ortho pnea. Upon evaluation, he was found to be in atrial flutter and hence I was consulted. The patient denies having any chest pain at this point. Past Medical History: CHF, hypertension, coronary artery disease, status post CABG, dyslipidemia. Medications: Refer reconciliation sheet for detailed list. Allergies: PENICILLIN. Family History: No premature coronary artery disease or cancer. Social History: Does not smoke or drink. Does not use any drugs. Review of Systems: All systems reviewed. They were negative except for what is mentioned in HPI. Physical Examination: Vital signs: Temperature is 97.9, heart rate is 71, breathing at 16, blood pressure is 126/66. General: Pleasant elderly male, in no apparent distress. Head And Neck: Pupils are equal, reactive to light. Intact eye movements. Mild JVD elevation, no c ervical lymphadenopathy. Neck supple. Thyroid is not enlarged. Lungs: Decreased breathing sounds with faint crackles in both bases. No accessory muscle use or mus shannan retraction. Heart: Regular rate and rhythm. No extra sounds. Abdomen: Soft, nontender. Bowel sounds positive. No organomegaly. No masses or hernia. No rigidi ty or rebound. Extremities: No clubbing or cyanosis. Intact pulses. Skin: No rash, no significant edema. Neurologic: Alert, awake, no acute focal deficits appreciated. Investigations: BUN 29, creatinine 1.1. Troponins are negative. NT proBNP is 3419. Chest x-ray on admission showed moderate left pleural effusion. Assessment/recommendation: 1. Atrial fibrillation/flutter. He is on anticoagulation. Heart rate is controlled. No further act ion is needed. Continue apixaban and metoprolol. 2. Congestive heart failure history. Appears to be slightly fluid overloaded. The patient could be challenged by using a.m. IV Lasix carefully and monitor BUN, creatinine, electrolytes. At this point , he follows up with the mathematical engineer and EP in [place]. No further inpatient cardiac workup is rec ommended unless the condition changes. Cardiology will sign off. Do not hesitate to re-consult if n eeded. SR/MODL Voice ID: [id number] Report ID: [id number]
[2025-02-01] MEDS: METOPROLOL TAR 25 MG TAB PO SCH (21:03)
--- NOTE | 2025-02-02 00:06 | P.PN ---
Date of Service: 01/30/25 Subjective patient is clinically doing better. MRI was reviewed. No acute abnormalities. Continue with physical therapy. Physical Examination - Vital Signs reviewed - Physical Exam General: Alert, In no apparent distress, Oriented x2, Demented Respiratory: Clear to auscultation bilaterally, Normal air movement Cardiovascular: Regular rate/rhythm, Normal S1 S2, No murmurs Gastrointestinal: Normal bowel sounds, Soft and benign, Non-distended, No tenderness Musculoskeletal: No clubbing, No swelling, No tenderness Integumentary: No rashes Neurological: No focal deficits Assessment & Plan - Problems (Diagnosis) (1) Generalized weakness Current Visit: Yes Status: Acute (2) Confusion Current Visit: Yes Status: Acute (3) Afib Current Visit: No Status: Acute (4) Coronary artery disease Current Visit: No Status: Acute (5) Gout Current Visit: No Status: Acute (6) HTN (hypertension) Current Visit: No Status: Acute (7) Hyponatremia Current Visit: Yes Status: Acute (8) Anemia of chronic disease Current Visit: Yes Status: Acute - Plan Continue with plan of care as mentioned below: 1. Patient with generalized weakness and confusion; continue with IV hydration and physical therapy. Continue with encouraging nutritional support. Reassess patient after working with therapy and dietary intake is monitored. MRI of the brain is pending as well. 2. History of atrial fibrillation; continue with medication for control 3. Anemia of chronic disease; continue with monitoring B12 levels and iron studies; patient with iron deficiency 4. Coronary artery disease; continue with anti-platelet therapy and statin therapy 5. Patient with decreased vision in the left eye; outpatient ophthalmology input 6. Hyponatremia; monitor sodium levels 7. GI/DVT prophylaxis Discharge Plan: Home Plan to discharge in: Greater than 2 days - Advance Directives Does patient have a Living Will: No Does patient have a Durable POA for Healthcare: No - Code Status/Comfort Care Code Status Assessed: Yes Code Status: Full Code Critical Care: No Time Spent Managing PTS Care (In Minutes): 35
--- NOTE | 2025-02-02 00:07 | P.PN ---
Date of Service: 01/31/25 Subjective Patient denies any new complaints. The family decided they want [facility] facility placement. Continue with physical therapy. Continue with out of bed and ambulating. Advanced diet as tolerated. Waiting for discharge planning Physical Examination - Vital Signs reviewed - Physical Exam General: Alert, In no apparent distress, Oriented x2, Demented Respiratory: Clear to auscultation bilaterally, Normal air movement Cardiovascular: Regular rate/rhythm, Normal S1 S2, No murmurs Gastrointestinal: Normal bowel sounds, Soft and benign, Non-distended, No tenderness Musculoskeletal: No clubbing, No swelling, No tenderness Integumentary: No rashes Neurological: No focal deficits Assessment & Plan - Problems (Diagnosis) (1) Generalized weakness Current Visit: Yes Status: Acute (2) Confusion Current Visit: Yes Status: Acute (3) Afib Current Visit: No Status: Acute (4) Coronary artery disease Current Visit: No Status: Acute (5) Gout Current Visit: No Status: Acute (6) HTN (hypertension) Current Visit: No Status: Acute (7) Hyponatremia Current Visit: Yes Status: Acute (8) Anemia of chronic disease Current Visit: Yes Status: Acute - Plan Continue with plan of care as mentioned below: 1. Patient with generalized weakness and confusion; continue with physical therapy. Continue with encouraging nutritional support. Reassess patient after working with therapy and dietary intake is monitored. MRI of the brain is pending as well. Heplock IV 2. History of atrial fibrillation; continue with medication for control 3. Anemia of chronic disease; continue with monitoring B12 levels and iron studies; patient with iron deficiency 4. Coronary artery disease; continue with anti-platelet therapy and statin therapy 5. Patient with decreased vision in the left eye; outpatient ophthalmology input 6. Hyponatremia; monitor sodium levels 7. GI/DVT prophylaxis Discharge Plan: Home Plan to discharge in: Greater than 2 days - Advance Directives Does patient have a Living Will: No Does patient have a Durable POA for Healthcare: No - Code Status/Comfort Care Code Status Assessed: Yes Code Status: Full Code Critical Care: No Time Spent Managing PTS Care (In Minutes): 35
--- NOTE | 2025-02-02 00:09 | P.PN ---
Date of Service: 02/01/25 Subjective patient's family at bedside. Had a long conversation with them. They are wanting patient to go to SNF placement. They state that his weakness is fairly new. He has also been more confused. However, it appears patient does have some dementia baseline. Will work on SNF placement and discharge planning. Physical Examination - Vital Signs reviewed - Physical Exam General: Alert, In no apparent distress, Oriented x2, Demented Respiratory: Clear to auscultation bilaterally, Normal air movement Cardiovascular: Regular rate/rhythm, Normal S1 S2, No murmurs Gastrointestinal: Normal bowel sounds, Soft and benign, Non-distended, No tenderness Musculoskeletal: No clubbing, No swelling, No tenderness Integumentary: No rashes Neurological: No focal deficits Assessment & Plan - Problems (Diagnosis) (1) Generalized weakness Current Visit: Yes Status: Acute (2) Confusion Current Visit: Yes Status: Acute (3) Afib Current Visit: No Status: Acute (4) Coronary artery disease Current Visit: No Status: Acute (5) Gout Current Visit: No Status: Acute (6) HTN (hypertension) Current Visit: No Status: Acute (7) Hyponatremia Current Visit: Yes Status: Acute (8) Anemia of chronic disease Current Visit: Yes Status: Acute - Plan Continue with plan of care as mentioned below: 1. Patient with generalized weakness and confusion; continue with physical therapy. Continue with encouraging nutritional support. Reassess patient after working with therapy and dietary intake is monitored. MRI of the brain is pending as well. Heplock IV 2. History of atrial fibrillation; continue with medication for control 3. Anemia of chronic disease; continue with monitoring B12 levels and iron studies; patient with iron deficiency 4. Coronary artery disease; continue with anti-platelet therapy and statin therapy 5. Patient with decreased vision in the left eye; outpatient ophthalmology input 6. Hyponatremia; monitor sodium levels 7. GI/DVT prophylaxis Discharge Plan: Home Plan to discharge in: Greater than 2 days - Advance Directives Does patient have a Living Will: No Does patient have a Durable POA for Healthcare: No - Code Status/Comfort Care Code Status Assessed: Yes Code Status: Full Code Critical Care: No Time Spent Managing PTS Care (In Minutes): 35
[2025-02-02 06:15] LABS: Absolute Basophils 0.1 K/uL (0-0.5); Absolute Eosinophils 0.5 K/uL (0-0.5); Absolute Neutrophil 5.4 K/uL (1.8-8.0); Basophils % 1.1 % (0-1.3); Eosinophils % 6.9 % (0-4.4); Hemoglobin 10.8 g/dL (13.6-17.9); Lymphocytes % 12.3 % (15.3-44.8); MCHC 33.7 g/dL (32.0-36.0); MCV 95.1 fL (80-100); MPV 7.8 fL (7.6-11.3); Neutrophils % 67.7 % (41.7-73.7); Platelets 301 thou/uL (152-406); RBC Red Blood Cell Count 3.37 M/uL (4.33-5.43); Red Cell Distribution Width 15.1 % (12.1-15.2)
[2025-02-02 06:29] LABS: Albumin/Globulin Ratio 0.8 (1.1-1.8); Anion Gap 8.4 mEq/L (5.0-15.0); Bilirubin Total 0.4 mg/dL (0.2-1.0); Globulin 3.8 g/dL (2.3-3.5); Magnesium 2.5 mg/dL (1.6-2.4); Potassium 4.4 mEq/L (3.5-5.1); Protein, Total 6.8 g/dL (6.4-8.2)
[2025-02-02] MEDS: HYDROCORTISONE SUC 100 MG INJ IV SCH (08:28)
[2025-02-02] MEDS: WATER FOR INJ,STERILE 10 ML IV SCH (08:29)
--- NOTE | 2025-02-02 21:15 | P.PN ---
Date of Service: 02/02/25 Subjective Patient is clinically doing well. Family is at bedside and patient ambulated quite a bit today. Continues to improve his strength and his neurologic condition. Continue with current plan of care at this time. Physical Examination - Vital Signs reviewed - Physical Exam General: Alert, In no apparent distress, Oriented x2, Demented Respiratory: Clear to auscultation bilaterally, Normal air movement Cardiovascular: Regular rate/rhythm, Normal S1 S2, No murmurs Gastrointestinal: Normal bowel sounds, Soft and benign, Non-distended, No tenderness Musculoskeletal: No clubbing, No swelling, No tenderness Integumentary: No rashes Neurological: No focal deficits Assessment & Plan - Problems (Diagnosis) (1) Generalized weakness Current Visit: Yes Status: Acute (2) Confusion Current Visit: Yes Status: Acute (3) Atrial fibrillation Current Visit: No Status: Acute (4) Coronary artery disease Current Visit: No Status: Acute (5) Gout Current Visit: No Status: Acute (6) HTN (hypertension) Current Visit: No Status: Acute (7) Hyponatremia Current Visit: Yes Status: Acute (8) Anemia of chronic disease Current Visit: Yes Status: Acute - Plan Continue with plan of care as mentioned below: 1. Patient with generalized weakness and confusion; continue with physical therapy. Continue with encouraging nutritional support. Reassess patient after working with therapy and dietary intake is monitored. MRI of the brain without any acute pathology. Heplock IV; start working with physical therapy in a.m. 2. History of atrial fibrillation; continue with medication for rate control; continue with anticoagulation 3. Anemia of chronic disease; continue with monitoring B12 levels and iron studies; patient with iron deficiency; supplement 4. Coronary artery disease; continue with anti-platelet therapy and statin therapy 5. Patient with decreased vision in the left eye; outpatient ophthalmology input 6. Hyponatremia; monitor sodium levels 7. GI/DVT prophylaxis Discharge Plan: SNF Plan to discharge in: 24 hours - Advance Directives Does patient have a Living Will: No Does patient have a Durable POA for Healthcare: No - Code Status/Comfort Care Code Status Assessed: Yes Code Status: Full Code Critical Care: No Time Spent Managing PTS Care (In Minutes): 35
[2025-02-03 06:06] VITALS: BMI 30.7
--- NOTE | 2025-02-03 09:06 | ECHO ---
HEIGHT: 5 ft 2 in WEIGHT: 167 lb 11.2 oz DATE OF STUDY: 01/30/[address]: Debora Zamora MD 2-DIMENSIONAL: YES M.MODE: YES DOPPLER: YES COLOR FLOW: YES TDS: PORTABLE: YES DEFINITY: BUBBLE STUDY: DIAGNOSIS: ATRIAL FLUTTER CARDIAC HISTORY: CATHERIZATION: YES SURGERY: YES PROSTHETIC VALVE: PACEMAKER: MEASUREMENTS (cm) DIASTOLIC (NORMALS) SYSTOLIC (NORMALS) IVSd 1.1 (0.6-1.2) LA Diam 4.7 (1.9-4.0) LVEF 55-60% LVIDd 4.4 (3.5-5.7) LVIDs 3.1 (2.0-3.5) %FS 29% LVPWd 1.2 (0.6-1.2) Ao Diam 3.2 (2.0-3.7) 2 DIMENSIONAL ASSESSMENT: RIGHT ATRIUM: NORMAL LEFT ATRIUM: SEVERELY DILATED RIGHT VENTRICLE: NORMAL LEFT VENTRICLE: NORMAL TRICUSPID VALVE: MILD TRICUSPID REGURGITATION MITRAL VALVE: MILD MITRAL REGURGITATION PULMONIC VALVE: MILD PULMONIC INSUFFICIENY AORTIC VALVE: CALCIFIED, NO AORTIC STENOSIS PERICARDIAL EFFUSION: NONE AORTIC ROOT: NORMAL LEFT VENTRICULAR WALL MOTION: NORMAL DOPPLER/COLOR FLOW: SEE BELOW COMMENTS: 1. NORMAL LEFT VENTRICULAR EJECTION FRACTION 55-60% WITH NORMAL WALL MOTION 2. SEVERE DIASTOLIC DYSFUNCTION WITH ELEVATED FILLING PRESSURE 3. SEVERE LEFT ATRIAL ENLARGEMENT 4. MODERATE MITRAL REGURGITATION 5. PULMONARY HYPERTENSION WITH RIGHT VENTRICULAR SYSTOLIC PRESSURE OF 41 mmHg PLUS RIGHT ATRIAL PRESSURE. TECHNOLOGIST: BJ WAKEFIELD
--- NOTE | 2025-02-03 12:14 | EKG ---
Test Date: 2025-01-30 Test Time: 09:10:30 Medical Assembly: OLINDA MEASUREMENT RESULTS: Intervals: Rate: 47 LA: QRSD: 150 QT: 532 QTc: 470 [place]: P: LA: QRS: -77 T: -39 INTERPRETIVE STATEMENTS: Atrial flutter Left axis deviation Right bundle branch block T wave abnormality, consider lateral ischemia Abnormal ECG Compared to ECG 01/29/2025 14:38:38 Left-axis deviation now present T-wave abnormality now present Possible ischemia now present Left anterior fascicular block no longer present Bifascicular block no longer present Left ventricular hypertrophy no longer present Early repolarization no longer present Electronically Signed On 02-03-25 12:05:29 CDT by Santos Flower
--- NOTE | 2025-02-03 12:17 | EKG ---
Test Date: 2025-01-29 Test Time: 14:38:38 Maintenance Trainer: LIDIA MEASUREMENT RESULTS: Intervals: Rate: 75 MN: QRSD: 154 QT: 446 QTc: 498 [place]: P: MN: QRS: -74 T: 68 INTERPRETIVE STATEMENTS: Sinus rhythm Right bundle branch block Left anterior fascicular block Bifascicular block Left ventricular hypertrophy with repolarization abnormality Abnormal ECG Compared to ECG 10/01/2023 07:49:46 Uncertain supraventricular rhythm now present Left anterior fascicular block now present Bifascicular block now present Left ventricular hypertrophy now present Early repolarization now present Electronically Signed On 02-03-25 12:07:23 CDT by Santos Flower
[2025-02-04 08:10] VITALS: BP 147/66; TEMP 98
--- NOTE | 2025-02-04 09:58 | P.DS ---
Admission Date: 01/31/25 Discharge Date: 02/04/25 Disposition: TRANSFER TO INPATIENT REHAB Discharge Condition: GOOD Reason for Admission: Generalized weakness Brief History of Present Illness: Diagnosis Generalized weakness Moderate calcified plaque to right carotid bulb Confusion Atrial fibrillation Coronary artery disease Gout Hypertension Hyponatremia Anemia of chronic disease [facility] 01/29/2025 Patient 84-year-old gentleman came to the hospital with generalized weakness. Patient's been in the ER a few days ago with complaints of some blood in his stool. Patient been on Eliquis and has a history of hemorrhoids. Patient otherwise has noticed some swelling in his eye, and it has been bothering him. 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 He has noticed that he has been feeling weak and without any energy. He decided to come into the emergency room for further evaluation. In the ER, he had lab workup which was fairly unremarkable except for some hyponatremia. However, they never addressed his main complaint which was his eye bothering him. He has some erythema in the eye and some crustiness. He may have conjunctivitis. Imaging studies that we performed did not reveal any significant abnormalities. At this time, he will be admitted to the hospital for observation. Hospital Course: Steph was admitted and treated for the following diagnoses. Generalized weakness Moderate calcified plaque to right carotid bulb Confusion Atrial fibrillation Coronary artery disease Gout Hypertension Hyponatremia Anemia of chronic disease 1. Patient with generalized weakness and confusion; continued with physical therapy. Continued with encouraging nutritional support. Dietary intake monitored closely. MRI of the brain without any acute pathology. Heplock IV 2. Echocardiogram reveals Normal EG, severe diastolic disfunction, severe left atrial enlargement, moderate mitral regurgitation, pulmonary HTN- Follow up with Cardiology for continued medical management and close monitoring. 3. Moderate calcified plaque to right carotid bulb, recommend outpatient MRA neck for further evaluation 4. History of atrial fibrillation,continued with medication for rate control and anticoagulation 5. Anemia of chronic disease, monitored patient's B12 levels and iron studies revealing iron deficiency ,iron and Vit B supplements administered 6. Coronary artery disease; continued anti-platelet and statin therapy 7. Patient with decreased vision in the left eye; outpatient ophthalmology input 8. Hyponatremia; resolved On 02/04/2025, Steph was seen on morning rounds and deemed hemodynamically stable for discharge to inpatient rehab. Dr. Davey has cleared him and signed off with recommendations to follow up with Dr. Davey and EP in [place]. Metoprolol was prescribed. Physical Exam General: Alert and Oriented x2, Demented Respiratory: Clear BBS, Normal air movement, on RA Cardiovascular: RRR, Normal S1 S2, No murmurs Gastrointestinal: Normal bowel sounds, ND/NT Musculoskeletal: No clubbing Integumentary: No rashes Neurological: No focal deficits Vital Signs/Physical Exam: Temp Pulse Resp BP Pulse Ox 98.0 F 72 18 147/66 H 96 02/04/25 08:00 02/04/25 08:30 02/04/25 08:00 02/04/25 08:30 02/04/25 08:00 Laboratory Data at Discharge: WBC 7.90 thou/uL (4.3-10.9) 02/02/25 05:31 Hgb 10.8 g/dL (13.6-17.9) L 02/02/25 05:31 Hct 32.0 % (39.6-49.0) L 02/02/25 05:31 Plt Count 301 thou/uL (152-406) 02/02/25 05:31 PT 15.0 SECONDS (10-13.0) H 01/29/25 14:50 INR 1.33 01/29/25 14:50 Sodium 136 mEq/L (136-145) 02/02/25 05:31 Potassium 4.4 mEq/L (3.5-5.1) 02/02/25 05:31 BUN 24 mg/dL (7-18) H 02/02/25 05:31 Creatinine 1.38 mg/dL (0.70-1.30) H 02/02/25 05:31 Glucose 103 mg/dL (74-106) 02/02/25 05:31 Phosphorus 3.5 mg/dL (2.5-4.9) 01/30/25 05:57 Magnesium 2.5 mg/dL (1.6-2.4) H 02/02/25 05:31 Total Bilirubin 0.4 mg/dL (0.2-1.0) 02/02/25 05:31 AST 26 U/L (15-37) 02/02/25 05:31 ALT 25 U/L (16-61) 02/02/25 05:31 Alkaline Phosphatase 81 U/L (45-117) 02/02/25 05:31 Triglycerides 49 mg/dL (<150) 01/30/25 05:57 Cholesterol 158 mg/dL (<200) 01/30/25 05:57 HDL Cholesterol 82 mg/dL (40-60) H 01/30/25 05:57 Cholesterol/HDL Ratio 1.93 01/30/25 05:57 Home Medications: B-Complex with Vitamin C [Super B Complex-Vitamin C] 1 each PO DAILY 07/21/20 Magnesium Oxide [Mag 0X*] 400 mg PO BID 07/21/20 Iron Ag,Ps/C/Fa6/B12/Zn/SA/Sto [Niferex Tablet] 1 each PO DAILY #30 tablet 07/24/20 Apixaban [Eliquis *] 2.5 mg PO BID #60 tablet 10/03/23 Furosemide [Lasix*] 20 mg PO DAILY #30 tab 10/03/23 Allopurinol 100 mg PO DAILY 01/29/25 Aspirin 81 mg PO DAILY 01/29/25 Atorvastatin Calcium [Lipitor*] 20 mg PO BEDTIME 01/29/25 Docusate Sodium [Stool Softener] 100 mg PO DAILY 01/29/25 Duloxetine HCl [Cymbalta] 20 mg PO BID 01/29/25 Fluticasone/Umeclidin/Vilanter [Trelegy Ellipta 100-62.5-25] 1 puff IH DAILY 01/29/25 Hydralazine HCl 50 mg PO BID 01/29/25 L.acidoph,Paracasei, B.lactis [Probiotic] 1 tab PO DAILY 01/29/25 Levothyroxine [Synthroid*] 88 mcg PO [id number] 01/29/25 Linaclotide [Linzess] 145 mcg PO DAILY 01/29/25 Prednisolone Acetate/Pf [Prednisolone Acet 1% Eye Drop] 1 drop OP QID 01/29/25 Metoprolol Tartrate [Lopressor*] 12.5 mg PO TID #45 tab 02/04/25 Pantoprazole [Protonix Tab*] 40 mg PO BIDAC tab 02/04/25 Sodium Chloride Tab [Sodium Chloride*] 1 gm PO TIDWM tab 02/04/25 New Medications: Metoprolol Tartrate [Lopressor*] 12.5 mg PO TID #45 tab Physician Discharge Instructions: Transfer to inpatient rehab if accepted Diet: AHA Activity: Fall precautions Followup: Forrest Bonilla MD [Primary Care Provider] - 1-2 Weeks
[2025-02-04 10:06] VITALS: O2SAT 96
--- NOTE | 2025-02-04 10:12 | P.PN ---
Date of Service: 02/03/25 Subjective Patient agreeable for inpt rehab Physical Examination - Vital Signs reviewed - Physical Exam General: Alert, In no apparent distress, Oriented x2, Demented Respiratory: Clear to auscultation bilaterally, Normal air movement Cardiovascular: Regular rate/rhythm, Normal S1 S2, No murmurs Assessment & Plan - Problems (Diagnosis) (1) Generalized weakness Current Visit: Yes Status: Acute (2) Confusion Current Visit: Yes Status: Acute (3) Atrial fibrillation Current Visit: No Status: Acute (4) Coronary artery disease Current Visit: No Status: Acute (5) Gout Current Visit: No Status: Acute (6) HTN (hypertension) Current Visit: No Status: Acute (7) Hyponatremia Current Visit: Yes Status: Acute (8) Anemia of chronic disease Current Visit: Yes Status: Acute - Plan Continue with plan of care as mentioned below: 1. Patient with generalized weakness and confusion; continue with physical therapy. Continue with encouraging nutritional support. Reassess patient after working with therapy and dietary intake is monitored. MRI of the brain without any acute pathology. Heplock IV; start working with physical therapy in a.m. 2. History of atrial fibrillation; continue with medication for rate control; continue with anticoagulation 3. Anemia of chronic disease; continue with monitoring B12 levels and iron studies; patient with iron deficiency; supplement 4. Coronary artery disease; continue with anti-platelet therapy and statin therapy 5. Patient with decreased vision in the left eye; outpatient ophthalmology inpu t 6. Hyponatremia; monitor sodium levels 7. GI/DVT prophylaxis Discharge Plan: IPR Plan to discharge in: 24 hours - Advance Directives Does patient have a Living Will: No Does patient have a Durable POA for Healthcare: No - Code Status/Comfort Care Code Status Assessed: Yes Code Status: Full Code Critical Care: No Time Spent Managing PTS Care (In Minutes): 15
--- NOTE | 2025-02-06 08:51 | EKG ---
Test Date: 2025-01-31 Test Time: 13:34:04 Crude Tester: JAILYN MEASUREMENT RESULTS: Intervals: Rate: 54 NE: QRSD: 150 QT: 486 QTc: 460 [place]: P: NE: QRS: -78 T: -7 INTERPRETIVE STATEMENTS: Atrial fibrillation with slow ventricular response Left axis deviation Right bundle branch block Abnormal ECG Compared to ECG 01/30/2025 09:10:30 Atrial flutter no longer present T-wave abnormality no longer present Possible ischemia no longer present Electronically Signed On 02-06-25 08:41:31 CDT by Santos Flower
== END 2025-02-04 10:15 | DRG 948 ==
LOC: ER 14:19 → ERHOLD 17:43 → 4TH 18:07 → OBSVTOIN 01-31 09:57
PROVIDERS: ADMIT Hospitalist; ATTEND Hospitalist
DX: R53.1 Weakness (principal); E87.1 Hypo-osmolality and hyponatremia; I48.92 Unspecified atrial flutter; D63.8 Anemia in other chronic diseases classified elsewhere; I48.91 Unspecified atrial fibrillation; E03.9 Hypothyroidism, unspecified; H54.62 Unqualified visual loss, left eye, normal vision right eye; M10.9 Gout, unspecified; I27.20 Pulmonary hypertension, unspecified; I10 Essential (primary) hypertension; I34.0 Nonrheumatic mitral (valve) insufficiency; E78.00 Pure hypercholesterolemia, unspecified; K21.9 Gastro-esophageal reflux disease without esophagitis; I25.10 Atherosclerotic heart disease of native coronary artery without angina pectoris; F03.90 Unspecified dementia, unspecified severity, without behavioral disturbance, psychotic disturbance, mood disturbance, and anxiety; I25.2 Old myocardial infarction; Z88.0 Allergy status to penicillin; Z95.1 Presence of aortocoronary bypass graft; Z90.49 Acquired absence of other specified parts of digestive tract; Z79.01 Long term (current) use of anticoagulants; Z79.82 Long term (current) use of aspirin; Z79.890 Hormone replacement therapy; Z79.899 Other long term (current) drug therapy
CPT/HCPCS: 36415; 70450; 70487; 70551; 71045; 76377; 80048; 80053; 80061; 80076; 80202; 81001; 82533; 82607; 83540; 83605; 83735; 83880; 84100; 84439; 84443; 84484; 85025; 85610; 86140; 93005; 93306; 93880; 97116; 97161; 97530; 99285; G0378; J1720; J1940; J2270; J2405; J3370; J7050; Q9967

== ENCOUNTER 2025-02-04 08:42 | Inpatient (IN) | payer OTHER, MEDICARE ==
[2025-02-04 11:20] VITALS: BMI 30.7
[2025-02-04] MEDS ORDERED: ONDANSETRON 4 MG (ODT) TAB PO PRN (13:14)
[2025-02-04] MEDS: SODIUM CHLORIDE 1 GM TAB PO SCH (15:17)
[2025-02-04] MEDS: METOPROLOL TAR 25 MG TAB PO SCH (15:17)
[2025-02-04 15:29] LABS: Sqamous Epithelial <5 /HPF (None Seen); Urine Bacteria None Seen /HPF (<20); Urine Bilirubin NEGATIVE (Negative); Urine Blood Negative (Negative); Urine Clarity Clear (Clear); Urine Color Light-Yellow (Yellow); Urine Culture Reflex Order NOT NEEDED; Urine Glucose NEGATIVE (Negative); Urine Ketones NEGATIVE (Negative); Urine Micro Reflex YN NO BILL MICROSCOPIC; Urine Nitrite NEGATIVE (Negative); Urine Protein TRACE (Negative); Urine RBC <5 /HPF (None Seen); Urine Urobilinogen Normal (Normal); Urine WBC <5 /HPF (<5); Urine pH 5.5 (5.0-7.0)
[2025-02-04] MEDS: PANTOPRAZOLE 40MG TABLET PO SCH (16:42)
[2025-02-04] MEDS: OPTH OPTH SCH ×2 (17:00→20:36)
[2025-02-04] MEDS: PREDNISOLONE ACETATE 1% OPTH SCH ×2 (17:00→20:36)
[2025-02-04] MEDS: MAGNESIUM OXIDE 400 MG TAB PO SCH (20:35)
[2025-02-04] MEDS: APIXABAN 2.5 MG TABLET PO SCH (20:36)
[2025-02-04] MEDS ORDERED: DOCUSATE NA 100 MG CAP PO PRN (22:41)
[2025-02-05] MEDS: ASPIRIN EC 81 MG TAB PO SCH (07:29)
[2025-02-05] MEDS: VITAMIN B COMPLEX 1 CAP PO SCH (07:29)
[2025-02-05] MEDS: FE SULF/FA/VIT B COMP & C TAB PO SCH (07:29)
[2025-02-05] MEDS: FUROSEMIDE 20 MG TABLET PO SCH (07:29)
[2025-02-05] MEDS: SODIUM CHLORIDE 1 GM TAB PO SCH (07:30)
[2025-02-05] MEDS: GABAPENTIN 100 MG CAP PO SCH (07:30)
[2025-02-05] MEDS: allopurinoL 100 MG TAB PO SCH (07:30)
[2025-02-05] MEDS: HYDRALAZINE HCL 25 MG TABLET PO SCH (07:30)
[2025-02-05] MEDS: LACTOBACILLUS/ACIDOPHILUS TAB PO SCH (07:30)
[2025-02-05] MEDS: DULOXETINE 20 MG CAP PO SCH (07:31)
[2025-02-05] MEDS: FERROUS SULFATE 325 MG TAB PO SCH (07:31)
[2025-02-05] MEDS: LEVOTHYROXINE SOD 0.088 MG TAB PO SCH (07:31)
[2025-02-05 07:55] LABS: Hematocrit 32.9 % (39.6-49.0); Hemoglobin 10.9 g/dL (13.6-17.9); MCH 32.1 pg (27.0-35.0); MCHC 33.3 g/dL (32.0-36.0); MCV 96.4 fL (80-100); MPV 7.7 fL (7.6-11.3); Platelets 303 thou/uL (152-406); RBC Red Blood Cell Count 3.41 M/uL (4.33-5.43)
[2025-02-05] MEDS: TRELEGY ELLIPTA IH SCH (08:00)
[2025-02-05] MEDS: LINZESS 145 MCG PO SCH (08:00)
[2025-02-05 08:10] LABS: Anion Gap 7.1 mEq/L (5.0-15.0); Magnesium 2.2 mg/dL (1.6-2.4); Potassium 4.1 mEq/L (3.5-5.1); Prealbumin 19.7 mg/dL (20-40)
--- NOTE | 2025-02-05 11:24 | HP ---
Date of Admission: 02/04/2025 Time Of Service: 1 p.m. Reason For Admission/chief Complaint: Coronary artery disease. History Of Present Illness: Mr. Walsh is an 84-year-old right-handed patient with congestive hea rt failure, hypertension, 4-vessel bypass in 1997, GE reflux, dyslipidemia, gout, cholecystectomy, ap pendectomy, and cardiac ablation, who presented to the Emergency Department on 01/29/2025 with genera lized weakness, fatigue, and has had some worsening pain in the left eye. Evaluation did not identif y a focal neurological deficit with generalized weakness, confusion. His comorbidities were atrial f ibrillation, coronary artery disease, gout, hypertension, hyponatremia, anemia. He was evaluated by the Physical Therapy Service and determined that he required significant assistance for ordinary acti vities of daily living including his transferring, mobilization, ambulation, and to be able to perfor m all activities of daily living. In addition, medically he had significant shortness of breath, dec reased endurance, poor nutrition, and required improvement in his anemia. Actually, hemoglobin and h ematocrit were decreased in addition to his renal dysfunction. He was determined to be a good candid ate for inpatient rehabilitation to help him return towards his prior level of functioning and reduce his risk of rehospitalization. Past Medical History: As noted above. In addition to surgery, he has had cardiac ablation, appendec alicia, gout, cholecystectomy, and coronary artery bypass grafting. Allergies: PENICILLIN. Current Medications: Tylenol 500 mg every 6 hours as needed, , 100 mg daily, Eliquis 2.5 m g twice daily, aspirin 81 mg daily, Lipitor 20 mg at bedtime, Colace 100 mg daily, duloxetine 20 mg t wice daily, ferrous sulfate 325 mg daily, Lasix mg daily, gabapentin 100 mg daily. In add ition, Apresoline 50 mg twice daily, Lactinex 1 tablet daily, Synthroid 0.088 mg daily, magnesium oxi de 400 mg twice daily, Lopressor 12.5 mg 3 times daily, Hemocyte Plus 1 tablet daily, Zofran 4 mg elise ry 8 hours, Protonix 40 mg daily. He is on sodium chloride tablets 1 g 3 times daily and Super B com plex daily. Laboratory Studies: Hemoglobin is 10.9, white blood cell count 7.0, platelets 303. His sodium 137, potassium 4.1, chloride 106, CO2 28, BUN 29, creatinine 1.41, glucose 147, calcium 9.1, magnesium 2.2 , prealbumin is 19.7. Urinalysis is unremarkable. Family History: Noncontributory. 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 He has decreas ed vision, which is also in the right eye. In addition, diffuse weakness, but no focal weakness in t erms of his review of systems. Denies any fall, fevers, chills. No significant myalgias, arthralgia s. No rash. No headache. No weight change. Social History: The patient lives alone. He does have family members who were able to check on him, but most of the time he is by himself, takes care of his own activities of daily living, but he has a caregiver who comes in about 4 times a week to assess and help manage his daily needs. Current Level Of Functioning: Mr. Walsh is in terms of eating at assistance level, grooming is s etup assistance, bathing moderate assistance, upper body dressing contact guard assistance, lower bod y dressing and donning and doffing footwear at moderate assistance level. Transferring, contact guar d assistance. Ambulation, he was able to ambulate about 250 feet with contact guard assistance. In regard to steps, he is not yet mobilizing up and down steps. Physical Examination: Vital Signs: Blood pressure 112/60, pulse 50, respirations 17, temperature 98, oxygen saturation 96% . Weight 168 pounds, height 5 feet, BMI 37. General: Mr. Walsh is sitting in a chair beside his bed. HEENT: He appears normocephalic. 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 mil d near the left eye. Denies any significant other issues from the eye. Again, he is normocephalic, atraumatic. Sclerae anicteric. Oropharynx pink, moist. Neck: Supple. Chest: Clear. Heart: Regular. Extremities: Show no significant edema, cyanosis, or clubbing. Neurologic: He is mildly weak and diffusely slow. He has no focal deficits. 4+ upper and lower ext remity. Decreased sensation in stocking-glove manner. He has incoordination upper and lo wer extremity, mildly ataxic gait. Rehab And Medical Assessment And Plan: Mr. Walsh is an 84-year-old patient in the rehabilitation unit with impairment category 14, cardiac. Impairment group code is 09, cardiac. Etiologic diagnos is of coronary artery disease. Comorbidities are congestive heart failure diastolic, hypertension, G E reflux, dyslipidemia, gout, decreased mobility, decreased physical functioning, and debility. Plan: He will have physical, occupational, and speech therapy for 3.5 hours, 5 of 7 days. We will c ontinue for hypothyroidism, Synthroid which is 0.088 mg daily. For DVT prophylaxis, Eliquis 2.5 mg d aily, aspirin 81 mg daily for stroke risk reduction, Tylenol 500 mg every 6 hours for his pain contro l, Colace for stool softening, he has duloxetine for depression and neuropathic pain, ferrous sulfate for anemia, Lasix for fluid management, gabapentin for neuropathic pain. Continue with magnesium ox jeanna for muscle spasms, Lopressor for heart rate control. He has Protonix for GE reflux, sodium chlor jeanna for hyponatremia, and is on board. Comorbidities That Are Impacting Rehabilitation: His left eye blindness makes it difficult for him t o have good depth perception, which can result in easy falls. The patient will be advised to use a c ane either a 4-prong cane or a 3-prong cane to stand on his own as he mobilizes. In addition to use a walker to minimize his risk of injury and fall. He has coronary artery disease. EKG maybe require d. He is reporting chest pain. In addition, chest x-ray will be done to rule out any evidence of pn eumonia or infection. Urinalysis will be done to rule out urinary tract infection and as need be. Rehab Specific Plan: Mr. Walsh will have 3.5 hours of therapy, physical, occupational, and speec h therapy to improve his ability to transfer from bed to chair, to a walker, to mobilize his rolling walker and use a cane in addition to a wheelchair as appropriate. We will work on going up and down steps with bilateral handrails and handrails on either side to assist him in his ability to be safely negotiate steps. We will work on him going in and out of the tub, on and off a toilet, also dressin g upper and lower body while maintaining his balance. Mr. Walsh has a good understanding of the process of admission to the inpatient rehabilitation un it and how he will benefit from physical, occupational, and speech therapy. He will have 24 hours a day, 7 days a week skilled rehabilitation and nursing, daily physician evaluation and management, and social work supervisor evaluation and management for discharge planning, home equipment, and to continue th erapy after his discharge. If need be, additional help will be sought from the Hospitalist Service. Barriers To Discharge: As noted, he is blind in the left eye and it puts him at risk of falling, brenda ecially if he has to negotiate tight spaces and corners and there is a different level such as split- level house or from smooth surfaces. Those will be simulated to help him negotiate those . Length Of Stay: About 10 to 12 days. Disposition: Expected to be home. Continue therapy via Home Health and have his family . Prognosis: Good. Code Status: Full code. Rehab Specific Goals: 1. Become independent with upper and lower body dressing, donning and doffing footwear. 2. Independently perform all activities of daily living. 3. Independently mobilize 250 feet with wheelchair and perhaps with a single prong cane and may be a quad cane to ambulate at least 250 feet with independence, up and down 10 steps with independence, pe rform all cognitive functioning with independence. All safety awareness issues should be addressed w ith independence. The above goals were reviewed with Mr. Walsh and he is in agreement. By signing this document, I acknowledge I personally performed a full physical examination on Mr. Steffi stark no later than 24 hours after his admission to the inpatient rehabilitation unit and determined that he is able to tolerate the above course of treatment at an intensive level for a reasonable per iod of time. A detailed individualized plan of care for him will be completed by hospital day 4 based on the preadmission screen, history and phy sical, and therapy evaluations. ALIA/TERRIE Voice ID: [id number]
[2025-02-05] MEDS: ATORVASTATIN 20 MG TAB PO SCH (19:54)
--- NOTE | 2025-02-05 21:59 | PN ---
Date of Progress Note: 02/05/2025 Time Of Service: 1 p.m. Subjective: Mr. Walsh is resting comfortably in room, waiting for another therapy session. He d enied any chest pain, shortness of breath, any problem such as diarrhea and issues of sleep, and is s o far happy with his therapy. Objective: No fevers, chills, nausea, vomiting, myalgias, arthralgias, rash, headache, weight change . Physical Examination: Vital Signs: Blood pressure 112/69, pulse 59, respiratory rate 17, temperature 98.1, oxygen saturati on is 97%. Weight 168 pounds, height 5 feet 2 inches, BMI 30.7. General: He is resting comfortably. HEENT: Normocephalic, atraumatic. Sclerae anicteric. Oropharynx pink, moist. Neck: Supple. Chest: Clear. Heart: Regular. Extremities: No clubbing, cyanosis, or edema noted. Laboratory Studies: White blood cell count 7.0, hemoglobin 10.9, platelets are 303. Sodium 137, pot assium 4.1, chloride 106, carbon dioxide 28, BUN 29, creatinine 1.41, glucose 147. Calcium 9.1, magn esium 2.2. Albumin 19.7. Urinalysis is completely unremarkable. X-ray/imaging: No new x-rays or imaging. Medications: He is on the allopurinol 100 mg daily for gout, Eliquis 2.5 mg twice daily for DVT prop hylaxis, aspirin 81 mg daily, Lipitor 20 mg at bedtime for dyslipidemia, Tylenol for pain 500 mg ever y 6 hours, Colace 100 mg daily for constipation. He has duloxetine 20 mg twice daily for depression and neuropathic pain, ferrous sulfate 325 mg daily for his iron deficiency. He is on Lasix 20 mg jaja ly for his CHF. He has hydralazine, managing blood pressure and fluid balance. Lactinex acidophilus for probiotics. He is on Synthroid 0.088 mg daily for hypothyroidism, magnesium oxide for muscle sp asms, Lopressor for heart rate control, HemocytePlus on board, Zofran as well for nausea IV and oral as needed, Protonix 40 mg twice daily, sodium chloride tablets for hyponatremia, and Super B complex. Progress Made With Physical, Occupational, And Speech Therapy: With his occupational therapy today, he was able to do [id number] transfers with supervision. He ambulated from the room to gym with a rolling walker. He was slow and steady. He did appear to have some loss of balance with the right side to the wall and was held with gait belt by the therapist. He engaged in 3 sets of [id number] transfers to improve his balance, coordination. 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 Also, he has difficulty with depth perception and may tend to bump into objects. With speech therapy, he recalled 2 of 3 unrelat ed pictures after 3 minutes and 3 of 3 after 3-minute attempt. He was oriented to temporal concepts with 50% accuracy and spatial concepts with 25% accuracy. Organizational thinking skills used for di abt naming for 7 members of a concrete category with 90% accuracy and moderate assistance for pennie tained attention. Assessment: Mr. Walsh is an -rgsc-ame patient in rehabilitation with congestive heart failure. He has coronary artery disease. He is doing well. He has hypothyroidism, hypertension, le ft eye blindness, dyslipidemia, mild constipation, gastroesophageal reflux, hyponatremia. His therap y is progressing slowly and steadily, but again still somewhat challenged by his visual depth percept ion issues. He has no focal deficits. No stroke-like episodes. Plan: We will continue again with physical, occupational, and speech therapy 3.5 hours, 5 of 7 days. Continue with comorbid condition medications. Continue with DVT prophylaxis. In terms of his plan for going home, he does have a daughter who is available, but he is mostly by himself and probably w ould require maybe supervision, perhaps throughout the day, and at night if he tries to get out of be d and go straight to the restroom likelihood is that he may fall and perhaps suffer injury. If he is once able to safely negotiate those activities of daily living while independent and at home, may re commend extended stay at shelter; however, the goal is to get him home with family and perhaps continue therapy via Home Health and with some additional help judith roy by services. ALIA/IWONAL Voice ID: [id number] Report ID: [id number]
[2025-02-06 06:04] LABS: Absolute Basophils 0.1 K/uL (0-0.5); Absolute Eosinophils 0.5 K/uL (0-0.5); Absolute Monocytes 0.8 K/uL (0.1-1.3); Absolute Neutrophil 4.8 K/uL (1.8-8.0); Basophils % 1.2 % (0-1.3); Eosinophils % 7.6 % (0-4.4); Hematocrit 31.7 % (39.6-49.0); Hemoglobin 10.7 g/dL (13.6-17.9); Lymphocytes % 13.3 % (15.3-44.8); MCHC 33.6 g/dL (32.0-36.0); MCV 95.3 fL (80-100); MPV 7.9 fL (7.6-11.3); Neutrophils % 66.9 % (41.7-73.7); Platelets 283 thou/uL (152-406); RBC Red Blood Cell Count 3.33 M/uL (4.33-5.43); Red Cell Distribution Width 14.9 % (12.1-15.2)
[2025-02-06 06:28] LABS: Albumin 3.1 g/dL (3.4-5.0); Anion Gap 8.6 mEq/L (5.0-15.0); Magnesium 2.3 mg/dL (1.6-2.4); Potassium 4.6 mEq/L (3.5-5.1); Prealbumin 19.9 mg/dL (20-40)
[2025-02-06] MEDS: DOCUSATE NA 100 MG CAP PO SCH (07:56)
[2025-02-06] MEDS: ENSURE HIGH PROTEIN 237 ML CAN PO SCH (19:44)
--- NOTE | 2025-02-06 22:25 | PN ---
Date of Progress Note: 02/06/2025 Time Of Service: 1:00 p.m. Subjective: Mr. Walsh is resting in a chair beside bed, did have extended conversation about how he is doing. He is somewhat worried about pain in the left eye. He has drops for that. He was wor ried about not having an stock worker and deliverer in the hospital that may be helpful. Has been conscious abo ut the food and timeliness and the type of food, which was needed to be cut up some more as it was so mewhat tough, so diet will be now adjusted to soften bite size to help make it easier for him to be a ble to eat. Review of Systems: No fevers, chills, nausea, vomiting, myalgias, arthralgias. He has some mild pain in his left eye an d some mild diffuse weakness, which he is working well and improved. Physical Examination: Vital Signs: Blood pressure 126/70, pulse 73, respiratory rate 18, temperature 97.5, oxygen saturati on 96%. Weight 168 pounds, height 5 feet 2 inches, BMI 30.7. General: Mr. Walsh again is sitting in a chair beside bed. HEENT: He appears normocephalic. The left eye, which he is unable to see because of loss of vision is somewhat held more close than the right eye, which is his normal eye, he is able to see. Neuro: Otherwise, no new findings in terms of his right face and cranial nerves. Motor examination, diffuse weakness in upper and lower extremities proximally and distally. Mild stocking-glove loss to light touch and temperature. He has good coordination. Significant fatigue as he tries to ambula te. Laboratory Studies: White blood cell count 7.2, hemoglobin 10.7, platelets 283. Sodium 135, potassi um 4.6, chloride 103, carbon dioxide is 28, BUN 28, creatinine 1.24, glucose 111, calcium 9.5. Magne sium 2.3. Albumin 3.1, prealbumin 19.9. Urinalysis is normal from 02/04/2025. X-rays/imaging: No x-rays or imaging. Medications: Medications have been reviewed. He is on the aspirin 81 mg daily. He has Colace 100 m g twice daily for constipation in addition to continuing with duloxetine 20 mg twice daily for depres kizzy, Lasix 20 mg daily for fluid management. He has on board Synthroid for hypothyroidism, Lactinex , probiotics, magnesium for muscle spasms, metoprolol for his heart rate control, Hemocyte Plus for a nemia, Zofran for nausea, Ensure High Protein added due to poor appetite and poor protein intake. He has sodium chloride 1 g 3 times daily for pressure support and to correct his hyponatremia. Progress Made With Physical, Occupational, And Speech Therapy: Today with physical therapy did supin e to sit transfers independently, performed multiple catgy-cl-ziazw transfers independently, multiple sud-bx-uwgay, again independently. Ambulated 500 feet with a rolling walker and 250 feet twice and 120 feet with standby assistance using a rolling walker. He was able to go up and down 15 steps wit h bilateral handrails with standby assistance. With occupational therapy, supervision for sit-to-sta nd transfers, also toilet transfers. Did request a shower in the morning due to fatigue. Started ac tivities of daily living routine with sitting at bedside, oral hygiene while standing in front of the sink and did so with independence. With his speech, used organizational thinking and sustained atte ntion skills to name 10 members of concrete categories with 100% accuracy and moderate verbal semanti c cues required. Temporal orientation was recalled by memory with 75% accuracy and spatial orientati on recalled with 100% accuracy. Assessment: Mr. Walsh is an 84-year-old patient, admitted to the rehabilitation unit with reynolds ry artery disease. He has decreased mobility, decreased physical functioning. He is blind in the le ft eye, hypertension, hypothyroidism, dyslipidemia, constipation, gastroesophageal reflux, hyponatrem ia, has poor depth perception. Plan: We will continue with physical, occupational, and speech therapy 3.5 hours, 5 of 7 days and we will continue with management of his DVT prophylaxis risk in addition to addressing the hyponatremia with sodium replacement, Protonix for GE reflux, nausea addressed with Zofran, Hemocyte Plus for low iron count, Synthroid for hypothyroidism, Apresoline for blood pressure control. He has probiotics on board, Colace for constipation, Lipitor for dyslipidemia, aspirin for stroke risk reduction, Eliqu is 2.5 mg twice daily for DVT risk reduction, allopurinol for gout symptoms, Tylenol for pain. 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 The therapy directed in helping him with those limitations will be emphas ized. PATI Voice ID: [id number] Report ID: [id number]
--- NOTE | 2025-02-07 13:14 | P.RH.PN ---
Estimated Length of Stay: 10 Expected Discharge Date: 02/12/25 Discharge Disposition Plan: Home Family Support: Yes [facility] Goal: Mobility, Transfers, Self Care Vital Signs: Last Vital Signs Temp 97.9 F 02/07/25 07:51 Pulse 67 02/07/25 10:49 Resp 18 02/07/25 07:51 BP 162/72 H 02/07/25 10:49 Pulse Ox 96 02/07/25 07:51 Laboratory: Laboratory Last Values WBC 7.20 thou/uL (4.3-10.9) 02/06/25 05:29 RBC 3.33 M/uL (4.33-5.43) L 02/06/25 05:29 Hgb 10.7 g/dL (13.6-17.9) L 02/06/25 05:29 Hct 31.7 % (39.6-49.0) L 02/06/25 05:29 MCV 95.3 fL (80-100) 02/06/25 05:29 MCH 32.0 pg (27.0-35.0) 02/06/25 05:29 MCHC 33.6 g/dL (32.0-36.0) 02/06/25 05:29 RDW 14.9 % (12.1-15.2) 02/06/25 05:29 Plt Count 283 thou/uL (152-406) 02/06/25 05:29 MPV 7.9 fL (7.6-11.3) 02/06/25 05:29 Neutrophils % 66.9 % (41.7-73.7) 02/06/25 05:29 Lymphocytes % 13.3 % (15.3-44.8) L 02/06/25 05:29 Monocytes % 11.0 % (3.3-12.3) 02/06/25 05:29 Eosinophils % 7.6 % (0-4.4) H 02/06/25 05:29 Basophils % 1.2 % (0-1.3) 02/06/25 05:29 Absolute Neutrophils 4.8 K/uL (1.8-8.0) 02/06/25 05:29 Absolute Lymphocytes 1.0 K/uL (0.7-4.9) 02/06/25 05:29 Absolute Monocytes 0.8 K/uL (0.1-1.3) 02/06/25 05:29 Absolute Eosinophils 0.5 K/uL (0-0.5) 02/06/25 05:29 Absolute Basophils 0.1 K/uL (0-0.5) 02/06/25 05:29 Sodium 135 mEq/L (136-145) L 02/06/25 05:29 Potassium 4.6 mEq/L (3.5-5.1) 02/06/25 05:29 Chloride 103 mEq/L (98-107) 02/06/25 05:29 Carbon Dioxide 28 mEq/L (21-32) 02/06/25 05:29 Anion Gap 8.6 mEq/L (5.0-15.0) 02/06/25 05:29 BUN 28 mg/dL (7-18) H 02/06/25 05:29 Creatinine 1.24 mg/dL (0.70-1.30) 02/06/25 05:29 Est GFR (CKD-EPI) 58 ml/min (=/>90) L 02/06/25 05:29 Glucose 111 mg/dL (74-106) H 02/06/25 05:29 Calcium 9.5 mg/dL (8.5-10.1) 02/06/25 05:29 Magnesium 2.3 mg/dL (1.6-2.4) 02/06/25 05:29 Albumin 3.1 g/dL (3.4-5.0) L 02/06/25 05:29 Prealbumin 19.9 mg/dL (20-40) L 02/06/25 05:29 Urine Color Cancelled 02/04/25 15:17 Urine Clarity Cancelled 02/04/25 15:17 Urine pH Cancelled 02/04/25 15:17 Ur Specific [place] Cancelled 02/04/25 15:17 Glucose (UA)(Auto) Cancelled 02/04/25 15:17 Urine Ketones Cancelled 02/04/25 15:17 Urine Blood Cancelled 02/04/25 15:17 Urine Nitrite Cancelled 02/04/25 15:17 Urine Bilirubin Cancelled 02/04/25 15:17 Urine Urobilinogen Cancelled 02/04/25 15:17 Ur Leukocyte Esterase Cancelled 02/04/25 15:17 Urine RBC Cancelled 02/04/25 15:17 Urine Red Cell Clumps Cancelled 02/04/25 15:17 Urine WBC Cancelled 02/04/25 15:17 Urine WBC Clumps Cancelled 02/04/25 15:17 Ur Squamous Epith Cells Cancelled 02/04/25 15:17 U Non-Squamous Epi Cells Cancelled 02/04/25 15:17 Ur Transition Epith Cell Cancelled 02/04/25 15:17 Ur Renal Epithelial Cell Cancelled 02/04/25 15:17 Calcium Carbonate Cryst Cancelled 02/04/25 15:17 Calcium Oxalate Crystal Cancelled 02/04/25 15:17 Leucine Crystals Cancelled 02/04/25 15:17 Cystine Crystals Cancelled 02/04/25 15:17 Uric Acid Crystals Cancelled 02/04/25 15:17 Triple Phos Crystals Cancelled 02/04/25 15:17 Tyrosine Crystals Cancelled 02/04/25 15:17 Unidentified Crystals Cancelled 02/04/25 15:17 Amorphous Crystals Cancelled 02/04/25 15:17 Urine Bacteria Cancelled 02/04/25 15:17 Hyaline Casts Cancelled 02/04/25 15:17 Granular Casts Cancelled 02/04/25 15:17 Waxy Casts Cancelled 02/04/25 15:17 RBC Casts Cancelled 02/04/25 15:17 WBC Casts Cancelled 02/04/25 15:17 Urine Mucus Cancelled 02/04/25 15:17 Urine Trichomonas Cancelled 02/04/25 15:17 Ur Yeast w Hyphae Cancelled 02/04/25 15:17 Urine Yeast (Budding) Cancelled 02/04/25 15:17 Urine Sperm Cancelled 02/04/25 15:17 Ur Oval Fat Bodies Cancelled 02/04/25 15:17 Urine Culture Reflexed Cancelled 02/04/25 15:17 Urine Total Protein Cancelled 02/04/25 15:17 Urine Ascorbic Acid Cancelled 02/04/25 15:17 Urine Fat Cancelled 02/04/25 15:17 Weight: 168 lb Wound Present: No Closed Surgical Incision Present: No Negative Pressure Wound Therapy Present: No Physician Update: Labs reviewed and are stable. Left eye blindness with pain. BIMS 7, SLUMS 13. Moderate to severe cognitive deficits. Doing well with PT. Independent with RW 500' x 2, up and down 20 steps. Independent with OT except with showering. Independent with all ADLs. Summary: Patient's care plan and residential goals have been reviewed and revised as necessary. Please see the Rehabilitation Signature page for all necessary s ignatures.
[2025-02-08] MEDS: ACETAMINOPHEN 500 MG TAB PO PRN (04:44)
[2025-02-09] MEDS: METOPROLOL TAR 25 MG TAB PO SCH (20:03)
[2025-02-10] MEDS: LIDOCAINE 4% PATCH TOP SCH (11:32)
[2025-02-10] MEDS ORDERED: MELATONIN 5 MG TABLET PO PRN (13:24)
[2025-02-10] MEDS: TRAZODONE 50 MG TABLET PO SCH (20:23)
--- NOTE | 2025-02-11 01:12 | PN ---
Date of Progress Note: 02/10/2025 Time Of Service: 1 p.m. Subjective: Mr. Walsh is in a chair, getting to the restroom. Says he did not have a good night 's rest last night, is somewhat more tired today. Still complaining of the left eye being somewhat p ainful. No additional complaints. Review of Systems: No significant fevers, chills, nausea, vomiting, myalgias, arthralgias. Again, left eye pain. Physical Examination: Vital Signs: Blood pressure 169/70, pulse 67, respiratory rate 18, temperature 97.8, oxygen saturati on 99%. General: Mr. Walsh again is resting in chair. He communicates, but today somewhat less communic ative. Did complain again he did not have a good night's rest and was somewhat sleepy and about his pain. He has no new or focal deficits. Does have diffuse weakness of upper and lower extremities. Laboratory Data: No new laboratory studies. X-ray/imaging: No new x-rays or imaging. Medications: His medications have been reviewed. He is now on melatonin 5 mg at night along with tr azodone 100 mg at bedtime to help him with improved sleep. Other medications have been unchanged. Progress Made With Physical And Occupational Therapy: Today, he mobilized a wheelchair 100 feet with contact guard assistance and a rolling walker, ambulated 150 feet with minimum assistance and contac t guard assistance. Bed mobility, sitting and standing and supine with minimum assistance. With occ upational therapy, he was independent with toilet transfers and wheelchair to bed transfers, perform short proximal mobility with a rolling walker independently. Completed 5 sets of carbonic exercises and in toileting, he was independent. With speech, used delayed verbal recall for 3 unrelated words without visual cues after 3 minutes. He was temporally oriented to 75% accuracy and spatially orient ed to 100% accuracy. Four steps in activities of daily living sequence were ordered with 80% accurac y and minimum assistance. Assessment: Mr. Walsh is an 84-year-old patient in the rehabilitation unit with coronary artery disease and debility. He still has decreased mobility, decreased physical functioning, left eye blin dness, dyslipidemia, hypothyroidism, hypertension, constipation, GE reflux, hyponatremia is improving . Plan: He will continue with physical, occupational, and speech therapy 3.5 hours, 5 of 7 days. We w ill continue with super B complex. Continue with insomnia addressing that with trazodone and melaton in. Sodium chloride on board to treat hyponatremia, Protonix for GE reflux, Zofran for nausea, Ensur e Enlive for malnutrition, Hemocyte Plus for low iron count. He has Lopressor on board for heart rat e control and blood pressure control, lidocaine patch for pain, Synthroid for hypothyroidism, Apresol ine for his blood pressure management, Lasix for fluid management, Cymbalta for neuropathic pain and depression, Colace for stool softening, allopurinol for gout, and Tylenol for pain. He will continue therapy. The patient will likely require a safe environment on leaving and close supervision richard hernandez of his visual deficits which make his fall risk very high. ALIA/TERRIE Voice ID: [id number] Report ID: [id number]
[2025-02-11] MEDS ORDERED: LIDOCAINE 4% PATCH TOP SCH (08:00)
[2025-02-11 09:36] LABS: Absolute Basophils 0.1 K/uL (0-0.5); Absolute Eosinophils 0.3 K/uL (0-0.5); Absolute Lymphocytes (CBC) 0.6 K/uL (0.7-4.9); Absolute Monocytes 0.6 K/uL (0.1-1.3); Absolute Neutrophil 4.5 K/uL (1.8-8.0); Basophils % 1.3 % (0-1.3); Eosinophils % 5.5 % (0-4.4); Hematocrit 32.9 % (39.6-49.0); Hemoglobin 11.1 g/dL (13.6-17.9); Lymphocytes % 9.7 % (15.3-44.8); MCH 32.1 pg (27.0-35.0); MCHC 33.6 g/dL (32.0-36.0); MCV 95.5 fL (80-100); MPV 7.6 fL (7.6-11.3); Monocytes % 10.1 % (3.3-12.3); Neutrophils % 73.4 % (41.7-73.7); Platelets 285 thou/uL (152-406); RBC Red Blood Cell Count 3.44 M/uL (4.33-5.43); Red Cell Distribution Width 14.8 % (12.1-15.2)
[2025-02-11] MEDS: MAGNESIUM HYDROXIDE 8% 30 ML PO PRN (09:55)
[2025-02-11 09:56] LABS: Albumin 3.2 g/dL (3.4-5.0); Anion Gap 10.5 mEq/L (5.0-15.0); Magnesium 2.2 mg/dL (1.6-2.4); Potassium 4.5 mEq/L (3.5-5.1); Prealbumin 16.3 mg/dL (20-40)
--- NOTE | 2025-02-11 20:33 | PN ---
Date of Progress Note: 02/11/2025 Time Of Service: 1:10 p.m. Subjective: Mr. Walsh is sitting in a chair. Family is at bedside. He is very happy so far wit h his therapy, although he did say not enough time was spent with him during each patient visit; franko galeana, up to 30 minutes of the time is spent and family at the time were able to have all questions ans wered satisfactorily and he is ready for discharge. He is doing excellent in terms of physical and o ccupational therapy. Review of Systems: No fevers, chills, nausea, vomiting. No significant myalgias, arthralgias. Still has mild pain in t he left eye and wants to follow up in [place] with Ophthalmology. Physical Examination: Vital Signs: Blood pressure 122/76, pulse of 70, respiratory rate of 16, temperature 97.7, oxygen sa turation 95%. General: Mr. Walsh is sitting in a chair in between therapy sessions, about to do occupational t herapy. HEENT: He has no new complaints, left eye blindness is of course present and chronic. Extremities: He has diffuse weakness of upper and lower extremities, proximally more than distally. Otherwise, again doing very well. No new findings on examination. Laboratory Studies: White blood cell count 6.1, hemoglobin 11.1, platelets are 285. Sodium 130, whi ch is down from 135; potassium 4.5; chloride 97; carbon dioxide 27; BUN 25; creatinine 1.23, which palacios s improved from 1.4. His glucose 147, calcium 9.7. Magnesium 2.2. Albumin 3.2, prealbumin 16.3. X-ray/imaging: No new x-rays or imaging. Medications: Medications have been reviewed. He has not had any significant changes in his medicati ons. However, he has had Milk of Magnesia for stool softening, 30 mL given today. Medications have been continued unchanged. He does have sodium chloride tablet replacement, which is 1 g 3 times rama y with meals. Progress Made With Physical, Occupational, And Speech Therapy: With physical therapy today, he was a ble to do yexunk-wl-ivr transfers independently, perform multiple obh-yb-qhlul transfers independentl y. He did toilet transfers independently as well did ambulate well with use of grab bars as he used a rolling walker to mobilize. In terms of a rolling walker, he ambulated 350 feet twice, 150 feet on ce independently. He ascended and descended 20 steps with bilateral handrails independently. He mob ilized a wheelchair 250 feet independently. With occupational therapy, independent for sit to stand, independent for shower transfer and using the grab bars. Also, completed bathing, upper and lower b khadra dressing, donning and doffing footwear, all independently. With his speech, he did improve his B IMS score from 7-14 with a full score of 15 being normal. His SLUMS score improved from 13 to 15/30. He was found to be at baseline with short-term memory issues. Recommended to continue therapy as b est as possible after his discharge tomorrow. Assessment: Mr. Walsh is an 84-year-old patient with coronary artery disease and rehab with decr eased mobility, decreased physical functioning, some debility. He has left eye blindness and pain, h yponatremia. He has of course hypertension, insomnia, constipation, hypothyroidism. He has anemia, dyslipidemia, and gout. Plan: We will continue with physical, occupational, and speech therapy as well as discharge. Contin ue all comorbid condition medications, which have been listed. He will be discharged in the morning and will have therapy continue via Home Health. Family will be in charge of helping him to continue to do well and he will follow up with Neuro-Ophthalmology in [place] as scheduled. PATI Voice ID: [id number] Report ID: [id number]
[2025-02-12 06:26] VITALS: BP 134/62; TEMP 97.2
== END 2025-02-12 11:02 | disposition home health service (06) | DRG 303 ==
LOC: 5TH 10:28
PROVIDERS: ADMIT Psychiatry & Neurology Neurology with Special Qualifications in Child Neurology; ATTEND Psychiatry & Neurology Neurology with Special Qualifications in Child Neurology
DX: I25.10 Atherosclerotic heart disease of native coronary artery without angina pectoris (principal); E87.1 Hypo-osmolality and hyponatremia; I50.30 Unspecified diastolic (congestive) heart failure; I11.0 Hypertensive heart disease with heart failure; K21.9 Gastro-esophageal reflux disease without esophagitis; E78.5 Hyperlipidemia, unspecified; M10.9 Gout, unspecified; R53.81 Other malaise; E03.9 Hypothyroidism, unspecified; D64.9 Anemia, unspecified; M62.838 Other muscle spasm; H54.7 Unspecified visual loss; K59.00 Constipation, unspecified; F32.A Depression, unspecified; H57.12 Ocular pain, left eye; G47.00 Insomnia, unspecified; Z95.1 Presence of aortocoronary bypass graft
CPT/HCPCS: 36415; 80048; 81001; 82040; 83735; 84134; 85025; 85027; 87086; 87088; 92523; 97110; 97116; 97129; 97163; 97165; 97530; 97542; J2003